=== PATIENT | female | born 1960 | race Caucasian/White ===

== ENCOUNTER 2024-06-25 10:51 | Outpatient (CLI) | payer MEDICARE, MEDICAID, SELFPAY | END 2024-06-25 10:52 | disposition home or self-care (01) | LOC: NFLDREF 10:52 | PROVIDERS: Visit Provider Internal Medicine | DX: E03.9 Hypothyroidism, unspecified (principal) | CPT/HCPCS: 84443 ==

== ENCOUNTER 2024-10-20 09:37 | Outpatient (CLI) | payer MEDICARE, MEDICAID, SELFPAY | END 2024-10-20 09:38 | disposition home or self-care (01) | LOC: NFLDREF 09:38 | PROVIDERS: PCP Internal Medicine; Visit Provider Internal Medicine | DX: E03.9 Hypothyroidism, unspecified (principal); E11.9 Type 2 diabetes mellitus without complications | CPT/HCPCS: 84443 ==

== ENCOUNTER 2024-11-17 09:24 | Outpatient (CLI) | payer MEDICARE, MEDICAID, SELFPAY | END 2024-11-17 09:25 | disposition home or self-care (01) | PROVIDERS: PCP Internal Medicine; Visit Provider Internal Medicine | DX: E11.9 Type 2 diabetes mellitus without complications (principal); E03.9 Hypothyroidism, unspecified; Z86.711 Personal history of pulmonary embolism; Z79.01 Long term (current) use of anticoagulants; Z51.81 Encounter for therapeutic drug level monitoring | CPT/HCPCS: 80053; 80061; 82306 ==

== ENCOUNTER 2025-01-01 10:23 | Emergency (ER) | payer MEDICARE, MEDICAID, SELFPAY ==
--- OUTSIDE RECORDS SUMMARY | 2012-09-05 08:33 | XMS_ITS | Continuity of Care Document ---
Author Organization [facility] Address [address] [address] [place] [address] Phone Care Team Providers Care Food Service Kitchen Supervisor Name Role Phone Unavailable Unavailable Unavailable Medications Medication Instructions Dosage Effective Dates (start - stop) Status Comments loperamide 2 mg tablet take 2 tablet (4MG) by oral route after 1st loose stool and 1 tablet (2 mg) after each next bowel movement; do not exceed 16 mg in 24hrs 4 MG - Active loperamide 2 mg tablet take 2 tablet (4MG) by oral route after 1st loose stool and 1 tablet (2 mg) after each next bowel movement; do not exceed 16 mg in 24hrs 4 MG - No Longer Active Procedures Procedure Date Offic/outpt E&m [facility] 2 13 Offic/outpt E&m [facility] Advance Directives Directive Yes / No Effective Date File Name No Information Encounters Encounter Description Practice Location Reason(s) For Visit Diagnoses Date Provider Providers Copied on Encounter [facility], [address] [address], [place], [place], [id number], [place] [phone] [facility] [address] No Information [address] [facility], [address] [address], [place], [place], [id number], [place] [phone] [facility] [address] No Information 3 No Information Offic/outpt E&m [facility] [address] [facility], [address] [address], [place], [place], [id number], [place] [phone] [facility] No Information 3 No Information Offic/outpt E&m [facility], [address] [address], [place], [place], [id number], [place] tel:[phone] No Information 0 2 No Information Family History Family Member Type Diagnosis Age At Onset No Information Payers Payer name Insurance type Covered libertarian ID Authoriza tion(s) Medicare NGS MB [id number] [place] Medical Assistance [id number] Social History Type Description Quantity Date Captured Comments Sex Female Smoking Status No Information Chief Complaint And Reason For Visit No Information Reason For Referral Reason For Referral No Information History Of Present Illness Encounter Date Complaint History Of Prese nt Illness No Information Functional Status Date Functional Assessmen t No Information Instructions Date Instruction Additional Infor mation No Information Assessments Type Assessment Date No Information Patient Care Teams Name Effective Dates (start - stop) Status Members No Information
[2025-01-01 10:35] VITALS: BP 126/71; PULSE 111; RESP 18; TEMP 36.5; O2SAT 95; BMI 40.2
--- NOTE | 2025-01-01 10:52 | CRLHL7_ITS ---
For Patients: As a result of the Century Cures Act, medical imaging exams and procedure reports are released immediately into your electronic medical record. You may view this report before your referring provider. If you have questions, please contact your health care provider. INDICATION: Shortness of breath, rule out PE. History of lung skin and endometrial cancer.. TECHNIQUE: CT chest PE was acquired with 100 cc Omnipaque 350 IV contrast. COMPARISON: None. FINDINGS: Heart and vasculature: Contrast opacification of the pulmonary arterial tree is adequate. No sign of pulmonary embolism. Heart size is normal. Thoracic aorta and pulmonary artery are normal in caliber.Moderate pericardial effusion. Lungs and pleura: Patchy consolidations and ground-glass opacities in the left upper lobe. Background of mild centrilobular emphysematous changes in the bilateral upper lobes. 5 millimeter nodule in the right middle lobe (5/130) 3 millimeter pleural-based nodule (5/109). Calcified granuloma in the left upper lobe (5/60). Nodular opacity in the left upper lobe along the fissure measuring up to 11 millimeters in diameter (5/81). No pleural effusions, pleural thickening, or pneumothorax. Lymph nodes/mediastinum: No mediastinal, hilar, or axillary adenopathy. Prominent right hilar and subcarinal lymph nodes. Chest wall: No masses. Upper abdomen: No acute or significant findings. Bones: Unremarkable for age. Multilevel degenerative changes. IMPRESSION: 1. No pulmonary embolism identified. 2. Patchy consolidation and ground-glass opacities in the left upper lobe. This is concerning for pneumonia. Given history of lung cancer, malignancy is not entirely excluded. Recommend follow-up CT of the chest post treatment to ensure resolution and assess for underlying nodules or mass lesions. 3. Nodular opacity along the left upper lobe pleura measuring up to 11 millimeters in diameter may reflect a reactive lymph node or focal area of consolidation. This should also be reassessed on repeat imaging. 4. Moderate pericardial effusion. Please note that all CT scans at this facility use dose modulation, iterative reconstruction, and/or weight-based dosing when appropriate to reduce radiation dose to as low as reasonably achievable. Dictated by Елена Torres MD @ 01/01/2025 1:46:19 PM (Electronically Signed)
--- NOTE | 2025-01-01 10:53 | ED.CHESTPAIN ---
HPI - Chest Pain General Chief Complaint: Chest Pain Stated Complaint: chest pain and other concerns Time Seen by Provider: 01/01/25 10:44 History of Present Illness HPI narrative: Patient is a 64-year-old woman who comes in today with 3 days of left-sided chest pain. She states the pain is been escalating since we changed her from Eliquis to Xarelto. Patient sees me in primary care clinic and saw me approximately week ago at which point the patient told me that she had a pericardial effusion and that her corporate sales trainer is recommending a change from Eliquis to Xarelto. We did make that change. Review of records indicate that the pericardial effusion was not near tamponade and needed no further changes. 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 Related Data Home Medications ?Medication ?Instructions ?Recorded ?Confirmed alcohol swabs (Alcohol Prep Pads) pad topical DAILY diabetes mellitus 06/25/24 12/24/24 benzonatate 100 mg capsule 200 mg PO 3XD PRN cough 06/25/24 12/24/24 carboxymethylcellulose sodium 1 % 1 drp ophthalmic (eye) 06/25/24 12/24/24 eye liquid gel drops (Refresh Liquigel) ciprofloxacin 0.3 %-dexamethasone 4 drp otic (ear) BID 06/25/24 12/24/24 0.1 % ear drops,suspension coenzyme Q10 200 mg capsule 200 mg PO QDAY 06/25/24 12/24/24 cyclobenzaprine 10 mg tablet 5 mg PO 3XD PRN muscle spasm 06/25/24 12/24/24 hydromorphone 4 mg tablet 2 mg PO Q4H PRN 06/25/24 12/24/24 ipratropium bromide 17 inhalation 06/25/24 12/24/24 mcg/actuation HFA aerosol inhaler (Atrovent HFA) loperamide 2 mg capsule 2 - 4 mg PO 3XD PRN diarrhea 06/25/24 12/24/24 mometasone 50 mcg/actuation nasal 2 spray intranasal DAILY 06/25/24 12/24/24 spray nystatin 100,000 unit/gram topical topical 06/25/24 12/24/24 powder (Nyamyc) potassium citrate 10 mEq (1,080 10 meq PO BID 01/09/25 07/10/25 mg) tablet,extended release warfarin 6 mg tablet 6 mg PO 3XW 06/25/24 12/24/24 apixaban 5 mg tablet (Eliquis) 5 mg PO BID 11/17/24 12/24/24 Previous Rx's ?Medication ?Instructions ?Recorded diazepam 2 mg tablet 4 mg (2 x 2 mg) PO BID #60 tabs 08/25/24 STRETCH VINYL EXAM GLOVE XL See Rx Instructions .Route 09/16/24 .COMPLEX #200 ea diphenhydramine HCl 50 mg capsule 50 mg PO BID PRN allergy symptoms 10/21/24 (Banophen) #60 caps STRETCH VINYL EXAM GLOVE XL See Rx Instructions .Route 11/10/24 .COMPLEX #200 ea blood sugar diagnostic (OneTouch #450 ea 11/17/24 Ultra Test strips) ergocalciferol (vitamin D2) 1,250 1,250 mcg PO QDAY #90 caps 11/17/24 mcg (50,000 unit) capsule levothyroxine 137 mcg capsule 137 mcg PO QDAY #90 caps 11/17/24 (Tirosint) peg 3350-electrolytes 236 240 ml PO Q10M #4,000 mL 11/25/24 gram-22.74 gram-6.74 gram-5.86 gram solution (Golytely) omeprazole 40 mg-sodium 1 cap PO BID #180 caps 12/09/24 bicarbonate 1.1 gram capsule tirzepatide 10 mg/0.5 mL 10 mg (0.5 mL) subcut QWEEK #6 mL 12/09/24 subcutaneous pen injector (Mounjaro) rivaroxaban 15 mg (42)-20 mg (9) See Rx Instructions PO .COMPLEX 12/24/24 tablets in a starter pack (Xarelto #51 ea DVT-PE Treatment 30-Day Starter) Allergies Allergy/AdvReac Type Severity Reaction Status Date / Time aloe Allergy Mild Verified 01/01/25 10:41 amoxicillin (From Augmentin) Allergy Mild Verified 01/01/25 10:41 clavulanic acid (From Allergy Mild Verified 01/01/25 10:41 Augmentin) metronidazole (From Flagyl) Allergy Mild Verified 01/01/25 10:41 niacin Allergy Mild Verified 01/01/25 10:41 Penicillins Allergy Mild Verified 01/01/25 10:41 Sulfa (Sulfonamide Allergy Mild Verified 01/01/25 10:41 Antibiotics) house dust Allergy Difficulty Verified 01/01/25 10:41 Breathing cats Allergy Mild Uncoded 12/24/24 14:32 skin allergy Allergy Mild Uncoded 12/24/24 14:32 statin drugs Allergy Mild Uncoded 12/24/24 14:32 Review of Systems Status of ROS Denies: 10 or more systems reviewed and unremarkable except as noted in History and below [facility] History Colon polyp ?K63.5 - Polyp of colon (ICD-10) Sinusitis ?J32.9 - Chronic sinusitis, unspecified (ICD-10) Seasonal allergies ?J30.2 - Other seasonal allergic rhinitis (ICD-10) Anxiety ?F41.9 - Anxiety disorder, unspecified (ICD-10) GERD (gastroesophageal reflux disease) ?K21.9 - Gastro-esophageal reflux disease without esophagitis (ICD-10) Pulmonary embolism ?I26.99 - Other pulmonary embolism without acute cor pulmonale (ICD-10) COPD (chronic obstructive pulmonary disease) ?J44.9 - Chronic obstructive pulmonary disease, unspecified (ICD-10) Endometrial cancer ?C54.1 - Malignant neoplasm of endometrium (ICD-10) Lung cancer ?C34.90 - Malignant neoplasm of unspecified part of unspecified bronchus or lung (ICD-10) Hypothyroid ?E03.9 - Hypothyroidism, unspecified (ICD-10) Diabetes ?E11.9 - Type 2 diabetes mellitus without complications (ICD-10) Social History What is your current living situation?: I presently have a place to live Problems where you live: no known problems In the past 12 months, utilities in danger of being shut off: no In past 12 months, lack of transportation kept you from medical appts, meetings, work, or getting things needed for daily living: no In the past 12 mos, have been you worried that your food would run out before you had money to buy more?: sometimes true In the past 12 mos, the food you bought just didn't last and you didn't have money to buy more?: sometimes true How often does anyone, including family, friends and others, physically hurt you: never How often does anyone, including family, friends and others, insult or talk down to you: never How often does anyone, including family, friends and others, threaten you with harm: never How often does anyone, including family, friends and others, scream or curse at you: never Health Related Social Needs: food insecurity (Z59.41) Exam Narrative Exam Narrative: EXAM GENERAL: Patient appears comfortable and well. Port noted over the right chest wall. EYES: No scleral icterus. ENT: Tympanic membranes and oropharynx normal. THYROID: no thyroid nodules or thyromegaly. LYMPH: No supraclavicular or cervical lymphadenopathy. SKIN: Visible skin seen during exam normal or with benign process only. EXT: No dependent lower extremity pedal edema. HEART: Regular rate and rhythm with no murmurs, rubs, or gallops. LUNGS: Clear to auscultation bilaterally with no crackles or wheezes. ABD: Soft, non tender, non distended. PSYCH: Good eye contact, speech is not pressured. Const Vital Signs, click to edit/add: Vital Signs - 24 hr 01/01/25 10:35 Temperature 97.7 F Pulse Rate [Right Pulse Oximeter] 111 H Respiratory Rate 18 Blood Pressure [Right Forearm] 126/71 Pulse Oximetry 95 Oxygen Delivery Method Room Air Course Course ED Course: Her presentation is somewhat confusing. We did send off D-dimer CBC comprehensive metabolic panel troponin EKG CT chest PE protocol will follow up based on those results. Vital Signs Vital signs: Initial Vital Signs Temperature 97.7 F 01/01/25 10:35 Temperature Source Temporal Artery Scan 01/01/25 10:35 Pulse Rate 111 H 01/01/25 10:35 Pulse Rhythm Regular 01/01/25 10:35 Pulse Strength 3+ Normal 01/01/25 10:35 Respiratory Rate 18 01/01/25 10:35 Blood Pressure 126/71 01/01/25 10:35 Blood Pressure Mean 89 01/01/25 10:35 Blood Pressure Position Sitting 01/01/25 10:35 Pulse Oximetry 95 01/01/25 10:35 Oxygen Delivery Method Room Air 01/01/25 10:35 Vital Signs Temperature 97.7 F 01/01/25 10:35 Pulse Rate 111 H 01/01/25 10:35 Respiratory Rate 18 01/01/25 10:35 Blood Pressure 126/71 01/01/25 10:35 Pulse Oximetry 95 01/01/25 10:35 Oxygen Delivery Method Room Air 01/01/25 10:35 Temperature 97.7 F 01/01/25 10:35 Pulse Rate 111 H 01/01/25 10:35 Respiratory Rate 18 01/01/25 10:35 Blood Pressure 126/71 01/01/25 10:35 Pulse Oximetry 95 01/01/25 10:35 Oxygen Delivery Method Room Air 01/01/25 10:35 MDM - Chest Pain MDM Narrative Medical decision making narrative: Patient is a 64-year-old woman who is actually my primary care patient who presents with a very complex presentation. She has a known history of a pericardial effusion which is felt to be not dangerous at this time. Her corporate sales trainer had her see me a recently where we were to change her from Eliquis to Xarelto. We did that the patient was actually doing fairly well until she developed left-sided chest pain. Her troponin is negative her D-dimer is negative but her CT of the chest while it does not show pulmonary emboli does showed pneumonia on the left-hand side. She does have a pericardial effusion. I did review the results with the patient the patient will stay on Xarelto and will add Levaquin for the next 7 days. She will see me back in the office in approximately 5 days will make further recommendations. Lab Data Labs: Lab Results 01/01/25 Range/Units 11:10 WBC 6.37 (4.50-11.00) K/uL RBC 5.35 H (4.00-5.20) m/uL Hgb 15.3 (12.0-16.0) gm/dL Hct 47.2 (33.0-51.0) % MCV 88 (80-100) fL MCH 29 (26-34) pg MCHC 32 (32-36) gm/dL RDW Coeff of Vicente 12.6 (11.5-15.5) % Plt Count 168 (140-440) K/uL Neut % (Auto) 66.9 (42.0-72.0) % Lymph % (Auto) 25.7 (20-44) % Carroll % (Auto) 6.1 (0.0-11.0) % Eos % (Auto) 0.9 (0.0-7.0) % Baso % (Auto) 0.2 (0.0-3.0) % Neut # (Auto) 4.26 (1.7-7.0) K/uL Lymph # (Auto) 1.64 (0.90-2.90) K/uL Carroll # (Auto) 0.40 (0.00-0.90) K/UL Eos # (Auto) 0.06 (0.00-0.50) K/uL Baso # (Auto) 0.01 (0.00-0.30) K/uL Abs Immat Gran (auto) 0.01 (0.00-0.30) K/uL Imm/Tot Granulo (auto) 0.2 % D-Dimer Quant (PE/DVT) < 0.27 (0.00-0.50) ug/ml Sodium 139 (135-149) mmol/L Potassium 4.1 (3.6-5.1) mmol/L Chloride 104 (96-114) mmol/L Carbon Dioxide 30 (20-32) mmol/L Anion Gap 5 L (7-15) mEq/L BUN 15 (7-30) mg/dL Creatinine 0.5 (0.5-1.5) mg/dL Estimated Creat Clear 41.36 Estimated GFR 105 ml/min Glucose 116 H (60-115) mg/dL Calcium 9.4 (8.4-10.6) mg/dL Total Bilirubin 0.3 (0.1-1.5) mg/dL AST 24 (12-35) U/L ALT 15 (4-35) U/L Alkaline Phosphatase 62 (40-150) U/L Troponin I < 0.01 (0.01-0.04) ng/mL Total Protein 7.0 (6.0-8.3) g/dL Albumin 4.2 (3.3-5.0) g/dL Discharge Plan Discharge Clinical Impression: Pneumonia Patient Disposition: Home, Self-Care Condition: Stable Instructions: Community Acquired Pneumonia (ED) Additional Instructions: Levaquin as directed Continue Xarelto Report any change in symptoms Follow-up with Dr. Eden Saturday at 9:00 a.m. Activity Level: No Restrictions Discharge Diet: Regular Prescriptions: No Action loperamide 2 mg capsule 2 - 4 mg PO 3XD PRN (Reason: diarrhea) hydromorphone 4 mg tablet 2 mg PO Q4H PRN cyclobenzaprine 10 mg tablet 5 mg PO 3XD PRN (Reason: muscle spasm) alcohol swabs [Alcohol Prep Pads] Pads, Medicated topical DAILY carboxymethylcellulose sodium [Refresh Liquigel] 1 % drops, liquid gel 1 drp ophthalmic (eye) ciprofloxacin-dexamethasone 0.3-0.1 % drops,suspension 4 drp otic (ear) BID warfarin 6 mg tablet 6 mg PO 3XW mometasone 50 mcg/actuation spray,non-aerosol 2 spray intranasal DAILY benzonatate 100 mg capsule 200 mg PO 3XD PRN (Reason: cough) potassium citrate 10 mEq (1,080 mg) tablet extended release 10 meq PO BID Atrovent HFA 17 mcg/actuation HFA aerosol inhaler inhalation nystatin [Nyamyc] 100,000 unit/gram powder topical coenzyme Q10 200 mg capsule 200 mg PO QDAY Eliquis 5 mg tablet 5 mg PO BID ergocalciferol (vitamin D2) 1,250 mcg (50,000 unit) capsule 1,250 mcg PO QDAY Qty: 90 3RF levothyroxine [Tirosint] 137 mcg capsule 137 mcg PO QDAY Qty: 90 3RF Xarelto DVT-PE Treat 30d Start 15 mg (42)- 20 mg (9) tablets,dose pack See Rx Instructions PO .COMPLEX Qty: 51 0RF Rx Instructions: take one-15 mg tablet twice daily for 21 days, then one-20 mg tablet once daily; must take with meal/food PO diazepam 2 mg tablet 4 mg PO BID Qty: 60 0RF STRETCH VINYL EXAM GLOVE XL See Rx Instructions .ROUTE .COMPLEX Qty: 200 3RF Dose Instruction: USE DIRECTED DAILY NEEDED FOR DIABETES Rx Instructions: USE DIRECTED DAILY NEEDED FOR DIABETES diphenhydramine HCl [Banophen] 50 mg capsule 50 mg PO BID PRN (Reason: allergy symptoms) Qty: 60 2RF STRETCH VINYL EXAM GLOVE XL See Rx Instructions .ROUTE .COMPLEX Qty: 200 3RF Dose Instruction: USE DIRECTED DAILY NEEDED FOR DIABETES Rx Instructions: USE DIRECTED DAILY NEEDED FOR DIABETES (DME) OneTouch Ultra Test Strip See Rx Instructions .ROUTE 3XD Qty: 450 1RF Rx Instructions: test 4-5 times daily peg 3350-electrolytes [Golytely] 236-22.74-6.74 -5.86 gram recon soln 240 ml PO Q10M Qty: 4000 0RF Rx Instructions: until fecal effluent is clear Mounjaro 10 mg/0.5 mL pen injector 10 mg subcut QWEEK Qty: 6 0RF omeprazole-sodium bicarbonate 40-1.1 mg-gram capsule 1 cap PO BID Qty: 180 1RF Follow Up/Referrals: Chuy Eden MD [Primary Care Provider, Internal Medicine] Stand Alone Forms: [facility] Info Instructions
[2025-01-01 11:15] LABS: Hematocrit 47.2 % (33.0-51.0); Hemoglobin* 15.3 gm/dL (12.0-16.0); Immature Granulocytes Abs Auto 0.01 K/uL (0.00-0.30); Immature Granulocytes Pct Auto 0.2 %; Lymphocytes Absolute Auto 1.64 K/uL (0.90-2.90); Mean Corpuscular HGB Conc 32 gm/dL (32-36); Mean Corpuscular Hemoglobin 29 pg (26-34); Mean Corpuscular Volume 88 fL (80-100); RDW Coefficient of Variation % 12.6 % (11.5-15.5); Red Blood Count 5.35 m/uL (4.00-5.20); White Blood Count* 6.37 K/uL (4.50-11.00)
[2025-01-01 11:18] LABS: Slide Review Reflex No
--- OUTSIDE RECORDS SUMMARY | 2025-01-01 11:21 | XMS_ITS | Encounter Summary ---
Author Organization [place] Address [address] [place] [address]. [place] [address] Care Team Providers Care Communications Advisor Name Role Phone Swapna licea Unavailable Unavail able Jonathan Sosa MD Primary Care Provider [phone] Jonathan Sosa MD Unavailable [phone] Anne Lopez MD Unavailable [phone] Ruth Trinidad [facility] Unavailable Ruth Trinidad [facility] Unavailable Encounter Details Date Type Department Care Team (Late st Contact Info) Description 02/15/2023 [facility] [address] [place] [address] Jyothi Reina, RN Social History Tobacco Use Types Packs/Day Years Used Date Smoking Tobacco: Every Day Cigarettes 0.5 35 Started: 01/23/1940; Last attempted to quit: 01/24/1976 Pipe Other Passive Smoke Exposure: Current Smokeless Tobacco: Never Comments:IN PROGRAM WITH OCTOBER O Alcohol Use Standard Drinks/Week Comments No 0 (1 standard drink = 0.6 oz pur e alcohol) PHQ-2 Answer Date Recorded PHQ-2 Score 1 02/06/2023 Comments No Sex and Gender Information Value Date Recorded Sex Assigned at Not on file 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 No / Unsure 02/06/2023 8:05 AM CDT documented as of this encounter Plan of Treatment Not on file documented as of this encounter Visit Diagnoses Not on filedocumented in this encounter Additional Health Concerns Infection Onset Date Last Indicated Resolved Time Rule Out COVID-19 04/17/2023 04/17/2023 04/18/2023 12:03 PM CDT documented as of this encounter Care Teams Communications Advisor Relationship Specialty Start Date End Date Jonathan Sosa MD [address] [place] [address] PCP - General Internal Medicine 02/14/22 Swapna Lockwood Referring Physician sales estimator 12/29/14 Jonathan Sosa MD [address] [place] [address] Assigned PCP 01/17/22 Anne Lopez MD [address] [place] [address] [address] [place] [address] Gastroenterology 08/03/22 Ruth Trinidad RPH [address] [place] [address] Pharmacist Pharmacist Software Quality Tester 09/06/23 10/09/23 Ruth Trinidad RPH [address] [place] [address] Assigned MTM Pharmacist 10/08/23 documented as of this encounter
--- OUTSIDE RECORDS SUMMARY | 2025-01-01 11:21 | XMS_ITS | Encounter Summary ---
Author Organization [place] Address [address] [place] [address] Care Team Providers Care [place] Neck Whipper Name Role Phone Swapna Lockwood Unavailable Unavail able Jonathan Sosa MD Primary Care Provider [phone] Jonathan Sosa MD Unavailable [phone] Anne Lopez MD Unavailable [phone] [facility] Unavailable Ruth Trinidad [facility] Unavailable Reason for Visit * Reason Onset Date Comments Refill Request 03/12/2023 Encounter Details Date Type Department Care Team (Late st Contact Info) Description 03/12/2023 [facility] Medical Advice [address] [place] [address] Jonathan Sosa MD [address] [place] [address] Refill Request Social History Tobacco Use Types Packs/Day Years Used Date Smoking Tobacco: Every Day Cigarettes 0.5 35 Started: 01/23/1940; Last attempted to quit: 01/24/1976 Pipe Other Passive Smoke Exposure: Current Smokeless Tobacco: Never Comments:IN PROGRAM WITH MAY O Alcohol Use Standard Drinks/Week Comments No 0 (1 standard drink = 0.6 oz pur e alcohol) PHQ-2 Answer Date Recorded PHQ-2 Score 1 02/06/2023 Adolescent Education Answer Date Record ed Getting School Help Needed Not on file 03/11 Comments No Sex and Gender Information Value Date Recorded Sex Assigned at Not on file 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 Gender Identity Not on file Sexual Orientation Not on file Occupation Industry Job Start Date Job End Date disabled Not on file Not on file Not on file documented as of this encounter Plan of Treatment Not on file documented as of this encounter Visit Diagnoses Not on filedocumented in this encounter Additional Health Concerns Infection Onset Date Last Indicated Resolved Time Rule Out COVID-19 04/17/2023 04/17/2023 04/18/2023 12:03 PM CDT documented as of this encounter Care Teams [place]ck Whipper Relationship Specialty Start Date End Date Jonathan Sosa MD [address] [facility] [place] [address] PCP - General Internal Medicine 02/14/22 Swapna Lockwood Referring Physician wire brush maker 12/29/14 Jonathan Sosa MD [address] [place] [address] Assigned PCP 01/17/22 Anne Lopez MD [address] [place] [id number] Gastroenterology 08/03/22 Ruth Trinidad RPH [address] [place] [address] Pharmacist Pharmacist Pe Teacher 09/06/23 10/09/23 Ruth Trinidad RPH [address] [place] [address] Assigned MTM Pharmacist 10/08/23 documented as of this encounter
--- OUTSIDE RECORDS SUMMARY | 2025-01-01 11:21 | XMS_ITS | Encounter Summary ---
Author Organization [place] Address [address] [place] [address]. [place] [address] Care Team Providers Care Director Of Leadership Development Name Role Phone Swapna licea Unavailable Unavail able Jonathan Sosa MD Primary Care Provider +- [phone] Jonathan Sosa MD Unavailable [phone] Anne Lopez MD Unavailable [phone] Ruth Trinidad [facility] Unavailable Ruth Trinidad [facility] Unavailable Encounter Details Date Type Department Care Team (Late st Contact Info) Description 02/26/2023 [facility] [address] [place] [address] Andre Tenorio, RN Social History Tobacco Use Types Packs/Day [...] on file 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 Gender Identity Not on file Sexual [...] documented as of this encounter Care Teams Director Of Leadership Development Relationship Specialty Start Date End Date Jonathan Sosa MD [address] [place] [address] PCP - General Internal Medicine 02/14/22 Swapna Lockwood Referring Physician front desk attendant 12/29/14 Jonathan Sosa MD [address] [place] [address] Assigned PCP 01/17/22 Anne Lopez MD [address] [place] [address] [address] [place] [address] Gastroenterology 08/03/22 Ruth Trinidad RPH [address] [place] [address] Pharmacist Pharmacist Inker 09/06/23 10/09/23 Ruth Trinidad RPH [address] [place] [address] Assigned MTM Pharmacist 10/08/23 documented as of this encounter
--- OUTSIDE RECORDS SUMMARY | 2025-01-01 11:21 | XMS_ITS | Encounter Summary ---
Author Organization [place] Address [address] [place] [address]. [place] [address] Care Team Providers Care Controller Mechanic Name Role Phone Swapna licea Nubia Unavailable Unavail able Jonathan Sosa MD Primary Care Provider [phone] Jonathan Sosa MD Unavailable [phone] Anne Lopez MD Unavailable [phone] Ruth Trinidad [facility] Unavailable Ruth Trinidad [facility] Unavailable Encounter Details Date Type Department Care Team (Late st Contact Info) Description 03/26/2023 [facility] Anticoagulation Clinic [address] [place] [address] Andre Tenorio RN Social History Tobacco Use Types Packs/Day [...] on file 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 Gender Identity Not on file Sexual Orientation [...] documented as of this encounter Care Teams Controller Mechanic Relationship Specialty Start Date End Date Jonathan Sosa MD [address] [place] [address] PCP - General Internal Medicine 02/14/22 Swapna Lockwood Referring Physician political reporter 12/29/14 Jonathan Sosa MD [address] [place] [address] Assigned PCP 01/17/22 Anne Lopez MD [address] [place] [address] Gastroenterology 08/03/22 Ruth Trinidad RPH [address] [place] [address] Pharmacist Pharmacist Footwear Sales Coordinator 09/06/23 10/09/23 Ruth Trinidad RPH [address] [place] [address] Assigned MTM Pharmacist 10/08/23 documented as of this encounter
--- OUTSIDE RECORDS SUMMARY | 2025-01-01 11:21 | XMS_ITS | Encounter Summary ---
Author Organization [place] Address [address] [place] [address]. [place] [address] Care Team Providers Care Infant Caregiver Name Role Phone Swapna licea Nubia Unavailable Unavail able Jonathan Sosa MD Primary Care Provider +- [phone] Jonathan Sosa MD Unavailable [phone] Anne Lopez MD Unavailable [phone] Ruth Trinidad [facility] Unavailable Ruth Trinidad [facility] Unavailable Encounter Details Date Type Department Care Team (Late st Contact Info) Description 03/13/2023 [facility] [address] [place] [address] Andre Tenorio RN Social History [...] on file 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 Gender Identity Not on file [...] documented as of this encounter Care Teams Infant Caregiver Relationship Specialty Start Date End Date Jonathan Sosa MD [address] [place] [address] PCP - General Internal Medicine 02/14/22 Swapna Lockwood Referring Physician ore bridge operator 12/29/14 Jonathan Sosa MD [address] [place] [address] Assigned PCP 01/17/22 Anne Lopez MD [address] [place] [id number] Gastroenterology 08/03/22 Ruth Trinidad RPH [address] [place] [address] Pharmacist Pharmacist Programmer Analyst Consultant 09/06/23 10/09/23 Ruth Trinidad RPH [address] [place] [address] Assigned MTM Pharmacist 10/08/23 documented as of this encounter
--- OUTSIDE RECORDS SUMMARY | 2025-01-01 11:21 | XMS_ITS | Encounter Summary ---
Author Organization [facility] Address [address] [place] [address]. [place] [address] Care Team Providers Care Marketing Analytics Manager Name Role Phone Swapna licea Unavailable Unavail able Jonathan Sosa MD Primary Care Provider [phone] Jonathan Sosa MD Unavailable [phone] Anne Lopez MD Unavailable [phone] Ruth Trinidad [facility] Unavailable Ruth Trinidad [facility] Unavailable Encounter Details Date Type Department Care Team (Late st Contact Info) Description 03/05/2023 [facility]tico[facility] [address] [place] [address] Mira Mendez, RN Social History Tobacco Use Types Packs/Day [...] on file 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 Gender Identity Not on file Sexual Orientation [...] documented as of this encounter Care Teams Marketing Analytics Manager Relationship Specialty Start Date End Date Jonathan Sosa MD [address] [place] [address] PCP - General Internal Medicine 02/14/22 Swapna Lockwood Referring Physician medical records custodian 12/29/14 Jonathan Sosa MD [address] [place] [address] Assigned PCP 01/17/22 Anne Lopez MD [address] [place] [address] Gastroenterology 08/03/22 Ruth Trinidad RPH [address] [place] [address] Pharmacist Pharmacist Rod Cup Filler 09/06/23 10/09/23 Ruth Trinidad RPH [address] [place] [address] Assigned MTM Pharmacist 10/08/23 documented as of this encounter
--- OUTSIDE RECORDS SUMMARY | 2025-01-01 11:21 | XMS_ITS | Encounter Summary ---
Author Organization [place] Address [address] [place] [address]. [place] [address] Care Team Providers Care Junk Dealer Name Role Phone Swapna licea Unavailable Unavail able Jonathan Sosa MD Primary Care Provider [phone] Jonathan Sosa MD Unavailable [phone] Anne Lopez MD Unavailable [phone] Ruth Trinidad [facility] Unavailable Ruth Trinidad [facility] Unavailable Encounter Details Date Type Department Care Team (Late st Contact Info) Description 05/04/2022 [facility] Anticoagulation [facility] [address] [place] [address] Andre Tenorio, RN Social History Tobacco Use Types Packs/Day Years Used Date Smoking Tobacco: Every Day Cigarettes 0.5 35 Started: 01/23/1940; Last attempted to quit: 01/24/1976 Pipe Other Smokeless Tobacco: Never Comments:IN PROGRAM WITH OCTOBER O Alcohol Use Standard Drinks/Week Comments No 0 (1 standard drink = 0.6 oz pur e alcohol) PHQ-2 Answer Date Recorded PHQ-2 Score 2 02/14/2022 Comments No Sex and Gender Information Value Date Recorded Sex Assigned at Not on file 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 No / Unsure 04/25/2022 9:48 AM ASSET MANAGEMENT COORDINATOR documented as of this encounter Plan of Treatment Not on file documented as of this encounter Visit Diagnoses Not on filedocumented in this encounter Additional Health Concerns Infection Onset Date Last Indicated Resolved Time Rule Out COVID-19 04/17/2023 04/17/2023 04/18/2023 12:03 PM CDT documented as of this encounter Care Teams Junk Dealer Relationship Specialty Start Date End Date Jonathan Sosa MD [address] [place] [address] PCP - General Internal Medicine 02/14/22 Swapna Lockwood Referring Physician brokerage clerk 12/29/14 Jonathan Sosa MD [address] [place] [address] Assigned PCP 01/17/22 Anne Lopez MD [address] [place] [address] Gastroenterology 08/03/22 Ruth Trinidad RPH [address] [place] [address] Pharmacist Pharmacist Garnett Machine Operator 09/06/23 10/09/23 Ruth Trinidad RPH [address] [place] [address] Assigned MTM Pharmacist 10/08/23 documented as of this encounter
--- OUTSIDE RECORDS SUMMARY | 2025-01-01 11:21 | XMS_ITS | Encounter Summary ---
Author Organization [place] Address [address] [place] [address]. [place] [address] Care Team Providers Care Meteorological Aide Name Role Phone Swapna Lockwood Unavailable Unavail able Jonathan Sosa MD Primary Care Provider [phone] Jonathan Sosa MD Unavailable [phone] Anne Lopez MD Unavailable [phone] Ruth Trinidad [facility] Unavailable Ruth Trinidad [facility] Unavailable Encounter Details Date Type Department Care Team (Late st Contact Info) Description 04/30/2022 [facility] Anticoagulation [facility] [address] [place] [address] Andre Tenorio, RN Social History [...] on file 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 No / Unsure 04/25/2022 9:48 AM SERGEANT AT ARMS documented as of this encounter Plan of Treatment Not on file documented as of this encounter Visit Diagnoses Not on filedocumented in this encounter Additional Health Concerns Infection Onset Date Last Indicated Resolved Time Rule Out COVID-19 04/17/2023 04/17/2023 04/18/2023 12:03 PM CDT documented as of this encounter Care Teams Meteorological Aide Relationship Specialty Start Date End Date Jonathan Sosa MD [address] [place] [address] PCP - General Internal Medicine 02/14/22 Swapna Lockwood Referring Physician director of technology 12/29/14 Jonathan Sosa MD [address] [place] [address] Assigned PCP 01/17/22 Anne Lopez MD [address] [place] [address] Gastroenterology 08/03/22 Ruth Trinidad RPH [address] [place] [address] Pharmacist Pharmacist Visual Effects Artist 09/06/23 10/09/23 Ruth Trinidad RPH [address] [place] [address] Assigned MTM Pharmacist 10/08/23 documented as of this encounter
--- OUTSIDE RECORDS SUMMARY | 2025-01-01 11:21 | XMS_ITS | Encounter Summary ---
Author Organization [place] Address [address] [place] [address]. [place] [address] Care Team Providers Care Conference Specialist Name Role Phone Swapna licea Nubia Unavailable Unavail able Jonathan Sosa MD Primary Care Provider [phone]- [phone] Jonathan Sosa MD Unavailable [phone] Anne Lopez MD Unavailable [phone] Ruth Trinidad [facility] Unavailable Ruth Trinidad [facility] Unavailable Encounter Details Date Type Department Care Team (Late st Contact Info) Description 02/13/2023 [facility] Anticoagulation Clinic [address] [place] [address] Andre Tenorio, RN Social History [...] on file 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 Gender Identity Not on file Sexual Orientation [...] documented as of this encounter Care Teams Conference Specialist Relationship Specialty Start Date End Date Jonathan Sosa MD [address] [place] [address] PCP - General Internal Medicine 02/14/22 Swapna Lockwood Referring Physician preliminary school psychologist 12/29/14 Jonathan Sosa MD [address] [place] [address] Assigned PCP 01/17/22 Anne Lopez MD [address] [place] [address] [address] [place] [address] Gastroenterology 08/03/22 Ruth Trinidad RPH [address] [place] [address] Pharmacist Pharmacist Parcel Post Carrier 09/06/23 10/09/23 Ruth Trinidad RPH [address] [place] [address] Assigned MTM Pharmacist 10/08/23 documented as of this encounter
--- OUTSIDE RECORDS SUMMARY | 2025-01-01 11:22 | XMS_ITS | Encounter Summary ---
Author Organization [place] Address [address] [place] [address]. [place] [address] Care Team Providers Care Jewelry Department Supervisor Name Role Phone Swapna licea Unavailable Unavail able Jonathan Sosa MD Primary Care Provider [phone] Jonathan Sosa MD Unavailable [phone] Anne Lopez MD Unavailable [phone] Ruht Trinidad [facility] Unavailable Ruth Trinidad [facility] Unavailable Encounter Details Date Type Department Care Team (Late st Contact Info) Description 06/11/[address] [facility] [address] 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 Gender Identity Not on file Sexual Orientation [...] documented as of this encounter Care Teams Jewelry Department Supervisor Relationship Specialty Start Date End Date Jonathan Sosa MD [address] [place] [address] PCP - General Internal Medicine 02/14/22 Swapna Lockwood Referring Physician fire crew worker 12/29/14 Jonathan Sosa MD [address] [place] [address] Assigned PCP 01/17/22 Anne Lopez MD [address] [place] [address] Gastroenterology 08/03/22 Ruth Trinidad RPH [address] [place] [address] Pharmacist Pharmacist Manager Utility 09/06/23 10/09/23 Ruth Trinidad RPH [address] [place] [address] Assigned MTM Pharmacist 10/08/23 documented as of this encounter
--- OUTSIDE RECORDS SUMMARY | 2025-01-01 11:22 | XMS_ITS | Encounter Summary ---
Author Organization [place] Address [address] [place] [address]. [place] [address] Care Team Providers Care Banquet Cook Name Role Phone Swapna licea Unavailable Unavail able Jonathan Sosa MD Primary Care Provider [phone] Jonathan Sosa MD Unavailable [phone] Anne Lopez MD Unavailable [phone] Ruth Trinidad [facility] Unavailable Encounter Details Date Type Department Care Team (Late st Contact Info) Description 11/20/2024 [facility] [address] [place] [address] System, Provider Not In Social History Tobacco Use Types Packs/Day Years Used Date Smoking Tobacco: Every Day Cigarettes 0.5 35 Started: 05/17/1988; Last attempted to quit: 05/17/2023 Pipe Other Passive Smoke Exposure: Current Smokeless Tobacco: Never Comments:IN PROGRAM WITH OCTOBER O Alcohol Use Standard Drinks/Week Comments No 0 (1 standard drink = 0.6 oz pur e alcohol) Social Connection and Isolation Panel [NHANES] A nswer Date Recorded Frequency of Communication with Friends and Fami ly Not on file 05/02/2024 How often do you get together with friends or re latives? Never 05/02/2024 Attends Judaism Services Not on file 05/02 Active Member of Clubs or Organizations Not on f ile 05/02/2024 Attends Club or Organization Meetings Not on francisca e 05/02/2024 Marital Status Not on file 05/02/2024 PHQ-2 Answer Date Recorded PHQ-2 Score 0 05/05/2024 [facility] [place] of Occupat ional Health - Occupational Stress Questionnaire Answer Date Recorded Do you feel stress - tense, restless, nervous, or anxious, or unable to sleep at night because your mind is troubled all the time - these days? Very much 05/02/2024 Exercise Vital Sign Answer Date Recorde d On average, how many days pe r week do you engage in moderate to strenuous exercise (like a brisk walk)? 2 days 05/02/2024 On average, how many minutes do you engage in exercise at this level? 10 min 05/02/2024 Adolescent Education Answer Date Record ed Getting School Help Needed Not on file 03/11 Food Insecurity Answer Date Recorded Within the past 12 months, d id you worry that your food would run out before you got money to buy more? Yes 1 07/02/2023 Within the past 12 months, d id the food you bought just not last and you didn t have money to get more? Patient declined 05/02/2024 Housing Stability Answer Date Recorded Do you have housing? (Housin g is defined as stable permanent housing and does not include staying outside in a car, in a tent, in an abandoned building, in an overnight care home, or couch-surfing.) Yes 05/02/2024 Are you worried about losing your housing? Patie nt declined 05/02/2024 Financial Resource Strain Answer Date R ecorded Within the past 12 months, h ave you or your family members you live with been unable to get utilities (heat, electricity) when it was really needed? No 05/02/2024 Transportation Needs Answer Date Record ed Within the past 12 months, h as lack of transportation kept you from medical appointments, getting your medicines, non-medical meetings or appointments, work, or from getting things that you need? Yes 05/02/2024 Interpersonal Safety Answer Date Record ed Do you feel physically and e motionally safe where you currently live? Yes 05/05/2024 Within the past 12 months, h ave you been hit, slapped, kicked or otherwise physically hurt by someone? No 05/05/2024 Within the past 12 months, h ave you been humiliated or emotionally abused in other ways by your partner or ex-partner? No 05/05/2024 Comments No Sex and Gender Information Value Date Recorded Sex Assigned at Not on file Legal Sex Female 3:[address] OF [address] Gender Identity Not on file Sexual Orientation Not on file Occupation Industry Job Start Date Job End Date disabled Not on file Not on file Not on file documented as of this encounter Plan of Treatment Not on file documented as of this encounter Procedures Procedure Name Priority Date/Time Associated Diagnosis Comments INR (EXTERNAL RESULT) Routine 11/20/2024 3:13 PM CDT documented in this encounter Results * INR (External Result) (11/20/2024 3:13 PM CDT) INR HOME MONITORING 2.5 2.5 - 3 [facility] Comment:RCS - IVR Result Fro m Phone #: 11/20/2024 3:13 PM CDT 11/20/2024 3:13 PM CDT us Provider Not In System LAB - HIM EXTERNAL RESULT Final Result [facility] [address] [place] [address] documented in this encounter Visit Diagnoses Not on filedocumented in this encounter Care Teams Banquet Cook Relationship Specialty Start Date End Date Jonathan Sosa MD [address] [place] [address] PCP - General Internal Medicine 02/14/22 Swapna Lockwood Referring Physician die out worker 12/29/14 Jonathan Sosa MD [address] [place] [address] Assigned PCP 01/17/22 Anne Lopez MD [address] [place] [address] [address] [place], [place] [id number] Gastroenterology 08/03/22 Ruth Trinidad RP [address] [place] [address] Assigned MTM Pharmacist 10/08/23 documented as of this encounter
--- OUTSIDE RECORDS SUMMARY | 2025-01-01 11:22 | XMS_ITS | Encounter Summary ---
Author Organization [place] Address [address] [place] [address]. [place] [address] Care Team Providers Care Blueprint Blocker Name Role Phone vinayak Swapna Nubia Unavailable Unavail able Jonathan oSsa MD Primary Care Provider [phone] Jonathan Sosa MD Unavailable [phone] Anne Lopez MD Unavailable [phone] Ruth Trinidad [facility] Unavailable Encounter Details Date Type Department Care Team (Late st Contact Info) Description 10/26/2024 Results Follow-Up [facility] [address] [place] [address] Nicole Avila RN Social History Tobacco Use Types Packs/Day [...] friends or re latives? 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 Gender Identity Not on file Sexual Orientation Not on file Occupation Industry Job Start Date Job End Date disabled Not on file Not on file Not on file documented as of this encounter Plan of Treatment Not on file documented as of this encounter Visit Diagnoses Not on filedocumented in this encounter Care Teams Blueprint Blocker Relationship Specialty Start Date End Date Jonathan Sosa MD [address] [place] [address] PCP - General Internal Medicine 02/14/22 Swapna Lockwood Referring Physician eligibility clerk 12/29/14 Jonathan Sosa MD [address] [place] [address] Assigned PCP 01/17/22 Anne Lopez MD [address] [place] [address] [address] [place], [place] [address] Gastroenterology 08/03/22 Ruth Trinidad RPH [address] [place], [place] [address] Assigned MTM Pharmacist 10/08/23 documented as of this encounter
--- OUTSIDE RECORDS SUMMARY | 2025-01-01 11:22 | XMS_ITS | Encounter Summary ---
Author Organization [place] Address [address] [place] [address]. [place] [address] Care Team Providers Care Packing Room Inspector Name Role Phone Swapna licea Unavailable Unavail able Jonathan Sosa MD Primary Care Provider [phone] Jonathan Sosa MD Unavailable [phone] Anne Lopez MD Unavailable [phone] Ruth Trinidad [facility] Unavailable Ruth Trinidad [facility] Unavailable Encounter Details Date Type Department Care Team (Late st Contact Info) Description 06/29/2022 [facility] [address] [place] [address] Andre Tenorio, RN Social History [...] on file 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 Gender Identity Not on file Sexual Orientation [...] documented as of this encounter Care Teams Packing Room Inspector Relationship Specialty Start Date End Date Jonathan Sosa MD [address] [place] [address] PCP - General Internal Medicine 02/14/22 Swapna Lockwood Referring Physician glaze handler 12/29/14 Jonathan Sosa MD [address] [place] [address] Assigned PCP 01/17/22 Anne Lopez MD [address] [place] [id number] Gastroenterology 08/03/22 Ruth Trinidad RPH [address] [place] [address] Pharmacist Pharmacist Dual Rate Dealer 09/06/23 10/09/23 Ruth Trinidad RPH [address] [place] [address] Assigned MTM Pharmacist 10/08/23 documented as of this encounter
--- OUTSIDE RECORDS SUMMARY | 2025-01-01 11:22 | XMS_ITS | Encounter Summary ---
Author Organization [place] Address [address] [place] [address]. [place] [address] Care Team Providers Care Senior Linux Engineer Name Role Phone Swapna licea Unavailable Unavail able Jonathan Sosa MD Primary Care Provider [phone] Jonathan Sosa MD Unavailable [phone] Anne Lopez MD Unavailable [phone] Ruth Trinidad [facility] Unavailable Ruth Trinidad [facility] Unavailable Encounter Details Date Type Department Care Team (Late st Contact Info) Description 06/01/2022 [facility] [address] [place] [address] Andre Tenorio, RN Social History [...] on file 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 No / Unsure 05/09/2022 12:44 PM SOLDERER PRODUCTION LINE documented as of this encounter Plan of Treatment Not on file documented as of this encounter Visit Diagnoses Not on filedocumented in this encounter Additional Health Concerns Infection Onset Date Last Indicated Resolved Time Rule Out COVID-19 04/17/2023 04/17/2023 04/18/2023 12:03 PM CDT documented as of this encounter Care Teams Senior Linux Engineer Relationship Specialty Start Date End Date Jonathan Sosa MD [address] [place] [address] PCP - General Internal Medicine 02/14/22 Swapna Lockwood Referring Physician bottle blower 12/29/14 Jonathan Sosa MD [address] [place] [address] Assigned PCP 01/17/22 Anne Lopez MD [address] [place] [address] Gastroenterology 08/03/22 Ruth Trinidad RPH [address] [place] [address] Pharmacist Pharmacist Casing Cleaner 09/06/23 10/09/23 Ruth Trinidad RPH [address] [place] [address] Assigned MTM Pharmacist 10/08/23 documented as of this encounter
--- OUTSIDE RECORDS SUMMARY | 2025-01-01 11:22 | XMS_ITS | Encounter Summary ---
Author Organization [place] Address [address] [place] [address]. [place] [address] Care Team Providers Care Employee Welfare Manager Name Role Phone Swapna licea Nubia Unavailable Unavail able Jonathan Sosa MD Primary Care Provider [phone] Jonathan Sosa MD Unavailable [phone] Anne Lopez MD Unavailable [phone] Ruth Trinidad [facility] Unavailable Ruth Trinidad [facility] Unavailable Encounter Details Date Type Department Care Team (Late st Contact Info) Description 03/26/2023 [facility] [address] [place] [address] Andre Tenorio RN Social History [...] on file 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 Gender Identity Not on file Sexual Orientation [...] documented as of this encounter Care Teams Employee Welfare Manager Relationship Specialty Start Date End Date Jonathan Sosa MD [address] [place] [address] PCP - General Internal Medicine 02/14/22 Swapna Lockwood Referring Physician train system operator 12/29/14 Jonathan Sosa MD [address] [place] [address] Assigned PCP 01/17/22 Anne Lopez MD [address] [place] [address] Gastroenterology 08/03/22 Ruth Trinidad RPH [address] [place] [address] Pharmacist Pharmacist Calker 09/06/23 10/09/23 Ruth Trinidad RPH [address] [place] [address] Assigned MTM Pharmacist 10/08/23 documented as of this encounter
--- OUTSIDE RECORDS SUMMARY | 2025-01-01 11:22 | XMS_ITS | Encounter Summary ---
Author Organization [place] Address [address] [place] [address]. [place] [address] Care Team Providers Care Software Installation Engineer Name Role Phone Swapna licea Nubia Unavailable Unavail able Jonathan Sosa MD Primary Care Provider [phone] Jonathan Sosa MD Unavailable [phone] Anne Lopez MD Unavailable [phone] Ruth Trinidad [facility] Unavailable Encounter Details Date Type Department Care Team (Late st Contact Info) Description 12/28/2024 [facility] [address] [place] [phone] Concepcion Knight, RN Social History Tobacco Use Types Packs/Day [...] friends or re latives? 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 Gender Identity Not on file Sexual Orientation Not on file Occupation Industry Job Start Date Job End Date disabled Not on file Not on file Not on file documented as of this encounter Plan of Treatment Not on file documented as of this encounter Visit Diagnoses Not on filedocumented in this encounter Care Teams Software Installation Engineer Relationship Specialty Start Date End Date Jonathan Sosa MD [address] [place] [address] PCP - General Internal Medicine 02/14/22 Swapna Lockwood Referring Physician reaming machine operator for plastic 12/29/14 Jonathan Sosa MD [address] [place] [address] Assigned PCP 01/17/22 Anne Lopez MD [address] [place] [address] [address] [place], [place] [address] Gastroenterology 08/03/22 Ruth Trinidad RPH [address] [place], [place] [address] Assigned MTM Pharmacist 10/08/23 documented as of this encounter
--- OUTSIDE RECORDS SUMMARY | 2025-01-01 11:22 | XMS_ITS | Encounter Summary ---
Author Organization [place] Address [address] [place] [address]. [place] [address] Care Team Providers Care Grinding Operator Name Role Phone vinayak Swapna Nubia Unavailable Unavail able Jonathan Sosa MD Primary Care Provider [phone] Jonathan Sosa MD Unavailable [phone] Anne Lopez MD Unavailable [phone] [facility] Unavailable Encounter Details Date Type Department Care Team (Late st Contact Info) Description 11/10/2024 Results Follow-Up [facility] [address] [place] [phone] Vale Sarabia RN Social History Tobacco Use Types Packs/Day [...] friends or re latives? 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 Gender Identity Not on file Sexual Orientation Not on file Occupation Industry Job Start Date Job End Date disabled Not on file Not on file Not on file documented as of this encounter Plan of Treatment Not on file documented as of this encounter Visit Diagnoses Not on filedocumented in this encounter Care Teams Grinding Operator Relationship Specialty Start Date End Date Jonathan Sosa MD [address] [place] [address] PCP - General Internal Medicine 02/14/22 Swapna Lockwood Referring Physician mechanic welder truck driver 12/29/14 Jonathan Sosa MD [address] [place] [address] Assigned PCP 01/17/22 Anne Lopez MD [address] [place] [address] 36 [place], [place] [address] Gastroenterology 08/03/22 Ruth Trinidad RPH [address] [place], [place] 47[address] Assigned MTM Pharmacist 10/08/23 documented as of this encounter
--- OUTSIDE RECORDS SUMMARY | 2025-01-01 11:22 | XMS_ITS | Encounter Summary ---
Author Organization [place] Address [address] [place] [address]. [place] [address] Care Team Providers Care Insurance Claims Clerk Name Role Phone vinayak Swapna Nubia Unavailable Unavail able Jonathan Sosa MD Primary Care Provider [phone]- [phone] Jonathan Sosa MD Unavailable [phone] Anne Lopez MD Unavailable [phone] Ruth Trinidad [facility] Unavailable Encounter Details Date Type Department Care Team (Late st Contact Info) Description 10/22/2024 Results Follow-Up [facility] [address] [place] [phone] Vikas Obando RN Social History Tobacco Use Types Packs/Day [...] friends or re latives? 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 Gender Identity Not on file Sexual Orientation Not on file Occupation Industry Job Start Date Job End Date disabled Not on file Not on file Not on file documented as of this encounter Plan of Treatment Not on file documented as of this encounter Visit Diagnoses Not on filedocumented in this encounter Care Teams Insurance Claims Clerk Relationship Specialty Start Date End Date Jonathan Sosa MD [address] [place] [address] PCP - General Internal Medicine 02/14/22 Swapna Lockwood Referring Physician armored service technician 12/29/14 Jonathan Sosa MD [address] [place] [address] Assigned PCP 01/17/22 Anne Lopez MD [address] [place] [address] [address] [place], [place] [address] Gastroenterology 08/03/22 Ruth Trinidad RPH [address] [place], [place] [address]462 Assigned MTM Pharmacist 10/08/23 documented as of this encounter
--- OUTSIDE RECORDS SUMMARY | 2025-01-01 11:22 | XMS_ITS | Encounter Summary ---
Author Organization [facility] Address [address] [place] [address]. [place] [address] Care Team Providers Care Insulation Batting Machine Operator Name Role Phone vinayak Swapna Nubia Unavailable Unavail able Jonathan Sosa MD Primary Care Provider [phone] Jonathan Sosa MD Unavailable [phone] Anne Lopez MD Unavailable [phone] Ruth Trinidad [facility] Unavailable Encounter Details Date Type Department Care Team (Latest Contact Info) Description 11/20/2024 Anticoagulation Therapy Visit [facility] [address] [place] [address] Jacek Verdin, RN History of pulmonary embolism (Primary Dx); Deep vein thrombosis (DVT) of distal vein of lower extremity, unspecified chronicity, unspecified laterality (H) Social History Tobacco Use Types Packs/Day Years [...] friends or re latives? Never 05/02/2024 Attends Jain Services Not on file 05/02 Active Member of Clubs or Organizations Not on f ile 05/02/2024 Attends Club or Organization Meetings Not on francisca e 05/02/2024 Marital Status Not on file 05/02/2024 PHQ-2 Answer Date Recorded PHQ-2 Score 0 05/05/2024 [facility] of Occupat ional Health - Occupational Stress [...] Answer Date Recorded Do you have housing? (Taras soni is defined as stable permanent housing and does not include staying outside in a car, in a tent, in an abandoned building, in an overnight usp, or couch-surfing.) Yes 05/02/2024 Are you worried about losing your housing? 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 (Goal INR 2.5-3.0) Recent labs: (last 7 days) 11/20/24 1513 INR 2.5 ASSESSMENT Source(s): Chart Review Previous INR was Subtherapeutic Medication, diet, health changes since last INR chart reviewed; none identified PLAN Recommended plan for no diet, medication or health factor changes affecting INR Dosing Instructions: Continue your current warfarin dose with next INR in 1 week Summary As of 11/20/2024 Full warfarin instructions: 6 mg every Sat, Sat; 5 mg all other days Next INR check: 11/27/2024 Telephone call with Estrellita who verbalizes understanding and agrees to plan and who agrees to plan and repeated back plan correctly Patient to recheck with home meter Education provided: Please call back if any changes to your diet, medications or how you've been taking warfarin Plan made per [facility] anticoagulation protocol Jacek Verdin RN 11/20/2024 Anticoagulation Clinic [facility] for routing messages: connie ANTICOAG HOME MONITORING ACC patient phone line: [phone] Anticoagulation Episode Summary Current INR goal: 2.5-3.0 TTR: 55.4% (1 y) Target end date: Indefinite Send INR reminders to: ANTICOAG HOME MONITORING Indications History of pulmonary embolism [Z86.711] Deep vein thrombosis (DVT) of distal vein of lower extremity unspecified chronicity unspecified laterality (H) [I82.4Z9] Comments: 2.5-3.0 Goal Range updated 06/22/2022 [facility]- home meter, [facility] transfer Anticoagulation Care Providers Provider Role Specialty Phone number Jonathan Sosa MD Referring Internal Medicine [phone] documented in this encounter Plan of Treatment Not on file documented as of this encounter Visit Diagnoses Diagnosis History of pulmonary embolism- Primary Personal history of pulmonary embolism Deep vein thrombosis (DVT) of distal vein of lower extremity, unspecified chronicity, unspecified laterality (H) documented in this encounter Care Teams Insulation Batting Machine Operator Relationship Specialty Start Date End Date Jonathan Sosa MD [address] [place], [place] [id number] PCP - General Internal Medicine 02/14/22 Swapna Lockwood Referring Physician granite polisher machine 12/29/14 Jonathan Sosa MD [address] [place] [address] Assigned PCP 01/17/22 Anne Lopez MD [address] [place] [address] 36 [place], [place] [address] Gastroenterology 08/03/22 Ruth Trinidad RPH [address] [place], [place] [address] Assigned MTM Pharmacist 10/08/23 documented as of this encounter
--- OUTSIDE RECORDS SUMMARY | 2025-01-01 11:22 | XMS_ITS | Encounter Summary ---
Author Organization [facility] Address [address] [place] [address]. [place] [address] Care Team Providers Care Metallurgical Or Materials Technician Name Role Phone vinayakAndreSwapna Nubia Unavailable Unavail able Jonathan Sosa MD Primary Care Provider [phone] Jonathan Sosa MD Unavailable [phone] Anne Lopez MD Unavailable [phone] Ruth Trinidad [facility] Unavailable Reason for Visit * Reason Onset Date Comments Anticoagulation Overdue 11/18/2024 Encounter Details Date Type Department Care Team (Latest Contact Info) Description 11/18/2024 Documentation Only [facility] Anticoagulation Clinic [address] [place] [phone] Isis Velez RN Anticoagulation Overdue Social History Tobacco Use Types Packs/Day Years [...] friends or re latives? Never 05/02/2024 Attends Hoahaoism Services Not on file 05/02 Active Member of Clubs or Organizations Not on f ile 05/02/2024 Attends Club or Organization Meetings Not on francisca e 05/02/2024 Marital Status Not on file 05/02/2024 PHQ-2 Answer Date Recorded PHQ-2 Score 0 05/05/2024 [facility] - Occupational Stress Questionnaire Answer Date [...] Date Recorded Do you have housing? 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 Mychart sent. Isis Velez RN 11/18/2024 Anticoagulation Clinic [facility] [employer] for routing messages: p ANTICOAG HOME MONITOR[facility] ACC patient phone line: [phone] documented in this encounter Plan of Treatment Not on file documented as of this encounter Visit Diagnoses Not on filedocumented in this encounter Care Teams Metallurgical Or Materials Technician Relationship Specialty Start Date End Date Jonathan Sosa MD [address] [place], [place] [address] PCP - General Internal Medicine 02/14/22 Swapna Lockwood Referring Physician locomotive engineer 12/29/14 Jonathan Sosa MD [address] [place] [address] Assigned PCP 01/17/22 Anne Lopez MD [facility] [address] [place], [place] [address] Gastroenterology 08/03/22 Ruth Trinidad [facility] [address] [place] [address] Assigned MTM Pharmacist 10/08/23 documented as of this encounter
--- OUTSIDE RECORDS SUMMARY | 2025-01-01 11:22 | XMS_ITS | Encounter Summary ---
Author Organization [place] Address [address] [place] [address]. [place] [address] Care Team Providers Care Wardrobe Technician Name Role Phone vinayak Swapna Nubia Unavailable Unavail able Jonathan Sosa MD Primary Care Provider [phone] Jonathan Sosa MD Unavailable [phone] Anne Lopez MD Unavailable [phone] Ruth Trinidad [facility] Unavailable Encounter Details Date Type Department Care Team (Late st Contact Info) Description 12/11/2024 Results Follow-Up [facility] [address] [place] [phone] Concepcion Knight RN Social History Tobacco Use Types Packs/Day [...] friends or re latives? 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 Gender Identity Not on file Sexual Orientation Not on file Occupation Industry Job Start Date Job End Date disabled Not on file Not on file Not on file documented as of this encounter Plan of Treatment Not on file documented as of this encounter Visit Diagnoses Not on filedocumented in this encounter Care Teams Wardrobe Technician Relationship Specialty Start Date End Date Jonathan Sosa MD [address] [place] [address] PCP - General Internal Medicine 02/14/22 Swapna Lockwood Referring Physician medical receptionist biller 12/29/14 Jonathan Sosa MD [address] [place] [address] Assigned PCP 01/17/22 Anne Lopez MD [address] [place] [address] 36 [place], [place] [address] Gastroenterology 08/03/22 Ruth Trinidad RPH [address] [place], [place] [address] Assigned MTM Pharmacist 10/08/23 documented as of this encounter
--- OUTSIDE RECORDS SUMMARY | 2025-01-01 11:22 | XMS_ITS | Encounter Summary ---
Author Organization [place] Address [address] [place] [address]. [place] [address] Care Team Providers Care Store Facility Technician Name Role Phone vinayakAndreSwapna Nubia Unavailable Unavail able Jonathan Sosa MD Primary Care Provider [phone] Jonathan Sosa MD Unavailable [phone] Anne Lopez MD Unavailable [phone] Ruth Trinidad [facility] Unavailable Encounter Details Date Type Department Care Team (Late st Contact Info) Description 10/30/2024 Results Follow-Up [facility] [address] [place] [phone] Mary Kay Lucio, RN Social History Tobacco Use Types Packs/Day [...] friends or re latives? 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 Gender Identity Not on file Sexual Orientation Not on file Occupation Industry Job Start Date Job End Date disabled Not on file Not on file Not on file documented as of this encounter Plan of Treatment Not on file documented as of this encounter Visit Diagnoses Not on filedocumented in this encounter Care Teams Store Facility Technician Relationship Specialty Start Date End Date Jonathan Sosa MD [address] [place] [address] PCP - General Internal Medicine 02/14/22 Swapna Lockwood Referring Physician bait tier 12/29/14 Jonathan Sosa MD [address] [place] [address] Assigned PCP 01/17/22 Anne Lopez MD [address] [place] [address] 36 [place], [place] [address] Gastroenterology 08/03/22 Ruth Trinidad RP [address] [place], [place] 47[address] Assigned MTM Pharmacist 10/08/23 documented as of this encounter
--- OUTSIDE RECORDS SUMMARY | 2025-01-01 11:22 | XMS_ITS | Encounter Summary ---
Author Organization [place] Address [address] [place] [address]. [place] [address] Care Team Providers Care Coil Machine Supervisor Name Role Phone Swapna licea Nubia Unavailable Unavail able Jonathan Sosa MD Primary Care Provider [phone] Jonathan Sosa MD Unavailable [phone] Anne Lopez MD Unavailable [phone] Ruth Trinidad [facility] Unavailable Ruth Trinidad [facility] Unavailable Encounter Details Date Type Department Care Team (Late st Contact Info) Description 04/05/2023 [facility] [address] [place] [address] Concepcion Knight RN Social History Tobacco [...] on file 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 Gender Identity Not on file Sexual Orientation [...] documented as of this encounter Care Teams Coil Machine Supervisor Relationship Specialty Start Date End Date Jonathan Sosa MD [address] [place] [address] PCP - General Internal Medicine 02/14/22 Swapna Lockwood Referring Physician vocational school teacher 12/29/14 Jonathan Sosa MD [address] [place] [address] Assigned PCP 01/17/22 Anne Lopez MD [address] [place] [address] 36 [place], [place] [address] Gastroenterology 08/03/22 Ruth Trinidad RPH [address] [place] [address] Pharmacist Pharmacist Financial Services Auditor 09/06/23 10/09/23 Ruth Trinidad RPH [address] [place] [address] Assigned MTM Pharmacist 10/08/23 documented as of this encounter
--- OUTSIDE RECORDS SUMMARY | 2025-01-01 11:22 | XMS_ITS | Encounter Summary ---
Author Organization [facility] [facility] Address [address] [place] [address]. [place] [address] Care Team Providers Care Tractor Distributor Name Role Phone Swapna licea Unavailable Unavail able Jonathan Sosa MD Primary Care Provider [phone]- [phone] Jonathan Sosa MD Unavailable [phone] Anne Lopez MD Unavailable [phone] [facility] Unavailable Ruth Trinidad 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 Gender Identity Not on file Sexual [...] documented as of this encounter Care Teams Tractor Distributor Relationship Specialty Start Date End Date Jonathan Sosa MD [address] [place] [address] PCP - General Internal Medicine 02/14/22 Swapna Lockwood Referring Physician vice president investor relations 12/29/14 Jonathan Sosa MD [address] [place] [address] Assigned PCP 01/17/22 Anne Lopez MD [address] [place] [address] [id number] Gastroenterology 08/03/22 Ruth Trinidad RPH [address] [place] [address] Pharmacist Pharmacist Armored Car Driver 09/06/23 10/09/23 Ruth Trinidad RPH [address] [place] [address] Assigned MTM Pharmacist 10/08/23 documented as of this encounter
--- OUTSIDE RECORDS SUMMARY | 2025-01-01 11:22 | XMS_ITS | Encounter Summary ---
Author Organization [place] Address [address] [place] [address]. [place] [address] Care Team Providers Care Mathematical Scientist Name Role Phone Swapna licea Nubia Unavailable Unavail able Jonathan Sosa MD Primary Care Provider [phone]- [phone] Jonathan Sosa MD Unavailable [phone] Anne Lopez MD Unavailable [phone] Ruth Trinidad [facility] Unavailable Ruth Trinidad [facility] Unavailable Encounter Details Date Type Department Care Team (Late st Contact Info) Description 04/09/2023 [facility] [address] [place] [address] Nicole Avila RN Social History Tobacco [...] on file 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 Gender Identity Not on file Sexual Orientation [...] documented as of this encounter Care Teams Mathematical Scientist Relationship Specialty Start Date End Date Jonathan Sosa MD [address] [place] [address] PCP - General Internal Medicine 02/14/22 Swapna Lockwood Referring Physician bill poster installer 12/29/14 Jonathan Sosa MD [address] [place] [address] Assigned PCP 01/17/22 Anne Lopez MD [address] [place] [address] [address] [place], [place] 9[address] Gastroenterology 08/03/22 Ruth Trinidad RPH [address] [place] [address] Pharmacist Pharmacist Shoe Patternmaker 09/06/23 10/09/23 Ruth Trinidad RPH [address] [place] [address] Assigned MTM Pharmacist 10/08/23 documented as of this encounter
--- OUTSIDE RECORDS SUMMARY | 2025-01-01 11:22 | XMS_ITS | Encounter Summary ---
Author Organization [facility] [place] Address [address] [place] [address]. [place] [address] Care Team Providers Care Hard Tile Setter Apprentice Name Role Phone Swapna Lockwood Unavailable Unavail able Jonathan Sosa MD Primary Care Provider [phone] Jonathan Sosa MD Unavailable [phone] Anne Lopez MD Unavailable [phone] Ruth Trinidad [facility] Unavailable Ruth Trinidad [facility] Unavailable Encounter Details Date Type Department Care Team (Late st Contact Info) Description 05/30/2022 [facility] [address] [place] [address] Tammy [place], RN Social History Tobacco Use Types Packs/Day [...] on file 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 No / Unsure 05/09/2022 12:44 PM POULTRY PINNER documented as of this encounter Plan of Treatment Not on file documented as of this encounter Visit Diagnoses Not on filedocumented in this encounter Additional Health Concerns Infection Onset Date Last Indicated Resolved Time Rule Out COVID-19 04/17/2023 04/17/2023 04/18/2023 12:03 PM CDT documented as of this encounter Care Teams Hard Tile Setter Apprentice Relationship Specialty Start Date End Date Jonathan Sosa MD [address] [place] [address] PCP - General Internal Medicine 02/14/22 Swapna Lockwood Referring Physician knife grinder 12/29/14 Jonathan Sosa MD [address] [place] [address] Assigned PCP 01/17/22 Anne Lopez MD [address] [place] [address] Gastroenterology 08/03/22 Ruth Trinidad RPH [address] [place] [address] Pharmacist Pharmacist Epic Trainer 09/06/23 10/09/23 Ruth Trinidad RPH [address] [place] [address] Assigned MTM Pharmacist 10/08/23 documented as of this encounter
--- OUTSIDE RECORDS SUMMARY | 2025-01-01 11:22 | XMS_ITS | Encounter Summary ---
Author Organization [facility] Address [address] [place] [address]. [place] [address] Care Team Providers Care Vessel Master Name Role Phone Swapna licea Unavailable Unavail able Jonathan Sosa MD Primary Care Provider [phone] Jonathan Sosa MD Unavailable [phone] Anne Lopez MD Unavailable [phone] Ruth Trinidad [facility] Unavailable Ruth Trinidad [facility] Unavailable Encounter Details Date Type Department Care Team (Late st Contact Info) Description 06/08/2022 [facility] [address] [place] [address] Andre Tenorio, RN Social History [...] on file 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 No / Unsure 05/09/2022 12:44 PM TETRYL BLENDER OPERATOR documented as of this encounter Plan of Treatment Not on file documented as of this encounter Visit Diagnoses Not on filedocumented in this encounter Additional Health Concerns Infection Onset Date Last Indicated Resolved Time Rule Out COVID-19 04/17/2023 04/17/2023 04/18/2023 12:03 PM CDT documented as of this encounter Care Teams Vessel Master Relationship Specialty Start Date End Date Jonathan Sosa MD [address] [place] [address] PCP - General Internal Medicine 02/14/22 Swapna Lockwood Referring Physician automatic embroidery machine tender 12/29/14 Jonathan Sosa MD [address] [place] [address] Assigned PCP 01/17/22 Anne Lopez MD [address] [place] [address] Gastroenterology 08/03/22 Ruth Trinidad RPH [address] [place] [address] Pharmacist Pharmacist Station Examiner 09/06/23 10/09/23 Ruth Trinidad RPH [address] [place] [address] Assigned MTM Pharmacist 10/08/23 documented as of this encounter
--- OUTSIDE RECORDS SUMMARY | 2025-01-01 11:22 | XMS_ITS | Encounter Summary ---
Author Organization [facility] Address [address] [place] [address]. [place] [address] Care Team Providers Care Louver Door Assembler Name Role Phone Swapna licea Unavailable Unavail able Jonathan Sosa MD Primary Care Provider [phone] Jonathan Sosa MD Unavailable [phone] Anne Lopez MD Unavailable [phone] Ruth Trinidad [facility] Unavailable Encounter Details Date Type Department Care Team (Late st Contact Info) Description 12/10/2024 [facility] [address] [place] [address] System, Provider Not In Social History [...] friends or re latives? 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 Gender Identity Not on file Sexual Orientation Not on file Occupation Industry Job Start Date Job End Date disabled Not on file Not on file Not on file documented as of this encounter Plan of Treatment Not on file documented as of this encounter Procedures Procedure Name Priority Date/Time Associated Diagnosis Comments INR (EXTERNAL RESULT) Routine 12/10/2024 8:41 PM CDT documented in this encounter Results * INR (External Result) (12/10/2024 8:41 PM CDT) INR HOME MONITORING 2.5 2.5 - 3 [facility] Comment:RCS - IVR Result Fro m Phone #: 12/10/2024 8:41 PM CDT 12/10/2024 8:41 PM CDT us Provider Not In System LAB - HIM EXTERNAL RESULT Final Result [facility] [address] [place] [address] documented in this encounter Visit Diagnoses Not on filedocumented in this encounter Care Teams Louver Door Assembler Relationship Specialty Start Date End Date Jonathan Sosa MD [address] [place] [address] PCP - General Internal Medicine 02/14/22 Swapna Lockwood Referring Physician supervisor phosphatic fertilizer 12/29/14 Jonathan Sosa MD [address] [place] [address] Assigned PCP 01/17/22 Anne Lopez MD [address] [place] [address] [address] [place], [place] [address] Gastroenterology 08/03/22 Ruth Trinidad RP [address] [place] [address] Assigned MTM Pharmacist 10/08/23 documented as of this encounter
--- OUTSIDE RECORDS SUMMARY | 2025-01-01 11:22 | XMS_ITS | Encounter Summary ---
Author Organization [facility] Address [address] [place] [address]. [place] [address] Care Team Providers Care Senior Strategy Manager Name Role Phone Swapna licea Unavailable Unavail able Jonathan Sosa MD Primary Care Provider [phone] Jonathan Sosa MD Unavailable [phone] Anne Lopez MD Unavailable [phone] Ruth Trinidad [facility] Unavailable Ruth Trinidad [facility] Unavailable Encounter Details Date Type Department Care Team (Late st Contact Info) Description 06/29/2022 [facility] [address] [place] [address] Andre Tenorio, RN Social History [...] file 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 Gender Identity Not on file Sexual [...] as of this encounter Care Teams Senior Strategy Manager Relationship Specialty Start Date End Date Jonathan Sosa MD [address] [place] [address] PCP - General Internal Medicine 02/14/22 Swapna Lockwood Referring Physician senior graduate advisor 12/29/14 Jonathan Sosa MD [address] [place] [address] Assigned PCP 01/17/22 Anne Lopez MD [address] [place] [id number] Gastroenterology 08/03/22 Ruth Trinidad RPH [address] [place] [address] Pharmacist Pharmacist Poultry Raiser 09/06/23 10/09/23 Ruth Trinidad RPH [address] [place] [address] Assigned MTM Pharmacist 10/08/23 documented as of this encounter
--- OUTSIDE RECORDS SUMMARY | 2025-01-01 11:22 | XMS_ITS | Encounter Summary ---
Author Organization [facility] Address [address] [place] [address]. [place] [address] Care Team Providers Care Inventory Control Planner Name Role Phone Swapna licea Nubia Unavailable Unavail able Jonathan Sosa MD Primary Care Provider [phone] Jonathan Sosa MD Unavailable [phone] Anne Lopez MD Unavailable [phone] Ruth Trinidad [facility] Unavailable Encounter Details Date Type Department Care Team (Late st Contact Info) Description 11/20/2024 Results [facility]-Up [facility] [address] [place] [address] Jacek Verdin, RN Social History Tobacco Use Types Packs/Day [...] friends or re latives? 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 Gender Identity Not on file Sexual Orientation Not on file Occupation Industry Job Start Date Job End Date disabled Not on file Not on file Not on file documented as of this encounter Plan of Treatment Not on file documented as of this encounter Visit Diagnoses Not on filedocumented in this encounter Care Teams Inventory Control Planner Relationship Specialty Start Date End Date Jonathan Sosa MD [address] [place] [address] PCP - General Internal Medicine 02/14/22 Swapna Lockwood Referring Physician oracle programmer 12/29/14 Jonathan Sosa MD [address] [place] [address] Assigned PCP 01/17/22 Anne Lopez MD [address] [place] [address] 36 [place], [place] [address] Gastroenterology 08/03/22 Ruth Trinidad RPH [address] [place], [place] [address] Assigned MTM Pharmacist 10/08/23 documented as of this encounter
--- OUTSIDE RECORDS SUMMARY | 2025-01-01 11:22 | XMS_ITS | Encounter Summary ---
Author Organization [facility] Address [address] [place] [address]. [place] [address] Care Team Providers Care Sharepoint Admin Name Role Phone vinayak Swapna Nubia Unavailable Unavail able Jonathan Sosa MD Primary Care Provider [phone] Jonathan Sosa MD Unavailable [phone] Anne Lopez MD Unavailable [phone] Ruth Trinidad [facility] Unavailable Encounter Details Date Type Department Care Team (Late st Contact Info) Description 12/28/2024 Results Follow-[facility] [address] [place] [address] Concepcion Knight RN Social History Tobacco [...] friends or re latives? 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 Gender Identity Not on file Sexual Orientation Not on file Occupation Industry Job Start Date Job End Date disabled Not on file Not on file Not on file documented as of this encounter Plan of Treatment Not on file documented as of this encounter Visit Diagnoses Not on filedocumented in this encounter Care Teams Sharepoint Admin Relationship Specialty Start Date End Date Jonathan Sosa MD [address] [place] [address] PCP - General Internal Medicine 02/14/22 Swapna Lockwood Referring Physician supervisor 12/29/14 Jonathan Sosa MD [address] [place] [address] Assigned PCP 01/17/22 Anne Lopez MD [address] [place] [address] [address] [place], [place] [address] Gastroenterology 08/03/22 Ruth Trinidad RPH [address] [place], [place] [address] Assigned MTM Pharmacist 10/08/23 documented as of this encounter
--- OUTSIDE RECORDS SUMMARY | 2025-01-01 11:22 | XMS_ITS | Encounter Summary ---
Author Organization [facility] Address [address] [place] [address]. [place] [address] Care Team Providers Care Contract Attorney Name Role Phone vinayakAndreSwapna Nubia Unavailable Unavail able Jonathan Sosa MD Primary Care Provider [phone] Jonathan Sosa MD Unavailable [phone] Anne Lopez MD Unavailable [phone] Ruth Trinidad [facility] Unavailable Encounter Details Date Type Department Care Team (Latest Contact Info) Description 12/28/2024 Anticoagulation Therapy Visit [facility] [address] [place] [address] Concepcion Knight RN History of pulmonary embolism (Primary Dx); [...] friends or re latives? 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 (Goal INR 2.5-3.0) Recent labs: (last 7 days) 12/27/24 1336 INR 2.7 ASSESSMENT Source(s): Chart Review Previous INR was Therapeutic last 2(+) visits Medication, diet, health changes since last INR: chart reviewed; none identified PLAN Recommended plan for no diet, medication or health factor changes affecting INR Dosing Instructions: Continue your current warfarin dose with next INR in 1 week Summary As of 12/28/2024 Full warfarin instructions: 6 mg every Sat, Sat; 5 mg all other days Next INR check: 01/04/2025 Detailed voice message left for Estrellita with dosing instructions and follow up date. Sent mTrakshart message with dosing and follow up instructions Patient to recheck with home meter Education provided: Please call back if any changes to your diet, medications or how you've been taking warfarin Contact [phone] with any changes, questions or concerns. Plan made per [facility] anticoagulation protocol Concepcion Knight RN 12/28/2024 Anticoagulation Clinic [facility] for routing messages: connie ANTICOAG HOME MONITORING [facility] patient phone line: [phone] Anticoagulation Episode Summary Current INR goal: 2.5-3.0 TTR: 58.6% (1 y) Target end date: Indefinite Send INR reminders to: ANTICOAG HOME MONITORING Indications History of pulmonary embolism [Z86.711] Deep vein thrombosis (DVT) of distal vein of lower extremity unspecified chronicity unspecified laterality (H) [I82.4Z9] Comments: 2.5-3.0 Goal Range updated 06/22/2022 RCS- home meter, [facility] transfer Anticoagulation Care Providers Provider Role Specialty Phone number Jonathan Sosa MD Referring Internal Medicine [phone] documented in this encounter Plan of Treatment Not on file documented as of this encounter Visit Diagnoses Diagnosis History of pulmonary embolism- Primary Personal history of pulmonary embolism Deep vein thrombosis (DVT) of distal vein of lower extremity, unspecified chronicity, unspecified laterality (H) documented in this encounter Care Teams Contract Attorney Relationship Specialty Start Date End Date Jonathan Sosa MD [address] [place], [place] [address] PCP - General Internal Medicine 02/14/22 Swapna Lockwood Referring Physician customer service trainer 12/29/14 Jonathan Sosa MD [address] [place], [place] [address] Assigned PCP 01/17/22 Anne Lopez MD [facility] [address] [place], [place] [address] Gastroenterology 08/03/22 Ruth Trinidad [facility] [address] [place] [address] Assigned MTM Pharmacist 10/08/23 documented as of this encounter
--- OUTSIDE RECORDS SUMMARY | 2025-01-01 11:22 | XMS_ITS | Encounter Summary ---
Author Organization [facility] Address [address] [place] [address]. [place] [address] Care Team Providers Care Vamp Maker Name Role Phone Swapna licea Unavailable Unavail able Jonathan Sosa MD Primary Care Provider [phone] Jonathan Sosa MD Unavailable [phone] Anne Lopez MD Unavailable [phone] Ruth Trinidad [facility] Unavailable Ruth Trinidad [facility] Unavailable Reason for Visit * Reason Onset Date Comments Refill Request 04/10/2023 Encounter Details Date Type Department Care Team (Late st Contact Info) Description 04/10/2023 [facility] Medical Advice [facility] Anticoagulation Clinic [address] [place] [address] Nicole Avila RN Refill Request Social History Tobacco Use Types [...] you got money to buy more? Yes 04/14/2023 Within the past 12 months, d id the food you bought just not last and you didn t have money to get more? Yes 04/14/2023 Housing Stability Answer Date Recorded Do you have housing? (Traas soni is defined as stable permanent housing and does not include staying outside in a car, in a tent, in an abandoned building, in an overnight [place] [facility], or couch-surfing.) Yes 04/14/2023 Are you worried about losing your housing? Yes 04/14/2023 Financial Resource Strain Answer Date R ecorded Within the past 12 months, h ave you or your family members you live with been unable to get utilities (heat, electricity) when it was really needed? No 04/14/2023 Transportation Needs Answer Date Record ed Within the past 12 months, h as lack of transportation kept you from medical appointments, getting your medicines, non-medical meetings or appointments, work, or from getting things that you need? 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 Pt requesting for 10 days worth for all meds and 4 days of prednisone 10 mg tab Reason for medication request: Bronchitis Have you taken this medication before?: Yes Controlled Substance Agreement on file: CSA -- Patient Level: CSA: None found at the patient level. Patient offered an appointment? No Preferred Pharmacy: [facility] [address] [place] [address] PH: [phone] Could we send this information to you in [employer] or would you prefer to receive a phone call?: Patient would prefer a phone call Okay to leave a detailed message?: Yes at Cell number on file: Telephone Information: CE RADIO DISPATCHER documented in this encounter Plan of Treatment Not on file documented as of this encounter Visit Diagnoses Not on filedocumented in this encounter Additional Health Concerns Infection Onset Date Last Indicated Resolved Time Rule Out COVID-19 04/17/2023 04/17/2023 04/18/2023 12:03 PM CDT documented as of this encounter Care Teams Vamp Maker Relationship Specialty Start Date End Date Jonathan Sosa MD [address] [place] [address] PCP - General Internal Medicine 02/14/22 Swapna Lockwood Referring Physician security intelligence analyst 12/29/14 Jonathan Sosa MD [address] [place] [address] Assigned PCP 01/17/22 Anne Lopez MD [address] [place] [id number] Gastroenterology 08/03/22 Ruth Trinidad RPH [address] [place] [address] Pharmacist Pharmacist Manager Ethics 09/06/23 10/09/23 Ruth Trinidad RPH [address] [place] [address] Assigned MTM Pharmacist 10/08/23 documented as of this encounter
--- OUTSIDE RECORDS SUMMARY | 2025-01-01 11:22 | XMS_ITS | Encounter Summary ---
Author Organization [facility] Address [address] [place] [address]. [place] [address] Care Team Providers Care Cobbler Mckay Name Role Phone Swapna licea Unavailable Unavail able Jonathan Sosa MD Primary Care Provider [phone] Jonathan Sosa MD Unavailable [phone] Anne Lopez MD Unavailable [phone] Ruth Trinidad [facility] Unavailable Encounter Details Date Type Department Care Team (Late st Contact Info) Description 12/27/2024 [facility] [address] [place] [phone] System, Provider Not In Social History [...] friends or re latives? 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 Gender Identity Not on file Sexual Orientation Not on file Occupation Industry Job Start Date Job End Date disabled Not on file Not on file Not on file documented as of this encounter Plan of Treatment Not on file documented as of this encounter Procedures Procedure Name Priority Date/Time Associated Diagnosis Comments INR (EXTERNAL RESULT) Routine 12/27/2024 1:36 PM CDT documented in this encounter Results * INR (External Result) (12/27/2024 1:36 PM CDT) INR HOME MONITORING 2.7 2.5 - 3 [facility] Comment:RCS - IVR Result Fro m Phone #: 12/27/2024 1:36 PM CDT 12/27/2024 1:36 PM CDT us Provider Not In System LAB - HIM EXTERNAL RESULT Final Result [facility] [address] [place] [address] documented in this encounter Visit Diagnoses Not on filedocumented in this encounter Care Teams Cobbler Mckay Relationship Specialty Start Date End Date Jonathan Sosa MD [address] [place] [address] PCP - General Internal Medicine 02/14/22 Swapna Lockwood Referring Physician gold tooler 12/29/14 Jonathan Sosa MD [address] [place] [address] Assigned PCP 01/17/22 Anne Lopez MD [address] [place] [address] 36 [place], [place] [address] Gastroenterology 08/03/22 Ruth Trinidad RP [address] [place] [address] Assigned MTM Pharmacist 10/08/23 documented as of this encounter
--- OUTSIDE RECORDS SUMMARY | 2025-01-01 11:22 | XMS_ITS | Encounter Summary ---
Author Organization [facility] Address [address] [place] [address]. [place] [address] Care Team Providers Care Feed Mill Tender Name Role Phone Swapna licea Unavailable Unavail able Jonathan Sosa MD Primary Care Provider [phone] Jonathan Sosa MD Unavailable [phone] Anne Lopez MD Unavailable [phone] Ruth Trinidad [facility] Unavailable Ruth Trinidad [facility] Unavailable Encounter Details Date Type Department Care Team (Late st Contact Info) Description 05/21/2022 [facility] [address] [place] [address] Andre Tenorio, RN Social History [...] on file 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 No / Unsure 05/09/2022 12:44 PM CLIENT LEADER documented as of this encounter Plan of Treatment Not on file documented as of this encounter Visit Diagnoses Not on filedocumented in this encounter Additional Health Concerns Infection Onset Date Last Indicated Resolved Time Rule Out COVID-19 04/17/2023 04/17/2023 04/18/2023 12:03 PM CDT documented as of this encounter Care Teams Feed Mill Tender Relationship Specialty Start Date End Date Jonathan Sosa MD [address] [place] [address] PCP - General Internal Medicine 02/14/22 Swapna Lockwood Referring Physician crook operator 12/29/14 Jonathan Sosa MD [address] [place] [address] Assigned PCP 01/17/22 Anne Lopez MD [address] [place] [address] Gastroenterology 08/03/22 Ruth Trinidad RPH [address] [place] [address] Pharmacist Pharmacist Brick Burner Head 09/06/23 10/09/23 Ruth Trinidad RPH [address] [place] [address] Assigned MTM Pharmacist 10/08/23 documented as of this encounter
--- OUTSIDE RECORDS SUMMARY | 2025-01-01 11:22 | XMS_ITS | Encounter Summary ---
Author Organization [facility] Address [address] [place] [address]. [place] [address] Care Team Providers Care Medical Lab Director Name Role Phone GustavobertramlyleruthySwapna Unavailable Unavail able Jonathan Sosa MD Primary Care Provider [phone] Jonathan Sosa MD Unavailable [phone] Anne Lopez MD Unavailable [phone] Ruth Trinidad [facility] Unavailable Reason for Visit * Reason Onset Date Comments Anticoagulation Overdue 11/18/2024 Encounter Details Date Type Department Care Team (Latest Contact Info) Description 11/18/2024 [facility] [place] [address] [place] [address] Isis Velez RN Anticoagulation Overdue Social History [...] friends or re latives? Never 05/02/2024 Attends Rastafarian Services Not on file 05/02 Active Member of Clubs or Organizations Not on f ile 05/02/2024 Attends Club or Organization Meetings Not on francisca e 05/02/2024 Marital Status Not on file 05/02/2024 PHQ-2 Answer Date Recorded PHQ-2 Score 0 05/05/2024 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 Isis Velez RN documented in this encounter Plan of Treatment Not on file documented as of this encounter Visit Diagnoses Not on filedocumented in this encounter Care Teams Medical Lab Director Relationship Specialty Start Date End Date Jonathan Sosa MD [address] [place] [address] PCP - General Internal Medicine 02/14/22 Swapna Lockwood Referring Physician biofuels processing technician 12/29/14 Jonathan Sosa MD [address] [place] [address] Assigned PCP 01/17/22 Anne Lopez MD [address] [facility] 36 [place], [place] [address] Gastroenterology 08/03/22 Ruth Trinidad [facility] [address] [place] [address] Assigned MTM Pharmacist 10/08/23 documented as of this encounter
--- OUTSIDE RECORDS SUMMARY | 2025-01-01 11:22 | XMS_ITS | Encounter Summary ---
Author Organization [facility] Address [address] [place] [address] Care Team Providers Care Hospice Care Sales Consultant Name Role Phone Swapna Lockwood Unavailable Unavail able Jonathan Sosa MD Primary Care Provider [phone] Jonathan Sosa MD Unavailable Anne Lopez MD Unavailable [phone] Ruth Trinidad [facility] Unavailable Reason for Visit * Reason Comments Medication Refill Encounter Details Date Type Department Care Team (Late st Contact Info) Description 12/09/[address] [place] [address] Jonathan Sosa MD [address] [place] [address] Medication Refill Social History Tobacco Use Types Packs/Day Years [...] friends or re latives? 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 Gender Identity Not on file Sexual Orientation Not on file Occupation Industry Job Start Date Job End Date disabled Not on file Not on file Not on file documented as of this encounter Plan of Treatment Not on file documented as of this encounter Visit Diagnoses Diagnosis Anxiety Anxiety state, unspecified documented in this encounter Care Teams Hospice Care Sales Consultant Relationship Specialty Start Date End Date Jonathan Sosa MD [address] [place] [address] PCP - General Internal Medicine 02/14/22 Swapna Lockwood Referring Physician technology education teacher 12/29/14 Jonathan Sosa MD [address] [place], [place] [address] Assigned PCP 01/17/22 Anne Lopez MD 420 [facility] 36 [place], [place] [address] Gastroenterology 08/03/22 Ruth Trinidad RPH [address] [place], [place] [address] Assigned MTM Pharmacist 10/08/23 documented as of this encounter
--- OUTSIDE RECORDS SUMMARY | 2025-01-01 11:23 | XMS_ITS | Encounter Summary ---
Author Organization [facility] Address [address] [place] [address]. [place] [address] Care Team Providers Care Aviation Medicine Specialist Name Role Phone Swapna licea Nubia Unavailable Unavail able Jonathan Sosa MD Primary Care Provider [phone] Jonathan Sosa MD Unavailable [phone] Anne Lopez MD Unavailable [phone] Ruth Trinidad [facility] Unavailable Encounter Details Date Type Department Care Team (Late st Contact Info) Description 11/30/2024 [facility] [address] [place] [phone] Nori Willis, RN Social History Tobacco Use Types Packs/Day [...] friends or re latives? 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 Gender Identity Not on file Sexual Orientation Not on file Occupation Industry Job Start Date Job End Date disabled Not on file Not on file Not on file documented as of this encounter Plan of Treatment Not on file documented as of this encounter Visit Diagnoses Not on filedocumented in this encounter Care Teams Aviation Medicine Specialist Relationship Specialty Start Date End Date Jonathan Sosa MD [address] [place] [address] PCP - General Internal Medicine 02/14/22 Swapna Lockwood Referring Physician dialysis tech 12/29/14 Jonathan Sosa MD [address] [place] [address] Assigned PCP 01/17/22 Anne Lopez MD [address] [place] [address] 36 [place], [place] [address] Gastroenterology 08/03/22 Ruth Trinidad RPH [address] [place], [place] [address] Assigned MTM Pharmacist 10/08/23 documented as of this encounter
--- OUTSIDE RECORDS SUMMARY | 2025-01-01 11:23 | XMS_ITS | Encounter Summary ---
Author Organization [place] Address [address] [place] [address]. [place] [address] Care Team Providers Care Flat Bed Knitter Name Role Phone vinayak Swapna Nubia Unavailable Unavail able Jonathan Sosa MD Primary Care Provider [phone] Jonathan Sosa MD Unavailable [phone] Anne Lopez MD Unavailable [phone] Ruth Trinidad [facility] Unavailable Encounter Details Date Type Department Care Team (Late st Contact Info) Description 12/21/2024 Results Follow[facility] [address] [place] [phone] Vale Sarabia RN Social History Tobacco [...] Answer Date Recorded PHQ-2 Score 0 05/05/2024 [facility] [place] of Occupat ional Health - Occupational Stress [...] on file 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 Gender Identity Not on file Sexual Orientation Not on file Occupation Industry Job Start Date Job End Date disabled Not on file Not on file Not on file documented as of this encounter Plan of Treatment Not on file documented as of this encounter Visit Diagnoses Not on filedocumented in this encounter Care Teams Flat Bed Knitter Relationship Specialty Start Date End Date Jonathan Sosa MD [address] [place] [address] PCP - General Internal Medicine 02/14/22 Swapna Lockwood Referring Physician extraction machine operator 12/29/14 Jonathan Sosa MD [address] [place] [address] Assigned PCP 01/17/22 Anne Lopez MD [address] [place] [address] 36 [place], [place] [address] Gastroenterology 08/03/22 Ruth Trinidad RPH [address] [place], [place] [address] Assigned MTM Pharmacist 10/08/23 documented as of this encounter
--- OUTSIDE RECORDS SUMMARY | 2025-01-01 11:23 | XMS_ITS | Encounter Summary ---
Author Organization [place] Address [address] [place] [address]. [place] [address] Care Team Providers Care Completions Manager Name Role Phone vinayak Swapna Nubia Unavailable Unavail able Jonathan Sosa MD Primary Care Provider [phone] Jonathan Sosa MD Unavailable [phone] Anne Lopez MD Unavailable [phone] Ruth Trinidad [facility] Unavailable Encounter Details Date Type Department Care Team (Late st Contact Info) Description 11/30/2024 Results Follow-Up [facility] [address] [place] [phone] Nori Willis, RN Social History Tobacco [...] Answer Date Recorded PHQ-2 Score 0 05/05/2024 [facility] [place] of Occupat ional Health - Occupational Stress [...] on file Legal Sex Female 3:08 AM APNS Gender Identity Not on file Sexual Orientation Not on file Occupation Industry Job Start Date Job End Date disabled Not on file Not on file Not on file documented as of this encounter Plan of Treatment Not on file documented as of this encounter Visit Diagnoses Not on filedocumented in this encounter Care Teams Completions Manager Relationship Specialty Start Date End Date Jonathan Sosa MD [address] [place] [address] PCP - General Internal Medicine 02/14/22 Swapna Lockwood Referring Physician intermediate frame tender 12/29/14 Jonathan Sosa MD [address] [place] [address] Assigned PCP 01/17/22 Anne Lopez MD [address] [place] [address] 36 [place], [place] [address] Gastroenterology 08/03/22 Ruth Trinidad RPH [address] [place], [place] [address] Assigned MTM Pharmacist 10/08/23 documented as of this encounter
--- OUTSIDE RECORDS SUMMARY | 2025-01-01 11:23 | XMS_ITS | Encounter Summary ---
Author Organization [facility] Address [address] [place] [address] Care Team Providers Care Arcade Attendant Name Role Phone Swapna Lockwood Unavailable Unavail able Jonathan Sosa MD Primary Care Provider Jonathan Sosa MD Unavailable Anne Lopez MD Unavailable [phone] Ruth Trinidad [facility] Unavailable Reason for Visit * Reason Onset Date Comments Forms 12/21/2024 [facility] Encounter Details Date Type Department Care Team (Late st Contact Info) Description 12/21/[address] [place] [address] Jonathan Sosa MD [address] [place] [address] Forms ([facility]) Social History Tobacco Use Types Packs/Day Years [...] friends or re latives? Never 05/02/2024 Attends Zoroastrian Services Not on file 05/02 Active Member of Clubs or Organizations Not on f ile 05/02/2024 Attends Club or Organization Meetings Not on francisca e 05/02/2024 Marital Status Not on file 05/02/2024 PHQ-2 Answer Date Recorded PHQ-2 Score 0 05/05/2024 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 * Telephone Encounter - Wilmar Abrams MD - 12/22/2024 7:33 AM CDT I initially started to complete this document, but review of her chart does show that she is seeingDr. Marcus Navas, a sleep specialist with [facility]. He has been prescribing her CPAP supplies. ad her last visit was on 11/18/24. * Telephone Encounter - Itzel Arroyo - 12/21/2024 2:28 PM CDT CPAP supply order received via fax. Form in your mailbox to be signed. documented in this encounter Plan of Treatment Not on file documented as of this encounter Visit Diagnoses Not on filedocumented in this encounter Care Teams Arcade Attendant Relationship Specialty Start Date End Date Jonathan Sosa MD [address] [place] [address] PCP - General Internal Medicine 02/14/22 Swapna Lockwood Referring Physician lunchroom attendant 12/29/14 Jonathan Sosa MD [address] [place], [place] [address] Assigned PCP 01/17/22 Anne Lopez MD [address] [place] [address] 36 [place], [place] [address] Gastroenterology 08/03/22 Ruth Trinidad [facility] [address] [place] [address] Assigned MTM Pharmacist 10/08/23 documented as of this encounter
--- OUTSIDE RECORDS SUMMARY | 2025-01-01 11:23 | XMS_ITS | Encounter Summary ---
Author Organization [place] Address [address] [place] [address] Care Team Providers Care Gas Torch Solderer Name Role Phone Swapna Lockwood Unavailable Unavail able Jonathan Sosa MD Primary Care Provider Jonathan Sosa MD Unavailable Anne Lopez MD Unavailable [phone] Ruth Trinidad [facility] Unavailable Reason for Visit * Reason Comments Medication Refill Encounter Details Date Type Department Care Team (Late st Contact Info) Description 12/07/[address] [place] [address] Jonathan Sosa MD [address] [place] [address] Medication Refill Social History Tobacco [...] friends or re latives? 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 Gender Identity Not on file Sexual Orientation Not on file Occupation Industry Job Start Date Job End Date disabled Not on file Not on file Not on file documented as of this encounter Plan of Treatment Not on file documented as of this encounter Visit Diagnoses Diagnosis 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) documented in this encounter Care Teams Gas Torch Solderer Relationship Specialty Start Date End Date Jonathan Sosa MD [address] [place] [address] PCP - General Internal Medicine 02/14/22 Swapna Lockwood Referring Physician lace sewer 12/29/14 Jonathan Sosa MD [address] [place] [address] Assigned PCP 01/17/22 Anne Lopez MD [address] [place] [address] 36 [place] [address] Gastroenterology 08/03/22 Ruth Trinidad RP [address] [place], [place] [address] Assigned MTM Pharmacist 10/08/23 documented as of this encounter
--- OUTSIDE RECORDS SUMMARY | 2025-01-01 11:23 | XMS_ITS | Encounter Summary ---
Author Organization [facility] Address [address] [place] [address]. [place] [address] Care Team Providers Care Superintendent Name Role Phone vinayak Swapna Nubia Unavailable Unavail able Jonathan Sosa MD Primary Care Provider [phone] Jonathan Sosa MD Unavailable [phone] Anne Lopez MD Unavailable [phone] Ruth Trinidad [facility] Unavailable Encounter Details Date Type Department Care Team (Late st Contact Info) Description 02/24/2024 [facility] [address] [place] [phone] Alison Ortiz, RN Social History Tobacco Use Types Packs/Day Years Used Date Smoking Tobacco: Former Cigarettes 0.5 35 1 07/18/1987 - 05/17/2023 Pipe Other Passive Smoke Exposure: Current Smokeless Tobacco: Never Comments:IN PROGRAM WITH OCTOBER O Alcohol Use Standard Drinks/Week Comments No 0 (1 standard drink = 0.6 oz pur e alcohol) PHQ-2 Answer Date Recorded PHQ-2 Score 0 11/18/2023 Adolescent Education Answer Date Record ed Getting [...] in an abandoned building, in an overnight retirement, or couch-surfing.) Yes 04/14/2023 Are you worried [...] getting things that you need? No 04/14/2023 Interpersonal Safety Answer Date Record ed Do you feel physically and e motionally safe where you currently live? Yes 11/18/2023 Within the past 12 months, h ave you been hit, slapped, kicked or otherwise physically hurt by someone? No 11/18/2023 Within the past 12 months, h ave you been humiliated or emotionally abused in other ways by your partner or ex-partner? 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 [id number] Assigned PCP 01/17/22 Anne Lopez MD [address] [place] [address] 36 [place], [place] [address] Gastroenterology 08/03/22 Ruth Trinidad RP [address] [place], [place] [address] Assigned MTM Pharmacist 10/08/23 documented as of this encounter
--- OUTSIDE RECORDS SUMMARY | 2025-01-01 11:23 | XMS_ITS | Encounter Summary ---
Author Organization [facility] Address [address] [place] [address]. [place] [address] Care Team Providers Care Automotive Product Engineer Name Role Phone Swapna licea Unavailable Unavail able Jonathan Sosa MD Primary Care Provider [phone] Jonathan Sosa MD Unavailable [phone] Anne Lopez MD Unavailable [phone] Ruth Trinidad [facility] Unavailable Encounter Details Date Type Department Care Team (Late st Contact Info) Description 12/18/2024 [facility] [address] [place] [phone] System, Provider Not In Social History [...] friends or re latives? 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 Gender Identity Not on file Sexual Orientation Not on file Occupation Industry Job Start Date Job End Date disabled Not on file Not on file Not on file documented as of this encounter Plan of Treatment Not on file documented as of this encounter Procedures Procedure Name Priority Date/Time Associated Diagnosis Comments INR (EXTERNAL RESULT) Routine 12/18/2024 1:00 PM CDT documented in this encounter Results * INR (External Result) (12/18/2024 1:00 PM CDT) INR HOME MONITORING 2.7 2.5 - 3 [facility] Comment:RCS - IVR Result Fro m Phone #: 12/18/2024 1:00 PM CDT 12/18/2024 1:00 PM CDT us Provider Not In System LAB - HIM EXTERNAL RESULT Final Result [facility] [address] [place] [address] documented in this encounter Visit Diagnoses Not on filedocumented in this encounter Care Teams Automotive Product Engineer Relationship Specialty Start Date End Date Jonathan Sosa MD [address] [place] [address] PCP - General Internal Medicine 02/14/22 Swapna Lockwood Referring Physician pumping plant operator 12/29/14 Jonathan Sosa MD [address] [place] [address] Assigned PCP 01/17/22 Anne Lopez MD [address] [place] [address] 36 [place], [place] [address] Gastroenterology 08/03/22 Ruth Trinidad RP [address] [place] [address] Assigned MTM Pharmacist 10/08/23 documented as of this encounter
--- OUTSIDE RECORDS SUMMARY | 2025-01-01 11:23 | XMS_ITS | Encounter Summary ---
Author Organization [facility] Address [address] [place] [address]. [place] [address] Care Team Providers Care Dust Collector Treater Name Role Phone vinayakAndreSwapna Joy Unavailable Unavail able Jonathan Sosa MD Primary Care Provider [phone] Jonathan Sosa MD Unavailable [phone] Anne Lopez MD Unavailable [phone] Ruth Trinidad [facility] Unavailable Encounter Details Date Type Department Care Team (Late st Contact Info) Description 03/09/2024 [facility] [address] [place] [phone] Nicole Avila, KYLIE Social History Tobacco Use Types Packs/Day Years [...] in an abandoned building, in an overnight long term, or couch-surfing.) Yes 04/14/2023 Are you worried [...] on file 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 Gender Identity Not on file Sexual Orientation Not on file Occupation Industry Job Start Date Job End Date disabled Not on file Not on file Not on file documented as of this encounter Plan of Treatment Not on file documented as of this encounter Visit Diagnoses Not on filedocumented in this encounter Care Teams Dust Collector Treater Relationship Specialty Start Date End Date Jonathan Sosa MD [address] [place] [address] PCP - General Internal Medicine 02/14/22 Swapna Lockwood Referring Physician head waitress 12/29/14 Jonathan Sosa MD [address] [place] [address] Assigned PCP 01/17/22 Anne Lopez MD [address] [place] [address] 36 [place], [place] [address] Gastroenterology 08/03/22 Ruth Trinidad RP [address] [place] [address] Assigned MTM Pharmacist 10/08/23 documented as of this encounter
--- OUTSIDE RECORDS SUMMARY | 2025-01-01 11:23 | XMS_ITS | Encounter Summary ---
Author Organization [facility] Address [address] [place] [address]. [place] [address] Care Team Providers Care Mortuary Beautician Name Role Phone vinayakAndreSwapna Nubia Unavailable Unavail able Jonathan Sosa MD Primary Care Provider [phone] Jonathan Sosa MD Unavailable [phone] Anne Lopez MD Unavailable [phone] Ruth Trinidad [facility] Unavailable Encounter Details Date Type Department Care Team (Latest Contact Info) Description 12/11/2024 Anticoagulation Therapy Visit [facility] [address] [place] [address] Tammy Montgomery, RN History of pulmonary embolism (Primary Dx); [...] friends or re latives? 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 (Goal INR 2.5-3.0) Recent labs: (last 7 days) 12/10/242040 INR 2.5 ASSESSMENT Source(s): Chart Review Previous INR was Therapeutic last 2(+) visits Medication, diet, health changes since last INR: chart reviewed; none identified PLAN Recommended plan for no diet, medication or health factor changes affecting INR Dosing Instructions: Continue your current warfarin dose with next INR in 2 weeks Summary As of 12/11/2024 Full warfarin instructions: 6 mg every Sat, Sat; 5 mg all other days Next INR check: 12/24/2024 Detailed voice message left for Estrellita with dosing instructions and follow up date. Sent Plaidhart message with dosing and follow up instructions Patient to recheck with home meter Education provided: Please call back if any changes to your diet, medications or how you've been taking warfarin Contact [phone] with any changes, questions or concerns. Plan made per [facility] anticoagulation protocol Tammy Montgomery RN 12/11/2024 Anticoagulation Clinic [facility] for routing messages: p ANTICOAG HOME MONITORING ACC patient phone line: [phone] Anticoagulation Episode Summary Current INR goal: 2.5-3.0 TTR: 57.2% (1 y) Target end date: Indefinite Send INR reminders to: ANTICOAG HOME MONITORING Indications History of pulmonary embolism [Z86.711] Deep vein thrombosis (DVT) of distal vein of lower extremity unspecified chronicity unspecified laterality (H) [I82.4Z9] Comments: 2.5-3.0 Goal Range updated 06/22/2022 [facility]- home meter, [facility] transfer Anticoagulation Care Providers Provider Role Specialty Phone number Jonathan Sosa MD Referring Internal Medicine [phone] documented in this encounter Plan of Treatment Not on file documented as of this encounter Visit Diagnoses Diagnosis History of pulmonary embolism- Primary Personal history of pulmonary embolism Deep vein thrombosis (DVT) of distal vein of lower extremity, unspecified chronicity, unspecified laterality (H) documented in this encounter Care Teams Mortuary Beautician Relationship Specialty Start Date End Date Jonathan Sosa MD [address] [place], [place] [address] PCP - General Internal Medicine 02/14/22 Swapna Lockwood Referring Physician treater helper 12/29/14 Jonathan Sosa MD [address] [place], [place] [address] Assigned PCP 01/17/22 Anne Lopze MD [address] [facility] [address] [place], [place] [address] Gastroenterology 08/03/22 Ruth Trinidad [facility] [address] [place] [address] Assigned MTM Pharmacist 10/08/23 documented as of this encounter
--- OUTSIDE RECORDS SUMMARY | 2025-01-01 11:23 | XMS_ITS | Encounter Summary ---
Author Organization [facility] Address [address] [place] [address]. [place] [address] Care Team Providers Care Supervisor Sample Name Role Phone Swapna licea Nubia Unavailable Unavail able Jonathan Sosa MD Primary Care Provider [phone] Jonathan Sosa MD Unavailable [phone] Anne Lopez MD Unavailable [phone] Ruth Trinidad [facility] Unavailable Encounter Details Date Type Department Care Team (Late st Contact Info) Description 12/21/2024 [facility]tico[facility] Clinic [address] [place] [phone] Vale Sarabia, KYLIE Social History Tobacco Use Types Packs/Day [...] friends or re latives? 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 Gender Identity Not on file Sexual Orientation Not on file Occupation Industry Job Start Date Job End Date disabled Not on file Not on file Not on file documented as of this encounter Plan of Treatment Not on file documented as of this encounter Visit Diagnoses Not on filedocumented in this encounter Care Teams Supervisor Sample Relationship Specialty Start Date End Date Jonathan Sosa MD [address] [place] [address] PCP - General Internal Medicine 02/14/22 Swapna Lockwood Referring Physician bench loom weaver 12/29/14 Jonathan Sosa MD [address] [place] [address] Assigned PCP 01/17/22 Anne Lopez MD [address] [place] [address] 36 [place], [place] [address] Gastroenterology 08/03/22 Ruth Trinidad RPH [address] [place], [place] [address] Assigned MTM Pharmacist 10/08/23 documented as of this encounter
--- OUTSIDE RECORDS SUMMARY | 2025-01-01 11:23 | XMS_ITS | Encounter Summary ---
Author Organization [facility] Address [address] [place] [address]. [place] [address] Care Team Providers Care Process Control Technician Name Role Phone vinayakSwapna Unavailable Unavail able Jonathan Sosa MD Primary Care Provider [phone] Jonathan Sosa MD Unavailable [phone] Anne Lopez MD Unavailable [phone] Ruth Trinidad [facility] Unavailable Encounter Details Date Type Department Care Team (Late st Contact Info) Description 02/21/2024 [facility] Anticoagulation Clinic [address] [place] [phone] Evy Caballero, KYLIE Social History Tobacco Use Types Packs/Day [...] in an abandoned building, in an overnight skilled nursing, or couch-surfing.) Yes 04/14/2023 Are you worried [...] on file 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 Gender Identity Not on file Sexual Orientation Not on file Occupation Industry Job Start Date Job End Date disabled Not on file Not on file Not on file documented as of this encounter Plan of Treatment Not on file documented as of this encounter Visit Diagnoses Not on filedocumented in this encounter Care Teams Process Control Technician Relationship Specialty Start Date End Date Jonathan Sosa MD [address] [place] [address] PCP - General Internal Medicine 02/14/22 Swapna Lockwood Referring Physician double end tenoner setter 12/29/14 Jonathan Sosa MD [address] [place] [address] Assigned PCP 01/17/22 Anne Lopez MD [address] [place] [address] 36 [place] [address] Gastroenterology 08/03/22 Ruth Trinidad RPH [address] [place], [place] [address] Assigned MTM Pharmacist 10/08/23 documented as of this encounter
--- OUTSIDE RECORDS SUMMARY | 2025-01-01 11:23 | XMS_ITS | Encounter Summary ---
Author Organization [place] Address [address] [place] [address]. [place] [address] Care Team Providers Care Car Supervisor Name Role Phone Swapna licea Nubia Unavailable Unavail able Jonathan Sosa MD Primary Care Provider [phone] Jonathan Sosa MD Unavailable [phone] Anne Lopez MD Unavailable [phone] Ruth Trinidad [facility] Unavailable Reason for Visit * Reason Onset Date Comments Anticoagulation Overdue 12/08/2024 Encounter Details Date Type Department Care Team (Latest Contact Info) Description 12/08/2024 [facility] Anticoagulation Clinic [address] [place] [address] Vikas Obando RN Anticoagulation Overdue Social History Tobacco Use [...] friends or re latives? 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 Care Everywhere updated: yes Left message reminding patient to check INR with their home meter and call results to the home monitoring company as soon as possible. Vikas Obando RN 12/08/2024 Anticoagulation Clinic Epic pool for routing messages: p ANTICOAG HOME MONITORING ACC patient phone line: [phone] documented in this encounter Plan of Treatment Not on file documented as of this encounter Visit Diagnoses Not on filedocumented in this encounter Care Teams Car Supervisor Relationship Specialty Start Date End Date Jonathan Sosa MD [address] [place], [place] [address] PCP - General Internal Medicine 02/14/22 Swapna Lockwood Referring Physician brazing furnace operator 12/29/14 Jonathan Sosa MD [address] [place], [place] [address] Assigned PCP 01/17/22 Anne Lopez MD [address] [place] [address] 36 [place], [place] [address] Gastroenterology 08/03/22 Ruth Trinidad [facility] [address] [place] [address] Assigned MTM Pharmacist 10/08/23 documented as of this encounter
--- OUTSIDE RECORDS SUMMARY | 2025-01-01 11:23 | XMS_ITS | Encounter Summary ---
Author Organization [facility] Address [address] [place] [address] Care Team Providers Care Bit Welder Name Role Phone Swapna Lockwood Unavailable Unavail able Jonathan Sosa MD Primary Care Provider [phone] Jonathan Sosa MD Unavailable Anne Lopez MD Unavailable [phone] [facility] Unavailable Reason for Visit * Reason Comments Medication Refill Encounter Details Date Type Department Care Team (Late st Contact Info) Description 12/09/[address] [place] [address] Jonathan Sosa MD [address] [place] [address] Medication Refill Social History Tobacco [...] friends or re latives? 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 Gender Identity Not on file Sexual Orientation Not on file Occupation Industry Job Start Date Job End Date disabled Not on file Not on file Not on file documented as of this encounter Plan of Treatment Not on file documented as of this encounter Visit Diagnoses Diagnosis Urge incontinence of urine Urge incontinence documented in this encounter Care Teams Bit Welder Relationship Specialty Start Date End Date Jonathan Sosa MD [address] [place] [address] PCP - General Internal Medicine 02/14/22 Swapna Lockwood Referring Physician hand folder 12/29/14 Jonathan Sosa MD [address] [place], [place] [address] Assigned PCP 01/17/22 Anne Lopez MD [address] [facility] [address] [place], [place] [address] Gastroenterology 08/03/22 Ruth Trinidad RPH [address] [place], [place] [address] Assigned MTM Pharmacist 10/08/23 documented as of this encounter
--- OUTSIDE RECORDS SUMMARY | 2025-01-01 11:23 | XMS_ITS | Encounter Summary ---
Author Organization [facility] Address [address] [place] [address]. [place] [address] Care Team Providers Care Bending Shed Worker Name Role Phone Swapna licea Unavailable Unavail able Jonathan Sosa MD Primary Care Provider [phone] Jonathan Sosa MD Unavailable [phone] Anne Lopez MD Unavailable [phone] Ruth Trinidad [facility] Unavailable Encounter Details Date Type Department Care Team (Late st Contact Info) Description 11/29/2024 [facility] [address] [place] [phone] System, Provider Not In Social History [...] friends or re latives? 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 Gender Identity Not on file Sexual Orientation Not on file Occupation Industry Job Start Date Job End Date disabled Not on file Not on file Not on file documented as of this encounter Plan of Treatment Not on file documented as of this encounter Procedures Procedure Name Priority Date/Time Associated Diagnosis Comments INR (EXTERNAL RESULT) Routine 11/29/2024 10:51 AM CDT documented in this encounter Results * INR (External Result) (11/29/2024 10:51 AM CDT) INR HOME MONITORING 2.6 2.5 - 3 [facility] Comment:RCS - IVR Result Fro m Phone #: 11/29/2024 10:5 1 AM CDT 11/29/2024 10:51 AM CDT us Provider Not In System LAB - HIM EXTERNAL RESULT Final Result [facility] [address] [place] [address] documented in this encounter Visit Diagnoses Not on filedocumented in this encounter Care Teams Bending Shed Worker Relationship Specialty Start Date End Date Jonathan Sosa MD [address] [place] [address] PCP - General Internal Medicine 02/14/22 Swapna Lockwood Referring Physician equipment detailer 12/29/14 Jonathan Sosa MD [address] [place] [address] Assigned PCP 01/17/22 Anne Lopez MD [address] [place] [address] 36 [place], [place] [address] Gastroenterology 08/03/22 Ruth Trinidad [facility] [address] [place] [address] Assigned MTM Pharmacist 10/08/23 documented as of this encounter
--- OUTSIDE RECORDS SUMMARY | 2025-01-01 11:23 | XMS_ITS | Encounter Summary ---
Author Organization [place] Address [address] [place] [address] Care Team Providers Care Network Security Engineer Name Role Phone Swapna Lockwood Unavailable Unavail able Jonathan Sosa MD Primary Care Provider Jonathan Sosa MD Unavailable Anne Lopez MD Unavailable [phone] Ruth Trinidad [facility] Unavailable Encounter Details Date Type Department Care Team (Late st Contact Info) Description 12/22/2024 [place] [address] [place] [address] Jonathan Sosa MD [address] [place] [address] Social History Tobacco Use Types Packs/Day Years [...] friends or re latives? 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 Gender Identity Not on file Sexual Orientation Not on file Occupation Industry Job Start Date Job End Date disabled Not on file Not on file Not on file documented as of this encounter Miscellaneous Notes * Telephone Encounter - Jacek Verdin RN - 12/22/2024 11:39 AM CDT ANTICOAGULATION MANAGEMENT: Medication Refill Anticoagulation Summary As of 12/21/2024 Warfarin maintenance plan: 6 mg (6 mg x 1) every Tue, Sat; 5 mg (5 mg x 1) all other days Next INR check: 12/25/2024 Target end date: Indefinite Indications History of pulmonary embolism [Z86.711] Deep vein thrombosis (DVT) of distal vein of lower extremity unspecified chronicity unspecified laterality (H) [I82.4Z9] Anticoagulation Care Providers Provider Role Specialty Phone number Jonathan Sosa MD Referring Internal Medicine [phone] Refill Criteria Visit with referring provider/group: Meets criteria: visit within referring provider group in the last 15 months on 05/05/25 [facility] referral last signed: 04/09/2024; within last year: Yes Lab monitoring is up to date (not exceeding 2 weeks overdue): Yes Estrellita meets all criteria for refill. Rx instructions and quantity supplied updated to match patient's current dosing plan. Warfarin 90 day supply with 1 refill granted per [facility] protocol Jacek Verdin RN Anticoagulation Clinic * Telephone Encounter - Jacek Verdin RN - 12/22/2024 11:38 AM CDT Was started on Eliquis but was having heart palpitations and general weakness which prompted visit to [facility]. She will no longer be taking her DOAC and remaining on warfarin. Warfarin Refill requested today. Jacek Verdin, RN * Telephone Encounter - Isidro Rai Josue - 12/22/2024 10:56 AM CDT Patient Returning Call Reason for call: pt returning a call Information relayed to patient: no Patient has additional questions: No Could we send this information to you in [facility] or would you prefer to receive a phone call?: Patient would prefer a phone call Okay to leave a detailed message?: No at Cell number on file: Telephone Information: documented in this encounter Plan of Treatment Not on file documented as of this encounter Visit Diagnoses Diagnosis Deep vein thrombosis (DVT) of distal vein of lower extremity, unspecified chronicity, unspecified laterality (H) documented in this encounter Care Teams Network Security Engineer Relationship Specialty Start Date End Date Jonathan Sosa MD [address] [place] [address] PCP - General Internal Medicine 02/14/22 Swapna Lockwood Referring Physician try on baster 12/29/14 Jonathan Sosa MD [address] [place] [address] Assigned PCP 01/17/22 Anne Lopez MD [address] [facility] [address] [place], [place] [address] Gastroenterology 08/03/22 Ruth Trinidad RPH [address] [place] [address] Assigned MTM Pharmacist 10/08/23 documented as of this encounter
--- OUTSIDE RECORDS SUMMARY | 2025-01-01 11:23 | XMS_ITS | Encounter Summary ---
Author Organization [facility] Address [address] [place] [address]. [place] [address] Care Team Providers Care Audit Officer Name Role Phone vinayakAndreSwapna Joy Unavailable Unavail able Jonathan Sosa MD Primary Care Provider [phone] Jonathan Sosa MD Unavailable [phone] Anne Lopez MD Unavailable [phone] Ruth Trinidad [facility] Unavailable Encounter Details Date Type Department Care Team (Late st Contact Info) Description 03/09/2024 [facility] [address] [place] [id number] Nicole Avila, KYLIE Social History Tobacco [...] in an abandoned building, in an overnight assisted, or couch-surfing.) Yes 04/14/2023 Are you worried [...] on file 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 Gender Identity Not on file Sexual Orientation Not on file Occupation Industry Job Start Date Job End Date disabled Not on file Not on file Not on file documented as of this encounter Plan of Treatment Not on file documented as of this encounter Visit Diagnoses Not on filedocumented in this encounter Care Teams Audit Officer Relationship Specialty Start Date End Date Jonathan Sosa MD [address] [place] [address] PCP - General Internal Medicine 02/14/22 Swapna Lockwood Referring Physician car wrecker 12/29/14 Jonathan Sosa MD [address] [place] [address] Assigned PCP 01/17/22 Anne Lopez MD [address] [place] [address] [address] [place], [place] [id number] Gastroenterology 08/03/22 Ruth Trinidad RP [address] [place] [address] Assigned MTM Pharmacist 10/08/23 documented as of this encounter
--- OUTSIDE RECORDS SUMMARY | 2025-01-01 11:23 | XMS_ITS | Encounter Summary ---
Author Organization [facility] Address [address] [place] [address]. [place] [address] Care Team Providers Care Manager Retail Sales Name Role Phone Swapna licea Unavailable Unavail able Jonathan Sosa MD Primary Care Provider [phone] Jonathan Sosa MD Unavailable [phone] Anne Lopez MD Unavailable [phone] Ruth Trinidad [facility] Unavailable Encounter Details Date Type Department Care Team (Late st Contact Info) Description 12/11/2024 [facility] [address] [place] [phone] Tammy Montgomery, RN Social History Tobacco [...] friends or re latives? 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 Gender Identity Not on file Sexual Orientation Not on file Occupation Industry Job Start Date Job End Date disabled Not on file Not on file Not on file documented as of this encounter Plan of Treatment Not on file documented as of this encounter Visit Diagnoses Not on filedocumented in this encounter Care Teams Manager Retail Sales Relationship Specialty Start Date End Date Jonathan Sosa MD [address] [place] [address] PCP - General Internal Medicine 02/14/22 Swapna Lockwood Referring Physician collision mechanic 12/29/14 Jonathan Sosa MD [address] [place] [address] Assigned PCP 01/17/22 Anne Lopez MD [address] [place] [address] [address] [place], [place] [address] Gastroenterology 08/03/22 Ruth Trinidad RPH [address] [place], [place] [address] Assigned MTM Pharmacist 10/08/23 documented as of this encounter
--- OUTSIDE RECORDS SUMMARY | 2025-01-01 11:23 | XMS_ITS | Encounter Summary ---
Author Organization [facility] Address [address] [place] [address]. [place] [address] Care Team Providers Care Tight Barrel Inspector Name Role Phone vinayakAndreSwapna Nubia Unavailable Unavail able Jonathan Sosa MD Primary Care Provider [phone] Jonathan Sosa MD Unavailable [phone] Anne Lopez MD Unavailable [phone] Ruth Trinidad [facility] Unavailable Encounter Details Date Type Department Care Team (Latest Contact Info) Description 12/21/2024 Anticoagulation Therapy Visit [facility] [address] [place] [phone] Vale Sarabia RN History of pulmonary embolism (Primary Dx); [...] friends or re latives? 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 (Goal INR 2.5-3.0) Recent labs: (last 7 days) 12/18/24 1300 INR 2.7 ASSESSMENT Source(s): Chart Review Previous INR was Therapeutic last 2(+) visits Medication, diet, health changes since last INR: ER visit for palpitations/general weakness at [facility] on 12/14. Note states that this started after switching from warfarin to eliquis recently. Cardiology visit on 12/17 also references this. Interesting that INR is therapeutic today if Estrellita has indeed switched to Eliquis. There are not recent office visit notes visible that are indicating this change. Patient indicated in these visits that she was nervous about her new sx being related to the switch from DOAC but counseled that this is likely not the case and continuation of Eliquis was advised. Questionable whether patient elected to resume warfarin on her own? Requested she inform [facility] if the switch to Eliquis has been made via both [email or web address] and [employer] message. Otherwise, follow plan outlined below. PLAN Recommended plan for no diet, medication or health factor changes affecting INR Dosing Instructions: Continue your current warfarin dose with next INR in 1 week Summary As of 12/21/2024 Full warfarin instructions: 6 mg every Tue, Sat; 5 mg all other days Next INR check: 12/25/2024 Detailed voice message left for Estrellita with dosing instructions and follow up date. Sent [facility] message with dosing and follow up instructions Patient to recheck with home meter Education provided: Please call back if any changes to your diet, medications or how you've been taking warfarin Plan made per [facility] anticoagulation protocol Vale Morrissey RN 12/21/2024 Anticoagulation Clinic [facility] for routing messages: p ANTICOAG HOME MONITORING [facility] patient phone line: [phone] Anticoagulation Episode Summary Current INR goal: 2.5-3.0 TTR: 58.4% (1 y) Target end date: Indefinite Send INR reminders to: ANTICOAG HOME MONITORING Indications History of pulmonary embolism [Z86.711] Deep vein thrombosis (DVT) of distal vein of lower extremity unspecified chronicity unspecified laterality (H) [I82.4Z9] Comments: 2.5-3.0 Goal Range updated 06/22/2022 [facility]- home meter, [facility] transfer Anticoagulation Care Providers Provider Role Specialty Phone number Jonathan Sosa MD Referring Internal Medicine [phone] documented in this encounter Plan of Treatment Not on file documented as of this encounter Visit Diagnoses Diagnosis History of pulmonary embolism- Primary Personal history of pulmonary embolism Deep vein thrombosis (DVT) of distal vein of lower extremity, unspecified chronicity, unspecified laterality (H) documented in this encounter Care Teams Tight Barrel Inspector Relationship Specialty Start Date End Date Jonathan Sosa MD [address] [place] [address] PCP - General Internal Medicine 02/14/22 Swapna Lockwood Referring Physician warp yarn sorter 12/29/14 Jonathan Sosa MD [address] [place], [place] [address] Assigned PCP 01/17/22 Anne Lopez MD [address] [place] [address] [address] [place], [place] [address] Gastroenterology 08/03/22 Ruth Trinidad [facility] [address] [place] [address] Assigned MTM Pharmacist 10/08/23 documented as of this encounter
--- OUTSIDE RECORDS SUMMARY | 2025-01-01 11:23 | XMS_ITS | Encounter Summary ---
Author Organization [facility] Address [address] [place] [address]. [place] [address] Care Team Providers Care Senior Sales Representative Name Role Phone vinayakAndreSwapna Joy Unavailable Unavail able Jonathan Sosa MD Primary Care Provider [phone] Jonathan Sosa MD Unavailable [phone] Anne Lopez MD Unavailable [phone] Ruth Trinidad [facility] Unavailable Encounter Details Date Type Department Care Team (Latest Contact Info) Description 11/30/2024 Anticoagulation Therapy Visit [facility] Anticoagulation Clinic [address] [place] [address] Nori Willis, RN History of pulmonary embolism (Primary Dx); [...] friends or re latives? 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 (Goal INR 2.5-3.0) Recent labs: (last 7 days) 11/29/24 1051 INR 2.6 ASSESSMENT Source(s): Chart Review Previous INR was Therapeutic last visit; previously outside of goal range Medication, diet, health changes since last INR chart reviewed; none identified PLAN Recommended plan for no diet, medication or health factor changes affecting INR Dosing Instructions: Continue your current warfarin dose with next INR in 1 week Summary As of 11/30/2024 Full warfarin instructions: 6 mg every Sat, Sat; 5 mg all other days Next INR check: 12/07/2024 Detailed voice message left for Estrellita with dosing instructions and follow up date. Patient to recheck with home meter Education provided: Please call back if any changes to your diet, medications or how you've been taking warfarin Taking warfarin: Importance of taking warfarin as instructed Goal range and lab monitoring: Importance of following up at instructed interval Plan made per [facility] anticoagulation protocol Nori Willis RN 11/30/2024 Anticoagulation Clinic [facility] for routing messages: p ANTICOAG HOME MONITORING [facility] patient phone line: [phone] Anticoagulation Episode Summary Current INR goal: 2.5-3.0 [...] number Jonathan Sosa MD Referring Internal Medicine [phone] documented in this encounter Plan of Treatment Not on file documented as of this encounter Visit Diagnoses Diagnosis History of pulmonary embolism- Primary Personal history of pulmonary embolism Deep vein thrombosis (DVT) of distal vein of lower extremity, unspecified chronicity, unspecified laterality (H) documented in this encounter Care Teams Senior Sales Representative Relationship Specialty Start Date End Date Jonathan Sosa MD [address] [place] [address] PCP - General Internal Medicine 02/14/22 Swapna Lockwood Referring Physician pickers material handlers 12/29/14 Jonathan Sosa MD [address] [place] [address] Assigned PCP 01/17/22 Anne Lopez MD [address] [facility] [address] [place], [place] [address] Gastroenterology 08/03/22 Ruth Trinidad [facility] [address] [place], [place] [address] Assigned MTM Pharmacist 10/08/23 documented as of this encounter
--- OUTSIDE RECORDS SUMMARY | 2025-01-01 11:23 | XMS_ITS | Clinical Summary ---
Author Organization [facility] Address [address] [place] [address] Care Team Providers Care Weir Fisher Name Role Phone jessSwapna blissy Unavailable Unavail able Jonathan Sosa MD Primary Care Provider Jonathan Sosa MD Unavailable [phone] Anne Lopez MD Unavailable [phone] Ruth Trinidad [facility] Unavailable Allergies Active Allergy Reactions Criticality Noted Date Comments Aloe 02/03/2015 Lorazepam Anaphylaxis,Rash High 10/02/2011 Betamethasone 02/03/2015 Cannot take topical steroids, horrible itching Cats High 02/03/2015 Cefaclor Hives 08/27/2008 Heartburn (difficulty swallowing) Cholecalciferol Rash Low 02/03/2015 Vitamin D3 (tolerates Vitamin D2) Clindamycin Hives High 12/16/2017 Severe heartburn leading to breathing trouble, hives Dogs 02/03/2015 Doxycycline Rash Low 12/17/2017 Tolerates tablets, cannot take capsules Dust Mites 02/03/2015 Metronidazole Hives Low 02/24/2013 Fluticasone-Salmeterol Rash Low 02/03/2015 Glipizide Nausea 12/14/2021 Hydrocodone 02/03/2015 Hives Cephalexin Other (See Comments) 01/23/2016 Terrible heart burn cannot breathe Terrible heart burn cannot breathe Metformin Diarrhea,GI Disturbance 02/24/2013 Mold Other (See Comments) 12/07/2014 Morphine Shortness Of Breath,Anaphylaxis High 05/27/2012 hives, tolerates hydromorphone Niacin Rash Low 03/09/2010 Face turned red Omeprazole Hives 08/09/2020 Tolerates Zegerid OTC brand Oxycodone Hives 02/03/2015 Hives or rash - tolerates hydromorphone Penicillins Hives,Rash High 02/19/2010 Tolerates amoxicillin or augmentin tablets (not capsules) Sodium Chloride GI Disturbance 02/03/2015 Do not use IV saline only > 1 hour due to severe water retention. Shellfish Allergy 02/03/2015 Simvastatin Hives,Rash Low 07/12/2006 Statins Hives 02/03/2015 Sulfa Antibiotics Shortness Of Breath,Hives High 11/27/2017 Tiotropium [place] Monohydrate 02/03/2015 Cannot take Spiriva, tolerates Atrovent HFA well. Medications acetaminophen 500 MG CAPSIndications: Endometrial hyperplasia with atypia,Other and unspecified ovarian cyst,Yeast dermatitis,Morbi d obesity with BMI of 50.0-59.9, adult (H),Ovarian mass Take 1,000 mg by mouth 3 times daily Active Ascorbic Acid (VITAMIN C PO)Indications:E ndometrial hyperplasia with atypia,Other and unspecified ovarian cyst,Yeast dermatitis,Morbi d obesity with BMI of 50.0-59.9, adult (H),Ovarian mass Take 1,500 mg by mouth daily Active tamsulosin (FLOMAX) 0.4 MG capsuleIndicatio ns:Endometrial hyperplasia with atypia,Other and unspecified ovarian cyst,Yeast dermatitis,Morbi d obesity with BMI of 50.0-59.9, adult (H),Ovarian mass Take 0.4 mg by mouth daily as needed (only when having kidney stone pain) Active COENZYME Q-10 POIndications:En dometrial hyperplasia with atypia,Other and unspecified ovarian cyst,Yeast dermatitis,Morbi d obesity with BMI of 50.0-59.9, adult (H),Ovarian mass Take 200 mg by mouth daily After first meal of the day (10-12 am) Active multivitamin w/minerals (THERA-VIT-M) tablet Take 1 tablet by mouth daily Active HYDROmorphone (DILAUDID) 2 MG tabletIndication s:S/P total hysterectomy and BSO (bilateral salpingo-oophore ctomy) Take 1 tablet (2 mg) by mouth every 4 hours as needed for pain 10 tablet 018 Active blood glucose monitoring (NO BRAND SPECIFIED) meter device kitIndications:C ontrolled type 2 diabetes mellitus without complication, without long-term current use of insulin (H) Use to test blood sugar 2 times daily or as directed. 1 kit Active fluconazole (DIFLUCAN) 150 MG tablet 022 Active blood glucose (ONETOUCH ULTRA) test strip OneTouch Ultra Test strips USE TO TEST THREE TIMES A DAY Active ONETOUCH ULTRA test strip USE TO TEST THREE TIMES A DAY Active blood glucose monitoring (SOFTCLIX) lancets USE TO TEST ONCE DAILY Active multivitamin (ONE-DAILY) tablet Take 1 tablet by mouth Active loperamide (IMODIUM A-D) 2 MG tabletIndication s:Endometrial hyperplasia with atypia,Yeast dermatitis,Morbi d obesity with BMI of 50.0-59.9, adult (H),Ovarian mass Take 1-2 tablets (2-4 mg) by mouth 3 times daily as needed for diarrhea 30 tablet 3 023 Active magnesium oxide 250 MG TABSIndications: History of lung cancer Take 2 tablets (500 mg) by mouth daily 023 Active nystatin (MYCOSTATIN) 196779 UNIT/GM external powderIndication s:Endometrial hyperplasia with atypia,Yeast dermatitis,Morbi d obesity with BMI of 50.0-59.9, adult (H),Ovarian mass Apply topically 3 times daily as needed (dermatitis) 60 g 1 023 Active Incontinence Supply Disposable ([employer] BRIEFS L/XL) MISCIndications: Urge incontinence of urine FOR HOME USE 150 each 023 Active diphenhydrAMINE (BENADRYL) 50 MG capsuleIndicatio ns:Pruritic disorder Take 1 capsule (50 mg) by mouth every 6 hours as needed for itching or allergies 100 capsule 3 023 Active blood glucose (OPTIUM TEST STRIPS) test stripIndications :Controlled type 2 diabetes mellitus without complication, without long-term current use of insulin (H) Dispense item covered by pt ins. E11.65 NIDDM type II, uncontrolled - Test 3 times/day, Reason: High A1C 100 strip 3 024 Active potassium citrate (UROCIT-K) 10 MEQ (1080 MG) CR tablet Take 20 mEq by mouth daily Active vitamin C (ASCORBIC ACID) 1000 MG TABS Take 1,500 mg by mouth daily Active Magnesium Oxide -Mg Supplement 500 MG TABS Take 500 mg by mouth daily Active Probiotic Product (PROBIOTIC BLEND PO) Take 1 each by mouth daily 25 billion units Active ciprofloxacin-de xAMETHasone (CIPRODEX) 0.3-0.1 % otic suspension Place 4 drops into both ears 2 times daily As needed for ear infection. Active Turmeric (QC TUMERIC COMPLEX PO) Take 1,000 mg by mouth daily Active Zinc 30 MG TABS Acti ve cyclobenzaprine (FLEXERIL) 10 MG tabletIndication s:Muscle spasm Take 1 tablet (10 mg) by mouth 3 times daily as needed for muscle spasms 90 tablet 1 024 Active tirzepatide (MOUNJARO) 2.5 MG/0.5ML penIndications:M orbid obesity (H) Inject 2.5 mg subcutaneously every 7 days. 2 mL 1 024 Active benzonatate (TESSALON) 100 MG capsuleIndicatio ns:Acute cough Take 1 capsule (100 mg) by mouth 3 times daily as needed for cough. 30 capsule 024 Active tirzepatide (MOUNJARO) 5 MG/0.5ML penIndications:M orbid obesity with BMI of 50.0-59.9, adult (H),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) Inject 5 mg subcutaneously every 7 days. 2 mL 1 024 Active ZEGERID 40-1100 MG capsuleIndicatio ns:Gastroesophag eal reflux disease without esophagitis TAKE ONE CAPSULE BY MOUTH TWICE A DAY 180 capsule 3 024 Active mometasone (NASONEX) 50 MCG/ACT nasal sprayIndications :Chronic sinusitis, unspecified location [place] 2 sprays into both nostrils daily. 17 g 5 024 Active TIROSINT 137 MCG capsuleIndicatio ns:Acquired hypothyroidism TAKE ONE CAPSULE BY MOUTH EVERY DAY 90 capsule 3 024 Active cyclobenzaprine (FLEXERIL) 5 MG tabletIndication s: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) Take 1 tablet (5 mg) by mouth 3 times daily as needed for muscle spasms. 90 tablet 1 024 Active ATROVENT HFA 17 MCG/ACT inhalerIndicatio ns:Centrilobular emphysema (H) INHALE 1-2 PUFFS INTO THE LUNGS EVERY 6 HOURS NEEDED FOR WHEEZING 38.7 g 2 024 Active ONETOUCH ULTRA test stripIndications :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) USE TO TEST THREE TIMES A DAY 100 strip 2 024 Active Incontinence Supply Disposable ([employer] BRIEFS L/XL) MISCIndications: Urge incontinence of urine 1 each 2 times daily. 150 each 024 Active Disposable Gloves (VINYL GLOVES) MISCIndications: Bilateral leg edema Apply 2 each topically daily. 400 each 024 Active Incontinence Supply Disposable ([employer] BRIEFS L/XL) MISCIndications: Urge incontinence of urine USE DAILY DIRECTED 150 each 1 025 Active vitamin D2 (ERGOCALCIFEROL) 97767 units (1250 mcg) capsuleIndicatio ns:Controlled type 2 diabetes mellitus without complication, unspecified whether fdc insulin use (H) TAKE 1 CAPSULE BY MOUTH ONCE A WEEK ON TUESDAYS 12 capsule 025 Active Alcohol Swabs (B-D SINGLE USE SWABS REGULAR) PADSIndications: DM II (diabetes mellitus, type II), controlled (H) USE DIRECTED DAILY TO TEST BLOOD SUGARS 100 each 3 025 Active MOUNJARO 10 MG/0.5ML SOAJ auto-injector penIndications:T ype 2 diabetes mellitus with other diabetic kidney complication (H) INJECT 0.5 ML (10 MG) SUBCUTANEOUSLY EVERY 7 DAYS 6 mL 025 Active diazepam (VALIUM) 2 MG tabletIndication s:Anxiety TAKE TWO TABLETS BY MOUTH TWICE A DAY 120 tablet 025 Active Incontinence Supply Disposable ([employer] BRIEFS L/XL) MISCIndications: Urge incontinence of urine Apply 2 Act topically daily. 180 each 3 025 Active warfarin ANTICOAGULANT (COUMADIN/JANTOV EN) 5 MG tabletIndication s:Deep vein thrombosis (DVT) of distal vein of lower extremity, unspecified chronicity, unspecified laterality (H) Take 1 tablet (5 mg) by mouth every evening. Take one tablet (5 mg) by mouth Sun, Sat, Sat, , & Sat; OR DIRECTED BY COUMADIN CLINIC 90 tablet 1 025 Active warfarin ANTICOAGULANT (COUMADIN/JANTOV EN) 6 MG tabletIndication s:Deep vein thrombosis (DVT) of distal vein of lower extremity, unspecified chronicity, unspecified laterality (H) Take 6 mg (1 tablet) on Saturday & Saturday, or as directed by the Coumadin Clinic. Also has RX for 5 mg tablets. 20 tablet 1 025 Active warfarin ANTICOAGULANT (COUMADIN) 6 MG tabletIndication s:Deep vein thrombosis (DVT) of distal vein of lower extremity, unspecified chronicity, unspecified laterality (H) Take 6 mg (6 mg x 1 tab) by mouth every Sat; and take 5 mg (5 mg x 1 tab) all other days or as directed by your ACC team based on INR results. 90 tablet 1 024 2024 Discontinued(D uplicate Therapy (No AVS / No eCancel)) warfarin ANTICOAGULANT (COUMADIN) 6 MG tabletIndication s:Deep vein thrombosis (DVT) of distal vein of lower extremity, unspecified chronicity, unspecified laterality (H) Take 6 mg (1 tablet) on Mondays, or as directed by the Coumadin Clinic. Also has RX for 5 mg tablets. 20 tablet 1 025 2024 Discontinued(R eorder (No AVS)) MOUNJARO 10 MG/0.5ML SOAJ auto-injector penIndications:T ype 2 diabetes mellitus with other diabetic kidney complication (H) INJECT 0.5 ML (10 MG) SUBCUTANEOUSLY EVERY 7 DAYS 6 mL 025 2024 Discontinued Incontinence Supply Disposable ([employer] BRIEFS L/XL) MISCIndications: Urge incontinence of urine 1 each daily. 150 each 025 2024 Discontinued diazepam (VALIUM) 2 MG tabletIndication s:Anxiety TAKE TWO TABLETS BY MOUTH TWICE A DAY 120 tablet 025 2024 Discontinued ELIQUIS ANTICOAGULANT 5 MG tablet Take 1 tablet by mouth 2 times daily. 2024 Discontinued(A lternate therapy) warfarin ANTICOAGULANT (COUMADIN) 5 MG tabletIndication s:Deep vein thrombosis (DVT) of distal vein of lower extremity, unspecified chronicity, unspecified laterality (H) Take 1 tablet (5 mg) by mouth every evening. TAKE ONE TABLET (5 MG) BY MOUTH DAILY OR DIRECTED BY COUMADIN CLINIC. 90 tablet 1 025 2024 Discontinued(R eorder (No AVS)) Active Problems Problem Noted Date Diagnosed Date Deep vein thrombosis (DVT) o f distal vein of lower extremity, unspecified chronicity, unspecified laterality 05/20/2023 Chronic low back pain 08/01/2022 Tachycardia 08/01/2022 Pain in both lower legs 06/11/2022 Chronic candidiasis of vulva and vagina 04/23/20 History of malignant neoplasm of endometrium 12/2021 Gastroesophageal reflux disease without esophagi tis 02/14/2022 ENRIQUE (obstructive sleep apnea) 02/14/2022 Bilateral leg edema 02/14/2022 Primary hypertension 12/12/2021 Psychogenic nonepileptic seizure 08/29/2021 Chronic obstructive pulmonary disease 06/14/2021 Vitamin D deficiency 06/14/2021 Sensorineural hearing loss (SNHL) of both ears 1 Lesion of liver 12/29/2020 Mediastinal lymphadenopathy 12/29/2020 Pleural mass 12/29/2020 Tobacco use disorder 12/14/2020 Acquired hypothyroidism 08/05/2018 Endometrial cancer 06/19/2018 Secondary polycythemia 05/13/2018 Iron deficiency 02/03/2018 Cigarette nicotine dependenc e with nicotine-induced disorder 07/02/2016 Centrilobular emphysema 05/16/2016 Overview (08/01/2022): 40 pack year smoking history Type 2 diabetes mellitus wit h other diabetic kidney complication 02/01/2015 Intermittent asthma 02/01/2015 Meniere's disease of both ears 02/01/2015 History of pulmonary embolism 02/01/2015 Congenital hypothyroidism without goiter 015 Meniere's disease 02/01/2015 Endometrial hyperplasia with atypia 01/29/2015 Hyperlipidemia 02/21/2010 Migraines 02/21/2010 Morbid obesity 02/21/2010 Urinary, incontinence, stress female 02/21/2010 Urolithiasis Hidradenitis suppurativa Bipolar 1 disorder Ovarian cyst Overview (03/18/2015): left, 4.5 [facility] Problem list name updated by automated process. Provider to review Kidney stone Yeast dermatitis Overview (02/03/2015): recurrent Morbid obesity with BMI of 50.0-59.9, adult Overview (02/03/2015): BMI - 53 DVT of lower extremity (deep venous thrombosis) Chronic anticoagulation Resolved Problems Problem Noted Date Diagnosed Date Resolved Date Other chronic pulmonary embo lism without acute cor pulmonale 06/24/2022 11/18/2023 Non-small cell lung cancer, unspecified laterality 02/14/2022 11/18/2023 Chronic respiratory failure with hypoxia 11/14/2021 11/18/2023 Seizure 03/29/2003 11/18/2023 IUD (intrauterine device) in place 02/14/2022 PE (pulmonary embolism) 08/2023 Encounters Date Type Department Care Team Description 12/28/2024 MyC Medical Advice [facility] [address] [place] [phone] Concepcion Knight RN 12/28/2024 Anticoagulation Therapy Visit [facility] [address] [place] [phone] Concepcion Knight RN History of pulmonary embolism (Primary Dx); Deep vein thrombosis (DVT) of distal vein of lower extremity, unspecified chronicity, unspecified laterality (H) 12/28/2024 Results Follow-Up [facility] [address] [place] [phone] Concepcion Knight RN 12/27/2024 Orders Only [facility] [place] [address] System, Provider Not In 12/22/2024 Telephone [facility] [address] [place] [address] Jonathan Sosa MD 12/21/2024 Telephone [facility] [address] [place] [address] Jonathan Sosa MD Forms ([facility]) 12/21/2024 Results Follow-Up [facility] [place] [phone] Vale Sarabia RN 12/21/2024 MyC Medical Advice [facility] [address] [place], [place] [address] [address] Vale Sarabia RN 12/21/2024 Anticoagulation Therapy Visit [facility] [place] [phone] Vale Sarabia RN History of pulmonary embolism (Primary Dx); Deep vein thrombosis (DVT) of distal vein of lower extremity, unspecified chronicity, unspecified laterality (H) 12/18/2024 Orders Only [facility] [place] [address] System, Provider Not In 12/11/2024 MyC Medical Advice [facility] [place] [phone] Tammy Montgomery RN 12/11/2024 Anticoagulation Therapy Visit [facility] [place] [phone] Tammy Montgomery RN History of pulmonary embolism (Primary Dx); Deep vein thrombosis (DVT) of distal vein of lower extremity, unspecified chronicity, unspecified laterality (H) 12/11/2024 Results Follow-Up [facility] [address] [place] [phone] Concepcion Knight RN 12/10/2024 Orders Only [facility] [address] [place] [phone] System, Provider Not In 12/09/2024 Refill [facility] [address] [place] [phone] Jonathan Sosa MD Medication Refill 12/09/2024 Refill [facility] [address] [place] [phone] Jonathan Sosa MD Medication Refill 12/08/2024 Telephone [facility] [address] [place] [phone] Vikas Obando RN Anticoagulation Overdue 12/07/2024 Refill [facility] [address] [place] [phone] Jonathan Sosa MD Medication Refill 11/30/2024 MyC Medical Advice [facility] [address] [place] [phone] Nori Willis RN 11/30/2024 Results Follow-Up [facility] [address] [place] [phone] Nori Willis RN 11/30/2024 Anticoagulation Therapy Visit [facility] [address] [phone] Nori Willis, RN History of pulmonary embolism (Primary Dx); Deep vein thrombosis (DVT) of distal vein of lower extremity, unspecified chronicity, unspecified laterality (H) 11/29/2024 Orders Only [facility] [address] [place] [phone] System, Provider Not In 11/20/2024 Results Follow-Up [facility] [place] [phone] Jacek Verdin RN 11/20/2024 Anticoagulation Therapy Visit [facility] [address] [place], [place] [address] [phone] Jacek Verdin RN History of pulmonary embolism (Primary Dx); Deep vein thrombosis (DVT) of distal vein of lower extremity, unspecified chronicity, unspecified laterality (H) 11/20/2024 Orders Only [facility] [address] [place] [address] System, Provider Not In 11/18/2024 MyC Medical Advice [facility] [address] [place] [phone] Isis Velez RN Anticoagulation Overdue 11/18/2024 Documentation Only [facility] [address] [place] [address] Isis Velez RN Anticoagulation Overdue 11/10/2024 Results Follow-Up [facility] [address] [place], [place] [address] [phone] Vale Sarabia RN 11/10/2024 Anticoagulation Therapy Visit [facility] [address] [phone] Vale Sarabia RN History of pulmonary embolism (Primary Dx); Deep vein thrombosis (DVT) of distal vein of lower extremity, unspecified chronicity, unspecified laterality (H) 11/10/2024 Orders Only [facility] [address] [place], [place] [address] [address] System, Provider Not In 11/03/2024 Results Follow-Up [facility] [address] [place], [place] [address] [phone] Jacek Verdin RN 11/02/2024 Anticoagulation Therapy Visit [facility] [address] [place], [place] [address] [phone] Doris Lopez RN History of pulmonary embolism (Primary Dx); Deep vein thrombosis (DVT) of distal vein of lower extremity, unspecified chronicity, unspecified laterality (H) 11/02/2024 Orders Only [facility] [address] [phone] System, Provider Not In 10/30/2024 Results Follow-Up [facility] [address] [place] [phone] Mary Kay Lucio RN 10/30/2024 Anticoagulation Therapy Visit [facility] [address] [place] [phone] Mary Kay Lucio RN History of pulmonary embolism (Primary Dx); Deep vein thrombosis (DVT) of distal vein of lower extremity, unspecified chronicity, unspecified laterality (H) 10/30/2024 Orders Only [facility] [address] [place], [place] [address] [address] System, Provider Not In 10/26/2024 Results Follow-Up [facility] [address] [place] [address] [place] [address] Nicole Avila RN 10/26/2024 Anticoagulation Therapy Visit [facility] [address] [place] [phone] Nicole Avila RN History of pulmonary embolism (Primary Dx); Deep vein thrombosis (DVT) of distal vein of lower extremity, unspecified chronicity, unspecified laterality (H) 10/26/2024 Orders Only [facility] [address] [place], [place] [address] [address] System, Provider Not In 10/22/2024 Results Follow-Up [facility] [address] [place] [address] [place] [address] Vikas Obando RN 10/22/2024 Anticoagulation Therapy Visit [facility] [address] [phone] Vikas Obando RN History of pulmonary embolism (Primary Dx); Deep vein thrombosis (DVT) of distal vein of lower extremity, unspecified chronicity, unspecified laterality (H) 10/21/2024 Orders Only [facility] [address] [phone] System, Provider Not In 10/19/2024 MyC Medical Advice [facility] [address] [phone] Tammy Montgomery RN 10/19/2024 MyC Medical Advice [facility] [address] [phone] Tammy Montgomery RN 10/16/2024 Anticoagulation Therapy Visit [facility] [address] [phone] Tammy Montgomery RN History of pulmonary embolism (Primary Dx); Deep vein thrombosis (DVT) of distal vein of lower extremity, unspecified chronicity, unspecified laterality (H) 10/16/2024 Orders Only [facility] [address] [phone] System, Provider Not In 10/12/2024 MyC Medical Advice [facility] [address] [phone] Jacek Verdin RN 10/12/2024 Telephone [facility] [address] [facility] [address] [place] [address] Jonathan Sosa MD Anticoagulation 10/12/2024 Anticoagulation Therapy Visit [facility] [address] [phone] Jacek Verdin, RN History of pulmonary embolism (Primary Dx); Deep vein thrombosis (DVT) of distal vein of lower extremity, unspecified chronicity, unspecified laterality (H) 10/12/2024 Orders Only [facility] [address] [place] [phone] System, Provider Not In 10/12/2024 Refill [facility] [address] [place] [phone] Jonathan Sosa MD Medication Refill 10/11/2024 Refill [facility] [address] [facility] [address] [place] [phone] Jonathan Sosa MD Medication Refill 10/07/2024 MyC Medical Advice [facility] [address] [phone] Tammy Montgomery RN 10/05/2024 Anticoagulation Therapy Visit [facility] [address] [address] [id number] Vale Sarabia RN History of pulmonary embolism (Primary Dx); Deep vein thrombosis (DVT) of distal vein of lower extremity, unspecified chronicity, unspecified laterality (H) 10/05/2024 Orders Only [facility] Anticoagulation [address] [phone] System, Provider Not In 10/03/2024 Refill [facility] [address] [place] [phone] Jonathan Sosa MD Medication Refill from Last 3 Months Immunizations Immunization Administration Dates Next Due COVID-19 MONOVALENT 12+ (Pfizer) 03/03/2021 DT (PEDS <7y) 10/07/1985 Pneumo Conj 13-V (2010&after) 06/30/2021 Pneumococcal 23 valent 04/12/2015,04/14/2008 TD,PF 7+ (Tenivac) 05/27/2020 TDAP (Adacel,Boostrix) 05/21/2008 Td (Adult), Adsorbed 08/05/2018,05/31/2008 Zoster recombinant adjuvanted (Shingrix) 020,06/15/2019 Family History Medical History Relation Comments Coronary Artery Disease Brother 3 Diabetes Brother 3 Hypertension Brother 3 Diabetes Brother 4 Thyroid Disease Cousin Coronary Artery Disease Father Diabetes Father Hypertension Father Other Cancer Father Brain Other Cancer Maternal Aunt 1 Other Cancer Maternal Aunt 2 Asthma Mother Diabetes Mother Other Cancer Mother rare cell type Anesthesia Reaction Other 1 Anxiety Disorder Other 1 Asthma Other 1 Hyperlipidemia Other 1 Obesity Other 1 Other Cancer Other 1 Thyroid Disease Other 1 Asthma Other 2 Thyroid Disease Other 3 Thyroid Disease Other 4 Thyroid Disease Other 5 Other Cancer Paternal Aunt 1 Cancer Paternal Aunt 2 Relation Status Comments Brother 1 Alive Brother 2 Brother 3 Brother 4 Cousin Father Maternal Aunt 1 Maternal Aunt 2 Maternal Grandfather Maternal Grandmother Mother Other 1 Other 2 Other 3 Other 4 Other 5 Paternal Aunt 1 Paternal Aunt 2 Paternal Grandfather Paternal Grandmother Sister Alive Social History Tobacco Use Types Packs/Day Years Used Date Smoking Tobacco: Every Day Cigarettes 0.5 35 Started: 05/17/1988; Last attempted to quit: 05/17/2023 Pipe Other Passive Smoke Exposure: Current Smokeless Tobacco: Never Tobacco Cessation:Ready to Q uit: Yes; Counseling Given: Not Answered Comments:IN PROGRAM WITH VALLONIA Alcohol Use Standard Drinks/Week Comments No 0 (1 standard drink = 0.6 oz pur e alcohol) Social Connection and Isolation Panel [NHANES] A nswer Date Recorded Frequency of Communication with Friends and Fami ly Not on file 05/02/2024 How often do you get together with friends or re latives? 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 Gender Identity Not on file Sexual Orientation Not on file Occupation Industry Job Start Date Job End Date disabled Not on file Not on file Not on file Last Filed Vital Signs Vital Sign Reading Time Taken Comments Blood Pressure 118/72 05/05/2024 7:49 AM SPORTS BETTING MANAGER Pulse 80 05/05/2024 7:49 AM SPORTS BETTING MANAGER Temperature 36.6 C (97.8 F) 05/05/2024 7:49 AM SPORTS BETTING MANAGER Respiratory Rate 20 05/05/2024 7:49 AM SPORTS BETTING MANAGER Oxygen Saturation 95% 05/05/2024 7:49 AM SPORTS BETTING MANAGER Inhaled Oxygen Concentration - - Weight 111 kg (244 lb 11.2 oz) 05/05/2024 7:49 A M SPORTS BETTING MANAGER Height 152.4 cm (5') 05/05/2024 7:49 AM SPORTS BETTING MANAGER Body Mass Index 47.79 05/05/2024 7:49 AM SPORTS BETTING MANAGER Plan of Treatment Health Maintenance Due Date Last Done Comments COPD ACTION PLAN 1960 CT COLONOGRAPHY 1961 DIABETIC FOOT EXAM 1960 FLEX SIG 1961 sDNA (Cologuard) 1961 HIV SCREENING 1976 PAP 1982 ZOSTER VACCINE (2 of 2) 08/14/2019 06/19/2019, 06/15 FIT 06/19/2020 06/19/2019 RSV VACCINE (1 - Risk 60-74 years 1-dose series) 2021 COLONOSCOPY 06/30/2022 06/30/2019, 06/30/2019 COLORECTAL CANCER SCREENING 06/30/2022 COVID-19 VACCINE ( season) 2024 08/16/2023, 10/17/2022, 05/31/2022, Additional history exists PHQ-2 (once per calendar year) 2024 05/05/2024, 11/18/2023, 02/06/2023, Additional history exists NICOTINE/TOBACCO CESSATION COUNSELING Q 1 YR 09/05/2024 09/06/2023, 02/06/2023, 02/14/2022 A1C 11/02/2024 05/05/2024, 06/0 08/2023, 08/01/2022, Additional history exists INFLUENZA VACCINE (#1) 2025 ANNUAL REVIEW OF HM ORDERS 05/05/202505/05, 04/17/2023, 04/25/2022 BMP 05/05/2025 05/05/2024, 06/0 08/2023, 10/10/2022, Additional history exists LIPID 05/05/2025 05/05/2024, 06/0 08/2023, 08/01/2022 MEDICARE ANNUAL WELLNESS VISIT 05/05/2025 05/05/2024, 02/06/2023 MICROALBUMIN 05/05/2025 05/05/2024, 08/01/2022 TSH W/FREE T4 REFLEX 05/05/2025 05/05/2024, 04/17/2023, 04/17/2023 EYE EXAM 09/15/2025 09/15/2024, 05/0 02/2024, 10/23/2023, Additional history exists PNEUMOCOCCAL VACCINE 50+ YEARS (3 of 3 - PCV20 or PCV21) 06/30/2026 06/30/2021, 04/12/2015, 04/14/2008 MAMMO SCREENING 11/20/2026 11/20/2024, 06/0 11/2024, 10/01/2023, Additional history exists ADVANCE CARE PLANNING 05/05/2029 05/05/2024 , 08/01/2022 (Declined) DTAP/TDAP/TD VACCINE (5 - Td or Tdap) 05/27/2030 05/27/2020, 08/05/2018, 05/31/2008, Additional history exists SPIROMETRY Completed 01/19/2021, 08/0 10/2020, 01/19/2021 HEPATITIS C SCREENING Completed 02/06/2021 LUNG CANCER SCREENING Discontinued 07/12/2023 , 07/10/2023, 05/16/2023, Additional history exists HPV VACCINE Aged Out No longer eligi ble based on patient's age to complete this topic MENINGITIS VACCINE Aged Out No longer eligible based on patient's age to complete this topic Procedures Procedure Name Priority Date/Time Associated Diagnosis Comments INR (EXTERNAL RESULT) Routine 12/27/2024 1:36 PM CDT INR (EXTERNAL RESULT) Routine 12/18/2024 1:00 PM CDT INR (EXTERNAL RESULT) Routine 12/10/2024 8:41 PM CDT INR (EXTERNAL RESULT) Routine 11/29/2024 10:51 AM CDT INR (EXTERNAL RESULT) Routine 11/20/2024 3:13 PM CDT INR (EXTERNAL RESULT) Routine 11/10/2024 5:30 PM CDT INR (EXTERNAL RESULT) Routine 11/02/2024 9:52 AM CDT INR (EXTERNAL RESULT) Routine 10/30/2024 10:08 AM CDT INR (EXTERNAL RESULT) Routine 10/26/2024 6:46 AM CDT INR (EXTERNAL RESULT) Routine 10/21/2024 10:08 PM CDT INR (EXTERNAL RESULT) Routine 10/16/2024 8:28 AM CDT INR (EXTERNAL RESULT) Routine 10/12/2024 10:18 AM CDT INR (EXTERNAL RESULT) Routine 10/05/2024 10:36 AM CDT EYE EXAM - HIM SCAN 09/15/2024 1 2:00 AM CDT TSH WITH FREE T4 REFLEX Routine 05/05/2024 9:01 AM SPORTS BETTING MANAGER Acquired hypothyroidism LIPID REFLEX TO DIRECT LDL PANEL Routine 05/05/2024 9:01 AM SPORTS BETTING MANAGER 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) Encounter for preventative adult health care examination COMPREHENSIVE METABOLIC PANEL Routine 05/05/2024 9:01 AM SPORTS BETTING MANAGER 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 INR HOME MONITORING 2.7 2.5 - 3 [facility] Comment:RCS - IVR Result Fro m Phone #: 12/27/2024 1:36 PM CDT 12/27/2024 1:36 PM CDT us Provider Not In System LAB - HIM EXTERNAL RESULT Final Result [facility] [address] [place] [address] [place] [address] * Eye Exam - HIM Scan (09/15/2024 12:00 AM CDT) RETINOPATHY NEGATIVE 09/15/2024 Narrative Amanda Craig - 09/15/2024 12:00 AM CDT EYE EXAM [facility] us Provider Outside OTHER Edited Result - Final * TSH WITH FREE T4 REFLEX (05/05/2024 9:01 AM SPORTS BETTING MANAGER) TSH 0.79 0.30 - 4.20 uIU/mL 05/06/2024 8:45 AM SPORTS BETTING MANAGER [facility] Blood BLOOD SPECIMEN / Unknown Venipuncture / Unknown 05/05/2024 9:01 AM SPORTS BETTING MANAGER 05/05/2024 9:01 AM SPORTS BETTING MANAGER us Jonathan Sosa MD LAB - BLOOD ORDERABLES Shiloh l Result [facility] [address], [address] [place] [phone] * (ABNORMAL) Lipid panel reflex to direct LDL Fasting (05/05/2024 9:01 AM SPORTS BETTING MANAGER) Cholesterol 280(H) <200 mg/dL 05/06/2024 8:45 AM SPORTS BETTING MANAGER [facility] Triglycerides 450(H) <150 mg/dL 05/06/2024 8:45 AM SPORTS BETTING MANAGER [facility] Direct Measure HDL 46(L) >=50 mg/dL 05/06/2024 8:45 AM SPORTS BETTING MANAGER [facility] LDL Cholesterol Calculated 05/06/2024 8:45 AM SPORTS BETTING MANAGER [facility] Comment:Cannot estimate LDL when triglyceride exceeds 400 mg/dL Non HDL Cholesterol 234(H) <130 mg/dL 05/06/2024 8:45 AM SPORTS BETTING MANAGER [facility] Patient Fasting > 8hrs? Yes 05/06/2024 8:45 AM SPORTS BETTING MANAGER [facility] Blood BLOOD SPECIMEN / Unknown Venipuncture / Unknown 05/05/2024 9:01 AM SPORTS BETTING MANAGER 05/05/2024 9:01 AM SPORTS BETTING MANAGER Narrative [facility] - 05/06/2024 8:45 AM SPORTS BETTING MANAGER Cholesterol Desirable: < 200 mg/dL Borderline High: 200 - 239 mg/dL High: >= 240 mg/dL Triglycerides Normal: < 150 mg/dL Borderline High: 150 - 199 mg/dL High: 200-499 mg/dL Very High: >= 500 mg/dL Direct Measure HDL Female: >= 50 mg/dL Male: >= 40 mg/dL LDL Cholesterol Desirable: < 100 mg/dL Above Desirable: 100 - 129 mg/dL Borderline High: 130 - 159 mg/dL High: 160 - 189 mg/dL Very High: >= 190 mg/dL Non HDL Cholesterol Desirable: < 130 mg/dL Above Desirable: 130 - 159 mg/dL Borderline High: 160 - 189 mg/dL High: 190 - 219 mg/dL Very High: >= 220 mg/dL Jonathan Sosa MD LAB - BLOOD ORDERABLES Shiloh l Result [facility] [address] [facility], [address] [place] [id number] * (ABNORMAL) HEMOGLOBIN A1C (05/05/2024 9:01 AM SPORTS BETTING MANAGER) Estimated Average Glucose 174(H) <117 mg/dL 05/05/2024 9:18 AM SPORTS BETTING MANAGER [facility] Hemoglobin A1C 7.7(H) 0.0 - 5.6 % 05/05/2024 9:18 AM SPORTS BETTING MANAGER [facility] Comment: Normal <5.7% Prediabetes 5.7-6.4% Diabetes 6.5% or higher Note: Adopted from ADA consensus guidelines. Blood BLOOD SPECIMEN / Unknown Venipuncture / Unknown 05/05/2024 9:01 AM SPORTS BETTING MANAGER 05/05/2024 9:01 AM SPORTS BETTING MANAGER Jonathan Sosa MD LAB - BLOOD ORDERABLES Shiloh ricks Result [facility] [address] [place] [phone] * (ABNORMAL) Comprehensive metabolic panel (BMP + Alb, Alk Phos, ALT, AST, Total. Bili, TP) (05/05/2024 9:01 AM SPORTS BETTING MANAGER) Pathologist [facility] Sodium 138 135 - 145 mmol/L 05/06/2024 8:45 AM SPORTS BETTING MANAGER [facility] Potassium 4.3 3.4 - 5.3 mmol/L 05/06/2024 8:45 AM SPORTS BETTING MANAGER [facility] Carbon Dioxide (CO2) 26 22 - 29 mmol/L 05/06/2024 8:45 AM SPORTS BETTING MANAGER [facility] Anion Gap 12 7 - 15 mmol/L 05/06/2024 8:45 AM SPORTS BETTING MANAGER [facility] Urea Nitrogen 17.9 8.0 - 23.0 mg/dL 05/06/2024 8:45 AM SPORTS BETTING MANAGER [facility] Creatinine 0.55 0.51 - 0.95 mg/dL 05/06/2024 8:45 AM SPORTS BETTING MANAGER [facility] GFR Estimate >90 >60 mL/min/1.7 3m2 05/06/2024 8:45 AM SPORTS BETTING MANAGER [facility] Comment:eGFR calculated usin 2020 CKD-EPI equation. Calcium 9.3 8.8 - 10.4 mg/dL 05/06/2024 8:45 AM SPORTS BETTING MANAGER [facility] Comment:Reference intervals for this test were updated on 12/31/2023 to reflect our healthy population more accurately. There may be differences in the flagging of prior results with similar values performed with this method. Those prior results can be interpreted in the context of the updated reference intervals. Chloride 100 98 - 107 mmol/L 05/06/2024 8:45 AM SPORTS BETTING MANAGER [facility] Glucose 153(H) 70 - 99 mg/dL 05/06/2024 8:45 AM SPORTS BETTING MANAGER [facility] Alkaline Phosphatase 78 40 - 150 U/L 05/06/2024 8:45 AM SPORTS BETTING MANAGER [facility] AST 20 0 - 45 U/L 05/06/2024 8:45 AM SPORTS BETTING MANAGER [facility] ALT 14 0 - 50 U/L 05/06/2024 8:45 AM SPORTS BETTING MANAGER [facility] Protein Total 6.9 6.4 - 8.3 g/dL 05/06/2024 8:45 AM SPORTS BETTING MANAGER [facility] Albumin 4.2 3.5 - 5.2 g/dL 05/06/2024 8:45 AM SPORTS BETTING MANAGER [facility] Bilirubin Total 0.3 <=1.2 mg/dL 05/06/2024 8:45 AM SPORTS BETTING MANAGER [facility] Patient Fasting > 8hrs? Yes 05/06/2024 8:45 AM SPORTS BETTING MANAGER [facility] Blood BLOOD SPECIMEN / Unknown Venipuncture / Unknown 05/05/2024 9:01 AM SPORTS BETTING MANAGER 05/05/2024 9:01 AM SPORTS BETTING MANAGER Jonathan Sosa MD LAB - BLOOD ORDERABLES Shiloh ricks Result [facility] [address] [facility], [address] [place] [id number] * (ABNORMAL) Albumin Random Urine Quantitative with Creat Ratio (05/05/2024 8:47 AM SPORTS BETTING MANAGER) Creatinine Urine mg/dL 34.4 mg/dL 05/05/2024 6:41 PM SPORTS BETTING MANAGER [facility] Comment:The reference ranges have not been established in urine creatinine. The results should be integrated into the clinical context for interpretation. Albumin Urine mg/L 19.9 mg/L 2023 6:41 PM SPORTS BETTING MANAGER [facility] Comment:The reference ranges have not been established in urine albumin. The results should be integrated into the clinical context for interpretation. Albumin Urine mg/g Cr 57.85(H) 0.00 - 25.00 mg/g Cr 05/05/2024 6:41 PM SPORTS BETTING MANAGER [facility] Comment: Microalbuminuria is defined as an albumin:creatinine ratio of 17 to 299 for males and 25 to 299 for females. A ratio of albumin:creatinine of 300 or higher is indicative of overt proteinuria. Due to biologic variability, positive results should be confirmed by a second, first-morning random or 24-hour timed urine specimen. If there is discrepancy, a third specimen is recommended. When 2 out of 3 results are in the microalbuminuria range, this is evidence for incipient nephropathy and warrants increased efforts at glucose control, blood pressure control, and institution of therapy with an qwbammoljzx-iuktweeptn-iwqyew (YOVANI) inhibitor (if the patient can tolerate it). Urine URINE SPECIMEN / Unknown Non-blood Collection / Unknown 05/05/2024 8:47 AM SPORTS BETTING MANAGER 05/05/2024 8:47 AM SPORTS BETTING MANAGER us Jonathan Sosa MD LAB - URINE ORDERABLES Shiloh ricks Result [facility] [address] [facility], [address] [phone] * Colonoscopy - HIM Scan (06/30/2019) Narrative Destinee Tafoya - 06/30/2019 See Care Everywhere-[facility] us Provider Outside PROCEDURES Final Result from Last 3 Months or Most Recently Relevant to Health Maintenance Insurance [place] * Guarantor: Estrellita Denise Account Type Relation to Patient Date of Phone Billing Address Medication Therapy Self 1960 [address] [place] [address] MEDICARE Advance Directives For more information, please contact: [phone] Documents on File Type Date Recorded Patient Director Corporate Security Expl anation Advance Directives and Living Will 02/09/2015 2:23 PM HEALTH CARE DIRECTIV E 12/05/14 Care Teams Weir Fisher Relationship Specialty Start Date End Date Jonathan Sosa MD [address] [place] [address] PCP - General Internal Medicine 02/14/22 Swapna Lockwood Referring Physician gridcap machine operator 12/29/14 Jonathan Sosa MD [address] [place] [address] Assigned PCP 01/17/22 Anne Lopez MD [address] [place] [address] [address] [place], [place] [address] Gastroenterology 08/03/22 Ruth Trinidad RPH [address] [place] [address] Assigned MTM Pharmacist 10/08/23
--- OUTSIDE RECORDS SUMMARY | 2025-01-01 11:24 | XMS_ITS | Encounter Summary ---
Author Organization [place] Address [address] [place] [address]. [place] [address] Care Team Providers Care Environmental Adviser Name Role Phone vinayakAndreSwapna Nubia Unavailable Unavail able Jonathan Sosa MD Primary Care Provider [phone] Jonathan Sosa MD Unavailable [phone] Anne Lopez MD Unavailable [phone] Ruth Trinidad [facility] Unavailable Ruth Trinidad [facility] Unavailable Encounter Details Date Type Department Care Team (Late st Contact Info) Description 05/24/2023 [facility] [address] [place] [address] Andre Tenorio, RN Social History [...] in an overnight [facility], or couch-surfing.) Yes 04/14/2023 Are you worried [...] on file Legal Sex Female 3:08 AM SUPERVISING PRODUCER Gender Identity Not on file Sexual Orientation Not on file Occupation Industry Job Start Date Job End Date disabled Not on file Not on file Not on file documented as of this encounter Plan of Treatment Not on file documented as of this encounter Visit Diagnoses Not on filedocumented in this encounter Care Teams Environmental Adviser Relationship Specialty Start Date End Date Jonathan Sosa MD [address] [place] [address] PCP - General Internal Medicine 02/14/22 Swapna Lockwood Referring Physician peanut salter 12/29/14 Jonathan Sosa MD [address] [place], [place] [address] Assigned PCP 01/17/22 Anne Lopez MD [address] [place] [id number] Gastroenterology 08/03/22 Ruth Trinidad RPH [address] [place], [place] [id number] Pharmacist Pharmacist Oven Drier Tender 09/06/23 10/09/23 Ruth Trinidad RPH [address] [place], [place] [id number] Assigned [place] Pharmacist 10/08/23 documented as of this encounter
--- OUTSIDE RECORDS SUMMARY | 2025-01-01 11:24 | XMS_ITS | Encounter Summary ---
Author Organization [place] Address [address] [place] [address]. [place] [address] Care Team Providers Care Content Administrator Name Role Phone Swapna licea Nubia Unavailable Unavail able Jonathna Sosa MD Primary Care Provider [phone] Jonathan Sosa MD Unavailable [phone] Anne Lopez MD Unavailable [phone] [facility] Unavailable Encounter Details Date Type Department Care Team (Late st Contact Info) Description 05/05/2024 [facility] [address] [place] [phone] Nelsy Mo RN Social History Tobacco Use Types Packs/Day [...] friends or re latives? Never 05/02/2024 Attends Pentecostalism Services Not on file 05/02 Active Member of Clubs or Organizations Not on f ile 05/02/2024 Attends Club or Organization Meetings Not on francisac e 05/02/2024 Marital Status Not on file 05/02/2024 PHQ-2 Answer Date Recorded PHQ-2 Score 0 05/05/2024 [facility] [place] of Occupat ional Health - Occupational Stress [...] on file Legal Sex Female 3:08 AM REHABILITATION CASEWORKER Gender Identity Not on file Sexual Orientation Not on file Occupation Industry Job Start Date Job End Date disabled Not on file Not on file Not on file documented as of this encounter Plan of Treatment Not on file documented as of this encounter Visit Diagnoses Not on filedocumented in this encounter Care Teams Content Administrator Relationship Specialty Start Date End Date Jonathan Sosa MD [address] [place] [address] PCP - General Internal Medicine 02/14/22 Swapna Lockwood Referring Physician dye house hand 12/29/14 Jonathan Sosa MD [address] [place] [address] Assigned PCP 01/17/22 Anne Lopez MD [address] [place] [address] [address] [place], [place] [address] Gastroenterology 08/03/22 Ruth Trinidad RPH [address] [place], [place] [address] Assigned MTM Pharmacist 10/08/23 documented as of this encounter
--- OUTSIDE RECORDS SUMMARY | 2025-01-01 11:24 | XMS_ITS | Encounter Summary ---
Author Organization [place] Address [address] [place] [address]. [place] [address] Care Team Providers Care Bi Analyst Name Role Phone Swapna licea Unavailable Unavail able Jonathan Sosa MD Primary Care Provider Jonathan Sosa MD Unavailable [phone] Anne Lopez MD Unavailable [phone] Ruth Trinidad [facility] Unavailable Encounter Details Date Type Department Care Team (Late st Contact Info) Description 05/04/[address] [facility] [address] [place] [phone] Tammy [place], RN Social History Tobacco [...] friends or re latives? Never 05/02/2024 Attends Gnosticism Services Not on file 05/02 Active Member of Clubs or Organizations Not on f ile 05/02/2024 Attends Club or Organization Meetings Not on francisca e 05/02/2024 Marital Status Not on file 05/02/2024 PHQ-2 Answer Date Recorded PHQ-2 Score 0 05/05/2024 [facility] of Occupat ional Health - Occupational Stress [...] file Legal Sex Female 3:08 AM DYE AND CHEMICAL COORDINATOR Gender Identity Not on file Sexual Orientation Not on file Occupation Industry Job Start Date Job End Date disabled Not on file Not on file Not on file documented as of this encounter Plan of Treatment Not on file documented as of this encounter Visit Diagnoses Not on filedocumented in this encounter Care Teams Bi Analyst Relationship Specialty Start Date End Date Jonathan Sosa MD [address] [place] [address] PCP - General Internal Medicine 02/14/22 Swapna Lockwood Referring Physician traffic signal repairer 12/29/14 Jonathan Sosa MD [address] [place] [address] Assigned PCP 01/17/22 Anne Lopez MD [address] [facility] [address] [place] [address] Gastroenterology 08/03/22 Ruth Trinidad [facility] [address] [place] [address] Assigned MTM Pharmacist 10/08/23 documented as of this encounter
--- OUTSIDE RECORDS SUMMARY | 2025-01-01 11:24 | XMS_ITS | Encounter Summary ---
Author Organization [facility] Address [address] [place] [address] Care Team Providers Care Busser Name Role Phone Swapna Lockwood Unavailable Unavail able Jonathan Sosa MD Primary Care Provider [phone] Jonathan Sosa MD Unavailable [phone] Anne Lopez MD Unavailable [phone] Ruth Trinidad [facility] Unavailable Ruth Trinidad [facility] Unavailable Reason for Visit * Reason Onset Date Comments MyChart Communication 05/08/2023 Letter to excuse patient from jury duty Encounter Details Date Type Department Care Team (Late st Contact Info) Description 05/08/2023 [facility] [address] [place] [address] Jonathan Sosa MD [address] [place] [address] MyChart Communication (Letter to excuse pa... Social History Tobacco Use Types Packs/Day Years [...] in an overnight jail, or couch-surfing.) Yes 04/14/2023 Are you worried [...] on file Legal Sex Female 3:08 AM ACTUARIAL TRAINEE Gender Identity Not on file Sexual Orientation Not on file Occupation Industry Job Start Date Job End Date disabled Not on file Not on file Not on file documented as of this encounter Miscellaneous Notes * Telephone Encounter - Evelin Gautam RN - 05/10/2023 1:11 PM ACTUARIAL TRAINEE Sent message back to pt. Emailed to the courts. ARIAL TRAINEE * Telephone Encounter - Jonathan Sosa MD - 05/10/2023 11:22 AM ACTUARIAL TRAINEE Letter is done, please e mail to the provided address. ARIAL TRAINEE * Telephone Encounter - Tammy Chavis RN - 05/10/2023 8:57 AM CST Please review Vindi message and advise. Tammy Chavis RN [facility] ARIAL TRAINEE documented in this encounter Plan of Treatment Not on file documented as of this encounter Visit Diagnoses Not on filedocumented in this encounter Care Teams Busser Relationship Specialty Start Date End Date Jonathan Sosa MD [address] [place] [address] PCP - General Internal Medicine 02/14/22 Swapna Lockwood Referring Physician geology scientist 12/29/14 Jonathan Sosa MD [address] [place] [address] Assigned PCP 01/17/22 Anne Lopez MD [address] [place] [address] Gastroenterology 08/03/22 Ruth Trinidad RPH [address] [place] [address] Pharmacist Pharmacist Chain Carrier 09/06/23 10/09/23 Ruth Trinidad RPH [address] [place] [address] Assigned MTM Pharmacist 10/08/23 documented as of this encounter
--- OUTSIDE RECORDS SUMMARY | 2025-01-01 11:24 | XMS_ITS | Encounter Summary ---
Author Organization [facility] Address [address] [place] [address]. [place] [address] Care Team Providers Care Cnc Manufacturing Engineer Name Role Phone vinayakAndreSwapna Joy Unavailable Unavail able Jonathan Sosa MD Primary Care Provider [phone] Jonathan Sosa MD Unavailable [phone] Anne Lopez MD Unavailable [phone] Ruth Trinidad [facility] Unavailable Encounter Details Date Type Department Care Team (Late st Contact Info) Description 03/30/2024 [facility] [address] [place] [phone] Nicole Avila, KYLIE Social History Tobacco [...] in an overnight half-way, or couch-surfing.) Yes 04/14/2023 Are you worried [...] on file Legal Sex Female 3:08 AM TRAVEL PTA Gender Identity Not on file Sexual Orientation Not on file Occupation Industry Job Start Date Job End Date disabled Not on file Not on file Not on file documented as of this encounter Plan of Treatment Not on file documented as of this encounter Visit Diagnoses Not on filedocumented in this encounter Care Teams Cnc Manufacturing Engineer Relationship Specialty Start Date End Date Jonathan Sosa MD [address] [place] [address] PCP - General Internal Medicine 02/14/22 Swapna Lockwood Referring Physician shotgun shell loading machine operator 12/29/14 Jonathan Sosa MD [address] [place] [address] Assigned PCP 01/17/22 Anne Lopez MD [address] [place] [address] 36 [place], [place] [address] Gastroenterology 08/03/22 Ruth Trinidad RP [address] [place] [address] Assigned MTM Pharmacist 10/08/23 documented as of this encounter
--- OUTSIDE RECORDS SUMMARY | 2025-01-01 11:24 | XMS_ITS | Encounter Summary ---
Author Organization [facility] Address [address] [place] [address]. [place] [address] Care Team Providers Care Blank Driller Name Role Phone vinayakAndreSwapna Joy Unavailable Unavail able Jonathan Sosa MD Primary Care Provider [phone] Jonathan Sosa MD Unavailable [phone] Anne Lopez MD Unavailable [phone] Ruth Trinidad [facility] Unavailable Encounter Details Date Type Department Care Team (Late st Contact Info) Description 03/27/2024 [facility] [address] [place] [phone] Nicole Avila, KYLIE Social History Tobacco [...] in an overnight [facility], or couch-surfing.) Yes 04/14/2023 Are you worried [...] on file Legal Sex Female 3:08 AM CLAIM PROFESSIONAL Gender Identity Not on file Sexual Orientation Not on file Occupation Industry Job Start Date Job End Date disabled Not on file Not on file Not on file documented as of this encounter Plan of Treatment Not on file documented as of this encounter Visit Diagnoses Not on filedocumented in this encounter Care Teams Blank Driller Relationship Specialty Start Date End Date Jonathan Sosa MD [address] [place] [address] PCP - General Internal Medicine 02/14/22 Swapna Lockwood Referring Physician assistant athletic trainer 12/29/14 Jonathan Sosa MD [address] [place] [address] Assigned PCP 01/17/22 Anne Lopez MD [address] [place] [address] 36 [place], [place] [address] Gastroenterology 08/03/22 Ruth Trinidad RP [address] [place] [address] Assigned MTM Pharmacist 10/08/23 documented as of this encounter
--- OUTSIDE RECORDS SUMMARY | 2025-01-01 11:24 | XMS_ITS | Encounter Summary ---
Author Organization [facility] Address [address] [place] [address]. [place] [address] Care Team Providers Care Electronic Technologist Name Role Phone vinayakAndreSwapna Joy Unavailable Unavail able Jonathan Sosa MD Primary Care Provider [phone] Jonathan Sosa MD Unavailable [phone] Anne Lopez MD Unavailable [phone] Ruth Trinidad [facility] Unavailable Encounter Details Date Type Department Care Team (Late st Contact Info) Description 03/16/[address] [facility] [address] 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 Gender Identity Not on file Sexual Orientation Not on file Occupation Industry Job Start Date Job End Date disabled Not on file Not on file Not on file documented as of this encounter Plan of Treatment Not on file documented as of this encounter Visit Diagnoses Not on filedocumented in this encounter Care Teams Electronic Technologist Relationship Specialty Start Date End Date Jonathan Sosa MD [address] [place] [address] PCP - General Internal Medicine 02/14/22 Swapna Lockwood Referring Physician secretary to the vice president 12/29/14 Jonathan Sosa MD [address] [place] [address] Assigned PCP 01/17/22 Anne Lopez MD [address] [place] [address] 36 [place], [place] [address] Gastroenterology 08/03/22 Ruth Trinidad RPH [address] [place] [address] Assigned MTM Pharmacist 10/08/23 documented as of this encounter
--- OUTSIDE RECORDS SUMMARY | 2025-01-01 11:24 | XMS_ITS | Encounter Summary ---
Author Organization [facility] Address [address] [place] [address]. [place] [address] Care Team Providers Care Outpatient Coordinator Name Role Phone vinayak Swapna Nubia Unavailable Unavail able Jonathan Sosa MD Primary Care Provider [phone] Jonathan Sosa MD Unavailable [phone] Anne Lopez MD Unavailable [phone] Ruth Trinidad [facility] Unavailable Encounter Details Date Type Department Care Team (Late st Contact Info) Description 04/23/2024 [facility] [address] [place] [phone] Ayala Saha, RN Social History Tobacco Use Types Packs/Day [...] on file 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 Gender Identity Not on file Sexual Orientation Not on file Occupation Industry Job Start Date Job End Date disabled Not on file Not on file Not on file documented as of this encounter Plan of Treatment Not on file documented as of this encounter Visit Diagnoses Not on filedocumented in this encounter Care Teams Outpatient Coordinator Relationship Specialty Start Date End Date Jonathan Sosa MD [address] [place] [address] PCP - General Internal Medicine 02/14/22 Swapna Lockwood Referring Physician industrial gas fitter helper 12/29/14 Jonathan Sosa MD [address] [place] [address] Assigned PCP 01/17/22 Anne Lopez MD [address] [place] [address] [address] [place], [place] [address] Gastroenterology 08/03/22 Ruth Trinidad RP [address] [place] [address] Assigned MTM Pharmacist 10/08/23 documented as of this encounter
--- OUTSIDE RECORDS SUMMARY | 2025-01-01 11:24 | XMS_ITS | Encounter Summary ---
Author Organization [facility] Address [address] [place] [address]. [place] [address] Care Team Providers Care Crusher Screen Repairer Name Role Phone vinayakAndreSwapna Nubia Unavailable Unavail able Jonathan Sosa MD Primary Care Provider [phone] Jonathan Sosa MD Unavailable [phone] Anne Lopez MD Unavailable [phone] Ruth Trinidad [facility] Unavailable Ruth Trinidad [facility] Unavailable Encounter Details Date Type Department Care Team (Late st Contact Info) Description 05/07/2023 [facility] [address] [place] [address] Andre Tenorio, RN Social History [...] on file 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 Gender Identity Not on file Sexual Orientation Not on file Occupation Industry Job Start Date Job End Date disabled Not on file Not on file Not on file documented as of this encounter Plan of Treatment Not on file documented as of this encounter Visit Diagnoses Not on filedocumented in this encounter Care Teams Crusher Screen Repairer Relationship Specialty Start Date End Date Jonathan Sosa MD [address] [place] [address] PCP - General Internal Medicine 02/14/22 Swapna Lockwood Referring Physician sports broadcasting internship 12/29/14 Jonathan Sosa MD [address] [place], [place] [address] Assigned PCP 01/17/22 Anne Lopez MD [address] [place] [address] Gastroenterology 08/03/22 Ruth Trinidad RPH [address] [place], [place] [address] Pharmacist Pharmacist Textile Machine Maintenance Mechanic 09/06/23 10/09/23 Ruth Trinidad RPH [address] [place], [place] [address] Assigned [place] Pharmacist 10/08/23 documented as of this encounter
--- OUTSIDE RECORDS SUMMARY | 2025-01-01 11:24 | XMS_ITS | Encounter Summary ---
Author Organization [facility] Address [address] [place] [address]. [place] [address] Care Team Providers Care Brusher And Shearer Name Role Phone vinayak Swapna Nubia Unavailable Unavail able Jonathan Sosa MD Primary Care Provider [phone] Jonathan Sosa MD Unavailable [phone] Anne Lopez MD Unavailable [phone] Ruth Trinidad [facility] Unavailable Encounter Details Date Type Department Care Team (Late st Contact Info) Description 04/09/2024 [facility] [address] [place] [phone] Radha Cook, RN Social History Tobacco Use Types Packs/Day [...] in an overnight residential, or couch-surfing.) Yes 04/14/2023 Are you worried [...] on file 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 Gender Identity Not on file Sexual Orientation Not on file Occupation Industry Job Start Date Job End Date disabled Not on file Not on file Not on file documented as of this encounter Plan of Treatment Not on file documented as of this encounter Visit Diagnoses Not on filedocumented in this encounter Care Teams Brusher And Shearer Relationship Specialty Start Date End Date Jonathan Sosa MD [address] [place] [address] PCP - General Internal Medicine 02/14/22 Swapna Lockwood Referring Physician linting machine operator 12/29/14 Jonathan Sosa MD [address] [place] [address] Assigned PCP 01/17/22 Anne Lopez MD [address] [place] [address] 36 [place], [place] [address] Gastroenterology 08/03/22 Ruth Trinidad RP [address] [place] [address] Assigned MTM Pharmacist 10/08/23 documented as of this encounter
--- OUTSIDE RECORDS SUMMARY | 2025-01-01 11:24 | XMS_ITS | Encounter Summary ---
Author Organization [facility] Address [address] [place] [address]. [place] [address] Care Team Providers Care Debit Agent Name Role Phone vinayakAndreSwapna Nubia Unavailable Unavail able Jonathan Sosa MD Primary Care Provider [phone] Jonathan Sosa MD Unavailable [phone] Anne Lopez MD Unavailable [phone] Ruth Trinidad [facility] Unavailable Ruth Trinidad [facility] Unavailable Encounter Details Date Type Department Care Team (Late st Contact Info) Description 04/23/2023 [facility] [address] [place] [address] Andre Tenorio, RN Social History [...] on file 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 Gender Identity Not on file Sexual Orientation Not on file Occupation Industry Job Start Date Job End Date disabled Not on file Not on file Not on file documented as of this encounter Plan of Treatment Not on file documented as of this encounter Visit Diagnoses Not on filedocumented in this encounter Care Teams Debit Agent Relationship Specialty Start Date End Date Jonathan Sosa MD [address] [place] [address] PCP - General Internal Medicine 02/14/22 Swapna Lockwood Referring Physician food service aide 12/29/14 Jontahan Sosa MD [address] [place], [place] [address] Assigned PCP 01/17/22 Anne Lopez MD [address] [place] [address] Gastroenterology 08/03/22 Ruth Trinidad RPH [address] [place], [place] [address] Pharmacist Pharmacist Blending Line Attendant 09/06/23 10/09/23 Ruth Trinidad RPH [address] [place], [place] [address] Assigned [place] Pharmacist 10/08/23 documented as of this encounter
--- OUTSIDE RECORDS SUMMARY | 2025-01-01 11:24 | XMS_ITS ---
Author Name Interface, [id number] Address [address] [place] [address] [address] [address] [facility] Address [address] [place] [address] [address] [address] Allergies and Adverse Reactions Medication/Group Name Reaction Severity Date mold 10/28/2017 Kbvfprj-Hco-Rud Reductase Inhibitors 10/28/2017 cat dander 01/13/2021 Ativan 01/13/2021 hydrocodone bitartrate/acetaminophen 10/28/2017 acetaminophen 01/13/2021 Shellfish Containing Products 10/28/2017 Sulfa (Sulfonamide Antibiotics) 10/28/2017 Opioids - Morphine Analogues 10/28/2017 Benzodiazepines 01/13/2021 AMOXICILLIN Hives 01/13/2021 LORAZEPAM Rash AZITHROMYCIN *Unknown 01/13/2021 BETAMETHASONE *Unknown 01/13/2021 CEPHALEXIN *Unknown 01/13/2021 CHOLECALCIFEROL (VITAMIN D3) Rash 01/13/2021 CLINDAMYCIN Hives 01/13/2021 DOXYCYCLINE Rash 01/13/2021 BENDRUEBLOZ-AXQDAAQZZ-IVNROVGL Hives 01/13/2021 HOUSE DUST Shortness Of Breath 01/14/20 21 HYDROCODONE-ACETAMINOPHEN Hives IODINE Other - Describe In Comment Field FLUOCINONIDE Rash 01/13/2021 METFORMIN Nausea Only MOLD Rash 12/30/2020 MORPHINE Shortness Of Breath 12/31/19 21 NIACIN Rash 12/30/2020 SODIUM CHLORIDE *Unknown SULFASALAZINE Anaphylaxis OMEPRAZOLE Hives 12/30/2020 SIMVASTATIN Edema Plan Date Type Value 01/13/2021 APPOINTMENT RC - 156 RC - 15 6 RC 01/15/2021 LABORDER MRI brain w/ con trast 01/23/2021 LABORDER CBC w/ auto diff 01/23/2021 LABORDER CMP 01/23/2021 LABORDER iSTAT creatinine panel Reason for Visit RC - 156 RC - 156 RC Encounters Date Name 01/13/2021 Mediastinal lymphade nopathy (disorder) 01/13/2021 Small cell carcinoma of lung (disorder) Medications Date Name Route Dose Frequency Instructions Start Date End Date Status Coenzyme Q10 Oral active Omeprazole-Sodium Bicarbonate Oral 40 mg-1,100 mg activ e Enoxaparin Subcutaneous BID active Ascorbic Acid Oral active Magnesium Oral ac tive Loperamide Oral a ctive Zinc Acetate Oral (as elemental) Oral 50.0 mg active 021 Amoxicillin-Clavu lanate Oral 875 mg-125 mg Oral 1.0 {tbl} 021 active 021 Ipratropium HFA Inhaler 17 mcg/actuation Inhalation 021 active 021 Furosemide Oral 021 active 021 Warfarin Oral 021 active 021 Diazepam Oral Oral 021 active 021 Ferrous Sulfate Oral Delayed Release Oral 325.0 mg 021 active 021 Mometasone Nasal [place] 50 mcg/actuation Both Nostrils 2.0 {spray } 021 active 021 Levothyroxine Oral Oral 1.0 {capsu le} 021 active 021 Olopatadine Ophthalmic Drops 0.2 % Both Eyes 1.0 [drp] 021 active 021 Tamsulosin Oral Oral 0.4 mg 021 active 021 Hydromorphone Oral Oral 2.0 mg 021 active 021 Fluconazole Oral Tablet Oral 150.0 mg 021 active 021 Nystatin Topical Powder Topical 1.0 {strip } 021 active 021 [place] [address]. 0 U 021 active 021 Folic Acid-Vit B6-Vit B12 Oral 2.5 mg-25 mg-2 mg Oral 1.0 {tbl} 021 active 020 Potassium Citrate Oral ER Tab Oral 020 active 017 Acetaminophen Oral Oral 2.0 {tbl} 017 active Problems Diagnosis Status Date of Diagnosis Resolution Date Complex atypical endometrial hyperplasia (disorder) Active Liver lesion Active Mediastinal lymphadenopathy (disorder) Active Lung mass Active Supraclavicular lymphadenopathy Active Small cell carcinoma of lung (disorder) Active Vital Signs Date Type Value 01/13/2021 Body Temperature 96.40 01/13/2021 Heart Beat 110.00 01/13/2021 Respiratory Rate 18.00 01/13/2021 Oxygen Saturation 90.00 01/13/2021 Pain Scale 3.00 01/13/2021 Intravascular Systolic 138 01/13/2021 Intravascular Diastolic 86 01/13/2021 Height 60.00 01/13/2021 BMI 47.65 01/13/2021 BSA 2.03 01/13/2021 Intravascular Systolic 156 01/13/2021 Intravascular Diastolic 84 01/13/2021 Weight 244.00
--- OUTSIDE RECORDS SUMMARY | 2025-01-01 11:24 | XMS_ITS | Encounter Summary ---
Author Organization [facility] Address [address] [place] [address]. [place] [address] Care Team Providers Care Tool Lathe Operator Name Role Phone Swapna licea Unavailable Unavail able Jonathan Sosa MD Primary Care Provider [phone] Jonathan Sosa MD Unavailable [phone] Anne Lopez MD Unavailable [phone] Ruth Trinidad [facility] Unavailable Encounter Details Date Type Department Care Team (Late st Contact Info) Description 05/04/2024 [facility] Anticoagulation Clinic [address] [place] [phone] Tammy Montgomery, RN Social History Tobacco [...] Answer Date Recorded PHQ-2 Score 0 05/05/2024 [facility] [place] of Occupat ional Health - Occupational Stress [...] on file 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 Gender Identity Not on file Sexual Orientation Not on file Occupation Industry Job Start Date Job End Date disabled Not on file Not on file Not on file documented as of this encounter Plan of Treatment Not on file documented as of this encounter Visit Diagnoses Not on filedocumented in this encounter Care Teams Tool Lathe Operator Relationship Specialty Start Date End Date Jonathan Sosa MD [address] [place] [address] PCP - General Internal Medicine 02/14/22 Swapna Lockwood Referring Physician nail machine operator 12/29/14 Jonathan Sosa MD [address] [place] [address] Assigned PCP 01/17/22 Anne Lopez MD 420 [facility] [address] [place] [address] Gastroenterology 08/03/22 Ruth Trinidad [facility] [address] [place] [address] Assigned MTM Pharmacist 10/08/23 documented as of this encounter
--- OUTSIDE RECORDS SUMMARY | 2025-01-01 11:24 | XMS_ITS | Encounter Summary ---
Author Organization [facility] Address [address] [place] [address]. [place] [address] Care Team Providers Care Prop Drawer Name Role Phone Swapna licea Nubia Unavailable Unavail able Jonathan Soas MD Primary Care Provider [phone] Jonathan Sosa MD Unavailable [phone] Anne Lopez MD Unavailable [phone] Ruth Trinidad [facility] Unavailable Encounter Details Date Type Department Care Team (Late st Contact Info) Description 04/02/2024 [facility] Anticoagulation Clinic [address] [place] [address] Brie Pimentel RN [facility] [address] [place] [id number] Social History Tobacco Use Types Packs/Day Years [...] on file Legal Sex Female 3:08 AM SHOCHET Gender Identity Not on file Sexual Orientation Not on file Occupation Industry Job Start Date Job End Date disabled Not on file Not on file Not on file documented as of this encounter Plan of Treatment Not on file documented as of this encounter Visit Diagnoses Not on filedocumented in this encounter Care Teams Prop Drawer Relationship Specialty Start Date End Date Jonathan Sosa MD [address] [place] [address] PCP - General Internal Medicine 02/14/22 Swapna Lockwood Referring Physician field service rep 12/29/14 Jonathan Sosa MD [address] [place] [address] Assigned PCP 01/17/22 Anne Lopez MD 420 [facility] [address] [place], [place] [address] Gastroenterology 08/03/22 Ruth Trinidad [facility] [address] [place] [address] Assigned MTM Pharmacist 10/08/23 documented as of this encounter
--- OUTSIDE RECORDS SUMMARY | 2025-01-01 11:24 | XMS_ITS | Encounter Summary ---
Author Organization [facility] Address [address] [place] [address]. [place] [address] Care Team Providers Care Calculating Machine Mechanic Name Role Phone Swapna licea Unavailable Unavail able Jonathan Sosa MD Primary Care Provider Jonathan Sosa MD Unavailable [phone] Anne Lopez MD Unavailable [phone] Ruth Trinidad [facility] Unavailable Encounter Details Date Type Department Care Team (Late st Contact Info) Description 05/01/2024 [facility] [address] [place] [phone] Tammy Montgomery, RN Social History Tobacco [...] Answer Date Recorded PHQ-2 Score 0 05/05/2024 [facility] [place] of Occupat ional Health - Occupational Stress [...] on file 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 Sex Female 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 Gender Identity Not on file Sexual Orientation Not on file Occupation Industry Job Start Date Job End Date disabled Not on file Not on file Not on file documented as of this encounter Plan of Treatment Not on file documented as of this encounter Visit Diagnoses Not on filedocumented in this encounter Care Teams Calculating Machine Mechanic Relationship Specialty Start Date End Date Jonathan Sosa MD [address] [place] [address] PCP - General Internal Medicine 02/14/22 Swapna Lockwood Referring Physician garland machine operator 12/29/14 Jonathan Sosa MD [address] [place] [address] Assigned PCP 01/17/22 Anne Lopez MD 420 [facility] [address] [place] [address] Gastroenterology 08/03/22 Ruth Trinidad [facility] [address] [place] [address] Assigned MTM Pharmacist 10/08/23 documented as of this encounter
--- OUTSIDE RECORDS SUMMARY | 2025-01-01 11:24 | XMS_ITS | Clinical Summary ---
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 Betamethasone *Unknown 02/03/2015 Canine Protein Containing Products 02/19/2010 Cats (Fur, Dander, Saliva) 02/19/2010 Cephalexin *Unknown 01/23/2016 Terrible heart burn cannot breathe Cholecalciferol (Vitamin D3) Rash Low 02/03/2015 Clindamycin Hives 12/16/2017 OK with topical preparation. Heartburn from capsule. No vaginal please. Doxycycline Rash 12/17/2017 Nitroimidazoles Hives 01/15/2007 Fluticasone Propion-Salmeterol Hives 02/03/2015 Lmqhypdpdfl-Rogluzfqu-Js lanter Hives 02/03/2015 Glipizide Nausea Only 12/14/2021 House Dust Shortness Of Breath,Dyspnea High 02/09/2010 Hydrocodone-Acetaminophe n Hives High 02/03/2015 Iodine Other - Describe In Comment Field 12/09/2014 severe edema to L leg Fluocinonide Rash 03/11/2018 Metformin Nausea Only 02/24/2013 Mite Extract Dyspnea High 02/09/2010 Mold Rash 12/07/2014 Morphine Shortness Of Breath 07/04/2015 Niacin Rash Low 03/09/2010 Shellfish Containing Products Anaphylaxis High 11/28/2009 Tongue swells/ unable to breath Sodium Chloride *Unknown 02/03/2015 Do not use IV saline due to severe water retension Eyndeep-Imk-Slz Reductase Inhibitors Arthralgia 02/03/2015 Sulfa (Sulfonamide Antibiotics) Hives 07/12/2006 Sulfasalazine Anaphylaxis High 05/23/2006 PN: LW Reaction: HIVES Omeprazole Hives 08/09/2020 Simvastatin Edema 07/12/2006 Only allergy to Brand can take generic. Medications acetaminophen (TYLENOL EXTRA STRGTH) 500 mg tablet Take 2 tablets by mouth 3 times daily if needed. 7 Active Multivits,Ca,Min iqsov-Hqpb-DH (THERA M PLUS, FERROUS FUMARAT,) 9 mg iron-400 mcg tablet Take 1 Tab by mouth. Take 1 Tab by mouth. Active tamsulosin (FLOMAX) 0.4 mg capsuleIndicatio ns:Kidney stones Take 1 Capsule (0.4 mg) by mouth once daily after a meal. 30 capsule. 2 1 Active Lactobac no.51-Bifidobact no.4 (up4 Probiotics Ultra) 50 billion cell cap Take 1 Capsule by mouth once daily. Active ascorbic acid, vitamin C, (Vitamin C) 1,000 mg tablet Take 1 Tablet (1,000 mg) by mouth once daily. 0 1 Active medication order composer Zinc 30 mg PO daily 0 1 Active Coenzyme Q10 200 mg capsule Take 200 mg by mouth once daily. Active potassium citrate (UROCIT-K) 10 mEq (1,080 mg) tabletIndication s:Kidney stone on left side TAKE TWO TABLETS BY MOUTH TWICE A DAY WITH MEALS 360 tablet. 3 1 Active blood sugar diagnostic stripIndications :Type 2 diabetes mellitus with hemoglobin A1c goal of less than 7.0% (HC) Dispense item covered by pt ins. E11.65 NIDDM type II, uncontrolled - Test 3 times/day, Reason: High A1C 200 Each 3 1 Active loperamide (IMODIUM) 2 mg capsuleIndicatio ns:Watery diarrhea TAKE 2 CAPSULES (4MG) BY MOUTH WITH 1ST LOOSE STOOL. THEN TAKE 1 CAP BY MOUTH WITH EACH SUBSEQUENT LOOSE STOOL. MAXIMUM OF 8 CAPSULES IN 24 HOURS 90 Capsule 1 1 Active lancetsIndicatio ns:Type 2 diabetes mellitus without complication, without long-term current use of insulin (HC) Dispense item covered by pt ins. E11.9 NIDDM type II - Test 1 time/day 100 Each 3 2 Active oxygen-air delivery systems (HOME OXYGEN)Indicatio ns:Mixed simple and mucopurulent chronic bronchitis (HC),Small cell lung cancer (HC) Oxygen concentrator and conserving device for portability for home use. Liters per minute: 2L per nasal cannula. Frequency of use: with ambulation and at night;. Length of need: 99 Months. 1 Each 2 Active nystatin powder (Nyamyc) powderIndication s:Yeast infection of the skin APPLY 1 STRIP TOPICALLY TO AFFECTED AREA(S) THREE TIMES A DAY 180 g 11 2 Active blood-glucose meterIndications :Type 2 diabetes mellitus with hemoglobin A1c goal of less than 7.0% (HC) Dispense One Touch Ultra Mini Meter E11.9 NIDDM type II Patient tests 1 time daily 1 Each 2 Active diazePAM (VALIUM) 2 mg tabletIndication s:Bipolar disorder, mixed (HC) TAKE ONE TABLET BY MOUTH EVERY 6 HOURS NEEDED FOR ANXIETY *MUST LAST 30 DAYS* 120 Tablet 2 Active Diaper,Brief, Adult,Disposable Indications:Urin татьяна, incontinence, stress female USE DIRECTED 650 Each 2 Active Zegerid 40-1.1 mg-gram per capsuleIndicatio ns:Chronic GERD TAKE ONE CAPSULE BY MOUTH TWICE A DAY 180 Capsule 1 2 Active disposable glovesIndication s:Type 2 diabetes mellitus with hemoglobin A1c goal of less than 7.0% (HC),Dressing change or removal, nonsurgical wound For home use. 800 Each 3 2 Active ergocalciferol (VITAMIN D2; DRISDOL) 50,000 unit capsuleIndicatio ns:Vitamin D deficiency TAKE 1 CAPSULE BY MOUTH ONCE WEEKLY 12 Capsule 1 2 Active Tirosint 137 mcg capIndications:H ypothyroidism, unspecified type TAKE ONE CAPSULE BY MOUTH EVERY DAY 90 Capsule 2 Active Atrovent HFA 17 mcg/actuation inhalerIndicatio ns:Chronic obstructive pulmonary disease, unspecified COPD type (HC) INHALE 2 PUFFS BY MOUTH FOUR TIMES A DAY NEEDED FOR SHORTNESS OF BREATH OR WHEEZING 12.9 g 3 Active mometasone (NASONEX) (50 mcg each actuation) nasal sprayIndications :Seasonal allergic rhinitis, unspecified trigger INHALE 2 SPRAYS INTO BOTH NOSTRILS TWO TIMES A DAY NEEDED 17 g 3 3 Active simvastatin (ZOCOR) 40 mg tablet Take 40 mg by mouth at bedtime. Active benzonatate (Tessalon Perles) 100 mg capsuleIndicatio ns:Cough, unspecified type Take 2 Capsules (200 mg) by mouth 3 times daily if needed for Cough. 180 Capsule 11 4 Active Mounjaro 2.5 mg/0.5 mL pen Inject 2.5 mg subcutaneous once weekly. Active pen Mounjaro 10 mg/0.5 mL pen Inject 10 mg subcutaneous once weekly. 4 Active apixaban (Eliquis) 5 mg tablet Take 1 Tablet (5 mg) by mouth two times daily. 5 Active Active Problems Problem Noted Date Diagnosed Date Bipolar 1 disorder 07/12/2023 Disorder of carbohydrate metabolism 07/12/2023 Primary hypertension 12/12/2021 Chronic respiratory failure with hypoxia 022 Psychogenic nonepileptic seizure 08/29/2021 Small cell lung cancer 12/29/2020 Pleural mass 12/29/2020 Mediastinal lymphadenopathy 12/29/2020 Lesion of liver 12/29/2020 Tobacco use disorder 12/14/2020 Endometrial cancer 12/12/2020 Type 2 diabetes mellitus wit h other diabetic kidney complication 12/12/2020 Acquired hypothyroidism 08/05/2018 Asymptomatic cholelithiasis 06/17/2018 Secondary erythrocytosis 05/13/2018 Iron deficiency 02/03/2018 Type 2 diabetes mellitus wit h hemoglobin A1c goal of less than 7.0% 11/01/2017 History of pulmonary embolus (PE) 07/02/2016 Cigarette nicotine dependenc e with nicotine-induced disorder 07/02/2016 Kidney stones 11/28/2015 Morbid obesity 02/21/2010 Sleep apnea 02/21/2010 Hyperlipidemia 02/21/2010 Acid reflux 02/21/2010 Urinary, incontinence, stress female 02/21/2010 Migraines 02/21/2010 Vitamin D deficiency COPD (chronic obstructive pulmonary disease) Resolved Problems Problem Noted Date Diagnosed Date Resolved Date Endometrial hyperplasia with atypia 12/05/2017 01/21/2018 Type 1 diabetes mellitus wit h hemoglobin A1c goal of less than 7.0% 02/05/2017 11/01/2017 Bilateral kidney stones 11/03/201610/16 Anticoagulation monitoring, INR range 2-3, ideal goal 2.5-3.0 07/13/2016 03/13/2022 Shortness of breath on exertion 02/21/2010 07/02/2016 Sleep disturbance 02/21/2010 07/02/2016 Heartburn 02/21/2010 07/02/2016 Diabetes mellitus type II 02/21/2010 Overview (09/01/2013): a system change updated this record. This will not affect patient care or billing. This comment can be deleted. Hypertension 02/21/2010 07/02/2016 Edema 02/21/2010 07/02/2016 Asthma 02/21/2010 07/02/2016 Hypothyroidism 02/21/2010 08/05/2018 Anemia 07/02/2016 Anemia 07/02/2016 Encounters Date Type Department Care Team Description 12/17/2024 9:47 AM CDT - 12/17/2024 11:59 PM CDT Hospital Encounter [facility] [address] [facility] [place] [address] Ok Rowe MD Pericardial effusion (HC) 12/17/2024 8:00 AM CDT Office Visit [facility] [place] [address] [facility] [place] [address] [place] [phone] Adrienne Mendez, JOAQUÍN Follow Up (F/U. Pt states feeling some palpitations with sob. No current symptoms reported. ) 12/17/2024 [facility] [address] [facility] [place] [address] [place] [phone] Adrienne Mendez, DIRECTOR FINANCIAL SYSTEMS <No scans attached> 12/16/2024 Travel 12/08/2024 9:44 AM CDT - 12/08/2024 11:59 PM CDT Hospital Encounter [address] [address] Liz Anglin MD Tachycardia 12/08/2024 9:00 AM CDT Office Visit [address] [phone] Liz Anglin MD Follow Up (Non-small cell lung cancer, left (HC)) 12/08/2024 Travel 12/04/2024 8:35 AM CDT - 12/04/2024 11:59 PM CDT Hospital Encounter [address] [address] Liz Anglin MD Non-small cell lung cancer, left (HC) 12/04/2024 8:15 AM CDT - 12/04/2024 8:34 AM CDT Hospital Encounter [facility] Oncology Infusion [address] [place] [address] Liz Anglin MD Endometrial cancer (HC) (Primary Dx); Small cell carcinoma of lung, unspecified laterality, unspecified part of lung (HC) 12/03/2024 Travel 12/01/2024 8:30 AM CDT Office Visit [facility] at [address] [address] Ok Rowe MD Follow Up 11/27/2024 Travel 10/21/2024 10:26 AM CDT - 10/21/2024 11:59 PM CDT Hospital Encounter [facility] Oncology Infusion [address] [place] [address] Liz Anglin MD Endometrial cancer (HC) (Primary Dx); Small cell carcinoma of lung, unspecified laterality, unspecified part of lung (HC) 10/21/2024 Travel from Last 3 Months Immunizations Immunization Administration Dates Next Due COVID-19 vaccine (Moderna 100mcg/0.5mL) PF, MDV 10/12/2020,09/14/2020 DT (Age < 7 years) 10/07/1985 Pneumococcal Poly,23-Valent (Pneumovax) 04/12/20 15,04/14/2008 Pneumococcal conj 13-Valent (Prevnar 13) 022 Td (Age >=7 Years) 08/05/2018,05/31/2008 Td, Preservative Free (age >= 7 Years) 0 Tdap 05/21/2008 Zoster (Shingrix-RZV, recombinant) 06/19/2019, Family History Medical History Relation Name Comments Coronary artery disease Brother 1 Diabetes Father Hypertension Father Cancer-breast Maternal Aunt 60's Cancer Mother Cancer-ovarian Mother Diabetes Mother Cancer-colon No Family History Cancer-prostate No Family History Relation Name Status Comments Brother 1 Brother 2 Alive Brother 3 Alive Brother 4 Alive Brother 5 Alive Brother 6 Alive Brother 7 Alive Father cancer that spr ead Maternal Aunt Maternal Grandfather (Age 60) he art attack Maternal Grandmother (Age 85) bl ood cancer Mother Paternal Grandfather Paternal Grandmother Social History Tobacco Use Types Packs/Day Years Used Date Smoking Tobacco: Every Day Cigarettes 1 33 Pipe Smokeless Tobacco: Never Tobacco Cessation:Ready to Q uit: Not Asked; Counseling Given: Not Answered Comments:5-10 cigs per day - do not ask if she is ready to quit Alcohol Use Standard Drinks/Week Comments No 0 (1 standard drink = 0.6 oz pur e alcohol) PHQ-2 Answer Date Recorded PHQ-2 TOTAL SCORE 2 11/14/2021 Social Connections Answer Date Recorded Frequency of Communication with Friends and Fami ly 0 01/01/2022 Financial Resource Strain Answer Date R ecorded Difficulty of Paying Living Expenses 1 01/01/2022 Difficulty of Paying Living Expenses 2 01/01/2022 Food Insecurity Answer Date Recorded Worried About Running Out of Food in the Last Ye ar 1 01/01/2022 Transportation Needs Answer Date Record ed Lack of Transportation (Medical) 1 01/01/2022 Housing Stability Answer Date Recorded Unable to Pay for Housing in the Last Year 1 01/01/2022 Interpersonal Safety Answer Date Record ed Are you being hit, kicked, p ushed or yelled at (see row info)? No 03/26/2024 Interpersonal Safety Abuse 12 - 18 Not on file 03/26/2024 Interpersonal Safety Ambulatory Vulnerability No t on file 03/26/2024 Comments No Sex and Gender Information Value Date Recorded Sex Assigned at Not on file Legal Sex Female 6:14 AM TIMBER GIRDLER Gender Identity Not on file Sexual Orientation Not on file Occupation Industry Job Start Date Job End Date DISABILITY 10/15/1996 Not on file Not on file Not on f ile Obstetrics History Last Filed Vital Signs Vital Sign Reading Time Taken Comments Blood Pressure 110/68 12/17/2024 8:14 AM CDT Pulse 109 12/17/2024 8:14 AM CDT Temperature 36.4 C (97.5 F) 12/08/2024 8:57 AM CDT Respiratory Rate 20 12/08/2024 8:57 AM CDT Oxygen Saturation 95% 12/17/2024 8:14 AM CDT Inhaled Oxygen Concentration - - Weight 96.2 kg (212 lb) 12/17/2024 8:14 AM CDT Height 152.4 cm (5') 12/17/2024 8:14 AM CDT Body Mass Index 41.4 12/17/2024 8:14 AM CDT Plan of Treatment Upcoming Encounters Date Type Department Care Team (Late st Contact Info) Description 01/05/2025 8:00 AM CDT Orders Only [facility] [address] [place] [address] [place] [address] 01/15/2025 9:30 AM CDT Appointment [facility]cology Infusion [address] [place] [address] 02/26/2025 9:30 AM CDT Appointment [facility]fusion [address] [facility] [place] [address] 04/08/2025 8:30 AM CDT Office Visit [facility] at [address] [place] [address] Ok Rowe MD [address] [facility] [address] [place] [address] 04/09/2025 9:30 AM CDT Appointment [facility]fusion [address] [place] [address] 05/21/2025 9:30 AM TIMBER GIRDLER Appointment [facility]fusion [address] [place] [address] 06/04/2025 9:00 AM TIMBER GIRDLER Appointment [facility]fusion [address] [place] [address] 06/04/2025 9:30 AM TIMBER GIRDLER Appointment [address] [address] 06/04/2025 11:00 AM TIMBER GIRDLER Appointment [address] [address] 06/11/2025 10:30 AM TIMBER GIRDLER Office Visit [address] [phone] Liz Anglin MD [address] [place] [address] Health Maintenance Due Date Last Done Comments HIV for age 15-65 1976 Zoster (shingles) series for age 50+ (2 of 2) 08/14/2019 06/19/2019, 06/15/2019 Pap test for age 21-65 08/16/2019 7 (Completed outside of [facility]) Fecal testing non-DNA (FIT,FOBT,iFOBT) for age 45-75 06/19/2020 06/19/2019, 11/23/2017 RSV vaccine for adults or (1 - Risk 60-74 years 1-dose series) 2021 Mammogram for age 45-75 08/31/2021 09/01/19 21, 06/29/2019, 12/12/2018, Additional history exists Low Dose CT (for lung CA) age 50-80 01/11/2022 01/11/2021, 12/23/2020, 08/26/2007 Depression screening for age 12+ 11/17/2022 11/17/2021, 11/17/2021, 11/15/2021, Additional history exists COVID-19 vaccine series ( season) 2024 08/16/2023, 10/17/2022, 05/31/2022, Additional history exists Influenza Vaccine (#1) 2025 BMI (ht and wt on same day) for age 18+ 12/17/2025 12/17/2024, 12/08/2024, 06/19/2024, Additional history exists Pneumococcal series for age 50+ (4 of 4 - PCV20 or PCV21) 06/30/2026 06/30/2021, 04/12/2015, 04/14/2008 Lipids for age 45-75 08/29/2026 08/29/2021, 02/06/2021, 03/04/2020, Additional history exists Tetanus booster 05/27/2030 05/27/2020, 07/18, 05/31/2008, Additional history exists Hepatitis C screening for age 18-79 Completed 02/06/2021 Hepatitis B series for 19+ Aged Out N o longer eligible based on patient's age to complete this topic Medical Devices Implanted Type Area Strategic Development Manager Device Identifier Shelf Expiration Date Model / Serial / Lot Stent Uret [id number] [facility] - [id number] Implanted:Qty: 1 on 11/01/2016 by Peter Alexander MD at [facility] Right: [facility] [employer]le[employer] 06/12/2019 [id number] / / [id number] Procedures Procedure Name Priority Date/Time Associated Diagnosis Comments ECHO TTE COMPLETE WO CONTRAST SANDRA 12/17/2024 11:04 AM CDT Pericardial effusion (HC) XR CHEST 2 VIEWS PA AND LATERAL Routine 12/17/2024 9:58 AM CDT Pericardial effusion (HC) EKG 12 LEAD Today 12/17/2024 8:02 AM CDT SOB (shortness of breath) HTN (hypertension) EXTENDED HOLTER Routine 12/17/2024 Premature atrial complexes Palpitation EKG 12 LEAD SANDRA 12/08/2024 10:08 AM CDT Tachycardia MR HEAD BRAIN WWO Routine 12/04/2024 10: 36 AM CDT Non-small cell lung cancer, left (HC) PET CT SKULL BASE TO MID THIGH SUBSEQUENT TREAT Routine 12/04/2024 10:04 AM CDT Non-small cell lung cancer, left (HC) CBC WITH AUTO DIFFERENTIAL STAT 12/04/2024 8:32 AM CDT COMP METABOLIC PANEL STAT 12/04/2024 8:32 AM CDT CBC WITH AUTO DIFFERENTIAL STAT 12/04/2024 8:32 AM CDT LIPID PANEL W REFLEX MEASURED LDL Routine 08/29/2021 8:54 AM CDT Type 2 diabetes mellitus with hemoglobin A1c goal of less than 7.0% (HC) Mixed hyperlipidemia ANTI HCV Routine 02/06/2021 8:29 AM CDT Need for hepatitis C screening test CT CHEST WO Routine 01/11/2021 7:50 AM CDT Solitary pulmonary nodule Enlarged lymph nodes SCAN-MAMMOGRAPHY REPORT 08/31/2020 12:00 AM CDT OCCULT BLOOD IFOBT STOOL Routine 06/19/2019 9:24 AM TIMBER GIRDLER Screening for colon cancer from Last 3 Months or Most Recently Relevant to Health Maintenance Results * ECHO TTE COMPLETE WO CONTRAST (12/17/2024 11:04 AM CDT) AORTIC VALVE MEAN PG 4 mmHg LVEDD 3.9 cm EJECTION FRACTION 55 - 60% Anatomical Region Laterality Modality Ultrasound 12/17/2024 10:1 2 AM CDT Narrative 12/17/2024 12:13 PM CDT ECHOCARDIOGRAM ESTRELLITA DENISE : 1960 64 years Study Date: 12/17/2024 10:12:59 AM Gender: F BP: 114/68 mmHg Height: 152.00 cm BSA: 1.91 m Weight: 96.00 kg Tech: [facility] Referring MD: OK ROWE Site: [facility] Reading Location: [facility] Patient Location: Outpatient. Procedure: 2D, Color Doppler and Spectral Doppler. Indication for study: Pericardial Effusion Cardiac Rhythm: Sinus tachycardia.Study quality: Technically limited. Final Impressions: 1. Technically limited exam. 2. Normal LV size, normal wall thickness, normal global systolic function with an estimated EF of 55 - 60%. 3. Right ventricular cavity size is normal, global systolic RV function is normal. 4. Moderate pericardial effusion. 5. There is no clear evidence for cardiac tamponade on the echo, but clinical correlation is recommended. Comparison Compared to prior exam images and report of 11/27/22: - The pericardial effusion is new. Chamber Sizes and Function Normal left ventricular size, normal wall thickness, normal global systolic function with an estimated EF of 55 - 60%. No resting regional wall motion abnormality visualized. Left atrial size is normal. Right ventricular cavity size is normal, global systolic RV function is normal. The right atrium is normal. Right atrial area is 14 cm . The pulmonary artery is of normal size and origin. The sinus of Valsalva is normal sized. The ascending aorta is normal sized. Valves, RV Pressures and Diastolic Function The aortic valve is trileaflet, no stenosis and no regurgitation. The mitral valve is normal in structure, trace mitral regurgitation. Indeterminate pattern of LV diastolic filling. The tricuspid valve is normal in structure, trace tricuspid regurgitation. The pulmonic valve is normal. No pulmonary regurgitation. Masses, Effusion, Shunts There is moderate pericardial effusion. No clear evidence for hemodynamically significant cardiac tamponade, but clinical correlation is recommended. The inferior vena cava is normal sized, respiratory size variation greater than 50%. No left to right shunting was detected by limited color flow Doppler interrogation of the interatrial septum. MEASUREMENTS AND CALCULATIONS 2-D Measurements and LV Function: LVID (d) 3.9 cm LV FS% (2D) 32 % LVID (s) 2.7 cm LVOT diameter 2.0 cm IVS (d) 1.0 cm HR 122 bpm LVPW (d) 1.1 cm LA Vol index 36 ml/m2 Ao Sinus 2.9 cm RA area 14 cm Ao Sinus ULN 3.8 cm * Asc Ao 3.3 cm Asc Ao ULN 3.9 cm * LA 3.5 cm * Input BSA outside of range, reported values correspond to BSA = 1.9 Diastology: Mitral Tissue Doppler E Peak 0.8 m/s e', Lateral 0.08 m/s A Peak 1.0 m/s E/A 0.8 DT 215 msec Aortic Valve: Vmax 1.4 m/s BOOM (V) 2.63 cm VTI 0.26 m BOOM (I) 2.48 cm LVOT V max 1.2 m/s Max PG 8 mmHg LVOT VTI 0.20 m Mean PG 4 mmHg SV 63 ml Dim Index 0.79 SV index 33 ml/m CO 7.7 l/min CI 4.1 l/min/m Mitral Valve: MVA 3.5 cm MV P 1/2 62 msec MV Mean G 3 mmHg Tricuspid Valve and estimated PA pressures: TAPSE 2.6 cm . This study was interpreted by an [facility] accredited facility. Final Procedure Note Marcus Goldstein MD - 12/17/2024 ECHOCARDIOGRAM ESTRELLITA DENISE : 1960 64 years Study Date: 12/17/2024 10:12:59 AM Gender: F BP: 114/68 mmHg Height: 152.00 cm BSA: 1.91 m Weight: 96.00 kg Tech: [facility] Referring MD: OK ROWE Site: [facility] Reading Location: [facility] Patient Location: Outpatient. Procedure: 2D, Color Doppler and Spectral Doppler. Indication for study: Pericardial Effusion Cardiac Rhythm: Sinus tachycardia.Study quality: Technically limited. Final Impressions: 1. Technically limited exam. 2. Normal LV size, normal wall thickness, normal global systolic functionwith an estimated EF of 55 - 60%. 3. Right ventricular cavity size is normal, global systolic RV functionis normal. 4. Moderate pericardial effusion. 5. There is no clear evidence for cardiac tamponade on the echo, butclinical correlation is recommended. Comparison Compared to prior exam images and report of 11/27/22: - The pericardial effusion is new. Chamber Sizes and Function Normal left ventricular size, normal wall thickness, normal globalsystolic function with an estimated EF of 55 - 60%. No resting regionalwall motion abnormality visualized. Left atrial size is normal. Rightventricular cavity size is normal, global systolic RV function is normal.The right atrium is normal. Right atrial area is 14 cm . The pulmonaryartery is of normal size and origin. The sinus of Valsalva is normalsized. The ascending aorta is normal sized. Valves, RV Pressures and Diastolic Function The aortic valve is trileaflet, no stenosis and no regurgitation. Themitral valve is normal in structure, trace mitral regurgitation.Indeterminate pattern of LV diastolic filling. The tricuspid valve isnormal in structure, trace tricuspid regurgitation. The pulmonic valve isnormal. No pulmonary regurgitation. Masses, Effusion, Shunts There is moderate pericardial effusion. No clear evidence forhemodynamically significant cardiac tamponade, but clinical correlation isrecommended. The inferior vena cava is normal sized, respiratory sizevariation greater than 50%. No left to right shunting was detected bylimited color flow Doppler interrogation of the interatrial septum. MEASUREMENTS AND CALCULATIONS 2-D Measurements and LV Function: LVID (d) 3.9 cm LV FS% (2D) 32% LVID (s) 2.7 cm LVOT diameter2.0 cm IVS (d) 1.0 cm HR122 bpm LVPW (d) 1.1 cm LA Vol index 36ml/m2 Ao Sinus 2.9 cm RA area 14cm Ao Sinus ULN 3.8 cm * Asc Ao 3.3 cm Asc Ao ULN 3.9 cm * LA 3.5 cm * Input BSA outside of range, reported values correspond to BSA = 1.9 Diastology: Mitral Tissue Doppler E Peak 0.8 m/s e', Lateral 0.08 m/s A Peak 1.0 m/s E/A 0.8 DT 215 msec Aortic Valve: Vmax 1.4 m/s BOOM (V) 2.63 cm VTI 0.26 m BOOM (I) 2.48 cm LVOT V max 1.2 m/s Max PG 8 mmHg LVOT VTI 0.20 m Mean PG 4 mmHg SV 63 ml Dim Index 0.79 SV index 33 ml/m CO 7.7 l/min CI 4.1 l/min/m Mitral Valve: MVA 3.5 cm MV P 1/2 62 msec MV Mean G 3 mmHg Tricuspid Valve and estimated PA pressures: TAPSE 2.6 cm . This study was interpreted by an [facility] accredited facility. Final us Ok Rowe MD ECHO ORD Final Re sult * XR CHEST 2 VIEWS PA AND LATERAL (12/17/2024 9:58 AM CDT) Anatomical Region Laterality Modality CHEST, THORAX, Lung, HEART Digit al Radiography 12/19/2024 10:5 6 AM CDT Impressions 12/19/2024 10:56 AM CDT 1. Stable heart size which appears borderline enlarged. 2. Other findings are as discussed above. Dictated by Marcus Anglin MD @ 12/19/2024 10:56:31 AM (Electronically Signed) Narrative 12/19/2024 10:56 AM CDT For Patients: As a result of the Cures Act, medical imaging exams and procedure reports are released immediately into your electronic medical record. You may view this report before your referring provider. If you have questions, please contact your health care provider. INDICATION: Pericardial effusion. TECHNIQUE: Chest 2 views. COMPARISON: CT scanning of the chest dated 05/16/2023. FINDINGS: The heart size is stable and borderline enlarged. Central vascular markings are within the normal range. Cephalad retraction of the left hilum is re-identified. The lungs appear clear. No pleural effusion is evident. A right-sided Port-A-Cath is again seen. An electronic cardiac monitoring device overlies the left thorax. Procedure Note Marcus Anglin MD - 12/19/2024 For Patients: As a result of the Century Cures Act, medical imagingexams and procedure reports are released immediately into your electronicmedical record. You may view this report before your referring provider.If you have questions, please contact your health care provider. INDICATION: Pericardial effusion. TECHNIQUE: Chest 2 views. COMPARISON: CT scanning of the chest dated 05/16/2023. FINDINGS: The heart size is stable and borderline enlarged. Central vascularmarkings are within the normal range. Cephalad retraction of the lefthilum is re-identified. The lungs appear clear. No pleural effusion isevident. A right-sided Port-A-Cath is again seen. An electronic cardiacmonitoring device overlies the left thorax. IMPRESSION: 1. Stable heart size which appears borderline enlarged. 2. Other findings are as discussed above. Dictated by Marcus Anglin MD @ 12/19/2024 10:56:31 AM (Electronically Signed) us Ok Rowe MD GENERAL IMAGING Final Re sult * ZIO PATCH XT - weekly to monthly symptoms. (12/17/2024) 12/17/2024 Narrative Xi Smith MD - 01/01/2025 12:00 AM CDT Agree with Findings. Please see scan document for full report. Signed By Xi Smith MD Procedure Note Xi Smith MD - 01/01/2025 Agree with Findings. Please see scan document for full report. Signed By Xi Smith MD us Adrienne Mendez [facility] ORD Final Result * EKG 12 LEAD (12/08/2024 10:08 AM CDT) Interpretation Sinus tachycardia Rightward axis Low voltage QRS Borderline ECG No significant change was found BEYOND NOW Ventricular Rate 106 BPM BEYOND NOW Atrial Rate 106 BPM BEYOND NOW P-R Interval 162 ms BEYOND NOW QRS Duration 78 ms BEYOND NOW QT 330 ms BEYOND NOW QTc 438 ms BEYOND NOW P [place] 76 degrees BEYOND NOW R [place] 94 degrees BEYOND NOW T [place] 53 degrees BEYOND NOW 12/08/2024 10:0 8 AM CDT 12/11/2024 7:38 AM CDT us Liz Anglin MD EKG ORD Final R esult BEYOND NOW [place], [place] * MR BRAIN W/WO CONTRAST (12/04/2024 10:36 AM CDT) Anatomical Region Laterality Modality BRAIN, HEAD Magnetic Resonan ce 12/04/2024 2:23 PM CDT Narrative 12/04/2024 2:23 PM CDT For Patients: As a result of the Cures Act, medical imaging exams and procedure reports are released immediately into your electronic medical record. You may view this report before your referring provider. If you have questions, please contact your health care provider. Indication: Staging; hx of small cell lung cancer Technique: Noncontrast sagittal T1, axial FLAIR, T2 turbo spine echo, and diffusion weighted images. Supplemental post contrast T1 weighted axial and coronal sequences are provided after administration of 20 ml Clariscan gadolinium-based IV contrast. Comparison: MRI 06/16/2024 Findings: The ventricles, sulci and gyri are normal size, shape and contour for age. The midline structures are centrally located with no evidence of shift. There are no suspicious intra or extra-axial fluid collections. No evidence of restricted diffusion to suggest acute ischemia. Expected flow voids in the cavernous carotids and basilar artery. No abnormal contrast enhancement involving the brain parenchyma, meninges, calvarium or skull base. Impression: 1. No acute intracranial abnormality. No significant change compared to the prior study. 2. Multiple scattered foci of T2 prolongation in the supratentorial white matter are nonspecific but likely due to chronic small vessel ischemic changes. 3. No pathologic enhancement or evidence of intracranial metastases. Dictated by Marcus Watson MD @ 12/04/2024 2:23:49 PM (Electronically Signed) Procedure Note Marcus Watson MD - 12/04/2024 For Patients: As a result of the Cures Act, medical imagingexams and procedure reports are released immediately into your electronicmedical record. You may view this report before your referring provider.If you have questions, please contact your health care provider. Indication: Staging; hx of small cell lung cancer Technique: Noncontrast sagittal T1, axial FLAIR, T2 turbo spine echo, and diffusionweighted images. Supplemental post contrast T1 weighted axial and coronalsequences are provided after administration of 20 ml Clariscangadolinium-based IV contrast. Comparison: MRI 06/16/2024 Findings: The ventricles, sulci and gyri are normal size, shape and contour for age.The midline structures are centrally located with no evidence of shift.There are no suspicious intra or extra-axial fluid collections. Noevidence of restricted diffusion to suggest acute ischemia. Expected flowvoids in the cavernous carotids and basilar artery. No abnormal contrastenhancement involving the brain parenchyma, meninges, calvarium or skullbase. Impression: 1. No acute intracranial abnormality. No significant change compared tothe prior study. 2. Multiple scattered foci of T2 prolongation in the supratentorial whitematter are nonspecific but likely due to chronic small vessel ischemicchanges. 3. No pathologic enhancement or evidence of intracranial metastases. Dictated by Marcus Watson MD @ 12/04/2024 2:23:49 PM (Electronically Signed) us Liz Anglin MD MR Final R esult * PET CT SKULL BASE TO MID THIGH SUBSEQUENT TREAT (12/04/2024 10:04 AM CDT) Anatomical Region Laterality Modality Positron Emissio n Tomography (PET) 12/04/2024 7:29 PM CDT Impressions 12/04/2024 7:29 PM CDT 1. Similar faintly FDG avid posttreatment changes in the left upper lobe of the lungs. No evidence of FDG avid locally recurrent or metastatic disease. 2. Similar focal FDG uptake localized on this study to the right serratus anterior, likely inflammatory/physiologic. 3. New faintly FDG avid cutaneous thickening in the bilateral breasts, which is nonspecific and may be inflammatory. Correlate with physical exam and breast ultrasound. 4. Small to moderate pericardial effusion. Consider correlation with echocardiogram. 5. FDG avid subcutaneous nodule in the ventral left abdominal wall is likely inflammatory and compatible with post-injection inflammatory change. Dictated by Zachary Medina MD @ 12/04/2024 7:29:00 PM (Electronically Signed) Narrative 12/04/2024 7:29 PM CDT For Patients: As a result of the Century Cures Act, medical imaging exams and procedure reports are released immediately into your electronic medical record. You may view this report before your referring provider. If you have questions, please contact your health care provider. EXAM: FDG PET-CT Skull Base to Thighs CLINICAL INFORMATION: 64-year-old woman with history of small cell lung cancer. Restaging. TECHNIQUE: Radiopharmaceutical: 18F-fluorodeoxyglucose (18F-FDG) Dose: 10.86 milliCurie. Blood glucose: 102 mg/dL. Image acquisition: At approximately 60 minutes following IV tracer administration via an access port, positron emission tomography was performed from the skull base through the mid thigh. Non-contrast low-dose helical CT imaging was performed over the same range without breath-hold for attenuation correction of PET images and anatomic correlation; it is neither sufficient, nor should it be substituted for diagnostic purposes. COMPARISON: FDG PET-CT 06/16/2024 FINDINGS: Mediastinal blood pool FDG uptake: SUVMax 3.0 (image 79) Liver background parenchymal FDG uptake: SUVMax 4.0 (image 124) PET Findings: Unchanged size of a 6.8 x 3.2 cm left upper lobe consolidative opacity representing posttreatment changes SUVMax 2.9 (image 69) previously SUVmax 2.5. Similar focal FDG uptake localized on this study to the right serratus anterior SUVMax 4.2 (image 91) previously SUVMax 5.9 (image 95, remeasured in the same plane). No abnormal FDG avid lymphadenopathy. No abnormal FDG uptake in the visualized skeleton. FDG avid subcutaneous nodule in the ventral left abdominal wall (image 193) is likely inflammatory and compatible with post-injection inflammatory change. Tracer uptake elsewhere is physiologic. New faintly FDG avid cutaneous thickening in the bilateral breasts, measuring up to 0.5 cm in the left breast lateral to the left areola (image 84), previously measuring 0.2 cm at this site (image 111), and measuring up to 0.4 cm in the right breast lateral to the right areola previously 0.2 cm at the site (image 102). Non-PET findings: Right internal jugular port catheter with the tip terminating in the right atrium. Upper lung predominant emphysema. Small to moderate pericardial effusion. Coronary artery calcifications. Atherosclerotic calcifications of the thoracic and abdominal aorta. Cholelithiasis. Hysterectomy. Multilevel degenerative changes in the spine. Procedure Note Zachary Medina MD - 12/04/2024 For Patients: As a result of the Cures Act, medical imagingexams and procedure reports are released immediately into your electronicmedical record. You may view this report before your referring provider.If you have questions, please contact your health care provider. EXAM: FDG PET-CT Skull Base to Thighs CLINICAL INFORMATION: 64-year-old woman with history of small cell lung cancer. Restaging. TECHNIQUE: Radiopharmaceutical: 18F-fluorodeoxyglucose (18F-FDG) Dose: 10.86 milliCurie. Blood glucose: 102 mg/dL. Image acquisition: At approximately 60 minutes following IV traceradministration via an access port, positron emission tomography wasperformed from the skull base through the mid thigh. Non-contrast low-dosehelical CT imaging was performed over the same range without breath-holdfor attenuation correction of PET images and anatomic correlation; it isneither sufficient, nor should it be substituted for diagnosticpurposes. COMPARISON: FDG PET-CT 06/16/2024 FINDINGS: Mediastinal blood pool FDG uptake: SUVMax 3.0 (image 79) Liver background parenchymal FDG uptake: SUVMax 4.0 (image 124) PET Findings: Unchanged size of a 6.8 x 3.2 cm left upper lobe consolidative opacityrepresenting posttreatment changes SUVMax 2.9 (image 69) previouslySUVmax 2.5. Similar focal FDG uptake localized on this study to the right serratusanterior SUVMax 4.2 (image 91) previously SUVMax 5.9 (image 95,remeasured in the same plane). No abnormal FDG avid lymphadenopathy. No abnormal FDG uptake in the visualized skeleton. FDG avid subcutaneous nodule in the ventral left abdominal wall ([id number]) is likely inflammatory and compatible with post-injectioninflammatory change. Tracer uptake elsewhere is physiologic. New faintly FDG avid cutaneous thickening in the bilateral breasts,measuring up to 0.5 cm in the left breast lateral to the left areola(image 84), previously measuring 0.2 cm at this site (image 111), andmeasuring up to 0.4 cm in the right breast lateral to the right areolapreviously 0.2 cm at the site (image 102). Non-PET findings: Right internal jugular port catheter with the tip terminating in the rightatrium. Upper lung predominant emphysema. Small to moderate pericardialeffusion. Coronary artery calcifications. Atherosclerotic calcificationsof the thoracic and abdominal aorta. Cholelithiasis. Hysterectomy.Multilevel degenerative changes in the spine. IMPRESSION: 1. Similar faintly FDG avid posttreatment changes in the left upper lobeof the lungs. No evidence of FDG avid locally recurrent or metastaticdisease. 2. Similar focal FDG uptake localized on this study to the right serratusanterior, likely inflammatory/physiologic. 3. New faintly FDG avid cutaneous thickening in the bilateral breasts,which is nonspecific and may be inflammatory. Correlate with physical examand breast ultrasound. 4. Small to moderate pericardial effusion. Consider correlation withechocardiogram. 5. FDG avid subcutaneous nodule in the ventral left abdominal wall islikely inflammatory and compatible with post-injection inflammatorychange. Dictated by Zachary Medina MD @ 12/04/2024 7:29:00 PM (Electronically Signed) us Liz Anglin MD PET Final R esult * (ABNORMAL) CBC WITH AUTO DIFFERENTIAL (12/04/2024 8:32 AM CDT) WHITE BLOOD COUNT 6.6 4.5 - 11.0 thou/cu mm 12/04/2024 8:39 AM CDT [facility] RED BLOOD COUNT 5.36(H) 4.00 - 5.20 mil/cu mm 12/04/2024 8:39 AM CDT [facility] HEMOGLOBIN 15.6 12.0 - 16.0 g/dL 12/04/2024 8:39 AM CDT [facility] HEMATOCRIT 47.1 33.0 - 51.0 % 12/04/2024 8:39 AM CDT [facility] MCV 88 80 - 100 fL 12/04/2024 8:39 AM CDT [facility] MCH 29.1 26.0 - 34.0 pg 12/04/2024 8:39 AM CDT [facility] MCHC 33.1 32.0 - 36.0 g/dL 12/04/2024 8:39 AM CDT [facility] RDW 13.3 11.5 - 15.5 % 12/04/2024 8:39 AM CDT [facility] PLATELET COUNT 166 140 - 440 thou/cu mm 12/04/2024 8:39 AM T [facility] MPV 10.0 6.5 - 11.0 fL 12/04/2024 8:39 AM CDT [facility] NRBC 0.0 % 12/04/2024 8:39 AM CDT [facility] ABS NRBC 0.0 thou /cu mm 12/04/2024 8:39 AM CDT [facility] % NEUT 65.6 % 12/04/2024 8:39 AM T [facility] % LYMPH 26.9 % 12/04/2024 8:39 AM T [facility] % MONO 6.4 % 12/04/2024 8:39 AM CDT [facility] % EOS 0.6 % 12/04/2024 8:39 AM CDT [facility] % BASO 0.3 % 12/04/2024 8:39 AM T [facility] % IMMATURE GRAN (METAS,MYELOS,IN OS) 0.2 % 12/04/2024 8:39 AM T [facility] ABSOLUTE NEUTROPHILS 4.3 1.7 - 7.0 thou/cu mm 12/04/2024 8:39 AM CDT [facility] ABSOLUTE LYMPHOCYTES 1.8 0.9 - 2.9 thou/cu mm 12/04/2024 8:39 AM CDT [facility] ABSOLUTE MONOCYTES 0.4 <0.9 thou/cu mm 12/04/2024 8:39 AM CDT [facility] ABSOLUTE EOSINOPHILS 0.0 <0.5 thou/cu mm 12/04/2024 8:39 AM CDT [facility] ABSOLUTE BASOPHILS 0.0 <0.3 thou/cu mm 12/04/2024 8:39 AM CDT [facility] ABSOLUTE IMMATURE GRANULOCYTES(MET ,MYELOS,PROS) 0.0 <0.3 thou/cu mm 12/04/2024 8:39 AM CDT [facility] Blood BLOOD SPECIMEN / Unknown Line/Port / Unknown 12/04/2024 8:32 AM CDT 12/04/2024 8:37 AM CDT us Liz Anglin MD HEMATOLOGY Final R esult [facility] [address] [place] [address] * (ABNORMAL) COMP METABOLIC PANEL (12/04/2024 8:32 AM CDT) SODIUM 140 136 - 145 mmol/L 12/04/2024 8:58 AM CDT [facility] POTASSIUM 4.2 3.5 - 5.1 mmol/L 12/04/2024 8:58 AM CDT [facility] CHLORIDE 102 98 - 107 mmol/L 12/04/2024 8:58 AM CDT [facility] CO2,TOTAL 27 22 - 29 mmol/L 12/04/2024 8:58 AM CDT [facility] ANION GAP 11 5 - 18 12/04/2024 8:58 AM CDT [facility] GLUCOSE 128(H) 70 - 99 mg/dL 12/04/2024 8:58 AM CDT [facility] CALCIUM 9.4 8.8 - 10.4 mg/dL 12/04/2024 8:58 AM CDT [facility] Comment: Reference ranges for this test were updated on 04/21/2024 to reflect our healthy population more accurately. Reference range changes are not retroactively applied to results, but previous results using the same methodology can be interpreted in the context of the new reference range. BUN 17 8 - 23 mg/dL 12/04/2024 8:58 AM CDT [facility] CREATININE 0.68 0.50 - 0.90 mg/dL 12/04/2024 8:58 AM CDT [facility] BUN/CREAT RATIO 25(H) 10 - 20 8:58 AM CDT [facility] eGFR >90 >90 mL/min/1.7 3m2 12/04/2024 8:58 AM CDT [facility] Comment:As of 2021, eG FR is calculated by the CKD-EPI creatinine equation without race adjustment. eGFR can be influenced by muscle mass, exercise, and diet. The reported eGFR is an estimation only and is only applicable if the renal function is stable. ALBUMIN 4.1 4.0 - 4.9 g/dL 12/04/2024 8:58 AM CDT [facility] PROTEIN,TOTAL 6.8 6.0 - 8.0 g/dL 12/04/2024 8:58 AM CDT [facility] BILIRUBIN,TOTAL 0.3 0.0 - 1.2 mg/dL 12/04/2024 8:58 AM CDT [facility] ALK PHOSPHATASE 62 35 - 104 IU/L 12/04/2024 8:58 AM CDT [facility] ALT (SGPT) 12 10 - 35 IU/L 12/04/2024 8:58 AM CDT [facility] AST (SGOT) 17 10 - 35 IU/L 12/04/2024 8:58 AM CDT [facility] Blood BLOOD SPECIMEN / Unknown Line/Port / Unknown 12/04/2024 8:32 AM CDT 12/04/2024 8:37 AM CDT us Liz Anglin MD CHEMISTRY Final R esult [facility] [address] [place] [address] * (ABNORMAL) LIPID PANEL W REFLEX MEASURED LDL (08/29/2021 8:54 AM CDT) CHOLESTEROL,TOTAL 275(H) 100 - 199 mg/dL 08/29/2021 10:14 AM CDT [facility] TRIGLYCERIDES 268(H) <150 mg/dL 08/29/2021 10:14 AM CDT [facility] HDL CHOLESTEROL 47 >40 mg/dL 10:14 AM CDT [facility] NON-HDL CHOLESTEROL 228(H) <145 mg/dl 08/29/2021 10:14 AM CDT [facility] CHOL/HDL RATIO 5.85(H) <4.50 08/29/2021 10:14 AM CDT [facility] LDL CHOLESTEROL 174(H) <=130 mg/dL 08/29/2021 10:14 AM CDT [facility] VLDL CHOLESTEROL 54(H) <=30 mg/dL 08/29/2021 10:14 AM CDT [facility] PROVIDER ORDERED STATUS RANDOM 08/29/2021 10:14 AM CDT [facility] Blood BLOOD SPECIMEN / Unknown Venipuncture / Unknown 08/29/2021 8:54 AM CDT 08/29/2021 8:54 AM CDT Jocelyne Beckett DO CHEMISTRY Final Result [facility] [address] [place] [address] * ANTI HCV (02/06/2021 8:29 AM CDT) HEPATITIS C ANTIBODY Non-React fab Non-React fab 02/06/2021 3:29 PM CDT [facility] Comment:Antibodies to HCV no t detected; does not exclude the possibility of exposure to HCV. Blood BLOOD SPECIMEN / Unknown Butterfly / Unknown 02/06/2021 8:29 AM CDT 02/06/2021 8:29 AM CDT Jocelyne Beckett DO SEND OUTS Final Result [facility] [address] [place] [address], [place] * CT CHEST WO (01/11/2021 7:50 AM CDT) Anatomical Region Laterality Modality CHEST, THORAX, HEART Computed To mography 01/11/2021 9:26 AM CDT Narrative 01/11/2021 9:26 AM CDT For Patients: As a result of the Century Cures Act, medical imaging exams and procedure reports are released immediately into your electronic medical record. You may view this report before your referring provider. If you have questions, please contact your health care provider. Indication: Left lung mass Technique: A CT volumetric acquisition was performed of the thorax without IV contrast. Comparison: Low-dose chest CT dated 12/23/[address] dated 12/27/2020 Findings: As compared to a prior chest CT dated 102 the central mass within the left upper lobe has increased slightly in size. At the level of the pablo on image 240 3 the mass measures 5.1 x 3.2 cm in AP and transverse dimension. At the same slice location on the 12/23/2020 exam the mass measured 4.7 x 2.9 cm. There is a persistent peripheral subpleural focus of increased density within the anterior margin of the superiorly give the. This appears unchanged and could reflect areas of postobstructive atelectasis or tumor spread. No new nodular opacities are identified within the right lung or left lower lobe. The thyroid gland has normal size and density. Enlarged lymph nodes are again identified within station 5 measuring 11 and 17 mm in size. There is no evidence of pericardial fluid or pleural fluid. The adrenal glands appear normal. The pulmonary vessels appear normal in size. There is no evidence of emphysema or parenchymal fibrosis. Impression: Slight progression in size of the malignant mass involving the central portion of the left upper lobe. Stable peripheral focus of increased opacity within the superior lingula. I am uncertain if this reflects tumor spread versus peripheral postobstructive atelectasis. Please note that all CT scans at this facility use dose modulation, iterative reconstruction, and/or weight-based dosing when appropriate to reduce radiation dose to as low as reasonably achievable. Dictated by Jacek Muñoz MD @ 01/11/2021 9:26:[address] Jacek Muñoz @ Jan 11 2021 9:26AM Procedure Note Jacek Muñoz MD - 01/11/2021 For Patients: As a result of the 21st Century Cures Act, medical imagingexams and procedure reports are released immediately into your electronicmedical record. You may view this report before your referring provider.If you have questions, please contact your health care provider. Indication: Left lung mass Technique: A CT volumetric acquisition was performed of the thorax without IVcontrast. Comparison: Low-dose chest CT dated 12/23/[address] dated 12/27/2020 Findings: As compared to a prior chest CT dated 1020 the central mass within theleft upper lobe has increased slightly in size. At the level of the carinaon image 240 3 the mass measures 5.1 x 3.2 cm in AP and transversedimension. At the same slice location on the 12/23/2020 exam the massmeasured 4.7 x 2.9 cm. There is a persistent peripheral subpleural focusof increased density within the anterior margin of the superiorly givethe. This appears unchanged and could reflect areas of postobstructiveatelectasis or tumor spread. No new nodular opacities are identifiedwithin the right lung or left lower lobe. The thyroid gland has normalsize and density. Enlarged lymph nodes are again identified within station5 measuring 11 and 17 mm in size. There is no evidence of pericardialfluid or pleural fluid. The adrenal glands appear normal. The pulmonaryvessels appear normal in size. There is no evidence of emphysema orparenchymal fibrosis. Impression: Slight progression in size of the malignant mass involving the centralportion of the left upper lobe. Stable peripheral focus of increasedopacity within the superior lingula. I am uncertain if this reflects tumorspread versus peripheral postobstructive atelectasis. Please note that all CT scans at this facility use dose modulation,iterative reconstruction, and/or weight-based dosing when appropriate toreduce radiation dose to as low as reasonably achievable. Dictated by Jacek Muñoz MD @ 01/11/2021 9:26:[address] Jacek Muñoz @ Jan 11 2021 9:26AM us Migue Almonte MD CT Final R esult * SCAN-MAMMOGRAPHY REPORT (08/31/2020 12:00 AM CDT) Anatomical Region Laterality Modality Other us Scanner OTHER Final Result * (ABNORMAL) OCCULT BLOOD IFOBT STOOL (06/19/2019 9:24 AM TIMBER GIRDLER) STOOL BLOOD ,IFOBT Positive(A ) Negative 06/19/2019 9:56 AM TIMBER GIRDLER [facility] Stool STOOL SPECIMEN / Unknown Non-Blood / Unknown 06/19/2019 9:24 AM TIMBER GIRDLER 06/19/2019 9:24 AM TIMBER GIRDLER William Zavaleta MD LABORATORY Final Result [facility] [address] [place] [address] from Last 3 Months or Most Recently Relevant to Health Maintenance Insurance MEDICAID MEDICARE PART B HB ONLY MEDICARE PB ONLY MEDICARE PART A HB ONLY MEDICAID MEDICARE PROVIDER BASED Advance Directives Documents on File Type Date Recorded Patient Supervisor Sample Expl anation Healthcare Directive 05/09/2018 7:54 AM 1 06/21/2017 Healthcare Directive 04/21/2018 018 Healthcare Directive 11/01/2016 9:32 AM Healthcare Directive 10/23/2016 12:00 AM * Full Code (Latest Code Status on File) Date Activated Date Inactivated Comments 01/11/2021 9:53 AM 01/11/2021 3:57 PM Question Answer Comments Code Status Discussion: Per Existing Order * Full Code Date Activated Date Inactivated Comments 11/02/2016 10:21 AM 11/03/2016 4:54 PM Question Answer Comments Code Status Discussion: Discussed * Full Code Date Activated Date Inactivated Comments 11/01/2016 8:55 AM 11/01/2016 9:14 PM Care Teams Dipping Machine Operator Relationship Specialty Start Date End Date Chuy Eden MD [address] [place] [address] PCP - General Internal Medicine 08/23/24 William Zavaleta MD Internal Medicine 02/27/17 Michelle Martinez, RN [address] [place] [address] Nurse Navigator - Oncology Registered Nurse 06/03/23
--- OUTSIDE RECORDS SUMMARY | 2025-01-01 11:24 | XMS_ITS | Encounter Summary ---
Author Organization [place] Address [address] [place] [address]. [place] [address] Care Team Providers Care Sectional Belt Mold Assembler Name Role Phone vinayak Swapna Nubia Unavailable Unavail able Jonathan Sosa MD Primary Care Provider [phone] Jonathan Sosa MD Unavailable [phone] Anne Lopez MD Unavailable [phone] Ruth Trinidad [facility] Unavailable Encounter Details Date Type Department Care Team (Late st Contact Info) Description 05/12/2024 [facility] [address] [place] [address] Mary Kay Lucio, RN Social History [...] PHQ-2 Score 0 05/05/2024 [facility] [place] of Occupat ional Health - Occupational Stress [...] on file 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 Gender Identity Not on file Sexual Orientation Not on file Occupation Industry Job Start Date Job End Date disabled Not on file Not on file Not on file documented as of this encounter Plan of Treatment Not on file documented as of this encounter Visit Diagnoses Not on filedocumented in this encounter Care Teams Sectional Belt Mold Assembler Relationship Specialty Start Date End Date Jonathan Sosa MD [address] [place] [address] PCP - General Internal Medicine 02/14/22 Swapna Lockwood Referring Physician boardmarker 12/29/14 Jonathan Sosa MD [address] [place] [address] Assigned PCP 01/17/22 Anne Lopez MD [address] [place] [address] 36 [place], [place] [address] Gastroenterology 08/03/22 Ruth Trinidad RPH [address] [place], [place] [address] Assigned MTM Pharmacist 10/08/23 documented as of this encounter
--- OUTSIDE RECORDS SUMMARY | 2025-01-01 11:24 | XMS_ITS | Encounter Summary ---
Author Organization [place] Address [address] [place] [address]. [place] [address] Care Team Providers Care 911 Emergency Dispatcher Name Role Phone vinayakAndreSwapna Nubia Unavailable Unavail able Jonathan Sosa MD Primary Care Provider [phone] Jonathan Soas MD Unavailable [phone] Anne Lopez MD Unavailable [phone] Ruth Trinidad [facility] Unavailable Ruth Trinidad [facility] Unavailable Encounter Details Date Type Department Care Team (Late st Contact Info) Description 06/06/2023 [facility] Anticoagulation Clinic [address] [place] [address] Mary Kay Lucio, RN Social History [...] an overnight group home, or couch-surfing.) Yes 04/14/2023 Are you worried [...] on file 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 Gender Identity Not on file Sexual Orientation Not on file Occupation Industry Job Start Date Job End Date disabled Not on file Not on file Not on file documented as of this encounter Plan of Treatment Not on file documented as of this encounter Visit Diagnoses Not on filedocumented in this encounter Care Teams 911 Emergency Dispatcher Relationship Specialty Start Date End Date Jonathan Sosa MD [address] [place] [address] PCP - General Internal Medicine 02/14/22 Swapna Lockwood Referring Physician client service manager 12/29/14 Jonathan Sosa MD [address] [place], [place] [address] Assigned PCP 01/17/22 Anne Lopez MD [address] [place] [address] Gastroenterology 08/03/22 Ruth Trinidad RPH [address] [place], [place] 102392 Pharmacist Pharmacist Chemical Supervisor 09/06/23 10/09/23 Ruth Trinidad RPH [address] [place], [place] [address] Assigned [place] Pharmacist 10/08/23 documented as of this encounter
--- OUTSIDE RECORDS SUMMARY | 2025-01-01 11:24 | XMS_ITS | Encounter Summary ---
Author Organization [place] Address [address] [place] [address]. [place] [address] Care Team Providers Care Commissioning Manager Name Role Phone vinayak Swapna Nubia Unavailable Unavail able Jonathan Sosa MD Primary Care Provider [phone] Jonathan Sosa MD Unavailable [phone] Anne Lopez MD Unavailable [phone] Ruth Trinidad [facility] Unavailable Encounter Details Date Type Department Care Team (Late st Contact Info) Description 02/28/2024 [facility] [address] [place] [address] Doris Lopez, RN Social History Tobacco Use Types Packs/Day [...] on file 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 Gender Identity Not on file Sexual Orientation Not on file Occupation Industry Job Start Date Job End Date disabled Not on file Not on file Not on file documented as of this encounter Plan of Treatment Not on file documented as of this encounter Visit Diagnoses Not on filedocumented in this encounter Care Teams Commissioning Manager Relationship Specialty Start Date End Date Jonathan Sosa MD [address] [place] [address] PCP - General Internal Medicine 02/14/22 Swapna Lockwood Referring Physician credit report checker 12/29/14 Jonathan Sosa MD [address] [facility] [place] [id number] Assigned PCP 01/17/22 Anne Lopez MD [address] [place] [address] 36 [place], [place] [address] Gastroenterology 08/03/22 Ruth Trinidad RP [address] [place], [place] 638242 Assigned MTM Pharmacist 10/08/23 documented as of this encounter
--- OUTSIDE RECORDS SUMMARY | 2025-01-01 11:24 | XMS_ITS | Encounter Summary ---
Author Organization [facility] Address [address] [place] [address]. [place] [address] Care Team Providers Care Crozer Name Role Phone vinayakAndreSwapna Nubia Unavailable Unavail able Jonathan Sosa MD Primary Care Provider [phone] Jonathan Sosa MD Unavailable [phone] Anne Lopez MD Unavailable [phone] Ruth Trinidad [facility] Unavailable Ruth Trinidad [facility] Unavailable Encounter Details Date Type Department Care Team (Late st Contact Info) Description 04/30/2023 [facility] Antico[facility] [address] [place] [address] Concepcion Knight RN Social History [...] in an overnight usp, or couch-surfing.) Yes 04/14/2023 Are you worried [...] on file 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 Gender Identity Not on file Sexual Orientation Not on file Occupation Industry Job Start Date Job End Date disabled Not on file Not on file Not on file documented as of this encounter Plan of Treatment Not on file documented as of this encounter Visit Diagnoses Not on filedocumented in this encounter Care Teams Crozer Relationship Specialty Start Date End Date Jonathan Sosa MD [address] [place] [address] PCP - General Internal Medicine 02/14/22 Swapna Lockwood Referring Physician cardiac cath technician 12/29/14 Jonathan Sosa MD [address] [place], [place] [address] Assigned PCP 01/17/22 Anne Lopez MD [address] [place] [address] 36 [place], [place] [address] Gastroenterology 08/03/22 Ruth Trinidad RPH [address] [place] [address] Pharmacist Pharmacist Director Telemetry 09/06/23 10/09/23 Ruth Trinidad RPH [address] [place] [address] Assigned [place] Pharmacist 10/08/23 documented as of this encounter
--- OUTSIDE RECORDS SUMMARY | 2025-01-01 11:24 | XMS_ITS | Encounter Summary ---
Author Organization [place] Address [address] [place] [address] Care Team Providers Care Commercial Baker Helper Name Role Phone vinayak Swapna Nubia Unavailable Unavail able Jonathan Sosa MD Primary Care Provider [phone] Jonathan Sosa MD Unavailable [phone] Anne Lopez MD Unavailable [phone] Ruth Trinidad [facility] Unavailable Encounter Details Date Type Department Care Team (Late st Contact Info) Description 03/13/2024 [facility] [address] [place] [address] Evelin Sharma, RN Social History Tobacco Use Types Packs/Day [...] in an abandoned building, in an overnight nursing home, or couch-surfing.) Yes 04/14/2023 Are you [...] on file 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 Gender Identity Not on file Sexual Orientation Not on file Occupation Industry Job Start Date Job End Date disabled Not on file Not on file Not on file documented as of this encounter Plan of Treatment Not on file documented as of this encounter Visit Diagnoses Not on filedocumented in this encounter Care Teams Commercial Baker Helper Relationship Specialty Start Date End Date Jonathan Sosa MD [address] [place] [id number] PCP - General Internal Medicine 02/14/22 Swapna Lockwood Referring Physician crew member 12/29/14 Jonathan Sosa MD [address] [address] Assigned PCP 01/17/22 Anne Lopez MD [address] [place] [address] 36 [place], [place] [address] Gastroenterology 08/03/22 Ruth Trinidad RPH [address] [place] [address] Assigned MTM Pharmacist 10/08/23 documented as of this encounter
--- OUTSIDE RECORDS SUMMARY | 2025-01-01 11:24 | XMS_ITS | Encounter Summary ---
Author Organization [place] Address [address] [place] [address]. [place] [address] Care Team Providers Care No Bake Molder Name Role Phone vinayak Swapna Nubia Unavailable Unavail able Jonathan Sosa MD Primary Care Provider [phone] Jonathan Sosa MD Unavailable [phone] Anne Lopez MD Unavailable [phone] Ruth Trinidad [facility] Unavailable Encounter Details Date Type Department Care Team (Late st Contact Info) Description 05/11/[address] [facility] [facility] [address] [facility] Anticoagulation Clinic [address] [place] [address] Mary Kay Lucio, RN Social History [...] friends or re latives? 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 Gender Identity Not on file Sexual Orientation Not on file Occupation Industry Job Start Date Job End Date disabled Not on file Not on file Not on file documented as of this encounter Plan of Treatment Not on file documented as of this encounter Visit Diagnoses Not on filedocumented in this encounter Care Teams No Bake Molder Relationship Specialty Start Date End Date Jonathan Sosa MD [address] [place] [address] PCP - General Internal Medicine 02/14/22 Swapna Lockwood Referring Physician gunite nozzle operator 12/29/14 Jonathan Sosa MD [address] [place] [address] Assigned PCP 01/17/22 Anne Lopez MD [address] [place] [address] 36 [place], [place] [address] Gastroenterology 08/03/22 Ruth Trinidad RPH [address] [place], [place] [address]692 Assigned MTM Pharmacist 10/08/23 documented as of this encounter
--- OUTSIDE RECORDS SUMMARY | 2025-01-01 11:24 | XMS_ITS | Encounter Summary ---
Author Organization [place] Address [address] [place] [address]. [place] [address] Care Team Providers Care Roll Sheeting Cutter Name Role Phone Swapna licea Nubia Unavailable Unavail able Jonathan Sosa MD Primary Care Provider [phone] Jonathan Sosa MD Unavailable [phone] Anne Lopez MD Unavailable [phone] Ruth Trinidad [facility] Unavailable Encounter Details Date Type Department Care Team (Late st Contact Info) Description 05/07/2024 [facility] Anticoagulation Clinic [address] [place] [address] Sarah Herrmann, RN Social History Tobacco Use Types Packs/Day [...] friends or re latives? 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 Gender Identity Not on file Sexual Orientation Not on file Occupation Industry Job Start Date Job End Date disabled Not on file Not on file Not on file documented as of this encounter Plan of Treatment Not on file documented as of this encounter Visit Diagnoses Not on filedocumented in this encounter Care Teams Roll Sheeting Cutter Relationship Specialty Start Date End Date Jonathan Sosa MD [address] [place] [address] PCP - General Internal Medicine 02/14/22 Swapna Lockwood Referring Physician express clerk 12/29/14 Jonathan Sosa MD [address] [place] [address] Assigned PCP 01/17/22 Anne Lopez MD [address] [place] [address] 36 [place] [address] Gastroenterology 08/03/22 Ruth Trinidad RPH [address] [place], [place] [address] Assigned MTM Pharmacist 10/08/23 documented as of this encounter
--- OUTSIDE RECORDS SUMMARY | 2025-01-01 11:24 | XMS_ITS | Encounter Summary ---
Author Organization [place] Address [address] [place] [address]. [place] [address] Care Team Providers Care Button Sewing Machine Operator Name Role Phone vinayakAndreSwapna Nubia Unavailable Unavail able Jonathan Sosa MD Primary Care Provider Jonathan Sosa MD Unavailable Anne Lopez MD Unavailable [phone] Ruth Trinidad [facility] Unavailable Encounter Details Date Type Department Care Team (Late st Contact Info) Description 04/30/2024 [facility] Anticoagulation Clinic [address] [place] [address] Shannon Rosado, RN Social History Tobacco Use Types Packs/Day [...] friends or re latives? 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 Gender Identity Not on file Sexual Orientation Not on file Occupation Industry Job Start Date Job End Date disabled Not on file Not on file Not on file documented as of this encounter Plan of Treatment Not on file documented as of this encounter Visit Diagnoses Not on filedocumented in this encounter Care Teams Button Sewing Machine Operator Relationship Specialty Start Date End Date Jonathan Sosa MD [address] [place] [address] PCP - General Internal Medicine 02/14/22 Swapna Lockwood Referring Physician billing supervisor 12/29/14 Jonathan Sosa MD [address] [place] [address] Assigned PCP 01/17/22 Anne Lopez MD [address] [facility] 36 [place] [address] Gastroenterology 08/03/22 Ruth Trinidad [facility] [address] [place], [place] [address] Assigned MTM Pharmacist 10/08/23 documented as of this encounter
--- OUTSIDE RECORDS SUMMARY | 2025-01-01 11:24 | XMS_ITS | Encounter Summary ---
Author Organization [place] Address [address] [place] [address]. 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 Gender Identity Not on file Sexual Orientation Not on file Occupation Industry Job Start Date Job End Date disabled Not on file Not on file Not on file documented as of this encounter Plan of Treatment Not on file documented as of this encounter Visit Diagnoses Not on filedocumented in this encounter Care Teams Roll Out Manager Relationship Specialty Start Date End Date Jonathan Sosa MD [address] [place] [address] PCP - General Internal Medicine 02/14/22 Swapna Lockwood Referring Physician integrated circuit ic layout designer 12/29/14 Jonathan Sosa MD [address] [place] [address] Assigned PCP 01/17/22 Anne Lopez MD [address] [place] [address] 36 [place], [place] [address] Gastroenterology 08/03/22 Ruth Trinidad RP [address] [place] [address] Assigned MTM Pharmacist 10/08/23 documented as of this encounter
--- OUTSIDE RECORDS SUMMARY | 2025-01-01 11:24 | XMS_ITS | Encounter Summary ---
Author Organization [place] Address [address] [place] [address]. [place] [address] Care Team Providers Care Dielectric Tester Name Role Phone Swapna licea Nubia Unavailable Unavail able Jonathan Sosa MD Primary Care Provider [phone] Jonathan Sosa MD Unavailable [phone] Anne Lopez MD Unavailable [phone] Ruth Trinidad [facility] Unavailable Encounter Details Date Type Department Care Team (Late st Contact Info) Description 05/15/2024 [facility] Anticoagulation Clinic [address] [place] [phone] Leeann Harper RN Social History Tobacco Use Types Packs/Day [...] friends or re latives? 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 Gender Identity Not on file Sexual Orientation Not on file Occupation Industry Job Start Date Job End Date disabled Not on file Not on file Not on file documented as of this encounter Plan of Treatment Not on file documented as of this encounter Visit Diagnoses Not on filedocumented in this encounter Care Teams Dielectric Tester Relationship Specialty Start Date End Date Jonathan Sosa MD [address] [place], [place] [address] PCP - General Internal Medicine 02/14/22 Swapna Lockwood Referring Physician sales team recruiter 12/29/14 Jonathan Sosa MD [address] [place] [address] Assigned PCP 01/17/22 Anne Lopez MD [address] [place] [address] 36 [place], [place] [address] Gastroenterology 08/03/22 Ruth Trinidad [facility] [address] [place] [address] Assigned MTM Pharmacist 10/08/23 documented as of this encounter
--- OUTSIDE RECORDS SUMMARY | 2025-01-01 11:25 | XMS_ITS | Encounter Summary ---
Author Organization [place] Address [address] [place] [address] Care Team Providers Care Acls Nurse Name Role Phone Swapna Lockwood Unavailable Unavail able Jonathan Sosa MD Primary Care Provider [phone] Jonathan Sosa MD Unavailable [phone] Anne Lopez MD Unavailable [phone] Ruth Trinidad [facility] Unavailable Ruth Trinidad [facility] Unavailable Reason for Visit * Reason Onset Date Comments Refill Request 11/20/2022 Encounter Details Date Type Department Care Team (Late st Contact Info) Description 11/20/[address] [place] [address] Jonathan Sosa MD [address] [place], [place] [address] Refill Request Social History Tobacco Use Types Packs/Day Years Used Date Smoking Tobacco: Never Assessed PHQ-2 Answer Date Recorded PHQ-2 Score 2 08/01/2022 Comments No Sex and Gender Information Value Date Recorded Sex Assigned at Not on file 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 No / Unsure 11/21/2022 9:01 PM CDT documented as of this encounter Plan of Treatment Not on file documented as of this encounter Visit Diagnoses Not on filedocumented in this encounter Additional Health Concerns Infection Onset Date Last Indicated Resolved Time Rule Out COVID-19 04/17/2023 04/17/2023 04/18/2023 12:03 PM CDT documented as of this encounter Care Teams Acls Nurse Relationship Specialty Start Date End Date Jonathan Sosa MD [address] [place] [address] PCP - General Internal Medicine 02/14/22 Swapna Lockwood Referring Physician keyseater operator 12/29/14 Jonathan Sosa MD [address] [place] [address] Assigned PCP 01/17/22 Anne Lopez MD [address] [facility] 36 [place], [place] [address] Gastroenterology 08/03/22 Ruth Trinidad RPH [address] [place] [address] Pharmacist Pharmacist Manager Category 09/06/23 10/09/23 Ruth Trinidad RPH [address] [place] [address] Assigned MTM Pharmacist 10/08/23 documented as of this encounter
--- OUTSIDE RECORDS SUMMARY | 2025-01-01 11:25 | XMS_ITS | Encounter Summary ---
Author Organization [place] Address [address] [place] [address]. [place] [address] Care Team Providers Care Negative Assembler Name Role Phone Swapna licea Nubia Unavailable Unavail able Jonathan Sosa MD Primary Care Provider [phone] Jonathan Sosa MD Unavailable [phone] Anne Lopez MD Unavailable [phone] Ruth Trinidad [facility] Unavailable Ruth Trinidad [facility] Unavailable Encounter Details Date Type Department Care Team (Late st Contact Info) Description 07/27/2022 [facility] Anticoagulation Clinic [address] [place] [address] Andre Tenorio RN Social History Tobacco Use Types Packs/Day Years Used Date Smoking Tobacco: Every Day Cigarettes 0.5 35 Started: 01/23/1940; Last attempted to quit: 01/24/1976 Pipe Other Smokeless Tobacco: Never Comments:IN PROGRAM WITH OCTOBER O Alcohol Use Standard Drinks/Week Comments No 0 (1 standard drink = 0.6 oz pur e alcohol) PHQ-2 Answer Date Recorded PHQ-2 Total Score (Adult) - Positive if 3 or more points; Administer PHQ-9 if positive 2 07/25/2022 Comments No Sex and Gender Information Value Date Recorded Sex Assigned at Not on file 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 Gender Identity Not on file Sexual [...] documented as of this encounter Care Teams Negative Assembler Relationship Specialty Start Date End Date Jonathan Sosa MD [address] [place] [address] PCP - General Internal Medicine 02/14/22 Swapna Lockwood Referring Physician extrusion machine operator 12/29/14 Jonathan Sosa MD [address] [place] [address] Assigned PCP 01/17/22 Anne Lopez MD [address] [address] Gastroenterology 08/03/22 Ruth Trinidad RPH [address] [place] [address] Pharmacist Pharmacist Airplane Pilot Helper 09/06/23 10/09/23 Ruth Trinidad RPH [address] [place] [address] Assigned MTM Pharmacist 10/08/23 documented as of this encounter
--- OUTSIDE RECORDS SUMMARY | 2025-01-01 11:25 | XMS_ITS | Encounter Summary ---
Author Organization [place] Address [address] [place] [address]. [place] [address] Care Team Providers Care Steel Fabricating Supervisor Name Role Phone vinayak Swapna Nubia Unavailable Unavail able Jonathan Sosa MD Primary Care Provider [phone] Jonathan Sosa MD Unavailable [phone] Anne Lopez MD Unavailable [phone] Ruth Trinidad [facility] Unavailable Ruth Trinidad [facility] Unavailable Encounter Details Date Type Department Care Team (Late st Contact Info) Description 08/26/2023 [facility] [address] [place] [address] Mira Mendez, RN Social History [...] in an overnight fdc, or couch-surfing.) Yes 04/14/2023 Are you worried [...] on file 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 Gender Identity Not on file Sexual Orientation Not on file Occupation Industry Job Start Date Job End Date disabled Not on file Not on file Not on file documented as of this encounter Plan of Treatment Not on file documented as of this encounter Visit Diagnoses Not on filedocumented in this encounter Care Teams Steel Fabricating Supervisor Relationship Specialty Start Date End Date Jonathan Sosa MD [address] [place] [address] PCP - General Internal Medicine 02/14/22 Swapna Lockwood Referring Physician manager access 12/29/14 Jonathan Sosa MD [address] [place], [place] [address] Assigned PCP 01/17/22 Anne Lopez MD [address] [place] [address] 36 [place], [place] [address] Gastroenterology 08/03/22 Ruth Trinidad RPH [address] [place] [address] Pharmacist Pharmacist Police Officer Crime Prevention 09/06/23 10/09/23 Ruth Trinidad RPH [address] [place] [address] Assigned [place] Pharmacist 10/08/23 documented as of this encounter
--- OUTSIDE RECORDS SUMMARY | 2025-01-01 11:25 | XMS_ITS | Encounter Summary ---
Author Organization [place] Address [address] [place] [address]. [place] [address] Care Team Providers Care Easement Man Name Role Phone vinayakAndreSwapna Nubia Unavailable Unavail able Jonathan Sosa MD Primary Care Provider [phone] Jonathan Sosa MD Unavailable [phone] Anne Lopez MD Unavailable [phone] Ruth Trinidad [facility] Unavailable Ruth Trinidad [facility] Unavailable Encounter Details Date Type Department Care Team (Late st Contact Info) Description 09/06/2023 [facility] [address] [place] [address] Evy Caballero, RN Social History Tobacco Use Types Packs/Day [...] on file 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 Gender Identity Not on file Sexual Orientation Not on file Occupation Industry Job Start Date Job End Date disabled Not on file Not on file Not on file documented as of this encounter Plan of Treatment Not on file documented as of this encounter Visit Diagnoses Not on filedocumented in this encounter Care Teams Easement Man Relationship Specialty Start Date End Date Jonathan Sosa MD [address] [place] [address] PCP - General Internal Medicine 02/14/22 Swapna Lockwood Referring Physician early childhood educator aide 12/29/14 Jonathan Sosa MD [address] [place] [address] Assigned PCP 01/17/22 Anne Lopez MD [address] [place] [address] 36 [place], [place] [address] Gastroenterology 08/03/22 Ruth Trinidad RPH [address] [place] [address] Pharmacist Pharmacist Rubber Washer 09/06/23 10/09/23 Ruth Trinidad RPH [address] [place] [address] Assigned MTM Pharmacist 10/08/23 documented as of this encounter
--- OUTSIDE RECORDS SUMMARY | 2025-01-01 11:25 | XMS_ITS | Encounter Summary ---
Author Organization [place] Address [address] [place] [address]. [place] [address] Care Team Providers Care Donor Relations Manager Name Role Phone vinayak Swapna Nubia Unavailable Unavail able Jonathan Sosa MD Primary Care Provider [phone] Jonathan Sosa MD Unavailable [phone] Anne Lopez MD Unavailable [phone] Ruth Trinidad [facility] Unavailable Ruth Trinidad [facility] Unavailable Encounter Details Date Type Department Care Team (Late st Contact Info) Description 06/24/2023 [facility] [address] [place] [address] Mira Mendez, RN Social History [...] on file 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 Gender Identity Not on file Sexual Orientation Not on file Occupation Industry Job Start Date Job End Date disabled Not on file Not on file Not on file documented as of this encounter Plan of Treatment Not on file documented as of this encounter Visit Diagnoses Not on filedocumented in this encounter Care Teams Donor Relations Manager Relationship Specialty Start Date End Date Jonathan Sosa MD [address] [place] [address] PCP - General Internal Medicine 02/14/22 Swapna Lockwood Referring Physician senior sales associate 12/29/14 Jonathan Sosa MD [address] [place], [place] [address] Assigned PCP 01/17/22 Anne Lopez MD [address] [place] [address] 36 [place], [place] [address] Gastroenterology 08/03/22 Ruth Trinidad RPH [address] [place] [address] Pharmacist Pharmacist Burn Table Operator 09/06/23 10/09/23 Ruth Trinidad RPH [address] [place] [address] Assigned [place] Pharmacist 10/08/23 documented as of this encounter
--- OUTSIDE RECORDS SUMMARY | 2025-01-01 11:25 | XMS_ITS | Encounter Summary ---
Author Organization [facility] Address [address] [place] [address]. [place] [address] Care Team Providers Care Industrial Specialist Name Role Phone Swapna licea Unavailable Unavail able Jonathan Sosa MD Primary Care Provider [phone] Jonathan Sosa MD Unavailable [phone] Anne Lopez MD Unavailable [phone] Ruth Trinidad [facility] Unavailable Ruth Trinidad [facility] Unavailable Encounter Details Date Type Department Care Team (Late st Contact Info) Description 10/23/2022 [facility] [address] [place] [address] Andre Tenorio, RN Social History [...] on file 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 No / Unsure 10/10/2022 9:07 AM CDT documented as of this encounter Plan of Treatment Not on file documented as of this encounter Visit Diagnoses Not on filedocumented in this encounter Additional Health Concerns Infection Onset Date Last Indicated Resolved Time Rule Out COVID-19 04/17/2023 04/17/2023 04/18/2023 12:03 PM CDT documented as of this encounter Care Teams Industrial Specialist Relationship Specialty Start Date End Date Jonathan Sosa MD [address] [place] [address] PCP - General Internal Medicine 02/14/22 Swapna Lockwood Referring Physician fisher purse seine 12/29/14 Jonathan Sosa MD [address] [place] [address] Assigned PCP 01/17/22 Anne Lopez MD [address] [place] [address] 36 [place] [address] Gastroenterology 08/03/22 Ruth Trinidad RPH [address] [place] [address] Pharmacist Pharmacist Urban And Regional Planner 09/06/23 10/09/23 Ruth Trinidad RPH [address] [place] [address] Assigned MTM Pharmacist 10/08/23 documented as of this encounter
--- OUTSIDE RECORDS SUMMARY | 2025-01-01 11:25 | XMS_ITS | Encounter Summary ---
Author Organization [facility] Address [address] [place] [address]. [place] [address] Care Team Providers Care Resource Coordinator Name Role Phone Swapna licea Unavailable Unavail able Jonathan Sosa MD Primary Care Provider [phone] Jonathan Sosa MD Unavailable [phone] Anne Lopez MD Unavailable [phone] Ruth Trinidad [facility] Unavailable Ruth Trinidad [facility] Unavailable Encounter Details Date Type Department Care Team (Late st Contact Info) Description 10/17/2022 [facility] [address] [place] [address] Andre Tenorio, RN Social History [...] on file 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 Gender Identity Not on file Sexual [...] documented as of this encounter Care Teams Resource Coordinator Relationship Specialty Start Date End Date Jonathan Sosa MD [address] [place] [address] PCP - General Internal Medicine 02/14/22 Swapna Lockwood Referring Physician back gray cloth washer 12/29/14 Jonathan Sosa MD [address] [place] [address] Assigned PCP 01/17/22 Anne Lopez MD [address] [place] [address] 36 [place] [address] Gastroenterology 08/03/22 Ruth Trinidad RPH [address] [place] [address] Pharmacist Pharmacist Wind Technician 09/06/23 10/09/23 Ruth Trinidad RPH [address] [place] [address] Assigned MTM Pharmacist 10/08/23 documented as of this encounter
--- OUTSIDE RECORDS SUMMARY | 2025-01-01 11:25 | XMS_ITS | Encounter Summary ---
Author Organization [place] Address [address] [place] [address]. [place] [address] Care Team Providers Care Manager Life Name Role Phone vinayakAndreSwapna Nubia Unavailable Unavail able Jonathan Sosa MD Primary Care Provider [phone] Jonathan Sosa MD Unavailable [phone] Anne Lopez MD Unavailable [phone] Ruth Trinidad [facility] Unavailable Ruth Trinidad [facility] Unavailable Encounter Details Date Type Department Care Team (Late st Contact Info) Description 09/16/2023 [facility] [address] [place] [address] Ricki Lemus RN Social History Tobacco Use Types Packs/Day [...] on file 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 Gender Identity Not on file Sexual Orientation Not on file Occupation Industry Job Start Date Job End Date disabled Not on file Not on file Not on file documented as of this encounter Plan of Treatment Not on file documented as of this encounter Visit Diagnoses Not on filedocumented in this encounter Care Teams Manager Life Relationship Specialty Start Date End Date Jonathan Sosa MD [address] [place] [address] PCP - General Internal Medicine 02/14/22 Swapna Lockwood Referring Physician data clerk 12/29/14 Jonathan Sosa MD [address] [place] [address] Assigned PCP 01/17/22 Anne Lopez MD [address] [place] [address] Gastroenterology 08/03/22 Ruth Trinidad RPH [address] [place] [address] Pharmacist Pharmacist Epic Willow Specialist 09/06/23 10/09/23 Ruth Trinidad RPH [address] [place] [address] Assigned MTM Pharmacist 10/08/23 documented as of this encounter
--- OUTSIDE RECORDS SUMMARY | 2025-01-01 11:25 | XMS_ITS | Encounter Summary ---
Author Organization [place] Address [address] [place] [address]. [place] [address] Care Team Providers Care Safety Attendant Name Role Phone vinayakAndreSwapna Nubia Unavailable Unavail able Jonathan Sosa MD Primary Care Provider [phone]- [phone] Jonathan Sosa MD Unavailable [phone] Anne Lopez MD Unavailable [phone] Ruth Trinidad [facility] Unavailable Ruth Trinidad [facility] Unavailable Encounter Details Date Type Department Care Team (Late st Contact Info) Description 09/02/2023 [facility] [address] [place] [address] Nicole Avila RN Social History [...] an abandoned building, in an overnight senior living, or couch-surfing.) Yes 04/14/2023 Are you worried [...] on file 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 Gender Identity Not on file Sexual Orientation Not on file Occupation Industry Job Start Date Job End Date disabled Not on file Not on file Not on file documented as of this encounter Plan of Treatment Not on file documented as of this encounter Visit Diagnoses Not on filedocumented in this encounter Care Teams Safety Attendant Relationship Specialty Start Date End Date Jonathan Sosa MD [address] [place] [address] PCP - General Internal Medicine 02/14/22 Swapna Lockwood Referring Physician fitness supervisor 12/29/14 Jonathan Sosa MD [address] [place], [place] [address] Assigned PCP 01/17/22 Anne Lopez MD [address] [place] [address] 36 [place], [place] [address] Gastroenterology 08/03/22 Ruth Trinidad RPH [address] [place] [address] Pharmacist Pharmacist Copyright Expert 09/06/23 10/09/23 Ruth Trinidad RPH [address] [place] [address] Assigned [place] Pharmacist 10/08/23 documented as of this encounter
--- OUTSIDE RECORDS SUMMARY | 2025-01-01 11:25 | XMS_ITS | Encounter Summary ---
Author Organization [place] Address [address] [place] [address]. [place] [address] Care Team Providers Care Wall Insulation Sprayer Name Role Phone vinayakAndreSwapna Nubia Unavailable Unavail able Jonathan Sosa MD Primary Care Provider [phone]- [phone] Jonathan Sosa MD Unavailable [phone] Anne Lopez MD Unavailable [phone] Ruth Trinidad [facility] Unavailable Ruth Trinidad [facility] Unavailable Encounter Details Date Type Department Care Team (Late st Contact Info) Description 07/12/2023 [facility] [address] [place] [address] Nelsy Mo RN Social History Tobacco [...] on file 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 Gender Identity Not on file Sexual Orientation Not on file Occupation Industry Job Start Date Job End Date disabled Not on file Not on file Not on file documented as of this encounter Plan of Treatment Not on file documented as of this encounter Visit Diagnoses Not on filedocumented in this encounter Care Teams Wall Insulation Sprayer Relationship Specialty Start Date End Date Jonathan Sosa MD [address] [place] [address] PCP - General Internal Medicine 02/14/22 Swapna Lockwood Referring Physician milling machine set up operator 12/29/14 Jonathan Sosa MD [address] [place], [place] [address] Assigned PCP 01/17/22 Anne Lopez MD [address] [place] [address] 36 [place], [place] [address] Gastroenterology 08/03/22 Ruth Trinidad RPH [address] [place] [address] Pharmacist Pharmacist Padded Products Inspector Trimmer 09/06/23 10/09/23 Ruth Trinidad RPH [address] [place] [address] Assigned [place] Pharmacist 10/08/23 documented as of this encounter
--- OUTSIDE RECORDS SUMMARY | 2025-01-01 11:25 | XMS_ITS | Encounter Summary ---
Author Organization [place] Address [address] [place] [address]. [place] [address] Care Team Providers Care Certified Shorthand Reporter Name Role Phone vinayakAndreSwapna Nubia Unavailable Unavail able Jonathan Sosa MD Primary Care Provider [phone] Jonathan Sosa MD Unavailable [phone] Anne Lopez MD Unavailable [phone] Ruth Trinidad [facility] Unavailable Ruth Trinidad [facility] Unavailable Encounter Details Date Type Department Care Team (Late st Contact Info) Description 06/28/2023 [facility] [address] [place] [address] Nicole Avila RN Social History [...] in an abandoned building, in an overnight custodial, or couch-surfing.) Yes 04/14/2023 Are you worried [...] on file 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 Gender Identity Not on file Sexual Orientation Not on file Occupation Industry Job Start Date Job End Date disabled Not on file Not on file Not on file documented as of this encounter Plan of Treatment Not on file documented as of this encounter Visit Diagnoses Not on filedocumented in this encounter Care Teams Certified Shorthand Reporter Relationship Specialty Start Date End Date Jonathan Sosa MD [address] [place] [address] PCP - General Internal Medicine 02/14/22 Swapna Lockwood Referring Physician play leader 12/29/14 Jonathan Sosa MD [address] [place], [place] [address] Assigned PCP 01/17/22 Anne Lopez MD [address] [place] [address] 36 [place], [place] [address] Gastroenterology 08/03/22 Ruth Trinidad RPH [address] [place] [address] Pharmacist Pharmacist Advertising Operations Manager 09/06/23 10/09/23 Ruth Trinidad RPH [address] [place] [address] Assigned [place] Pharmacist 10/08/23 documented as of this encounter
--- OUTSIDE RECORDS SUMMARY | 2025-01-01 11:25 | XMS_ITS | Encounter Summary ---
Author Organization [place] Address [address] [place] [address]. [place] [address] Care Team Providers Care Visual Design Lead Name Role Phone vinayakAndreSwapna Nubia Unavailable Unavail able Jonathan Sosa MD Primary Care Provider [phone]- [phone] Jonathan Sosa MD Unavailable [phone] Anne Lopez MD Unavailable [phone] Ruth Trinidad [facility] Unavailable Ruth Trinidad [facility] Unavailable Encounter Details Date Type Department Care Team (Late st Contact Info) Description 08/30/2023 [facility] [address] [place] [address] Nicole Avila RN Social History [...] on file 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 Gender Identity Not on file Sexual Orientation Not on file Occupation Industry Job Start Date Job End Date disabled Not on file Not on file Not on file documented as of this encounter Plan of Treatment Not on file documented as of this encounter Visit Diagnoses Not on filedocumented in this encounter Care Teams Visual Design Lead Relationship Specialty Start Date End Date Jonathan Sosa MD [address] [place] [address] PCP - General Internal Medicine 02/14/22 Swapna Lockwood Referring Physician pattern data operator 12/29/14 Jonathan Sosa MD [address] [place], [place] [address] Assigned PCP 01/17/22 Anne Lopez MD [address] [place] [address] 36 [place], [place] [address] Gastroenterology 08/03/22 Ruth Trinidad RPH [address] [place] [address] Pharmacist Pharmacist As400 Administrator 09/06/23 10/09/23 Ruth Trinidad RPH [address] [place] [address] Assigned [place] Pharmacist 10/08/23 documented as of this encounter
--- OUTSIDE RECORDS SUMMARY | 2025-01-01 11:25 | XMS_ITS | Encounter Summary ---
Author Organization [facility] Address [address] [place] [address]. [place] [address] Care Team Providers Care Nuisance Animal Damage Control Agent Name Role Phone jessSwapna blissy Unavailable Unavail able Jonathan Sosa MD Primary Care Provider [phone]- [phone] Jonathan Sosa MD Unavailable [phone] Anne Lopez MD Unavailable [phone] Ruth Trinidad [facility] Unavailable Ruth Trinidad [facility] Unavailable Encounter Details Date Type Department Care Team (Late st Contact Info) Description 08/16/2023 [facility] Anticoagulation Clinic [address] [place] [address] Shannon Rosado RN Social History Tobacco Use Types Packs/Day [...] in an overnight alf, or couch-surfing.) Yes 04/14/2023 Are you worried [...] on file 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 Gender Identity Not on file Sexual Orientation Not on file Occupation Industry Job Start Date Job End Date disabled Not on file Not on file Not on file documented as of this encounter Plan of Treatment Not on file documented as of this encounter Visit Diagnoses Not on filedocumented in this encounter Care Teams Nuisance Animal Damage Control Agent Relationship Specialty Start Date End Date Jonathan Sosa MD [address] [place] [address] PCP - General Internal Medicine 02/14/22 Swapna Lockwood Referring Physician virtualization architect 12/29/14 Jonathan Sosa MD [address] [place], [place] [address] Assigned PCP 01/17/22 Anne Lopez MD [address] [place] [address] Gastroenterology 08/03/22 Ruth Trinidad RPH [address] [place], [place] [address] Pharmacist Pharmacist Oncology Physician 09/06/23 10/09/23 Ruth Trinidad RPH [address] [place], [place] [address] Assigned MT Pharmacist 10/08/23 documented as of this encounter
--- OUTSIDE RECORDS SUMMARY | 2025-01-01 11:25 | XMS_ITS | Encounter Summary ---
Author Organization [facility] Address [address] [place] [address] Care Team Providers Care Cosmetics Machine Operator Name Role Phone jessSwapna blissy Unavailable Unavail able Jonathan Sosa MD Primary Care Provider [phone] Jonathan Sosa MD Unavailable [phone] Anne Lopez MD Unavailable [phone] Ruth Trinidad [facility] Unavailable Ruth Trinidad [facility] Unavailable Encounter Details Date Type Department Care Team (Late st Contact Info) Description 06/24/2023 [facility] [address] [place] [address] Sabrina Sidhu Social History Tobacco Use Types Packs/Day Years [...] in an abandoned building, in an overnight long-term, or couch-surfing.) Yes 04/14/2023 Are you worried [...] on file 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 Gender Identity Not on file Sexual Orientation Not on file Occupation Industry Job Start Date Job End Date disabled Not on file Not on file Not on file documented as of this encounter Plan of Treatment Not on file documented as of this encounter Visit Diagnoses Not on filedocumented in this encounter Care Teams Cosmetics Machine Operator Relationship Specialty Start Date End Date Jonathan Sosa MD [address] [place] [address] PCP - General Internal Medicine 02/14/22 Swapna Lockwood Referring Physician elderly sitter 12/29/14 Jonathan Sosa MD [address] [place], [place] [address] Assigned PCP 01/17/22 Anne Lopez MD [address] [place] [address] Gastroenterology 08/03/22 Ruth Trinidad RPH [address] [place], [place] [address] Pharmacist Pharmacist Medical Care Manager 09/06/23 10/09/23 Ruth Trinidad RPH [address] [place], [place] [address] Assigned MT Pharmacist 10/08/23 documented as of this encounter
--- OUTSIDE RECORDS SUMMARY | 2025-01-01 11:25 | XMS_ITS | Encounter Summary ---
Author Organization [place] Address [address] [place] [address]. [place] [address] Care Team Providers Care Voice Professor Name Role Phone vinayakAndreSwapna Nubia Unavailable Unavail able Jonathan Sosa MD Primary Care Provider [phone] Jonathan Sosa MD Unavailable [phone] Anne Lopez MD Unavailable [phone] Ruth Trinidad [facility] Unavailable Ruth Trinidad 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 Gender Identity Not on file Sexual Orientation Not on file Occupation Industry Job Start Date Job End Date disabled Not on file Not on file Not on file documented as of this encounter Plan of Treatment Not on file documented as of this encounter Visit Diagnoses Not on filedocumented in this encounter Care Teams Voice Professor Relationship Specialty Start Date End Date Jonathan Sosa MD [address] [place] [address] PCP - General Internal Medicine 02/14/22 Swapna Lockwood Referring Physician strategic partnership representative 12/29/14 Jonathan Sosa MD [address] [place] [address] Assigned PCP 01/17/22 Anne Lopez MD [address] [place] [address] 36 [place], [place] [address] Gastroenterology 08/03/22 Ruth Trinidad RPH [address] [place] [address] Pharmacist Pharmacist Remittance Clerk 09/06/23 10/09/23 Ruth Trinidad RPH [address] [place] [address] Assigned [place] Pharmacist 10/08/23 documented as of this encounter
--- OUTSIDE RECORDS SUMMARY | 2025-01-01 11:25 | XMS_ITS | Encounter Summary ---
Author Organization [place] Address [address] [place] [address] Care Team Providers Care Lighting Equipment Operator Name Role Phone Swapna Lockwood Unavailable Unavail able Jonathan Sosa MD Primary Care Provider [phone] Jonathan Sosa MD Unavailable [phone] Anne Lopez MD Unavailable [phone] Ruth Trinidad [facility] Unavailable Ruth Trinidad [facility] Unavailable Reason for Visit * Reason Onset Date Comments Refill Request 10/30/2022 Encounter Details Date Type Department Care Team (Late st Contact Info) Description 10/30/[address] [place] [address] Jonathan Sosa MD [address] [place] [address] Refill Request Social History Tobacco Use Types Packs/Day Years Used Date Smoking Tobacco: Never Assessed PHQ-2 Answer Date Recorded PHQ-2 Score 2 08/01/2022 Comments No Sex and Gender Information Value Date Recorded Sex Assigned at Not on file 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 Gender Identity Not on file Sexual [...] documented as of this encounter Care Teams Lighting Equipment Operator Relationship Specialty Start Date End Date Jonathan Sosa MD [address] [place] [address] PCP - General Internal Medicine 02/14/22 Swapna Lockwood Referring Physician deep fat cook fry 12/29/14 Jonathan Sosa MD [address] [place] [address] Assigned PCP 01/17/22 Anne Lopez MD [address] [id number] Gastroenterology 08/03/22 Ruth Trinidad RPH [address] [place] [address] Pharmacist Pharmacist Shuttle Fitting Supervisor 09/06/23 10/09/23 Ruth Trinidad RPH [address] [place] [address] Assigned MTM Pharmacist 10/08/23 documented as of this encounter
--- OUTSIDE RECORDS SUMMARY | 2025-01-01 11:25 | XMS_ITS | Encounter Summary ---
Author Organization [place] Address [address] [place] [address]. [place] [address] Care Team Providers Care Seo Executive Name Role Phone vinayakAndreSwapna Nubia Unavailable Unavail able Jonathan oSsa MD Primary Care Provider [phone] Jonathan Sosa MD Unavailable [phone] Anne Lopez MD Unavailable [phone] Ruth Trinidad [facility] Unavailable Ruth Trinidad [facility] Unavailable Encounter Details Date Type Department Care Team (Late st Contact Info) Description 07/05/2023 [facility] [address] [place] [address] Alison Green RN Social History Tobacco Use Types Packs/Day [...] on file 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 Gender Identity Not on file Sexual Orientation Not on file Occupation Industry Job Start Date Job End Date disabled Not on file Not on file Not on file documented as of this encounter Plan of Treatment Not on file documented as of this encounter Visit Diagnoses Not on filedocumented in this encounter Care Teams Seo Executive Relationship Specialty Start Date End Date Jonathan Sosa MD [address] [place] [address] PCP - General Internal Medicine 02/14/22 Swapna Lockwood Referring Physician senior medical billing specialist 12/29/14 Jonathan Sosa MD [address] [place] [address] Assigned PCP 01/17/22 Anne Lopez MD [address] [place] [address] Gastroenterology 08/03/22 Ruth Trinidad RPH [address] [place] [address] Pharmacist Pharmacist Mushroom Laborer 09/06/23 10/09/23 Ruth Trinidad RPH [address] [place] [address] Assigned [place] Pharmacist 10/08/23 documented as of this encounter
--- OUTSIDE RECORDS SUMMARY | 2025-01-01 11:25 | XMS_ITS | Encounter Summary ---
Author Organization [place] Address [address] [place] [address]. [place] [address] Care Team Providers Care Corporate Aircraft Mechanic Name Role Phone vinayakAndreSwapna Nubia Unavailable Unavail able Jonathan Sosa MD Primary Care Provider [phone] Jonathan Sosa MD Unavailable [phone] Anne Lopez MD Unavailable [phone] Ruth Trinidad [facility] Unavailable Ruth Trinidad [facility] Unavailable Encounter Details Date Type Department Care Team (Late st Contact Info) Description 09/13/2023 [facility] [address] [place] [address] Concepcion Knight RN Social History [...] in an overnight detention, or couch-surfing.) Yes 04/14/2023 Are you worried [...] on file 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 Gender Identity Not on file Sexual Orientation Not on file Occupation Industry Job Start Date Job End Date disabled Not on file Not on file Not on file documented as of this encounter Plan of Treatment Not on file documented as of this encounter Visit Diagnoses Not on filedocumented in this encounter Care Teams Corporate Aircraft Mechanic Relationship Specialty Start Date End Date Jonathan Sosa MD [address] [place] [address] PCP - General Internal Medicine 02/14/22 Swapna Lockwood Referring Physician fleet dispatch manager 12/29/14 Jonathan Sosa MD [address] [place] [address] Assigned PCP 01/17/22 Anne Lopez MD [address] [place] [address] 36 [place], [place] [address] Gastroenterology 08/03/22 Ruth Trinidad RPH [address] [place] [address] Pharmacist Pharmacist Director Religious Education 09/06/23 10/09/23 Ruth Trinidad RPH [address] [place] [address] Assigned [place] Pharmacist 10/08/23 documented as of this encounter
--- OUTSIDE RECORDS SUMMARY | 2025-01-01 11:25 | XMS_ITS | Encounter Summary ---
Author Organization [place] Address [address] [place] [address] Care Team Providers Care Lpn Care Manager Name Role Phone Swapna Lockwood Unavailable Unavail able Jonathan Sosa MD Primary Care Provider [phone] Jonathan Sosa MD Unavailable [phone] Anne Lopez MD Unavailable [phone] Ruth Trinidad [facility] Unavailable Ruth Trinidad [facility] Unavailable Reason for Visit * Reason Onset Date Comments Refill Request 10/09/2022 Encounter Details Date Type Department Care Team (Late st Contact Info) Description 10/09/[address] [place] [address] Jonathan Sosa MD [address] [place] [address] Refill Request Social History Tobacco [...] on file 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 Gender Identity Not on file Sexual Orientation [...] documented as of this encounter Care Teams Lpn Care Manager Relationship Specialty Start Date End Date Jonathan Sosa MD [address] [place] [address] PCP - General Internal Medicine 02/14/22 Swapna Lockwood Referring Physician refuse laborer 12/29/14 Jonathan Sosa MD [address] [place] [address] Assigned PCP 01/17/22 Anne Lopez MD [address] [place] [address] Gastroenterology 08/03/22 Rtuh Trinidad RP [address] [place] [address] Pharmacist Pharmacist Drafter Electromechanical 09/06/23 10/09/23 Ruth Trinidad RPH [address] [place] [address] Assigned MTM Pharmacist 10/08/23 documented as of this encounter
--- OUTSIDE RECORDS SUMMARY | 2025-01-01 11:25 | XMS_ITS | Encounter Summary ---
Author Organization [facility] Address [address] [place] [address]. [place] [address] Care Team Providers Care Pediatric Oncologist Name Role Phone Swapna licea Unavailable Unavail able Jonathan Sosa MD Primary Care Provider [phone]- [phone] Jonathan Sosa MD Unavailable [phone] Anne Lopez MD Unavailable [phone] Ruth Trinidad [facility] Unavailable Ruth Trinidad [facility] Unavailable Encounter Details Date Type Department Care Team (Late st Contact Info) Description 09/07/2022 [facility] Anticoagulation Clinic [address] [place] [address] Andre Tenorio, RN Social History [...] on file 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 No / Unsure 09/03/2022 3:10 PM CDT documented as of this encounter Plan of Treatment Not on file documented as of this encounter Visit Diagnoses Not on filedocumented in this encounter Additional Health Concerns Infection Onset Date Last Indicated Resolved Time Rule Out COVID-19 04/17/2023 04/17/2023 04/18/2023 12:03 PM CDT documented as of this encounter Care Teams Pediatric Oncologist Relationship Specialty Start Date End Date Jonathan Sosa MD [address] [place] [address] PCP - General Internal Medicine 02/14/22 Swapna Lockwood Referring Physician mortgage funder 12/29/14 Jonathan Sosa MD [address] [place] [address] Assigned PCP 01/17/22 Anne Lopez MD [address] [place] [address] 36 [place] [address] Gastroenterology 08/03/22 Ruth Trinidad RPH [address] [place] [address] Pharmacist Pharmacist Private Duty Nurse 09/06/23 10/09/23 Ruth Trinidad RPH [address] [place] [address] Assigned MTM Pharmacist 10/08/23 documented as of this encounter
--- OUTSIDE RECORDS SUMMARY | 2025-01-01 11:25 | XMS_ITS | Encounter Summary ---
Author Organization [facility] Address [address] [place] [address]. [place] [address] Care Team Providers Care Sheet Fed Printer Name Role Phone Swapna licea Unavailable Unavail able Jonathan Sosa MD Primary Care Provider [phone] Jonathan Sosa MD Unavailable [phone] Anne Lopez MD Unavailable [phone] Ruth Trinidad [facility] Unavailable Ruth Trinidad [facility] Unavailable Encounter Details Date Type Department Care Team (Late st Contact Info) Description 11/19/2022 [facility] Anticoagulation Clinic [address] [place] [address] Andre Tenorio, RN Social History [...] on file 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 Gender Identity Not on file Sexual Orientation [...] documented as of this encounter Care Teams Sheet Fed Printer Relationship Specialty Start Date End Date Jonathan Sosa MD [address] [place] [address] PCP - General Internal Medicine 02/14/22 Swapna Lockwood Referring Physician ammunition storekeeper 12/29/14 Jonathan Sosa MD [address] [place] [address] Assigned PCP 01/17/22 Anne Lopez MD [address] [place] [address] 36 [place] [address] Gastroenterology 08/03/22 Ruth Trinidad RPH [address] [place] [address] Pharmacist Pharmacist Nurse Special 09/06/23 10/09/23 Ruth Trinidad RPH [address] [place] [address] Assigned MTM Pharmacist 10/08/23 documented as of this encounter
--- OUTSIDE RECORDS SUMMARY | 2025-01-01 11:25 | XMS_ITS | Encounter Summary ---
Author Organization [facility] Address [address] [place] [address]. [place] [address] Care Team Providers Care National Account Manager Name Role Phone Swapna licea Unavailable Unavail able Jonathan Sosa MD Primary Care Provider [phone] Jonathan Sosa MD Unavailable [phone] Anne Lopez MD Unavailable [phone] Ruth Trinidad [facility] Unavailable Ruth Trinidad [facility] Unavailable Encounter Details Date Type Department Care Team (Late st Contact Info) Description 11/20/2022 [facility] Anticoagulation Clinic [address] [place] [address] Andre Tenorio, RN Social History [...] on file 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 Gender Identity Not on file Sexual [...] documented as of this encounter Care Teams National Account Manager Relationship Specialty Start Date End Date Jonathan Sosa MD [address] [place] [address] PCP - General Internal Medicine 02/14/22 Swapna Lockwood Referring Physician margin clerk 12/29/14 Jonathan Sosa MD [address] [place] [address] Assigned PCP 01/17/22 Anne Lopez MD [address] [place] [address] 36 [place] [address] Gastroenterology 08/03/22 Ruth Trinidad RPH [address] [place] [address] Pharmacist Pharmacist Marketing Project Coordinator 09/06/23 10/09/23 Ruth Trinidad RPH [address] [place] [address] Assigned MTM Pharmacist 10/08/23 documented as of this encounter
--- OUTSIDE RECORDS SUMMARY | 2025-01-01 11:25 | XMS_ITS | Encounter Summary ---
Author Organization [place] Address [address] [place] [address]. [place] [address] Care Team Providers Care Government Service Executive Name Role Phone Swapna licea Unavailable Unavail able Jonathan Sosa MD Primary Care Provider [phone] Jonathan Sosa MD Unavailable [phone] Anne Lopez MD Unavailable [phone] Ruth Trinidad [facility] Unavailable Ruth Trinidad [facility] Unavailable Encounter Details Date Type Department Care Team (Late st Contact Info) Description 09/19/2022 [facility] Anticoagulation Clinic [address] [place] [address] Alison Ortiz, RN Social History Tobacco [...] on file 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 Gender Identity Not on file [...] documented as of this encounter Care Teams Government Service Executive Relationship Specialty Start Date End Date Jonathan Sosa MD [address] [place] [address] PCP - General Internal Medicine 02/14/22 Swapna Lockwood Referring Physician ornamental metal worker 12/29/14 Jonathan Sosa MD [address] [place] [address] Assigned PCP 01/17/22 Anne Lopez MD [address] [place] [address] 36 [place] [address] Gastroenterology 08/03/22 Ruth Trinidad RP [address] [place] [address] Pharmacist Pharmacist Tool Lathe Operator 09/06/23 10/09/23 Ruth Trinidad RPH [address] [place] [address] Assigned MTM Pharmacist 10/08/23 documented as of this encounter
--- OUTSIDE RECORDS SUMMARY | 2025-01-01 11:25 | XMS_ITS | Encounter Summary ---
Author Organization [facility] Address [address] [place] [address] Care Team Providers Care Lead Mason Tender Name Role Phone Swapna Lockwood Unavailable Unavail able Jonathan Sosa MD Primary Care Provider [phone] Jonathan Sosa MD Unavailable [phone] Anne Lopez MD Unavailable [phone] Ruth Trinidad [facility] Unavailable Ruth Trinidad [facility] Unavailable Encounter Details Date Type Department Care Team (Late st Contact Info) Description 08/27/2022 [facility] Gastroenterology Clinic [address] [place] [address] Nicole Mina Social History Tobacco Use Types Packs/Day Years [...] on file 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 No / Unsure 08/01/2022 6:46 AM PICK REMOVER documented as of this encounter Plan of Treatment Not on file documented as of this encounter Visit Diagnoses Not on filedocumented in this encounter Additional Health Concerns Infection Onset Date Last Indicated Resolved Time Rule Out COVID-19 04/17/2023 04/17/2023 04/18/2023 12:03 PM CDT documented as of this encounter Care Teams Lead Mason Tender Relationship Specialty Start Date End Date Jonathan Sosa MD [address] [place] [address] PCP - General Internal Medicine 02/14/22 Swapna Lockwood Referring Physician options trader 12/29/14 Jonathan Sosa MD [address] [place] [address] Assigned PCP 01/17/22 Anne Lopez MD [address] [place] [address] 36 [place] [address] Gastroenterology 08/03/22 Ruth Trinidad RP [address] [place] [address] Pharmacist Pharmacist Stitcher Utility 09/06/23 10/09/23 Ruth Trinidad RPH [address] [place] [address] Assigned MTM Pharmacist 10/08/23 documented as of this encounter
--- OUTSIDE RECORDS SUMMARY | 2025-01-01 11:25 | XMS_ITS | Encounter Summary ---
Author Organization [facility] Address [address] [place] [address]. [place] [address] Care Team Providers Care Returned Goods Receiving Clerk Name Role Phone vinayakAndreSwapna Nubia Unavailable Unavail able Jonathan Sosa MD Primary Care Provider [phone] Jonathan Sosa MD Unavailable [phone] Anne Lopez MD Unavailable [phone] Ruth Trinidad [facility] Unavailable Ruth Trinidad [facility] Unavailable Encounter Details Date Type Department Care Team (Late st Contact Info) Description 08/19/2023 [facility] Anticoagulation Clinic [address] [place] [address] Nelsy Mo RN Social History [...] on file 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 Gender Identity Not on file Sexual Orientation Not on file Occupation Industry Job Start Date Job End Date disabled Not on file Not on file Not on file documented as of this encounter Plan of Treatment Not on file documented as of this encounter Visit Diagnoses Not on filedocumented in this encounter Care Teams Returned Goods Receiving Clerk Relationship Specialty Start Date End Date Jonathan Sosa MD [address] [place] [address] PCP - General Internal Medicine 02/14/22 Swapna Lockwood Referring Physician vtc technician 12/29/14 Jonathan Sosa MD [address] [place], [place] [address] Assigned PCP 01/17/22 Anne Lopez MD [address] [place] [address] 36 [place], [place] [address] Gastroenterology 08/03/22 Ruth Trinidad RPH [address] [place] [address] Pharmacist Pharmacist Hunting Sales Leader 09/06/23 10/09/23 Ruth Trinidad RPH [address] [place] [address] Assigned [place] Pharmacist 10/08/23 documented as of this encounter
--- OUTSIDE RECORDS SUMMARY | 2025-01-01 11:25 | XMS_ITS | Encounter Summary ---
Author Organization [facility] Address [address] [place] [address]. [place] [address] Care Team Providers Care Painter Assistant Name Role Phone vinayakAndreSwapna Nubia Unavailable Unavail able Jonathan Sosa MD Primary Care Provider [phone] Jonathan Sosa MD Unavailable [phone] Anne Lopez MD Unavailable [phone] Ruth Trinidad [facility] Unavailable Ruth Trinidad 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 Gender Identity Not on file Sexual Orientation Not on file Occupation Industry Job Start Date Job End Date disabled Not on file Not on file Not on file documented as of this encounter Plan of Treatment Not on file documented as of this encounter Visit Diagnoses Not on filedocumented in this encounter Care Teams Painter Assistant Relationship Specialty Start Date End Date Jonathan Sosa MD [address] [place] [address] PCP - General Internal Medicine 02/14/22 Swapna Lockwood Referring Physician buffer copper 12/29/14 Jonathan Sosa MD [address] [place] [address] Assigned PCP 01/17/22 Anne Lopez MD [address] [place] [address] 36 [place], [place] [address] Gastroenterology 08/03/22 Ruth Trinidad RPH [address] [place] [address] Pharmacist Pharmacist Coupon Collection Clerk 09/06/23 10/09/23 Ruth Trinidad RPH [address] [place] [address] Assigned [place] Pharmacist 10/08/23 documented as of this encounter
--- OUTSIDE RECORDS SUMMARY | 2025-01-01 11:25 | XMS_ITS | Encounter Summary ---
Author Organization [facility] Address [address] [place] [address]. [place] [address] Care Team Providers Care Director Of Pharmacy Name Role Phone Swapna licea Nubia Unavailable Unavail able Jonathan Sosa MD Primary Care Provider [phone] Jonathan Sosa MD Unavailable [phone] Anne Lopez MD Unavailable [phone] Ruth Trinidad [facility] Unavailable Ruth Trinidad [facility] Unavailable Encounter Details Date Type Department Care Team (Late st Contact Info) Description 09/03/2022 [facility] Antico[facility] [address] [place] [address] Andre Tenorio, RN Social History [...] on file 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 Gender Identity Not on file Sexual [...] of this encounter Care Teams Director Of Pharmacy Relationship Specialty Start Date End Date Jonathan Sosa MD [address] [place] [address] PCP - General Internal Medicine 02/14/22 Swapna Lockwood Referring Physician supervisor poultry processing 12/29/14 Jonathan Sosa MD [address] [place] [address] Assigned PCP 01/17/22 Anne Lopez MD [address] [place] [address] [address] [place] [address] Gastroenterology 08/03/22 Ruth Trinidad RPH [address] [place] [address] Pharmacist Pharmacist Rn Otolaryngology 09/06/23 10/09/23 Ruth Trinidad RPH [address] [place] [address] Assigned MTM Pharmacist 10/08/23 documented as of this encounter
--- OUTSIDE RECORDS SUMMARY | 2025-01-01 11:25 | XMS_ITS | Encounter Summary ---
Author Organization [place] Address [address] [place] [address]. [place] [address] Care Team Providers Care Chart Reader Name Role Phone Swapna licea Nubia Unavailable Unavail able Jonathan Sosa MD Primary Care Provider [phone] Jonathan Sosa MD Unavailable [phone] Anne Lopez MD Unavailable [phone] Ruth Trinidad [facility] Unavailable Ruth Trinidad [facility] Unavailable Encounter Details Date Type Department Care Team (Late st Contact Info) Description 08/09/2023 [facility] Anticoagulation Clinic [address] [place] [address] Tammy Strickland RN Social History Tobacco Use Types Packs/Day [...] on file 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 Gender Identity Not on file Sexual Orientation Not on file Occupation Industry Job Start Date Job End Date disabled Not on file Not on file Not on file documented as of this encounter Plan of Treatment Not on file documented as of this encounter Visit Diagnoses Not on filedocumented in this encounter Care Teams Chart Reader Relationship Specialty Start Date End Date Jonathan Sosa MD [address] [place] [address] PCP - General Internal Medicine 02/14/22 Swapna Lockwood Referring Physician tree cutter 12/29/14 Jonathan Sosa MD [address] [place], [place] [address] Assigned PCP 01/17/22 Anne Lopez MD [address] [place] [address] 36 [place], [place] [address] Gastroenterology 08/03/22 Ruth Trinidad RPH [address] [place] [address] Pharmacist Pharmacist Roll Machine Operator 09/06/23 10/09/23 Ruth Trinidad RPH [address] [place] [address] Assigned [place] Pharmacist 10/08/23 documented as of this encounter
--- OUTSIDE RECORDS SUMMARY | 2025-01-01 11:25 | XMS_ITS | Encounter Summary ---
Author Organization [place] Address [address] [place] [address]. [place] [address] Care Team Providers Care Pile Driver Engineer Name Role Phone vinayakAndreSwapna Nubia Unavailable Unavail able Jonathan Sosa MD Primary Care Provider [phone] Jonathan Sosa MD Unavailable [phone] Anne Lopez MD Unavailable [phone] Ruth Trinidad [facility] Unavailable Ruth Trinidad [facility] Unavailable Encounter Details Date Type Department Care Team (Late st Contact Info) Description 09/16/2023 [facility] [address] [place] [address] Ricki Lemus RN Social History [...] in an overnight prison, or couch-surfing.) Yes 04/14/2023 Are you worried [...] file 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 Gender Identity Not on file Sexual Orientation Not on file Occupation Industry Job Start Date Job End Date disabled Not on file Not on file Not on file documented as of this encounter Plan of Treatment Not on file documented as of this encounter Visit Diagnoses Not on filedocumented in this encounter Care Teams Pile Driver Engineer Relationship Specialty Start Date End Date Jonathan Sosa MD [address] [place] [address] PCP - General Internal Medicine 02/14/22 Swapna Lockwood Referring Physician tar roofer 12/29/14 Jonathan Sosa MD [address] [place] [address] Assigned PCP 01/17/22 Anne Lopez MD [address] [place] [address] Gastroenterology 08/03/22 Ruth Trinidad RPH [address] [place] [address] Pharmacist Pharmacist Direct Marketing Coordinator 09/06/23 10/09/23 Ruth Trinidad RPH [address] [place] [address] Assigned MTM Pharmacist 10/08/23 documented as of this encounter
--- OUTSIDE RECORDS SUMMARY | 2025-01-01 11:25 | XMS_ITS | Encounter Summary ---
Author Organization [place] Address [address] [place] [address] Care Team Providers Care Jointer Machine Name Role Phone Swapna Lockwood Unavailable Unavail able Jonathan Sosa MD Primary Care Provider [phone] Jonathan Sosa MD Unavailable [phone] Anne Lopez MD Unavailable [phone] Ruth Trinidad [facility] Unavailable Ruth Trinidad [facility] Unavailable Encounter Details Date Type Department Care Team (Late st Contact Info) Description 10/30/2022 [facility] Medical Advice [address] [place] [address] Yesenia Scott, 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 Gender Identity Not on file [...] documented as of this encounter Care Teams Jointer Machine Relationship Specialty Start Date End Date Jonathan Sosa MD [address] [place] [address] PCP - General Internal Medicine 02/14/22 Swapna Lockwood Referring Physician medicaid analyst 12/29/14 Jonathan Sosa MD [address] [place] [address] Assigned PCP 01/17/22 Anne Lopez MD 420 [facility] [address] [place] [address] Gastroenterology 08/03/22 Ruth Trinidad RP [address] [place] [address] Pharmacist Pharmacist Web Analytics Specialist 09/06/23 10/09/23 Ruth Trinidad RPH [address] [place] [address] Assigned [place] Pharmacist 10/08/23 documented as of this encounter
--- OUTSIDE RECORDS SUMMARY | 2025-01-01 11:25 | XMS_ITS | Encounter Summary ---
Author Organization [place] Address [address] [place] [address]. [place] [address] Care Team Providers Care Hvac Tech Name Role Phone Swapna licea Unavailable Unavail able Jonathan Sosa MD Primary Care Provider +- [phone] Jonathan Sosa MD Unavailable [phone] Anne Lopez MD Unavailable [phone] Ruth Trinidad [facility] Unavailable Ruth Trinidad [facility] Unavailable Encounter Details Date Type Department Care Team (Late st Contact Info) Description 09/14/2022 [facility] [address] [place] [address] Andre Tenorio, RN Social History [...] on file 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 Gender Identity Not on file Sexual [...] documented as of this encounter Care Teams Hvac Tech Relationship Specialty Start Date End Date Jonathan Sosa MD [address] [place] [address] PCP - General Internal Medicine 02/14/22 Swapna Lockwood Referring Physician drug safety assistant 12/29/14 Jonathan Sosa MD [address] [place] [address] Assigned PCP 01/17/22 Anne Lopez MD [address] [place] [address] 36 [place] [address] Gastroenterology 08/03/22 Ruth Trinidad RPH [address] [place] [address] Pharmacist Pharmacist Rail Filler 09/06/23 10/09/23 Ruth Trinidad RPH [address] [place] [address] Assigned MTM Pharmacist 10/08/23 documented as of this encounter
--- OUTSIDE RECORDS SUMMARY | 2025-01-01 11:26 | XMS_ITS | Encounter Summary ---
Author Organization [place] Address [address] [place] [address] Care Team Providers Care Trim Operator Name Role Phone Swapna licea Nubia Unavailable Unavail able Jonathan Sosa MD Primary Care Provider [phone]- [phone] Jonathan Sosa MD Unavailable [phone] Anne Lopez MD Unavailable [phone] Ruth Trinidad [facility] Unavailable Encounter Details Date Type Department Care Team (Late st Contact Info) Description 08/24/2024 Medical Correspondence [facility] Health Information Management [address] [facility] [address] [place] [address] Scan, Non-Provider Social History Tobacco Use Types Packs/Day Years [...] friends or re latives? 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 Gender Identity Not on file Sexual Orientation Not on file Occupation Industry Job Start Date Job End Date disabled Not on file Not on file Not on file documented as of this encounter Plan of Treatment Not on file documented as of this encounter Visit Diagnoses Not on filedocumented in this encounter Care Teams Trim Operator Relationship Specialty Start Date End Date Jonathan Sosa MD [address] [facility] [place] [address] PCP - General Internal Medicine 02/14/22 Swapna Lockwood Referring Physician ball mill operator 12/29/14 Jonathan Sosa MD [address] [place] [address] Assigned PCP 01/17/22 Anne Lopez MD 420 [facility] [address] [place], [place] [address] Gastroenterology 08/03/22 Ruth Trinidad RPH [address] [place] [address] Assigned MTM Pharmacist 10/08/23 documented as of this encounter
--- OUTSIDE RECORDS SUMMARY | 2025-01-01 11:26 | XMS_ITS | Encounter Summary ---
Author Organization [place] Address [address] [place] [address]. [place] [address] Care Team Providers Care Monument Setter Helper Name Role Phone vinayakAndreSwapna Joy Unavailable Unavail able Jonathan Sosa MD Primary Care Provider [phone]- [phone] Jonathan Sosa MD Unavailable [phone] Anne Lopez MD Unavailable [phone] Ruth Trinidad [facility] Unavailable Encounter Details Date Type Department Care Team (Late st Contact Info) Description 10/11/[address] [address] 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 Gender Identity Not on file Sexual Orientation Not on file Occupation Industry Job Start Date Job End Date disabled Not on file Not on file Not on file documented as of this encounter Plan of Treatment Not on file documented as of this encounter Visit Diagnoses Not on filedocumented in this encounter Care Teams Monument Setter Helper Relationship Specialty Start Date End Date Jonahtan Sosa MD [address] [place] [address] PCP - General Internal Medicine 02/14/22 Swapna Lockwood Referring Physician game room attendant 12/29/14 Jonathan Sosa MD [address] [place] [address] Assigned PCP 01/17/22 Anne Lopez MD 420 [facility] 36 [place], [place] [address] Gastroenterology 08/03/22 Ruth Trinidad [facility] [address] [place] [address] Assigned MTM Pharmacist 10/08/23 documented as of this encounter
--- OUTSIDE RECORDS SUMMARY | 2025-01-01 11:26 | XMS_ITS | Encounter Summary ---
Author Organization [place] Address [address] [place] [address]. [place] [address] Care Team Providers Care Foreman Shipping Department Name Role Phone Swapna licea Unavailable Unavail able Jonathan Sosa MD Primary Care Provider [phone]- [phone] Jonathan Sosa MD Unavailable [phone] Anne Lopez MD Unavailable [phone] Ruth Trinidad [facility] Unavailable Ruth Trinidad [facility] Unavailable Encounter Details Date Type Department Care Team (Late st Contact Info) Description 11/26/2022 [facility] [address] [place] [address] Andre Tenorio, RN Social History [...] on file 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 No / Unsure 11/28/2022 8:57 AM CDT documented as of this encounter Plan of Treatment Not on file documented as of this encounter Visit Diagnoses Not on filedocumented in this encounter Additional Health Concerns Infection Onset Date Last Indicated Resolved Time Rule Out COVID-19 04/17/2023 04/17/2023 04/18/2023 12:03 PM CDT documented as of this encounter Care Teams Foreman Shipping Department Relationship Specialty Start Date End Date Jonathan Sosa MD [address] [place] [address] PCP - General Internal Medicine 02/14/22 Swapna Lockwood Referring Physician quality engineer 12/29/14 Jonathan Sosa MD [address] [place] [address] Assigned PCP 01/17/22 Anne Lopez MD [address] [place] [address] 36 [place] [address] Gastroenterology 08/03/22 Ruth Trinidad RPH [address] [place] [address] Pharmacist Pharmacist Die Welder 09/06/23 10/09/23 Ruth Trinidad RPH [address] [place] [address] Assigned MTM Pharmacist 10/08/23 documented as of this encounter
--- OUTSIDE RECORDS SUMMARY | 2025-01-01 11:26 | XMS_ITS | Encounter Summary ---
Author Organization [place] Address [address] [place] [address]. [place] [address] Care Team Providers Care Wire Machine Operator Name Role Phone jessSwapna bliss Unavailable Unavail able Jonathan Sosa MD Primary Care Provider [phone] Jonathan Sosa MD Unavailable [phone] Anne Lopez MD Unavailable [phone] Ruth Trinidad [facility] Unavailable Ruth Trinidad [facility] Unavailable Encounter Details Date Type Department Care Team (Late st Contact Info) Description 09/27/2023 [facility] [address] [place] [address] Alison Green RN Social History [...] on file 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 Gender Identity Not on file Sexual Orientation Not on file Occupation Industry Job Start Date Job End Date disabled Not on file Not on file Not on file documented as of this encounter Plan of Treatment Not on file documented as of this encounter Visit Diagnoses Not on filedocumented in this encounter Care Teams Wire Machine Operator Relationship Specialty Start Date End Date Jonathan Sosa MD [address] [place] [address] PCP - General Internal Medicine 02/14/22 Swapna Lockwood Referring Physician patroller 12/29/14 Jonathan Sosa MD [address] [place] [address] Assigned PCP 01/17/22 Anne Lopez MD [address] [place] [address] 36 [place], [place] [address] Gastroenterology 08/03/22 Ruth Trinidad RPH [address] [place] [address] Pharmacist Pharmacist Horticultural Worker 09/06/23 10/09/23 Ruth Trinidad RPH [address] [place] [address] Assigned MTM Pharmacist 10/08/23 documented as of this encounter
--- OUTSIDE RECORDS SUMMARY | 2025-01-01 11:26 | XMS_ITS | Encounter Summary ---
Author Organization [place] Address [address] [place] [address]. [place] [address] Care Team Providers Care Big Data Platform Architect Name Role Phone Swapna licea Unavailable Unavail able Jonathan Sosa MD Primary Care Provider [phone] Jonathan Sosa MD Unavailable [phone] Anne Lopez MD Unavailable [phone] Ruth Trinidad [facility] Unavailable Encounter Details Date Type Department Care Team (Late st Contact Info) Description 06/03/2024 [facility] [address] [place] [address] Tammy Montgomery, RN Social History Tobacco [...] friends or re latives? 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 Gender Identity Not on file Sexual Orientation Not on file Occupation Industry Job Start Date Job End Date disabled Not on file Not on file Not on file documented as of this encounter Plan of Treatment Not on file documented as of this encounter Visit Diagnoses Not on filedocumented in this encounter Care Teams Big Data Platform Architect Relationship Specialty Start Date End Date Jonathan Sosa MD [address] [place] [address] PCP - General Internal Medicine 02/14/22 Swapna Lockwood Referring Physician shop technician 12/29/14 Jonathan Sosa MD [address] [place] [address] Assigned PCP 01/17/22 Anne Lopez MD [address] [place] [address] [address] [place], [place] [address] Gastroenterology 08/03/22 Ruth Trinidad RPH [address] [place], [place] [address] Assigned MTM Pharmacist 10/08/23 documented as of this encounter
--- OUTSIDE RECORDS SUMMARY | 2025-01-01 11:26 | XMS_ITS | Encounter Summary ---
Author Organization [facility] Address [address] [place] [address]. [place] [address] Care Team Providers Care Healthcare Administration Internship Name Role Phone Swapna licea Nubia Unavailable Unavail able Jonathan Sosa MD Primary Care Provider [phone] Jonathan Sosa MD Unavailable [phone] Anne Lopez MD Unavailable [phone] Ruth Trinidad [facility] Unavailable Ruth Trinidad [facility] Unavailable Encounter Details Date Type Department Care Team (Late st Contact Info) Description 03/23/2022 [facility] [place] Advice [place] [address] [address] [place] [id number] Isis Velez RN Social History Tobacco Use Types Packs/Day Years Used Date Smoking Tobacco: Every Day Cigarettes Pipe Smokeless Tobacco: Never Comments:Started smoking at age 16 Alcohol Use Standard Drinks/Week Comments No 0 (1 standard drink = 0.6 oz pur e alcohol) PHQ-2 Answer Date Recorded PHQ-2 Score 2 02/14/2022 Comments No Sex and Gender Information Value Date Recorded Sex Assigned at Not on file 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 Gender Identity Not on file Sexual Orientation [...] documented as of this encounter Care Teams Healthcare Administration Internship Relationship Specialty Start Date End Date Jonathan Sosa MD [address] [place] [address] PCP - General Internal Medicine 02/14/22 Swapna Lockwood Referring Physician grinder setup operator 12/29/14 Jonathan Sosa MD [address] [place] [address] Assigned PCP 01/17/22 Anne Lopez MD [address] [place] [address] Gastroenterology 08/03/22 Ruth Trinidad RPH [address] [place] [address] Pharmacist Pharmacist Crossbow Maker 09/06/23 10/09/23 Ruth Trinidad RPH [address] [place] [address] Assigned MTM Pharmacist 10/08/23 documented as of this encounter
--- OUTSIDE RECORDS SUMMARY | 2025-01-01 11:26 | XMS_ITS ---
Author Name [facility], [id number] Address [address] [place] [address] [address] [address] [facility] Address [address] [place] [address] [address] [address] Allergies and Adverse Reactions Medication/Group Name Reaction Severity Date mold 10/28/2017 Gespegl-Dlc-Mjt Reductase Inhibitors 10/28/2017 cat dander 01/13/2021 Ativan 01/13/2021 hydrocodone bitartrate/acetaminophen 10/28/2017 acetaminophen 01/13/2021 Shellfish Containing Products 10/28/2017 Sulfa (Sulfonamide Antibiotics) 10/28/2017 Opioids - Morphine Analogues 10/28/2017 Benzodiazepines 01/13/2021 AMOXICILLIN Hives 01/13/2021 LORAZEPAM Rash AZITHROMYCIN *Unknown 01/13/2021 BETAMETHASONE *Unknown 01/13/2021 CEPHALEXIN *Unknown 01/13/2021 CHOLECALCIFEROL (VITAMIN D3) Rash 01/13/2021 CLINDAMYCIN Hives 01/13/2021 DOXYCYCLINE Rash 01/13/2021 SNGVILMOERS-UYRQXNDPK-OJCEIROC Hives 01/13/2021 HOUSE DUST Shortness Of Breath [...] 325.0 mg 021 active 021 Mometasone Nasal [facility] 50 mcg/actuation Both Nostrils 2.0 {spray } [...] } 021 active 021 Ergocalciferol Oral Oral [address]. 0 U 021 active 021 Folic Acid-Vit [...]
--- OUTSIDE RECORDS SUMMARY | 2025-01-01 11:26 | XMS_ITS | Encounter Summary ---
Author Organization [facility] Address [address] [place] [address]. [place] [address] Care Team Providers Care Tourist Guide Name Role Phone Swapna licea Nubia Unavailable Unavail able Jonathan Sosa MD Primary Care Provider [phone] Jonathan Sosa MD Unavailable [phone] Anne Lopez MD Unavailable [phone] Ruth Trinidad [facility] Unavailable Encounter Details Date Type Department Care Team (Late st Contact Info) Description 07/20/2024 [facility] Clinic [address] [place] [address] Vale Sarabia, KYLIE Social History Tobacco [...] Answer Date Recorded PHQ-2 Score 0 05/05/2024 [facility] [place] of Occupat ional Health - Occupational Stress [...] on file 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 Gender Identity Not on file Sexual Orientation Not on file Occupation Industry Job Start Date Job End Date disabled Not on file Not on file Not on file documented as of this encounter Plan of Treatment Not on file documented as of this encounter Visit Diagnoses Not on filedocumented in this encounter Care Teams Tourist Guide Relationship Specialty Start Date End Date Jonathan Sosa MD [address] [place] [address] PCP - General Internal Medicine 02/14/22 Swapna Lockwood Referring Physician small engine specialist 12/29/14 Jonathan Sosa MD [address] [place] [address] Assigned PCP 01/17/22 Anne Lopez MD [address] [place] [address] [address] [place], [place] [address] Gastroenterology 08/03/22 Ruth Trinidad RPH [address] [place], [place] [address] Assigned MTM Pharmacist 10/08/23 documented as of this encounter
--- OUTSIDE RECORDS SUMMARY | 2025-01-01 11:26 | XMS_ITS | Encounter Summary ---
Author Organization [facility] Address [address] [place] [address]. [place] [address] Care Team Providers Care Configuration Management Analyst Name Role Phone Swapna licea Unavailable Unavail able Jonathan Sosa MD Primary Care Provider [phone] Jonathan Sosa MD Unavailable [phone] Anne Lopez MD Unavailable [phone] Ruth Trinidad [facility] Unavailable Ruth Trinidad [facility] Unavailable Encounter Details Date Type Department Care Team (Late st Contact Info) Description 11/23/2022 [facility] [address] [place] [address] Andre Tenorio, RN Social History [...] on file 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 Gender Identity Not on file Sexual Orientation [...] documented as of this encounter Care Teams Configuration Management Analyst Relationship Specialty Start Date End Date Jonathan Sosa MD [address] [place] [address] PCP - General Internal Medicine 02/14/22 Swapna Lockwood Referring Physician field education coordinator 12/29/14 Jonathan Sosa MD [address] [place] [address] Assigned PCP 01/17/22 Anne Lopez MD [address] [place] [address] 36 [place] [address] Gastroenterology 08/03/22 Ruth Trinidad RPH [address] [place] [address] Pharmacist Pharmacist Erisa Attorney 09/06/23 10/09/23 Ruth Trinidad RPH [address] [place] [address] Assigned MTM Pharmacist 10/08/23 documented as of this encounter
--- OUTSIDE RECORDS SUMMARY | 2025-01-01 11:26 | XMS_ITS | Encounter Summary ---
Author Organization [place] Address [address] [place] [address]. [place] [address] Care Team Providers Care Resaw Tailer Name Role Phone vinayakAndreSwapna Joy Unavailable Unavail able Jonathan Sosa MD Primary Care Provider [phone] Jonathan Sosa MD Unavailable [phone] Anne Lopez MD Unavailable [phone] Ruth Trinidad [facility] Unavailable Encounter Details Date Type Department Care Team (Late st Contact Info) Description 10/18/2023 [facility] [address] [place] [address] Diana Zuñiga, RN Social History Tobacco Use Types Packs/Day [...] on file 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 Gender Identity Not on file Sexual Orientation Not on file Occupation Industry Job Start Date Job End Date disabled Not on file Not on file Not on file documented as of this encounter Plan of Treatment Not on file documented as of this encounter Visit Diagnoses Not on filedocumented in this encounter Care Teams Resaw Tailer Relationship Specialty Start Date End Date Jonathan Sosa MD [address] [place] [address] PCP - General Internal Medicine 02/14/22 Swapna Lockwood Referring Physician buckle and button maker 12/29/14 Jonathan Sosa MD [address] [place] [address] Assigned PCP 01/17/22 Anne Lopez MD [address] [facility] [address] [place], [place] [address] Gastroenterology 08/03/22 Ruth Trinidad [facility] [address] [place] [address] Assigned MTM Pharmacist 10/08/23 documented as of this encounter
--- OUTSIDE RECORDS SUMMARY | 2025-01-01 11:26 | XMS_ITS | Encounter Summary ---
Author Organization [facility] Address [address] [place] [address] Care Team Providers Care Power Shovel Mechanic Name Role Phone Swapna Lockwood Unavailable Unavail able Jonathan Sosa MD Primary Care Provider [phone] Jonathan Sosa MD Unavailable [phone] Anne Lopez MD Unavailable [phone] Ruth Trinidad [facility] Unavailable Ruth Trinidad [facility] Unavailable Reason for Visit * Reason Onset Date Comments Refill Request 03/27/2022 Encounter Details Date Type Department Care Team (Late st Contact Info) Description 03/27/[address] [place] [address] Jonathan Sosa MD [address] [place], [place] [address] Refill Request Social History Tobacco Use Types [...] on file 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 Gender Identity Not on file Sexual Orientation [...] documented as of this encounter Care Teams Power Shovel Mechanic Relationship Specialty Start Date End Date Jonathan Sosa MD [address] [place] [address] PCP - General Internal Medicine 02/14/22 Swapna Lockwood Referring Physician straight ruling machine operator 12/29/14 Jonathan Sosa MD [address] [place] [address] Assigned PCP 01/17/22 Anne Lopez MD [address] [address] Gastroenterology 08/03/22 Ruth Trinidad RPH [address] [place] [address] Pharmacist Pharmacist Feed Blender 09/06/23 10/09/23 Ruth Trinidad RPH [address] [place] [address] Assigned MTM Pharmacist 10/08/23 documented as of this encounter
--- OUTSIDE RECORDS SUMMARY | 2025-01-01 11:26 | XMS_ITS | Encounter Summary ---
Author Organization [place] Address [address] [place] [address]. [place] [address] Care Team Providers Care Mock Up Maker Name Role Phone Swapna licea Unavailable Unavail able Jonathan Sosa MD Primary Care Provider [phone] Jonathan Sosa MD Unavailable [phone] Anne Lopez MD Unavailable [phone] Ruth Trinidad [facility] Unavailable Encounter Details Date Type Department Care Team (Late st Contact Info) Description 07/27/2024 [facility] [address] [place] [phone] Alison Ortiz, RN Social History Tobacco [...] Recorded PHQ-2 Score 0 05/05/2024 [facility] [place] of Occupat ional Health - Occupational Stress [...] on file 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 Gender Identity Not on file Sexual Orientation Not on file Occupation Industry Job Start Date Job End Date disabled Not on file Not on file Not on file documented as of this encounter Plan of Treatment Not on file documented as of this encounter Visit Diagnoses Not on filedocumented in this encounter Care Teams Mock Up Maker Relationship Specialty Start Date End Date Jonathan Sosa MD [address] [place] [address] PCP - General Internal Medicine 02/14/22 Swapna Lockwood Referring Physician school lunch monitor 12/29/14 Jonathan Sosa MD [address] [place] [address] Assigned PCP 01/17/22 Anne Lopez MD [address] [place] [address] 36 [place], [place] [address] Gastroenterology 08/03/22 Ruth Trinidad RPH [address] [place], [place] [address] Assigned MTM Pharmacist 10/08/23 documented as of this encounter
--- OUTSIDE RECORDS SUMMARY | 2025-01-01 11:26 | XMS_ITS | Encounter Summary ---
Author Organization [facility] Address [address] [place] [address]. [place] [address] Care Team Providers Care Clamshell Engineer Name Role Phone Swapna licea Nubia Unavailable Unavail able Jonathan Sosa MD Primary Care Provider [phone] Jonathan Sosa MD Unavailable [phone] Anne Lopez MD Unavailable [phone] Ruth Trinidad [facility] Unavailable Ruth Trinidad [facility] Unavailable Encounter Details Date Type Department Care Team (Late st Contact Info) Description 11/16/2022 [facility] Antico[facility] Clinic [address] [place] [address] Andre Tenorio, RN Social History [...] on file 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 Gender Identity Not on file Sexual Orientation [...] documented as of this encounter Care Teams Clamshell Engineer Relationship Specialty Start Date End Date Jonathan Sosa MD [address] [place] [address] PCP - General Internal Medicine 02/14/22 Swapna Lockwood Referring Physician adult literacy teacher 12/29/14 Jonathan Sosa MD [address] [place] [address] Assigned PCP 01/17/22 Anne Lopez MD [address] [place] [address] 36 [place] [address] Gastroenterology 08/03/22 Ruth Trinidad RPH [address] [place] [address] Pharmacist Pharmacist Policy Advisor 09/06/23 10/09/23 Ruth Trinidad RPH [address] [place] [address] Assigned MTM Pharmacist 10/08/23 documented as of this encounter
--- OUTSIDE RECORDS SUMMARY | 2025-01-01 11:26 | XMS_ITS | CCD ---
Author Name Interface, [id number] Address [address] [place] [address] [address] [place] [address] Organization [facility] Address [address] [facility] [address] [place] [address] Care Team Providers Care Radio Announcer Name Role Phone Gurpreet RAJAN, Jose Unavailable Unavailable Allergies and Adverse Reactions Medication/Group Name Reaction Severity Date mold 10/28/2017 Uhqeryc-Siz-Boz Reductase Inhibitors 10/28/2017 cat dander 01/13/2021 Ativan 01/13/2021 hydrocodone bitartrate/acetaminophen 10/28/2017 acetaminophen 01/13/2021 Shellfish Containing Products 10/28/2017 Sulfa (Sulfonamide Antibiotics) 10/28/2017 Opioids - Morphine Analogues 10/28/2017 Benzodiazepines 01/13/2021 AMOXICILLIN Hives 01/13/2021 LORAZEPAM Rash AZITHROMYCIN *Unknown 01/13/2021 BETAMETHASONE *Unknown 01/13/2021 CEPHALEXIN *Unknown 01/13/2021 CHOLECALCIFEROL (VITAMIN D3) Rash 01/13/2021 CLINDAMYCIN Hives 01/13/2021 DOXYCYCLINE Rash 01/13/2021 [id number]-OZUMYRJQH-WPZRLECB Hives 01/13/2021 HOUSE DUST Shortness Of Breath 01/14/20 21 HYDROCODONE-ACETAMINOPHEN Hives IODINE Other - Describe In Comment Field FLUOCINONIDE Rash 01/13/2021 METFORMIN Nausea Only MOLD Rash 12/30/2020 MORPHINE Shortness Of Breath 12/31/19 21 NIACIN Rash 12/30/2020 SODIUM CHLORIDE *Unknown SULFASALAZINE Anaphylaxis OMEPRAZOLE Hives 12/30/2020 SIMVASTATIN Edema Reason for Visit RC - 156 RC - 156 RC Medications Date Name Route Dose Frequency Instructions Start Date End Date Status Loperamide Oral a ctive Zinc Acetate Oral (as elemental) Oral 50.0 mg active Coenzyme Q10 Oral active Ascorbic Acid Oral active Enoxaparin Subcutaneous BID active Magnesium Oral ac tive Omeprazole-Sodiu m Bicarbonate Oral 40 mg-1,100 mg active 2020 Ipratropium HFA Inhaler 17 mcg/actuation Inhalation 2020 active 2020 Furosemide Oral 2020 active 2020 Warfarin Oral 2020 active 2020 Diazepam Oral Oral 2020 active 2020 Ferrous Sulfate Oral Delayed Release Oral 325.0 mg 2020 active 2020 Mometasone Nasal [place] 50 mcg/actuation Both Nostrils 2.0 {spray} 2020 active 2020 Levothyroxine Oral Oral 1.0 {capsule} 2020 active 2020 Olopatadine Ophthalmic Drops 0.2 % Both Eyes 1.0 [drp] 2020 active 2020 Tamsulosin Oral Oral 0.4 mg 2020 active 2020 Hydromorphone Oral Oral 2.0 mg 2020 active 2020 Fluconazole Oral Tablet Oral 150.0 mg 2020 active 2020 Nystatin Topical Powder Topical 1.0 {strip} 2020 active 2020 Ergocalciferol Oral Oral 76003.0 U 2020 active 2020 Folic Acid-Vit B6-Vit B12 Oral 2.5 mg-25 mg-2 mg Oral 1.0 {tbl} 2020 active 2019 Potassium Citrate Oral ER Tab Oral 2019 active 2017 Fluconazole Oral Tablet PO 1.0 TABLET(S) daily 10/28 stopped 2017 Amoxicillin-Clav ulanate Oral 875 mg-125 mg PO 1.0 TABLET(S) BID 10/28 stopped 2017 Miscellaneous Drug PO 1.0 TABLET(S) daily 10/28 stopped 2017 Cyclobenzaprine Oral PO 1.0 TABLET(S) BID prn 10/28 stopped 2017 Coenzyme Q10 Oral PO 2.0 CAPSULE(S) daily 10/28 stopped 2017 Multivitamins Oral Liquid PO 5.0 ML daily 10/28 stopped 2017 Magnesium Citrate Oral PO 2.0 CAPSULE daily 10/28 stopped 2017 Ergocalciferol Oral PO 1.0 CAPSULE(S) Q7D 10/28 stopped 2017 Levothyroxine Oral PO 1.0 CAPSULE(S) daily 10/28 stopped 2017 Loperamide Oral PO 1.0 CAPSULE(S) as directed 10/28 stopped 2017 Tamsulosin Oral PO 1.0 CAPSULE(S) , SUSTAINED RELEASE 24 HR daily as directed 10/28 stopped 2017 Warfarin Oral PO 1.0 TABLET(S) daily 7.5mg Mon, Wed, Fri, sat...5mg Tues, thurs, Sun 10/28 stopped 2017 Omeprazole-Sodiu m Bicarbonate Oral 40 mg-1,100 mg PO 1.0 CAPSULE(S) daily 10/28 stopped 2017 Ipratropium Nebulized via nebulizer 2.5 ML as directed 10/28 stopped 2017 Glipizide Oral PO 1.0 TABLET(S) daily 10/28 stopped 2017 Ferrous Sulfate Oral PO 1.0 TABLET(S) TID 10/28 stopped 2017 Diazepam Oral PO 1.0 TABLET(S) BID 10/28 stopped 2017 Hydromorphone Oral PO 1.0 TABLET(S) Q3-4H PRN pain 10/28 stopped 2017 Potassium Citrate Oral ER Tab PO 1.0 TABLET(S), SUSTAINED ACTION daily 10/28 stopped 2017 Nystatin Topical Powder Topical GRAM TID 10/28 stopped 2017 Diphenhydramine Oral PO 1.0 CAPSULE(S) as directed 10/28 stopped 2016 Acetaminophen Oral Oral 2.0 {tbl} 2016 active Problems Diagnosis Status Date of Diagnosis Resolution Date Complex atypical endometrial hyperplasia (disorder) Active Liver lesion Active Mediastinal lymphadenopathy (disorder) Active Lung mass Active Supraclavicular lymphadenopathy Active Small cell carcinoma of lung (disorder) Active Social History Date Name Value 01/13/2021 Sex Female
--- OUTSIDE RECORDS SUMMARY | 2025-01-01 11:26 | XMS_ITS | Encounter Summary ---
Author Organization [facility] Address [address] [place] [address]. [place] [address] Care Team Providers Care Alarm Operator Name Role Phone Swapna licea Unavailable Unavail able Jonathan Sosa MD Primary Care Provider [phone] Jonathan Sosa MD Unavailable [phone] Anne Lopez MD Unavailable [phone] Ruth Trinidad [facility] Unavailable Encounter Details Date Type Department Care Team (Late st Contact Info) Description 06/26/2024 [facility] Anticoagulation Clinic [address] [place] [phone] Tammy Montgomery, RN Social History Tobacco [...] Answer Date Recorded PHQ-2 Score 0 05/05/2024 [facility] [place] of Occupat ional Health - Occupational Stress [...] on file 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 Gender Identity Not on file Sexual Orientation Not on file Occupation Industry Job Start Date Job End Date disabled Not on file Not on file Not on file documented as of this encounter Plan of Treatment Not on file documented as of this encounter Visit Diagnoses Not on filedocumented in this encounter Care Teams Alarm Operator Relationship Specialty Start Date End Date Jonathan Sosa MD [address] [place] [address] PCP - General Internal Medicine 02/14/22 Swapna Lockwood Referring Physician repair technician 12/29/14 Jonathan Sosa MD [address] [place] [address] Assigned PCP 01/17/22 Anne Lopez MD [address] [place] [address] 36 [place], [place] [address] Gastroenterology 08/03/22 Ruth Trinidad RPH [address] [place], [place] [address] Assigned MTM Pharmacist 10/08/23 documented as of this encounter
--- OUTSIDE RECORDS SUMMARY | 2025-01-01 11:26 | XMS_ITS | Encounter Summary ---
Author Organization [facility] Address [address] [place] [address]. [place] [address] Care Team Providers Care Leaf Sucker Operator Name Role Phone vinayak Swapna Nubia Unavailable Unavail able Jonathan Sosa MD Primary Care Provider [phone] Jonathan Sosa MD Unavailable [phone] Anne Lopez MD Unavailable [phone] Ruth Trinidad [facility] Unavailable Encounter Details Date Type Department Care Team (Late st Contact Info) Description 08/17/2024 [facility] Anticoagulation Clinic [address] [place] [phone] Mary Kay Lucio, RN Social History [...] friends or re latives? 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 Gender Identity Not on file Sexual Orientation Not on file Occupation Industry Job Start Date Job End Date disabled Not on file Not on file Not on file documented as of this encounter Plan of Treatment Not on file documented as of this encounter Visit Diagnoses Not on filedocumented in this encounter Care Teams Leaf Sucker Operator Relationship Specialty Start Date End Date Jonathan Sosa MD [address] [place] [address] PCP - General Internal Medicine 02/14/22 Swapna Lockwood Referring Physician agricultural science professor 12/29/14 Jonathan Sosa MD [address] [place] [address] Assigned PCP 01/17/22 Anne Lopez MD [address] [place] [address] [address] [place], [place] [address] Gastroenterology 08/03/22 Ruth Trinidad RPH [address] [place], [place] [address] Assigned MTM Pharmacist 10/08/23 documented as of this encounter
--- OUTSIDE RECORDS SUMMARY | 2025-01-01 11:26 | XMS_ITS | Encounter Summary ---
Author Organization [facility] Address [address] [place] [address]. [place] [address] Care Team Providers Care Poultry Offal Worker Name Role Phone Swapna licea Unavailable Unavail able Jonathan Sosa MD Primary Care Provider [phone] Jonathan Sosa MD Unavailable [phone] Anne Lopez MD Unavailable [phone] Ruth Trinidad [facility] Unavailable Encounter Details Date Type Department Care Team (Late st Contact Info) Description 06/18/2024 [facility] Anticoagulation Clinic [address] [place] [phone] Tuyet Juarez, KYLIE Social History Tobacco Use Types Packs/Day [...] friends or re latives? 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 Gender Identity Not on file Sexual Orientation Not on file Occupation Industry Job Start Date Job End Date disabled Not on file Not on file Not on file documented as of this encounter Plan of Treatment Not on file documented as of this encounter Visit Diagnoses Not on filedocumented in this encounter Care Teams Poultry Offal Worker Relationship Specialty Start Date End Date Jonathan Sosa MD [address] [place] [address] PCP - General Internal Medicine 02/14/22 Swapna Lockwood Referring Physician earring maker 12/29/14 Jonathan Sosa MD [address] [place] [address] Assigned PCP 01/17/22 Anne Lopez MD [address] [place] [address] 36 [place], [place] [address] Gastroenterology 08/03/22 Ruth Trinidad RPH [address] [place], [place] [address] Assigned MTM Pharmacist 10/08/23 documented as of this encounter
--- OUTSIDE RECORDS SUMMARY | 2025-01-01 11:26 | XMS_ITS | Encounter Summary ---
Author Organization [facility] Address [address] [place] [address]. [place] [address] Care Team Providers Care Passport Support Manager Name Role Phone Swapna licea Unavailable Unavail able Jonathan Sosa MD Primary Care Provider [phone] Jonathan Sosa MD Unavailable [phone] Anne Lopez MD Unavailable [phone] Ruth Trinidad [facility] Unavailable Encounter Details Date Type Department Care Team (Late st Contact Info) Description 07/07/2024 [facility] Anticoagulation Clinic [address] [place] [phone] Alison Ortiz, RN Social History Tobacco [...] friends or re latives? 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 Gender Identity Not on file Sexual Orientation Not on file Occupation Industry Job Start Date Job End Date disabled Not on file Not on file Not on file documented as of this encounter Plan of Treatment Not on file documented as of this encounter Visit Diagnoses Not on filedocumented in this encounter Care Teams Passport Support Manager Relationship Specialty Start Date End Date Jonathan Sosa MD [address] [place] [address] PCP - General Internal Medicine 02/14/22 Swapna Lockwood Referring Physician tight cooper 12/29/14 Jonathan Sosa MD [address] [place] [address] Assigned PCP 01/17/22 Anne Lopez MD [address] [place] [address] 36 [place], [place] [address] Gastroenterology 08/03/22 Ruth Trinidad RPH [address] [place], [place] [address] Assigned MTM Pharmacist 10/08/23 documented as of this encounter
--- OUTSIDE RECORDS SUMMARY | 2025-01-01 11:26 | XMS_ITS | Encounter Summary ---
Author Organization [place] Address [address] [place] [address]. [place] [address] Care Team Providers Care Slot Floor Person Name Role Phone Swapna licea Nubia Unavailable Unavail able Jonathan Sosa MD Primary Care Provider [phone] Jonathan Sosa MD Unavailable [phone] Anne Lopez MD Unavailable [phone] Ruth Trinidad [facility] Unavailable Encounter Details Date Type Department Care Team (Late st Contact Info) Description 06/09/2024 [facility] Anticoagulation Clinic [address] [place] [phone] Tammi Posadas, RN Social History Tobacco Use Types Packs/Day [...] friends or re latives? 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 Gender Identity Not on file Sexual Orientation Not on file Occupation Industry Job Start Date Job End Date disabled Not on file Not on file Not on file documented as of this encounter Plan of Treatment Not on file documented as of this encounter Visit Diagnoses Not on filedocumented in this encounter Care Teams Slot Floor Person Relationship Specialty Start Date End Date Jonathan Sosa MD [address] [place] [address] PCP - General Internal Medicine 02/14/22 Swapna Lockwood Referring Physician freezing room worker 12/29/14 Jonathan Sosa MD [address] [place] [address] Assigned PCP 01/17/22 Anne Lopez MD [address] [place] [address] 36 [place], [place] [address] Gastroenterology 08/03/22 Ruth Trinidad RPH [address] [place], [place] [address] Assigned MTM Pharmacist 10/08/23 documented as of this encounter
--- OUTSIDE RECORDS SUMMARY | 2025-01-01 11:26 | XMS_ITS | Encounter Summary ---
Author Organization [facility] Address [address] [place] [address]. [place] [address] Care Team Providers Care Cost Accounting Analyst Name Role Phone Swapna licea Nubia Unavailable Unavail able Jonathan Sosa MD Primary Care Provider [phone] Jonathan Sosa MD Unavailable [phone] Anne Lopez MD Unavailable [phone] Ruth Trinidad [facility] Unavailable Ruth Trinidad [facility] Unavailable Encounter Details Date Type Department Care Team (Late st Contact Info) Description 03/19/2022 [facility] Anticoagulation Clinic [address] [place] [phone] Ayala Saha, RN Social History [...] on file 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 Gender Identity Not on file Sexual Orientation [...] documented as of this encounter Care Teams Cost Accounting Analyst Relationship Specialty Start Date End Date Jonathan Sosa MD [address] [place] [address] PCP - General Internal Medicine 02/14/22 Swapna Lockwood Referring Physician cargoman 12/29/14 Jonathan Sosa MD [address] [place] [address] Assigned PCP 01/17/22 Anne Lopez MD [address] [place] [address] Gastroenterology 08/03/22 Ruth Trinidad RPH [address] [place] [address] Pharmacist Pharmacist Touch Up Carver 09/06/23 10/09/23 Ruth Trinidad RPH [address] [place] [address] Assigned MTM Pharmacist 10/08/23 documented as of this encounter
--- OUTSIDE RECORDS SUMMARY | 2025-01-01 11:26 | XMS_ITS | Encounter Summary ---
Author Organization [place] Address [address] [place] [address]. [place] [address] Care Team Providers Care Drawbridge Tender Name Role Phone Swapna licea Unavailable Unavail able Jonathan Sosa MD Primary Care Provider [phone] Jonathan Sosa MD Unavailable [phone] Anne Lopez MD Unavailable [phone] Ruth Trinidad [facility] Unavailable Encounter Details Date Type Department Care Team (Late st Contact Info) Description 05/25/2024 [facility] Anticoagulation Clinic [address] [place] [phone] Alison Ortiz, RN Social History Tobacco [...] friends or re latives? 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 Gender Identity Not on file Sexual Orientation Not on file Occupation Industry Job Start Date Job End Date disabled Not on file Not on file Not on file documented as of this encounter Plan of Treatment Not on file documented as of this encounter Visit Diagnoses Not on filedocumented in this encounter Care Teams Drawbridge Tender Relationship Specialty Start Date End Date Jonathan Sosa MD [address] [place] [address] PCP - General Internal Medicine 02/14/22 Swapna Lockwood Referring Physician entry level marketing assistant 12/29/14 Jonathan Sosa MD [address] [place] [address] Assigned PCP 01/17/22 Anne Lopez MD [address] [place] [address] 36 [place], [place] [address] Gastroenterology 08/03/22 Ruth Trinidad RPH [address] [place], [place] [address] Assigned MTM Pharmacist 10/08/23 documented as of this encounter
--- OUTSIDE RECORDS SUMMARY | 2025-01-01 11:26 | XMS_ITS | Encounter Summary ---
Author Organization [facility] Address [address] [place] [address]. [place] [address] Care Team Providers Care Transportation Sales Consultant Name Role Phone vinayakAndreSwapna Joy Unavailable Unavail able Jonathan oSsa MD Primary Care Provider [phone] Jonathan Sosa MD Unavailable [phone] Anne Lopez MD Unavailable [phone] Ruth Trin[address] 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 Gender Identity Not on file Sexual Orientation Not on file Occupation Industry Job Start Date Job End Date disabled Not on file Not on file Not on file documented as of this encounter Plan of Treatment Not on file documented as of this encounter Visit Diagnoses Not on filedocumented in this encounter Care Teams Transportation Sales Consultant Relationship Specialty Start Date End Date Jonathan Sosa MD [address] [place] [address] PCP - General Internal Medicine 02/14/22 Swapna Lockwood Referring Physician racing driver 12/29/14 Jonathan Sosa MD [address] [place] [address] Assigned PCP 01/17/22 Anne Lopez MD [address] [facility] [address] [place], [place] [address] Gastroenterology 08/03/22 Ruth Trinidad [facility] [address] [place] [address] Assigned MTM Pharmacist 10/08/23 documented as of this encounter
--- OUTSIDE RECORDS SUMMARY | 2025-01-01 11:26 | XMS_ITS | Encounter Summary ---
Author Organization [facility] Address [address] [place] [address]. [place] [address] Care Team Providers Care Health Information Administrator Name Role Phone vinayakAndreSwapna Nubia Unavailable Unavail able Jonathan Sosa MD Primary Care Provider [phone] Jonathan Sosa MD Unavailable [phone] Anne Lopez MD Unavailable [phone] Ruth Trinidad [facility] Unavailable Ruth Trinidad [facility] Unavailable Encounter Details Date Type Department Care Team (Late st Contact Info) Description 10/04/2023 [facility] [address] [place] [address] Concepcion Knight RN Social History [...] on file 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 Gender Identity Not on file Sexual Orientation Not on file Occupation Industry Job Start Date Job End Date disabled Not on file Not on file Not on file documented as of this encounter Plan of Treatment Not on file documented as of this encounter Visit Diagnoses Not on filedocumented in this encounter Care Teams Health Information Administrator Relationship Specialty Start Date End Date Jonathan Sosa MD [address] [place] [address] PCP - General Internal Medicine 02/14/22 Swapna Lockwood Referring Physician warehouse stock clerk 12/29/14 Jonathan Sosa MD [address] [place] [address] Assigned PCP 01/17/22 Anne Lopez MD [address] [place] [address] [address] [place], [place] [address] Gastroenterology 08/03/22 Ruth Trinidad RPH [address] [place] [address] Pharmacist Pharmacist Mixer Slagman 09/06/23 10/09/23 Ruth Trinidad RPH [address] [place] [address] Assigned [place] Pharmacist 10/08/23 documented as of this encounter
--- OUTSIDE RECORDS SUMMARY | 2025-01-01 11:26 | XMS_ITS | Encounter Summary ---
Author Organization [facility] Address [address] [place] [address] Care Team Providers Care Sales And Service Associate Name Role Phone Swapna Lockwood Unavailable Unavail able Jonathan Sosa MD Primary Care Provider [phone] Jonathan Sosa MD Unavailable [phone] Anne Lopez MD Unavailable [phone] Ruth Trinidad [facility] Unavailable Ruth Trinidad [facility] Unavailable Reason for Visit * Reason Onset Date Comments Refill Request 04/05/2022 Encounter Details Date Type Department Care Team (Late st Contact Info) Description 04/05/2022 MyC Refill [address] [place] [address] Jonathan Sosa MD [address] [place] [address] Refill Request Social History Tobacco [...] on file 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 Gender Identity Not on file Sexual Orientation Not on file Occupation Industry Job Start Date Job End Date disabled Not on file Not on file Not on file documented as of this encounter Miscellaneous Notes * Telephone Encounter - Jose Collier RN - 04/07/2022 12:39 PM CDT Next 5 appointments (look out 90 days) May 16, 2022 7:00 AM (Arrive by 6:45 AM) Provider Visit with Jonathan Sosa MD [facility] [address] [facility] [address] documented in this encounter Plan of Treatment Not on file documented as of this encounter Visit Diagnoses Diagnosis Hypothyroidism- Primary Unspecified hypothyroidism documented in this encounter Additional Health Concerns Infection Onset Date Last Indicated Resolved Time Rule Out COVID-19 04/17/2023 04/17/2023 04/18/2023 12:03 PM CDT documented as of this encounter Care Teams Sales And Service Associate Relationship Specialty Start Date End Date Jonathan Sosa MD [address] [place], [place] [address] PCP - General Internal Medicine 02/14/22 Swapna Lockwood Referring Physician shake packer 12/29/14 Jonathan Sosa MD [address] [place] [address] Assigned PCP 01/17/22 Anne Lopez MD [address] [facility] 36 [place], [place] [address] Gastroenterology 08/03/22 Ruth Trinidad [facility] [address] [place], [place] [address] [phone] Pharmacist Pharmacist Auto Service Station Attendant 09/06/23 10/09/23 Ruth Trinidad [facility] [address] [place] [address] Assigned MTM Pharmacist 10/08/23 documented as of this encounter
--- OUTSIDE RECORDS SUMMARY | 2025-01-01 11:26 | XMS_ITS | Encounter Summary ---
Author Organization [facility] Address [address] [place] [address]. [place] [address] Care Team Providers Care Data Modeling Architect Name Role Phone Swapna licea Unavailable Unavail able Jonathan Sosa MD Primary Care Provider [phone] Jonathan oSsa MD Unavailable [phone] Anne Lopez MD Unavailable [phone] Ruth Trinidad [facility] Unavailable Encounter Details Date Type Department Care Team (Late st Contact Info) Description 07/15/2024 [facility] Antico[facility] Clinic [address] [place] [address] Alison Ortiz, RN Social History Tobacco [...] Answer Date Recorded PHQ-2 Score 0 05/05/2024 [facility] [place] of Occupat ional Health - Occupational Stress [...] an overnight long term, or couch-surfing.) Yes 05/02/2024 Are you worried [...] on file 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 Gender Identity Not on file Sexual Orientation Not on file Occupation Industry Job Start Date Job End Date disabled Not on file Not on file Not on file documented as of this encounter Plan of Treatment Not on file documented as of this encounter Visit Diagnoses Not on filedocumented in this encounter Care Teams Data Modeling Architect Relationship Specialty Start Date End Date Jonathan Sosa MD [address] [place] [address] PCP - General Internal Medicine 02/14/22 Swapna Lockwood Referring Physician deck engine operator 12/29/14 Jonathan Sosa MD [address] [place] [address] Assigned PCP 01/17/22 Anne Lopez MD [address] [place] [address] 36 [place], [place] [address] Gastroenterology 08/03/22 Ruth Trinidad RPH [address] [place], [place] [address] Assigned MTM Pharmacist 10/08/23 documented as of this encounter
--- OUTSIDE RECORDS SUMMARY | 2025-01-01 11:26 | XMS_ITS | Encounter Summary ---
Author Organization [facility] Address [address] [place] [address]. [place] [address] Care Team Providers Care Bobbin Fixer Name Role Phone vinayak Swapna Nubia Unavailable Unavail able Jonathan Sosa MD Primary Care Provider [phone] Jonathan Sosa MD Unavailable [phone] Anne Lopez MD Unavailable [phone] Ruth Trinidad [facility] Unavailable Encounter Details Date Type Department Care Team (Late st Contact Info) Description 08/10/2024 [facility] Anticoagulation Clinic [address] [place] [address] Mary Kay Lucio, RN Social History [...] friends or re latives? 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 Gender Identity Not on file Sexual Orientation Not on file Occupation Industry Job Start Date Job End Date disabled Not on file Not on file Not on file documented as of this encounter Plan of Treatment Not on file documented as of this encounter Visit Diagnoses Not on filedocumented in this encounter Care Teams Bobbin Fixer Relationship Specialty Start Date End Date Jonathan Sosa MD [address] [place] [address] PCP - General Internal Medicine 02/14/22 Swapna Lockwood Referring Physician supervisor fish bait processing 12/29/14 Jonathan Sosa MD [address] [place] [address] Assigned PCP 01/17/22 Anne Lopez MD [address] [place] [address] 36 [place], [place] [address] Gastroenterology 08/03/22 Ruth Trinidad RPH [address] [place], [place] [address] Assigned MTM Pharmacist 10/08/23 documented as of this encounter
--- OUTSIDE RECORDS SUMMARY | 2025-01-01 11:26 | XMS_ITS | CCD ---
Author Name Interface, [facility] Address [address] [place] [address] [facility] Address [address] [place] [address] Care Team Providers Care Hand Laminator Name Role Phone Gurpreet RAJAN, Jose Unavailable Unavailable Allergies and Adverse Reactions Reason for Visit Medications Problems Social History
--- OUTSIDE RECORDS SUMMARY | 2025-01-01 11:26 | XMS_ITS | Encounter Summary ---
Author Organization [facility] Address [address] [place] [address] Care Team Providers Care Template Reproduction Technician Name Role Phone Swapna Lockwood Unavailable Unavail able Jonathan Sosa MD Primary Care Provider Jonathan Sosa MD Unavailable [phone] Anne Lopez MD Unavailable [phone] Ruth Trinidad [facility] Unavailable Reason for Visit * Reason Onset Date Comments Refill Request 11/04/2023 Encounter Details Date Type Department Care Team (Late st Contact Info) Description 11/04/[address] [place] [address] Jonathan Sosa MD [address] [place] [address] Refill Request Social History Tobacco [...] friends or re latives? Never 05/02/2024 Attends Scientology Services Not on file 05/02 Active Member of Clubs or Organizations Not on f ile 05/02/2024 Attends Club or Organization Meetings Not on francisca e 05/02/2024 Marital Status Not on file 05/02/2024 PHQ-2 Answer Date Recorded PHQ-2 Score 0 05/05/2024 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 Gender Identity Not on file Sexual Orientation Not on file Occupation Industry Job Start Date Job End Date disabled Not on file Not on file Not on file documented as of this encounter Plan of Treatment Not on file documented as of this encounter Visit Diagnoses Diagnosis Anxiety Anxiety state, unspecified documented in this encounter Care Teams Template Reproduction Technician Relationship Specialty Start Date End Date Jonathan Sosa MD [address] [place] [address] PCP - General Internal Medicine 02/14/22 Swapna Lockwood Referring Physician type copy examiner 12/29/14 Jonathan Sosa MD [address] [place], [place] [address] Assigned PCP 01/17/22 Anne Lopez MD 420 [facility] 36 [place], [place] [address] Gastroenterology 08/03/22 Ruth Trinidad RPH [address] [place], [place] [address] Assigned MTM Pharmacist 10/08/23 documented as of this encounter
--- OUTSIDE RECORDS SUMMARY | 2025-01-01 11:26 | XMS_ITS | Encounter Summary ---
Author Organization [facility] Address [address] [place] [address] Care Team Providers Care Staff Physical Therapy Assistant Name Role Phone Swapna Lockwood Unavailable Unavail able Jonathan Sosa MD Primary Care Provider Jonathan Sosa MD Unavailable Anne Lopez MD Unavailable [phone] Ruth Trinidad [facility] Unavailable Encounter Details Date Type Department Care Team (Late st Contact Info) Description 05/21/[address] [facility] [address] [facility] [address] [place] [address] Jonathan Sosa MD [address] [place] [address] Social History Tobacco Use Types [...] friends or re latives? Never 05/02/2024 Attends Latter Day Services Not on file 05/02 Active Member of Clubs or Organizations Not on f ile 05/02/2024 Attends Club or Organization Meetings Not on francisca e 05/02/2024 Marital Status Not on file 05/02/2024 PHQ-2 Answer Date Recorded PHQ-2 Score 0 05/05/2024 [facility] of Occupat ional Health - [...] Are you worried about losing your housing? 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 Gender Identity Not on file Sexual Orientation Not on file Occupation Industry Job Start Date Job End Date disabled Not on file Not on file Not on file documented as of this encounter Plan of Treatment Not on file documented as of this encounter Visit Diagnoses Not on filedocumented in this encounter Care Teams Staff Physical Therapy Assistant Relationship Specialty Start Date End Date Jonathan Sosa MD [address] [place] [address] PCP - General Internal Medicine 02/14/22 Swapna Lockwood Referring Physician figure skater 12/29/14 Jonathan Sosa MD [address] [place], [place] [address] Assigned PCP 01/17/22 Anne Lopez MD [address] [facility] 36 [place], [place] [address] Gastroenterology 08/03/22 Ruth Trinidad [facility] [address] [place] [address] Assigned MTM Pharmacist 10/08/23 documented as of this encounter
--- OUTSIDE RECORDS SUMMARY | 2025-01-01 11:26 | XMS_ITS | Encounter Summary ---
Author Organization [facility] Address [address] [place] [address]. [place] [address] Care Team Providers Care Crystallographer Name Role Phone Swapna licea Nubia Unavailable Unavail able Jonathan Sosa MD Primary Care Provider [phone] Jonathan Sosa MD Unavailable [phone] Anne Lopez MD Unavailable [phone] Ruth Trinidad [facility] Unavailable Ruth Trinidad [facility] Unavailable Encounter Details Date Type Department Care Team (Late st Contact Info) Description 04/06/2022 [facility] Anticoagulation Clinic [address] [place] [address] Andre Tenorio RN Social History [...] on file 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 Gender Identity Not on file Sexual [...] documented as of this encounter Care Teams Crystallographer Relationship Specialty Start Date End Date Jonathan Sosa MD [address] [place] [address] PCP - General Internal Medicine 02/14/22 Swapna Lockwood Referring Physician ocean import representative 12/29/14 Jonathan Sosa MD [address] [place] [address] Assigned PCP 01/17/22 Anne Lopez MD [address] [place] [address] Gastroenterology 08/03/22 Ruth Trinidad RPH [address] [place] [address] Pharmacist Pharmacist Nailhead Puncher 09/06/23 10/09/23 Ruth Trinidad RPH [address] [place] [address] Assigned MTM Pharmacist 10/08/23 documented as of this encounter
--- OUTSIDE RECORDS SUMMARY | 2025-01-01 11:27 | XMS_ITS | Encounter Summary ---
Author Organization [facility] Address [address] [place] [address]. [place] [address] Care Team Providers Care Photographic Equipment Assembler Name Role Phone Swapna licea Unavailable Unavail able Jonathan Sosa MD Primary Care Provider [phone] Jonathan Sosa MD Unavailable [phone] Anne Lopez MD Unavailable [phone] Ruth Trinidad [facility] Unavailable Encounter Details Date Type Department Care Team (Late st Contact Info) Description 09/29/2024 [facility] Anticoagulation Clinic [address] [place] [phone] Tammy Montgomery, RN Social History Tobacco [...] Answer Date Recorded PHQ-2 Score 0 05/05/2024 [facility] [place] of Occupat ional Health - Occupational Stress [...] file 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 Gender Identity Not on file Sexual Orientation Not on file Occupation Industry Job Start Date Job End Date disabled Not on file Not on file Not on file documented as of this encounter Plan of Treatment Not on file documented as of this encounter Visit Diagnoses Not on filedocumented in this encounter Care Teams Photographic Equipment Assembler Relationship Specialty Start Date End Date Jonathan Sosa MD [address] [place] [address] PCP - General Internal Medicine 02/14/22 Swapna Lockwood Referring Physician ui programmer 12/29/14 Jonathan Sosa MD [address] [place] [address] Assigned PCP 01/17/22 Anne Lopez MD [address] [place] [address] 36 [place], [place] [address] Gastroenterology 08/03/22 Ruth Trinidad RPH [address] [place], [place] [address] Assigned MTM Pharmacist 10/08/23 documented as of this encounter
--- OUTSIDE RECORDS SUMMARY | 2025-01-01 11:27 | XMS_ITS | Encounter Summary ---
Author Organization [facility] Address [address] [place] [address]. 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 Gender Identity Not on file Sexual Orientation Not on file Occupation Industry Job Start Date Job End Date disabled Not on file Not on file Not on file documented as of this encounter Plan of Treatment Not on file documented as of this encounter Visit Diagnoses Not on filedocumented in this encounter Care Teams Activated Sludge Operator Relationship Specialty Start Date End Date Jonathan Sosa MD [address] [place] [address] PCP - General Internal Medicine 02/14/22 Swapna Lockwood Referring Physician linux systems administrator 12/29/14 Jonathan Sosa MD [address] [facility] [place] [place] [id number] Assigned PCP 01/17/22 Anne Lopez MD [address] [place] [address] 36 [place], [place] [address] Gastroenterology 08/03/22 Ruth Trinidad RP [address] [place], [place] [address] Assigned MTM Pharmacist 10/08/23 documented as of this encounter
--- OUTSIDE RECORDS SUMMARY | 2025-01-01 11:27 | XMS_ITS | Encounter Summary ---
Author Organization [facility] Address [address] [place] [address]. [place] [address] Care Team Providers Care Grounds Restoration Specialist Name Role Phone Swapna licea Nubia Unavailable Unavail able Jonathan Sosa MD Primary Care Provider [phone] Jonathan Sosa MD Unavailable [phone] Anne Lopez MD Unavailable [phone] Ruth Trinidad [facility] Unavailable Ruth Trinidad [facility] Unavailable Encounter Details Date Type Department Care Team (Late st Contact Info) Description 01/15/2023 [facility] Anticoagulation Clinic [address] [place] [address] Andre Tenorio, RN Social History [...] on file 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 Gender Identity Not on file Sexual Orientation [...] documented as of this encounter Care Teams Grounds Restoration Specialist Relationship Specialty Start Date End Date Jonathan Sosa MD [address] [place] [address] PCP - General Internal Medicine 02/14/22 Swapna Lockwood Referring Physician internal control analyst 12/29/14 Jonathan Sosa MD [address] [place] [address] Assigned PCP 01/17/22 Anne Lopez MD [address] [place] [address] 36 [place] [address] Gastroenterology 08/03/22 Ruth Trinidad RPH [address] [place] [address] Pharmacist Pharmacist Supplies Packer 09/06/23 10/09/23 Ruth Trinidad RPH [address] [place] [address] Assigned MTM Pharmacist 10/08/23 documented as of this encounter
--- OUTSIDE RECORDS SUMMARY | 2025-01-01 11:27 | XMS_ITS | Encounter Summary ---
Author Organization [facility] Address [address] [place] [address]. [place] [address] Care Team Providers Care Senior Accounting Analyst Name Role Phone Swapna licea Nubia Unavailable Unavail able Jonathan Sosa MD Primary Care Provider [phone] Jonathan Sosa MD Unavailable [phone] Anne Lopez MD Unavailable [phone] Ruth Trinidad [facility] Unavailable Encounter Details Date Type Department Care Team (Late st Contact Info) Description 08/24/2024 [facility] Anticoagulation Clinic [address] [place] [phone] Vale Sarabia, KYLIE Social History Tobacco [...] Answer Date Recorded PHQ-2 Score 0 05/05/2024 [facility] [place] of Occupat ional Health - Occupational Stress [...] on file 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 Gender Identity Not on file Sexual Orientation Not on file Occupation Industry Job Start Date Job End Date disabled Not on file Not on file Not on file documented as of this encounter Plan of Treatment Not on file documented as of this encounter Visit Diagnoses Not on filedocumented in this encounter Care Teams Senior Accounting Analyst Relationship Specialty Start Date End Date Jonathan Sosa MD [address] [place] [address] PCP - General Internal Medicine 02/14/22 Swapna Lockwood Referring Physician accountant helper 12/29/14 Jonathan Sosa MD [address] [place] [address] Assigned PCP 01/17/22 Anne Lopez MD [address] [place] [address] 36 [place], [place] [address] Gastroenterology 08/03/22 Ruth Trinidad RPH [address] [place], [place] [address] Assigned MTM Pharmacist 10/08/23 documented as of this encounter
--- OUTSIDE RECORDS SUMMARY | 2025-01-01 11:27 | XMS_ITS | Encounter Summary ---
Author Organization [facility] Address [address] [place] [address]. [place] [address] Care Team Providers Care Rn Complex Care Name Role Phone vinayakAndreSwapna Joy Unavailable Unavail able Jonathan Sosa MD Primary Care Provider [phone] Jonathan Sosa MD Unavailable [phone] Anne Lopez MD Unavailable [phone] Ruth Trinidad [facility] Unavailable Encounter Details Date Type Department Care Team (Late st Contact Info) Description 11/08/[address] [facility] [address] 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 Gender Identity Not on file Sexual Orientation Not on file Occupation Industry Job Start Date Job End Date disabled Not on file Not on file Not on file documented as of this encounter Plan of Treatment Not on file documented as of this encounter Visit Diagnoses Not on filedocumented in this encounter Care Teams Rn Complex Care Relationship Specialty Start Date End Date Jonathan Sosa MD [address] [place] [address] PCP - General Internal Medicine 02/14/22 Swapna Lockwood Referring Physician engineering professor 12/29/14 Jonathan Sosa MD [address] [place] [address] Assigned PCP 01/17/22 Anne Lopez MD [address] [place] [address] 36 [place], [place] [address] Gastroenterology 08/03/22 Ruth Trinidad [facility] [address] [place] [address] Assigned MTM Pharmacist 10/08/23 documented as of this encounter
--- OUTSIDE RECORDS SUMMARY | 2025-01-01 11:27 | XMS_ITS | Encounter Summary ---
Author Organization [facility] Address [address] [place] [address]. [place] [address] Care Team Providers Care Welding Machine Operator Helper Arc Name Role Phone Swapna licea Unavailable Unavail able Jonathan Sosa MD Primary Care Provider [phone]- [phone] Jonathan Sosa MD Unavailable [phone] Anne Lopez MD Unavailable [phone] Ruth Trinidad [facility] Unavailable Encounter Details Date Type Department Care Team (Late st Contact Info) Description 10/19/2024 [facility] [address] [place] [phone] Tammy Montgomery, RN Social History Tobacco [...] Answer Date Recorded PHQ-2 Score 0 05/05/2024 [facility] [place] of Occupat ional Health - Occupational Stress [...] on file 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 Gender Identity Not on file Sexual Orientation Not on file Occupation Industry Job Start Date Job End Date disabled Not on file Not on file Not on file documented as of this encounter Plan of Treatment Not on file documented as of this encounter Visit Diagnoses Not on filedocumented in this encounter Care Teams Welding Machine Operator Helper Arc Relationship Specialty Start Date End Date Jonathan Sosa MD [address] [place] [address] PCP - General Internal Medicine 02/14/22 Swapna Lockwood Referring Physician product manager e commerce 12/29/14 Jonathan Sosa MD [address] [place] [address] Assigned PCP 01/17/22 Anne Lopez MD [address] [place] [address] 36 [place], [place] [address] Gastroenterology 08/03/22 Ruth Trinidad RPH [address] [place], [place] [address] Assigned MTM Pharmacist 10/08/23 documented as of this encounter
--- OUTSIDE RECORDS SUMMARY | 2025-01-01 11:27 | XMS_ITS | Encounter Summary ---
Author Organization [place] Address [address] [place] [address]. [place] [address] Care Team Providers Care Irrigation Technician Name Role Phone Swapna licea Unavailable Unavail able Jonathan Sosa MD Primary Care Provider [phone] Jonathan Sosa MD Unavailable [phone] Anne Lopez MD Unavailable [phone] Ruth Trinidad [facility] Unavailable Encounter Details Date Type Department Care Team (Late st Contact Info) Description 10/19/2024 [facility] [address] [place] [phone] Tammy Montgomery, RN Social History Tobacco [...] Answer Date Recorded PHQ-2 Score 0 05/05/2024 [facility] [place] of Occupat ional Health - Occupational Stress [...] in an abandoned building, in an overnight snf, or couch-surfing.) Yes 05/02/2024 Are you worried [...] on file 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 Gender Identity Not on file Sexual Orientation Not on file Occupation Industry Job Start Date Job End Date disabled Not on file Not on file Not on file documented as of this encounter Plan of Treatment Not on file documented as of this encounter Visit Diagnoses Not on filedocumented in this encounter Care Teams Irrigation Technician Relationship Specialty Start Date End Date Jonathan Sosa MD [address] [place] [address] PCP - General Internal Medicine 02/14/22 Swapna Lockwood Referring Physician billing and insurance coordinator 12/29/14 Jonathan Sosa MD [address] [place] [address] Assigned PCP 01/17/22 Anne Lopez MD [address] [place] [address] 36 [place], [place] [address] Gastroenterology 08/03/22 Ruth Trinidad RPH [address] [place], [place] [address]902 Assigned MTM Pharmacist 10/08/23 documented as of this encounter
--- OUTSIDE RECORDS SUMMARY | 2025-01-01 11:27 | XMS_ITS | Encounter Summary ---
Author Organization [facility] Address [address] [place] [address]. [place] [address] Care Team Providers Care Medicine Teacher Name Role Phone Swapna licea Unavailable Unavail able Jonathan Sosa MD Primary Care Provider [phone] Jonathan Sosa MD Unavailable [phone] Anne Lopez MD Unavailable [phone] Ruth Trinidad [facility] Unavailable Ruth Trinidad [facility] Unavailable Encounter Details Date Type Department Care Team (Late st Contact Info) Description 12/14/2022 [facility] [address] [place] [address] Nicole Avila RN Social History [...] on file 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 Gender Identity Not on file Sexual Orientation [...] documented as of this encounter Care Teams Medicine Teacher Relationship Specialty Start Date End Date Jonathan Sosa MD [address] [place] [address] PCP - General Internal Medicine 02/14/22 Swapna Lockwood Referring Physician practice nurse 12/29/14 Jonathan Sosa MD [address] [place] [address] Assigned PCP 01/17/22 Anne Lopez MD [address] [place] [address] Gastroenterology 08/03/22 Ruth Trinidad RPH [address] [place] [address] Pharmacist Pharmacist Uc Architect 09/06/23 10/09/23 Ruth Trinidad RPH [address] [place] [address] Assigned MTM Pharmacist 10/08/23 documented as of this encounter
--- OUTSIDE RECORDS SUMMARY | 2025-01-01 11:27 | XMS_ITS | Encounter Summary ---
Author Organization [place] Address [address] [place] [address]. [place] [address] Care Team Providers Care Field Services Director Name Role Phone vinayakAndreSwapna Nubia Unavailable Unavail able Jonathan Sosa MD Primary Care Provider [phone] Jonathan Sosa MD Unavailable [phone] Anne Lopez MD Unavailable [phone] Ruth Trinidad [facility] Unavailable Encounter Details Date Type Department Care Team (Late st Contact Info) Description 02/04/2024 [facility] [address] [place] [phone] Anne Vergara, RN Social History Tobacco Use Types Packs/Day [...] on file 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 Gender Identity Not on file Sexual Orientation Not on file Occupation Industry Job Start Date Job End Date disabled Not on file Not on file Not on file documented as of this encounter Plan of Treatment Not on file documented as of this encounter Visit Diagnoses Not on filedocumented in this encounter Care Teams Field Services Director Relationship Specialty Start Date End Date Jonathan Sosa MD [address] [place] [address] PCP - General Internal Medicine 02/14/22 Swapna Lockwood Referring Physician dragger out 12/29/14 Jonathan Sosa MD [address] [address] Assigned PCP 01/17/22 Anne Lopez MD [address] [place] [address] 36 [place], [place] [address] Gastroenterology 08/03/22 Ruth Trinidad RPH [address] [place] [address] Assigned MTM Pharmacist 10/08/23 documented as of this encounter
--- OUTSIDE RECORDS SUMMARY | 2025-01-01 11:27 | XMS_ITS | Encounter Summary ---
Author Organization [facility] Address [address] [place] [address] Care Team Providers Care Athletic Equipment Manager Name Role Phone Swapna licea Nubia Unavailable Unavail able Jonathan Sosa MD Primary Care Provider [phone] Jonathan Sosa MD Unavailable [phone] Anne Lopez MD Unavailable [phone] Ruth Trinidad [facility] Unavailable Encounter Details Date Type Department Care Team (Late st Contact Info) Description 08/24/2024 [facility] [address] [place] [address] Jeffrey Nye Social History Tobacco Use Types Packs/Day Years [...] friends or re latives? 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 Gender Identity Not on file Sexual Orientation Not on file Occupation Industry Job Start Date Job End Date disabled Not on file Not on file Not on file documented as of this encounter Plan of Treatment Not on file documented as of this encounter Visit Diagnoses Not on filedocumented in this encounter Care Teams Athletic Equipment Manager Relationship Specialty Start Date End Date Jonathan Sosa MD [address] [place] [address] PCP - General Internal Medicine 02/14/22 Swapna Lockwood Referring Physician boat diesel motor mechanic 12/29/14 Jonathan Sosa MD [address] [place] [address] Assigned PCP 01/17/22 Anne Lopez MD [address] [place] [address] 36 [place], [place] [address] Gastroenterology 08/03/22 Ruth Trinidad RPH [address] [place], [place] [address] Assigned MTM Pharmacist 10/08/23 documented as of this encounter
--- OUTSIDE RECORDS SUMMARY | 2025-01-01 11:27 | XMS_ITS | Encounter Summary ---
Author Organization [facility] Address [address] [place] [address]. [place] [address] Care Team Providers Care Animal Keeper Head Name Role Phone vinayak Swapna Nubia Unavailable Unavail able Jonathan Sosa MD Primary Care Provider [phone] Jonathan Sosa MD Unavailable [phone] Anne Lopez MD Unavailable [phone] Ruth Trinidad [facility] Unavailable Encounter Details Date Type Department Care Team (Late st Contact Info) Description 11/18/2023 [facility] [address] [place] [phone] Tammy Montgomery, RN Social History Tobacco [...] in an abandoned building, in an overnight penitentiary, or couch-surfing.) Yes 04/14/2023 Are you worried [...] on file 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 Gender Identity Not on file Sexual Orientation Not on file Occupation Industry Job Start Date Job End Date disabled Not on file Not on file Not on file documented as of this encounter Plan of Treatment Not on file documented as of this encounter Visit Diagnoses Not on filedocumented in this encounter Care Teams Animal Keeper Head Relationship Specialty Start Date End Date Jonathan Sosa MD [address] [place] [address] PCP - General Internal Medicine 02/14/22 Swapna Lockwood Referring Physician senior information security architect 12/29/14 Jonathan Sosa MD [address] [place] [address] Assigned PCP 01/17/22 Anne Lopez MD [address] [place] [address] 36 [place], [place] [address] Gastroenterology 08/03/22 Ruth Trinidad RP [address] [place] [address] Assigned MTM Pharmacist 10/08/23 documented as of this encounter
--- OUTSIDE RECORDS SUMMARY | 2025-01-01 11:27 | XMS_ITS | Encounter Summary ---
Author Organization [facility] Address [address] [place] [address]. 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 Gender Identity Not on file Sexual Orientation Not on file Occupation Industry Job Start Date Job End Date disabled Not on file Not on file Not on file documented as of this encounter Plan of Treatment Not on file documented as of this encounter Visit Diagnoses Not on filedocumented in this encounter Care Teams Security Engineer Relationship Specialty Start Date End Date Jonathan Sosa MD [address] [address] PCP - General Internal Medicine 02/14/22 Swapna Lockwood Referring Physician dinkey locomotive engineer 12/29/14 Jonathan Sosa MD [address] [address] Assigned PCP 01/17/22 Anne Lopez MD [address] [place] [address] 36 [place], [place] [address] Gastroenterology 08/03/22 Ruth Trinidad RPH [address] [place] [address] Assigned MTM Pharmacist 10/08/23 documented as of this encounter
--- OUTSIDE RECORDS SUMMARY | 2025-01-01 11:27 | XMS_ITS | Encounter Summary ---
Author Organization [place] Address [address] [place] [address]. [place] [address] Care Team Providers Care Bench Assembler Operator Name Role Phone Swapna licea Nubia Unavailable Unavail able Jonathan Sosa MD Primary Care Provider [phone] Jonathan Sosa MD Unavailable [phone] Anne Lopez MD Unavailable [phone] Ruth Trinidad [facility] Unavailable Encounter Details Date Type Department Care Team (Late st Contact Info) Description 09/08/2024 [facility] [address] [place] [phone] Flor Rod, RN Social History Tobacco Use Types Packs/Day [...] Answer Date Recorded PHQ-2 Score 0 05/05/2024 [facility] [place] of Occupat ional Health - Occupational Stress [...] on file 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 Gender Identity Not on file Sexual Orientation Not on file Occupation Industry Job Start Date Job End Date disabled Not on file Not on file Not on file documented as of this encounter Plan of Treatment Not on file documented as of this encounter Visit Diagnoses Not on filedocumented in this encounter Care Teams Bench Assembler Operator Relationship Specialty Start Date End Date Jonathan Sosa MD [address] [place] [address] PCP - General Internal Medicine 02/14/22 Swapna Lockwood Referring Physician home delivery driver 12/29/14 Jonathan Sosa MD [address] [place] [address] Assigned PCP 01/17/22 Anne Lopez MD [address] [place] [address] 36 [place], [place] [address] Gastroenterology 08/03/22 Ruth Trinidad RPH [address] [place], [place] [address] Assigned MTM Pharmacist 10/08/23 documented as of this encounter
--- OUTSIDE RECORDS SUMMARY | 2025-01-01 11:27 | XMS_ITS | Encounter Summary ---
Author Organization [facility] Address [address] [place] [address]. [place] [address] Care Team Providers Care Purification Supervisor Name Role Phone vinayakAndreSwapna Nubia Unavailable Unavail able Joanthan Sosa MD Primary Care Provider [phone] Jonathan Sosa MD Unavailable [phone] Anne Lopez MD Unavailable [phone] Ruth Trinidad [facility] Unavailable Encounter Details Date Type Department Care Team (Late st Contact Info) Description 02/03/2024 [facility] [address] [place] [phone] Anne Vergraa, RN Social History Tobacco Use Types Packs/Day [...] on file 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 Gender Identity Not on file Sexual Orientation Not on file Occupation Industry Job Start Date Job End Date disabled Not on file Not on file Not on file documented as of this encounter Plan of Treatment Not on file documented as of this encounter Visit Diagnoses Not on filedocumented in this encounter Care Teams Purification Supervisor Relationship Specialty Start Date End Date Jonathan Sosa MD [address] [address] PCP - General Internal Medicine 02/14/22 Swapna Lockwood Referring Physician treating machine operator 12/29/14 Jonathan Sosa MD [address] [address] Assigned PCP 01/17/22 Anne Lopez MD [address] [place] [address] 36 [place], [place] [address] Gastroenterology 08/03/22 Ruth Trinidad RPH [address] [place] [address] Assigned MTM Pharmacist 10/08/23 documented as of this encounter
--- OUTSIDE RECORDS SUMMARY | 2025-01-01 11:27 | XMS_ITS | Encounter Summary ---
Author Organization [facility] Address [address] [place] [address]. 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 Gender Identity Not on file Sexual Orientation Not on file Occupation Industry Job Start Date Job End Date disabled Not on file Not on file Not on file documented as of this encounter Plan of Treatment Not on file documented as of this encounter Visit Diagnoses Not on filedocumented in this encounter Care Teams Mother Baby Rn Relationship Specialty Start Date End Date Jonathan Sosa MD [address] [place] [address] PCP - General Internal Medicine 02/14/22 Swapna Lockwood Referring Physician gum cook 12/29/14 Jonathan Sosa MD [address] [place] [address] Assigned PCP 01/17/22 Anne Lopez MD [address] [place] [address] 36 [place], [place] [address] Gastroenterology 08/03/22 Ruth Trinidad RP [address] [place] [address] Assigned MTM Pharmacist 10/08/23 documented as of this encounter
--- OUTSIDE RECORDS SUMMARY | 2025-01-01 11:27 | XMS_ITS | Data Portability ---
Author Organization [facility], [facility] Address [address] [place] [address] Care Team Providers Care Vice President Mission Integration Name Role Phone GLADYS GRAHAM Primary Care Provider Assessment No assessment recorded. Plan of Treatment Reminders Order Date Submit Date Provider Last Modified By Organization Details Last Modified Time Details Appointments None record ed. Lab urinal ysis, dipsti ck 2024 025 [email or web address] [facility], [address], [place], [address], 5 12:22:34 potass ium, serum or plasma 2022 023 [email or web address] [facility], [address], [address], [place], [address], 3 10:32:03 urinal ysis, dipsti ck 2021 022 [email or web address] [facility], [address], [place], [address], 2 10:06:55 cultur e, urine 2021 022 FLOR [facility], [address], [address], [place], [address], 2 09:19:27 Referral None record ed. Procedures None record ed. Surgeries None record ed. Imaging CT, abdome n + pelvis , w/o contra st 2022 023 [email or web address] [facility], [address] [place] [address], [place], [address], 3 09:10:27 CT, abdome n + pelvis , w/o contra st 2021 022 [email or web address] [facility], [address] [facility], [place], [address], 2 13:45:18 CT, abdome n + pelvis , w/o contra st 2021 022 [email or web address] [facility], [facility] [address] [place], [address], 2 07:43:54 Medication Orders Dilaud id 2 mg tablet 2024 025 [facility], [address] [facility] [place], [id number], 5 13:06:25 potass ium citrat e ER 10 mEq (1,080 mg) tablet ,exten ded releas e 2024 025 [facility], [address] [facility] [place], [id number], 5 13:06:21 tamsul osin 0.4 mg capsul e 2024 025 [facility], [address] [facility] [place], [id number], 5 13:06:22 Dilaud id 2 mg tablet 2022 023 [facility], [address] [facility] [place], [id number], 3 14:26:39 tamsul osin 0.4 mg capsul e 2022 023 [facility], [address] [place] [address], [id number], 3 14:26:37 potass ium citrat e ER 10 mEq (1,080 mg) tablet ,exten ded releas e [address] [facility], [address] [place] [address], [id number], 3 15:17:57 amoxic illin 875 mg-pot assium clavul anate 125 mg tablet [address] [facility], [address] [place] [address], [id number], 18:40:53 Augmen tin XR 1,000 mg-62. 5 mg tablet ,exten ded releas e 2021 [facility], [address] [place] [address], [id number], 2 18:44:16 Dilaud id 2 mg tablet 2021 [facility], [address] [place] [address], [id number], 10:18:44 Dilaud id 2 mg tablet 2021 [facility], [address] [place] [address], [id number], 14:48:04 Urocit -K 10 10 mEq (1,080 mg) tablet ,exten ded releas e 2021 [facility], [address] [facility] [place], [id number], 14:48:02 Flomax 0.4 mg capsul e 2021 [facility], [address] [facility] [place], [id number], 14:48:02 Patient TargetsNo targets recorded. Patient Instructions Encounter Date Encounter Id Patient Instructions Last Modified By Organization Details Last Modified Time 01/17/2022 [id number] Telephone 14 minutes Not available 01/17/2022 14:50:48 Reason for Referral None Reported. Results Created Date Observation Date Name Description Value Unit Range Abnormal Flag Note LastModifiedBy Organization Detail LastModifiedTime 03/21/2003/21/2022 URINE CULTU RE final report MICROB IOLOGY RESULT S SOURC E Void KNOWN ALLER GIES see list TREAT MENT none MEDIA PLATE D AT: Media plate d on 2021 @ 5:06 PM COLON Y COUNT < 10,00 0 cfu/m l RESUL T No Furth er Lorena p This lab resul t is being provi ded to you and your provi lionel at the same time in compl iance with the Centu ry Cures Act. Your provi lionel may not have had time to revie w and make recom menda tions based on the resul t. Pleas e allow up to one week for provi lionel revie w. Not Available [facility] [address], [place], [address], 03/23/2022 09:19:27 03/21/20 22 03/21/2022 urina lysis , dipst ick Color-Status Yellow Not Available [facility] [address], [place], [address], 03/21/2022 10:06:28 03/21/20 22 03/21/2022 urina lysis , dipst ick Glucose-Stat us 1000 Not Available [facility] [address], [place], [address], 03/21/2022 10:06:28 03/21/20 22 03/21/2022 urina lysis , dipst ick pH-Status 5.0 Not Available [facility] [address], [place], [address], 03/21/2022 10:06:28 03/21/20 22 03/21/2022 urina lysis , dipst ick Nitrates-Sta tus negati ve Not Available [facility] [address], [place], [address], 03/21/2022 10:06:28 03/21/20 22 03/21/2022 urina lysis , dipst ick Blood-Status Modera te Not Available [facility] [address], [place], [address], 03/21/2022 10:06:28 03/21/20 22 03/21/2022 urina lysis , dipst ick Leuko-Status Negati ve Not Available [facility] [address], [place], [address], 03/21/2022 10:06:28 07/14/19 25 07/14/2024 urina lysis , dipst ick BLOOD Negati ve Not Available [facility] [address], [place], [address], 07/14/2024 12:16:16 07/14/19 25 07/14/2024 urina lysis , dipst ick BILIRUBIN Negati ve Not Available [facility] [address], [place], [address], 07/14/2024 12:16:16 07/14/19 25 07/14/2024 urina lysis , dipst ick UROBILINOGEN 0.2 mg/dL (Norm) Not Available [facility] [address], [place], [address], 07/14/2024 12:16:16 07/14/19 25 07/14/2024 urina lysis , dipst ick KETONES Negati ve Not Available [facility] [address], [place], [address], 07/14/2024 12:16:16 07/14/19 25 07/14/2024 urina lysis , dipst ick PROTEIN Negati ve Not Available [facility] [address], [place], [address], 07/14/2024 12:16:16 07/14/19 25 07/14/2024 urina lysis , dipst ick NITRITES Negati ve Not Available [facility] [address], [place], [address], 07/14/2024 12:16:16 07/14/19 25 07/14/2024 urina lysis , dipst ick GLUCOSE Negati ve Not Available [facility] [address], [place], [address], 07/14/2024 12:16:16 07/14/19 25 07/14/2024 urina lysis , dipst ick p.H. 7.0 Not Available [facility] [address], [place], [address], 07/14/2024 12:16:16 07/14/19 25 07/14/2024 urina lysis , dipst ick S.G. (Specific [place]) 1.015 Not Available [facility] [address], [place], [address], 07/14/2024 12:16:16 07/14/19 25 07/14/2024 urina lysis , dipst ick LEUKOCYTES Negati ve Not Available [facility] [address], [place], [address], 07/14/2024 12:16:16 01/13/2001/27/2021 MRI, scapu la, w/o contr ast No observ ation record ed. [email or web address] Not Available 2021 09:00:03 03/20/2001/25/2022 CT, abdom en + pelvi s, w/o contr ast No observ ation record ed. [email or web address] [facility] [address] [place], [address], 03/20/2022 18:13:21 04/10/2004/03/2023 PET-C T, skull base to mid-t high scan No observ ation record ed. [email or web address] Not Available 2022 10:30:08 07/10/19 25 06/16/2024 PET-C T, skull base to mid-t high scan No observ ation record ed. [email or web address] Not Available 2024 15:46:16 07/10/19 25 12/31/2023 PET-C T, skull base to mid-t high scan No observ ation record ed. [email or web address] Not Available 2024 15:47:14 Result Notes None recorded. Medical Equipment None Reported. Allergies Allergen ID Allergen Name Allergen Category Reaction Reaction Severity Criticality Documentation Date Start Date Code Code System Note Provider Name and Address Organization Details Recorded Time [id number] house dust allergeni c extract environme nt,medica tion Not available Not available Not available 01/17/2022 65904 9 RxNorm [place] [facility] 2 14:39:46 283123 hydrocodo ne Not available Not available Not available Not available 01/17/2022 5489 RxNorm [place] [facility] 2 14:40:07 739959 house dust mite environme nt Not available Not available Not available 01/17/2022 55853 UNK [place] [facility] 2 14:40:21 031020 shellfish derived food,medi cation Not available Not available Not available 01/17/2022 44552 [facility] 15:11:43 091608 Substance with sulfonami de structure and antibacte rial mechanism of action (substanc e) medicatio n Not available Not available Not available 01/17/2022 81717 8003 SN[facility]ED [facility] 15:12:01 411450 amoxicill in medicatio n Not available Not available Not available 01/17/2022 723 RxNorm [place], [facility] 2 15:12:10 860102 Ativan medicatio n Not available Not available Not available 01/17/2022 58933 9 RxNorm [place] roebr[place], [facility] 2 15:12:23 187172 azithromy mohit medicatio n Not available Not available Not available 01/17/2022 88946 [facility] 15:12:28 781611 betametha sone medicatio n Not available Not available Not available 01/17/2022 1514 [facility] 15:12:41 380417 cat dander environme nt Not available Not available Not available 01/17/2022 43477 [facility] 15:12:53 069286 cephalexi n medicatio n Not available Not available Not available 01/17/2022 2231 [facility] 15:12:58 345722 clindamyc in Not available Not available Not available Not available 01/17/2022 2582 RxNorm [place], [facility] 2 15:13:07 506343 doxycycli ne Not available Not available Not available Not available 01/17/2022 3640 [facility] 15:13:13 524639 Flagyl medicatio n Not available Not available Not available 01/17/2022 87991 6 RxNorm [place] Dwyeroza null, [facility] 2 15:13:26 360939 fluticaso ne Not available Not available Not available Not available 01/17/2022 40386 RxNorm [place] Carl[place] null, [facility] 2 15:13:33 917772 iodine medicatio n Not available Not available Not available 01/17/2022 5933 RxNorm [place] Dwyeroza null, [facility] 2 15:13:45 003268 Lidex medicatio n Not available Not available Not available 01/17/2022 93191 6 RxNorm [place] Dwyeroza null, [facility] 2 15:13:57 157107 metformin medicatio n Not available Not available Not available 01/17/2022 6809 RxNorm [place], [facility] 2 15:14:02 928432 mold extract environme nt Not available Not available Not available 01/17/2022 72579 8 RxNorm [place] Dwyeroza alejandra, [facility] 2 15:14:13 848910 morphine medicatio n Not available Not available Not available 01/17/2022 7052 RxNorm [place] Carlosa alejandra, [facility] 2 15:14:22 579987 sodium chloride medicatio n Not available Not available Not available 01/17/2022 9863 RxNorm [place] Carl[place] alejandra, [facility] 2 15:14:33 881805 Product containin g 3-hydroxy -3-methyl glutaryl- coenzyme A reductase inhibitor (product) medicatio n Not available Not available Not available 01/17/2022 53444 009 SNOMED [place], [facility] 2 15:14:48 288649 Zocor medicatio n Not available Not available Not available 01/17/2022 74901 3 RxNorm [place] Carl[place] alejandra, [facility] 2 15:14:54 182471 Zegerid Reformula amparo Jan 2006 medicatio n Not available Not available Not available 01/17/2022 99886 1 [facility] 15:15:03 388774 niacin medicatio n Not available Not available Not available 01/17/2022 7393 [facility] 15:15:13 770485 cholecalc iferol medicatio n Not available Not available Not available 01/17/2022 2418 RxNorm [place] [facility] 2 15:15:19 Medications Name Sig Start Date Stop Date Status Note LastModified by Organization Details LastModified Time lidoc/sm an/banop TAKE 10ML BY MOUTH BEFORE AND AFTER MEALS NEEDED 01/17 completed Not Available Not Available Not Available antac/sm al/lidoc TAKE 10 ML BY MOUTH BEFORE AND AFTER MEALS NEEDED 01/17 completed Not Available Not Available Not Available banop/lidoc /sm an TAKE 10 ML BY MOUTH BEFORE AND AFTER MEALS NEEDED 01/17 completed Not Available Not Available Not Available depends silhouette women l/xl USE DAILY DIRECTED active Not Available Not Available No t Available stretch vinyl exam glove xl USE 2 EACH NEEDED active Not Available Not Available No t Available cyclobenzap rine 10 mg tablet TAKE ONE TABLET BY MOUTH THREE TIMES A DAY NEEDED FOR MUSCLE SPASMS active Not Available Not Available No t Available BD Alcohol Swabs USE DIRECTED DAILY TO TEST BLOOD SUGARS active Not Available Not Available No t Available azelastine 0.05 % eye drops PLACE 1 DROP INTO BOTH EYES IN THE MORNING AND 1 DROP IN THE EVENING. active Not Available Not Available No t Available prednisone 10 mg tablet TAKE ONE TABLET BY MOUTH EVERY DAY FOR 7 DAYS active Not Available Not Available No t Available Dilaudid 2 mg tablet Take 1 tablet as needed by oral route. 2024 active Not Available Not Available Not Avai lable nicotine 14 mg/24 hr daily transdermal patch APPLY ONE PATCH TO THE SKIN EVERY DAY ALONG WITH A 21 MG PATCH FOR 4-6 WEEKS THEN TAPER IN 7-14 MG STEPS EVERY 2-6 WEEKS UNTIL OFF active Not Available Not Available No t Available loperamide 2 mg capsule TAKE ONE TO TWO CAPSULES BY MOUTH THREE TIMES A DAY NEEDED FOR DIARRHEA active Not Available Not Available No t Available azithromyci n 250 mg tablet TAKE 2 TABLETS BY MOUTH DAY 1, THEN TAKE 1 TABLET BY MOUTH ONCE DAILY DAYS 2-5 active Not Available Not Available No t Available Lidocaine Viscous 2 % mucosal solution 01/17 completed Not Available Not Available Not Available fluconazole 150 mg tablet TAKE 1 TABLET BY MOUTH TODAY (02/25) AND REPEAT EVERY 3 DAYS FOR 3 MORE DOSES, THEN TAKE 1 TABLET PER MONTH FOR 3 MONTHS active Not Available Not Available No t Available benzonatate 200 mg capsule TAKE ONE CAPSULE BY MOUTH THREE TIMES A DAY FOR 14 DAYS THEN TAKE ONE CAPSULE BY MOUTH THREE TIMES A DAY NEEDED 03/21 completed Not Available Not Available Not Available clarithromy mohit 500 mg tablet TAKE ONE TABLET BY MOUTH EVERY 12 HOURS FOR 14 DAYS 03/21 completed Not Available Not Available Not Available sucralfate 100 mg/mL oral suspension TAKE 10 ML BY MOUTH TWO TIMES A DAY 03/21 completed Not Available Not Available Not Available ondansetron HCl 8 mg tablet TAKE ONE TABLET BY MOUTH EVERY 8 HOURS NEEDED FOR NAUSEA AND VOMITING 01/17 completed Not Available Not Available Not Available fluconazole 200 mg tablet TAKE ONE TABLET BY MOUTH EVERY DAY FOR 10 DAYS 03/21 completed Not Available Not Available Not Available prednisone 20 mg tablet TAKE ONE TABLET BY MOUTH EVERY DAY FOR 7 DAYS active Not Available Not Available No t Available prednisone 5 mg tablet TAKE 2 TABLETS BY MOUTH DAILY FOR 3 DAYS, 1 TABLET DAILY FOR 3 DAYS, THEN 1 TABLET EVERY OTHER DAY FOR 3 DAYS active Not Available Not Available No t Available Accu-Chek Softclix Lancets USE TO TEST ONCE DAILY active Not Available Not Available No t Available Refresh Plus 0.5 % eye drops in a dropperette PLACE 1 DROP INTO BOTH EYES FOUR TIMES A DAY active Not Available Not Available No t Available olanzapine 10 mg tablet TAKE ONE TABLET BY MOUTH EVERY DAY AT BEDTIME 01/17 completed Not Available Not Available Not Available clotrimazol e 1 % vaginal cream APPLY 1 APPLICATI ON 2 TIMES A DAY INTRAVAGI CLAY FOR 7 DAYS, AFTER TWICE A WEEK FOR 6 MONTHS. active Not Available Not Available No t Available prochlorper azine maleate 10 mg tablet TAKE ONE TABLET BY MOUTH EVERY 6 HOURS NEEDED FOR NAUSEA AND VOMITING THAT IS NOT RELIEVED BY ONDANSETR ON 01/17 completed Not Available Not Available Not Available doxycycline monohydrate 100 mg tablet TAKE ONE TABLET BY MOUTH TWICE A DAY BEFORE BREAKFAST AND DINNER FOR 21 DAYS active Not Available Not Available No t Available Nicotrol 10 mg inhalation cartridge INHALE ONE PUFF NEEDED FOR SMOKING CESSATION FOR TABACCO CRAVING , USE UP TO 10 CAPSULES PER DAY active Not Available Not Available No t Available spironolact one 25 mg tablet TAKE ONE TABLET BY MOUTH EVERY DAY 03/21 completed Not Available Not Available Not Available simvastatin 40 mg tablet TAKE ONE TABLET BY MOUTH AT BEDTIME active Not Available Not Available No t Available warfarin 6 mg tablet TAKE ONE TABLET (6 MG) BY MOUTH ON MONDAYS, OR DIRECTED BY [facility]. active Not Available Not Available No t Available clarithromy mohit ER 500 mg tablet,exte nded release 24 hr TAKE TWO TABLETS BY MOUTH EVERY DAY FOR 14 DAYS 03/21 completed Not Available Not Available Not Available tamsulosin 0.4 mg capsule TAKE ONE CAPSULE BY MOUTH EVERY DAY active Not Available Not Available No t Available BlackJetToAccellion Ultra Test strips USE TO TEST THREE TIMES A DAY active Not Available Not Available No t Available diazepam 2 mg tablet TAKE TWO TABLETS BY MOUTH TWICE A DAY active Not Available Not Available No t Available potassium citrate ER 10 mEq (1,080 mg) tablet,exte nded release TAKE ONE TABLET BY MOUTH TWICE A DAY active Not Available Not Available No t Available benzonatate 100 mg capsule TAKE TWO CAPSULES BY MOUTH THREE TIMES A DAY NEEDED FOR COUGH active Not Available Not Available No t Available tacrolimus 0.1 % topical ointment APPLY TO AFFECTED AREA(S) TWO TIMES A DAY active Not Available Not Available No t Available dexamethaso ne 4 mg tablet TAKE ONE TABLET BY MOUTH TWICE A DAY NEEDED FOR NAUSEA OR VOMITING 01/17 completed Not Available Not Available Not Available prednisone 50 mg tablet TAKE ONE TABLET BY MOUTH 13 HRS. , 7 HRS. , AND 1 HR. BEFORE EXAM active Not Available Not Available No t Available polymyxin B sulfate 10,000 unit-trimet hoprim 1 mg/mL eye drops PLACE 1 DROP INTO BOTH EYES FOUR TIMES A DAY FOR 01/17 completed Not Available Not Available Not Available warfarin 5 mg tablet TAKE ONE TABLET (5 MG) BY MOUTH DAILY OR DIRECTED BY [facility]. active Not Available Not Available No t Available nicotine 21 mg/24 hr daily transdermal patch APPLY ONE PATCH TO THE SKIN EVERY DAY ALONG WITH A 14 MG PATCH FOR 4-6 WEEKS THEN TAPER IN 7-14 MG STEPS EVERY 2-6 WEEKS UNTIL OFF active Not Available Not Available No t Available mometasone 50 mcg/actuati on nasal spray ADMINISTE R 2 SPRAYS INTO EACH NOSTRIL DAILY active Not Available Not Available No t Available Banophen 25 mg capsule TAKE TWO CAPSULES BY MOUTH EVERY 6 HOURS NEEDED FOR ITCHING OR ALLERGIES active Not Available Not Available No t Available mometasone 0.1 % topical ointment APPLY TO ECZEMA AREAS ON THE ELBOWS AND FACE TWO TIMES A DAY NEEDED active Not Available Not Available No t Available mupirocin 2 % topical ointment APPLY TO AFFECTED AREAS 2 TIMES A DAY active Not Available Not Available No t Available furosemide 20 mg tablet TAKE ONE TABLET BY MOUTH TWICE A DAY NEEDED FOR SWELLING active Not Available Not Available No t Available levofloxaci n 500 mg tablet TAKE ONE TABLET BY MOUTH EVERY MORNING BEFORE BREAKFAST FOR 10 DAYS active Not Available Not Available No t Available methylpredn isolone 4 mg tablets in a dose pack TAKE DIRECTED ON PACKAGE 03/21 completed Not Available Not Available Not Available ferrous sulfate 325 mg (65 mg iron) tablet,ulysses yed release TAKE ONE TABLET BY MOUTH EVERY DAY active Not Available Not Available No t Available Vitamin D2 1,250 mcg (50,000 unit) capsule TAKE 1 CAPSULE BY MOUTH ONCE A WEEK ON TUESDAYS active Not Available Not Available No t Available hydromorpho ne 4 mg tablet TAKE ONE-HALF TABLET EVERY 4-6 HOURS BY MOUTH NEEDED active Not Available Not Available No t Available doxycycline hyclate 100 mg tablet TAKE ONE TABLET BY MOUTH TWICE A DAY active Not Available Not Available No t Available glipizide 5 mg tablet TAKE ONE-HALF TABLET BY MOUTH EVERY DAY BEFORE A MEAL active Not Available Not Available No t Available amoxicillin 875 mg-potassiu m clavulanate 125 mg tablet TAKE TWO TABLETS BY MOUTH EVERY 12 HOURS FOR 20 DAYS active Not Available Not Available No t Available Lovenox 120 mg/0.8 mL subcutaneou s syringe INJECT 120MG UNDER THE SKIN EVERY 12 HOURS FOR 5 DOSES 01/17 completed Not Available Not Available Not Available clindamycin phosphate 1 % topical solution APPLY TO AFFECTED AREA(S) OF GROIN TWO TIMES A DAY NEEDED active Not Available Not Available No t Available clindamycin 1 % lotion APPLY TO GROIN AREA TO PREVENT INFECTION EVERY DAY TO 2 TIMES A DAY. active Not Available Not Available No t Available Refresh Liquigel 1 % eye liquid gel drops INSTILL ONE DROP IN EACH EYE 2-4 TIMES PER DAY active Not Available Not Available No t Available azithromyci n 500 mg tablet TAKE ONE TABLET BY MOUTH EVERY DAY FOR 7 DAYS active Not Available Not Available No t Available amoxicillin -potassium clavulanate 1,000 mg-62.5 mg tablet,ext. rel 12hr TAKE TWO TABLETS BY MOUTH EVERY 12 HOURS FOR 20 DAYS active Not Available Not Available No t Available ezetimibe 10 mg tablet TAKE ONE TABLET BY MOUTH EVERY DAY active Not Available Not Available No t Available cyclobenzap rine 5 mg tablet TAKE ONE TABLET BY MOUTH THREE TIMES A DAY NEEDED FOR MUSCLE SPASMS active Not Available Not Available No t Available moxifloxaci n 0.5 % eye drops INSTILL 1 DROP 3 TIMES A DAY INTO LEFT EYE FOR 5 DAYS active Not Available Not Available No t Available ciprofloxac in 0.3 %-dexametha sone 0.1 % ear drops,suspe nsion INSTILL FOUR DROPS INTO THE AFFECTED EAR TWO TIMES A DAY FOR 7 DAYS active Not Available Not Available No t Available Nyamyc 100,000 unit/gram topical powder APPLY TO AFFECTED AREA(S) THREE TIMES A DAY NEEDED active Not Available Not Available No t Available Atrovent HFA 17 mcg/actuati on aerosol inhaler INHALE 1-2 PUFFS INTO THE LUNGS EVERY 6 HOURS NEEDED FOR WHEEZING active Not Available Not Available No t Available Zegerid 40 mg-1.1 gram capsule TAKE ONE CAPSULE BY MOUTH TWICE A DAY active Not Available Not Available No t Available olopatadine 0.2 % eye drops INSTILL ONE DROP INTO THE AFFECTED EYE(S) BY OPHTHALMI C ROUTE ONCE DAILY 01/17 completed Not Available Not Available Not Available FeroSul 325 mg (65 mg iron) tablet TAKE ONE TABLET BY MOUTH EVERY DAY active Not Available Not Available No t Available Tirosint 137 mcg capsule TAKE ONE CAPSULE BY MOUTH EVERY DAY active Not Available Not Available No t Available Banophen 50 mg capsule TAKE 1 CAPSULE BY MOUTH ONE HOUR PRIOR TO EXAM active Not Available Not Available No t Available Eliquis 5 mg tablet TAKE ONE TABLET BY MOUTH TWICE A DAY active Not Available Not Available No t Available Jardiance 10 mg tablet TAKE ONE TABLET BY MOUTH EVERY DAY 03/21 completed Not Available Not Available Not Available Jardiance 25 mg tablet TAKE ONE TABLET BY MOUTH EVERY DAY active Not Available Not Available No t Available OneTouch Delica Plus Lancet 30 gauge USE TO TEST ONCE DAILY active Not Available Not Available No t Available Rybelsus 3 mg tablet TAKE ONE TABLET BY MOUTH EVERY DAY active Not Available Not Available No t Available Mounjaro 7.5 mg/0.5 mL subcutaneou s pen injector INJECT 7.5 MG UNDER THE SKIN EVERY 7 DAYS 07/14 completed Not Available Not Available Not Available Mounjaro 5 mg/0.5 mL subcutaneou s pen injector INJECT 5 MG SUBCUTANE OUSLY EVERY 7 DAYS 07/14 completed Not Available Not Available Not Available Mounjaro 10 mg/0.5 mL subcutaneou s pen injector INJECT 0.5 ML (10 MG) SUBCUTANE OUSLY EVERY 7 DAYS active Not Available Not Available No t Available Mounjaro 2.5 mg/0.5 mL subcutaneou s pen injector INJECT 2.5MG UNDER THE SKIN EVERY 7 DAYS 07/14 completed Not Available Not Available Not Available Ozempic 0.25 mg or 0.5 mg (2 mg/3 mL) subcutaneou s pen injector INJECT 0.25 MG UNDER THE SKIN EVERY 7 DAYS active Not Available Not Available No t Available Vitals Date Recorded Body height Body mass index (BMI) Body weight Provider Name and Address Organization Details Last Updated DateTime 07/14/2024 152.4 cm 46.1 kg/m2 685125.8 g Peter Alexander MD [address] [facility] [address], [place], [address], [facility] 07/14/2024 12:14:56 Date Recorded Body height Body mass index (BMI) Body weight Provider Name and Address Organization Details Last Updated DateTime 01/17/2022 152.4 cm 45.9 kg/m2 982056.21 g [place] Devine [facility] 01/17/2022 14:33:11 Date Recorded Body height Body mass index (BMI) Body weight Provider Name and Address Organization Details Last Updated DateTime 03/21/2022 152.4 cm 46.1 kg/m2 624734.8 g Peter Alexander MD [address] [place] [address],[address] [phone] [place] [address] Urolog 03/21/2022 10:05:05 Date Recorded Body height Body mass index (BMI) Body weight Provider Name and Address Organization Details Last Updated DateTime 04/10/2023 152.4 cm 46.1 kg/m2 486192.8 g Peter Alexander MD [address] [place] [address],[facility] [address] [phone] [place] [address] Urology 04/10/2023 13:56:03 Social History Question Answer Notes LastModified by Organizat ion Details LastModified Time Tobacco Smoking Status Current Every Day Smoker [place] Nilson roberts [facility] 01/17/2022 14:34:28 What Is Your Level Of Caffeine Consumption? None [email or web address] Information not available 01/17/2022 What Was The Date Of Your Most Recent Tobacco Screening? 07/14/2024 Information not available 07/14/2024 Sex: Unknown Functional Status Question Answer Note LastModified by Organizat ion Details LastModified Time Do you use any illicit or recreational drugs? No [email or web address] Information not available 01/17/2022 Do you or have you ever used any other forms of tobacco or nicotine? No [email or web address] Information not available 01/17/2022 What is your level of alcohol consumption? None [email or web address] Information not available 01/17/2022 Mental Status None recorded. Family History Nothing Reported. Medical History Condition Response Kidney Stones Y Gynecological HistoryNo gynecological history recorded. Obstetrics History GPAL:G 0 P 0 0 0 0 Immunizations Vaccine Type Date Status Note Provider Nam e and Address Organization Details Recorded Time COVID-19, mRNA, LNP-S, PF, 30 mcg/0.3 mL dose 3 completed Peter Alexander MD [address] [place] [address],[address], [place], [address], [facility] 07/14/2024 12:15:04 COVID-19, mRNA, LNP-S, PF, pradeep-sucrose, 30 mcg/0.3 mL 4 completed Peter Alexander MD [address] [facility],[address], [place], [address], [facility] 07/14/2024 12:15:04 Pneumococcal conjugate PCV 13 2 completed Peter Alexander MD [address] [facility],[address], [place], [address], [facility] 03/21/2022 10:05:17 pneumococcal polysaccharide PPV23 8 completed Peter Alexander MD [address] [place] [address],[address], [place], [address], [facility] 03/21/2022 10:05:17 pneumococcal polysaccharide PPV23 5 completed Peter Alexander MD [address] [place] [address],[address], [place], [address], [facility] 03/21/2022 10:05:17 COVID-19, mRNA, LNP-S, PF, 100 mcg/0.5mL dose or 50 mcg/0.25mL dose 1 completed Mila Allar null, [facility] 05/20/2023 14:05:32 COVID-19, mRNA, LNP-S, PF, 100 mcg/0.5mL dose or 50 mcg/0.25mL dose 1 completed [facility] null, [facility] 05/20/[facility] 14:05:32 COVID-19, mRNA, LNP-S, PF, 30 mcg/0.3 mL dose 1 completed Mila Allar null, [facility] 05/20/2023 14:05:32 COVID-19, mRNA, LNP-S, PF, 30 mcg/0.3 mL dose, pradeep-sucrose 2 completed Mila Allar null, [facility] 05/20/2023 14:05:32 DT (pediatric) 6 completed Mila Allar null, [facility] 05/20/2023 14:05:32 Tdap 8 completed Mila Allar null, [facility] 05/20/2023 14:05:32 Td (adult), 5 Lf tetanus toxoid, preservative free, adsorbed 0 completed Mila roberts, [facility] 05/20/2023 14:05:32 Td (adult), 2 Lf tetanus toxoid, preservative free, adsorbed 9 completed Mila roberts, [facility] 05/20/2023 14:05:32 COVID-19, mRNA, LNP-S, bivalent, PF, 30 mcg/0.3 mL dose 2 completed Mila roberts, [facility] 05/20/2023 14:05:39 Past Encounters Encounter ID Performer Location Encounter Start Date Encounter Closed Date Diagnosis/Indication Diagnosis SNOMED-CT Code Diagnosis ICD10 Code Diagnosis Note [id number] [facility] [address] [place] [address] 01/17/2022 14:31:54 01/19/2022 13:26:33 Kidney stone 94806571 N20.0 1. Kidney stone- continue Urocit K 10 mEq 2x/day- Rx - Dilaudid 2 mg Q4 hrs prn (#20)- Rx Flomax 0.4 mg daily prn- F/U in 1-[address] scan (stone tech) - to reassess stone burden [id number] Peter Alexander MD _[employer] [address] [place] [address] 03/21/2022 09:53:53 03/22/2022 16:11:27 Kidney stone 52977133 N20.0 1. Kidney stone- reviewed CT scan (03/20/22) - no stones in kidneys or ureters- continue Urocit K 10 mEq 2x/day- Rx - Dilaudid 2 mg Q4 hrs prn (#20)- continue Flomax 0.4 mg daily prn- recommend check serum Potassium every 3 months- F/U [address] scan (stone) Dysuria 68080773 R30.0 2. Dysuria- check UCx- start Augmentin XR 1000 mg - 62.5 mg 2 pills BID x 20 days- cancel - Augmentin 875 mg - 125 mg BID [id number] MD [facility] [employer] [address] [place] [address] 04/10/2023 13:50:27 04/19/2023 14:20:42 Kidney stone 43505390 N20.0 1. Kidney stone- reviewed CT scan (04/03/23) - no stones in kidneys or ureters- continue Urocit K 10 mEq 2x/day- Rx - Dilaudid 2 mg Q4 hrs prn (#20)- continue Flomax 0.4 mg daily prn- recommend check serum Potassium every 3 months- F/U [address] scan ([employer]) Dysuria [id number] R30.0 2. Dysuria- check UCx- start Augmentin XR 1000 mg - 62.5 mg 2 pills BID x 20 days- cancel - Augmentin 875 mg - 125 mg BID [id number] Peter Alexander MD _[place] [address] [place] [id number] 07/14/2024 12:05:08 07/17/2024 15:55:18 Kidney stone 31927586 N20.0 1. Kidney stone- reviewed CT/PET scan (06/16/24) - no stones in kidneys or ureters- continue Urocit K 10 mEq 2x/day- Rx - Dilaudid 2 mg Q4 hrs prn (#20)- continue Flomax 0.4 mg daily prn- recommend check serum Potassium every 3 months- F/U [address] scan ([employer]) Health Concerns Section Related Observation LastModified by Organization Detai ls LastModified Time None Recorded Concern Status LastModified by Organization Details LastModified Time None Recorded Advance Directives Directive None Recorded Payers Insurance Date Sequence Insurance Name Policy Number Policy Quinonez Covered Member ID Quinonez Member ID Guarantor Name 07/11/2024 2 [place] Estrellita Denise [id number] Estrellita Denise 07/11/2024 1 [place] [employer] Estrellita Denise [id number] Estrellita Denise Notes Date Note Type Note Provider Name and Address Organization Details Recorded Time 01/17/2022 text/html 61 yo female wit h history of kidney stones (100% uric acid) in the past. She underwent a metabolic evaluation for a kidney stone in 2009 - 24 Hr urine study was unremarkable. She is taking Urocit K 10 mEq (1080 mg) b.i.d. She is not a candidate for allopurinol. She occasionally passes stones - 1 every 1-2 months. She takes Flomax 0.4 once daily during stone passage episodes and uses Dilaudid 2 mg PO every 4 hours prn for pain control.- s/p Right ureteroscopy with laser lithotripsy - (11/01/16)- s/p Left PCNL - (11/01/16) She did not tolerate Sodium bicarbonate. She is on Urocit K 10 mEq BID. 01/17/22 - She presents for follow-up on kidney stones. She was diagnosed with non-small cell Lung cancer (December 2020) - treated with Radiation and Chemotherapy. She reports passing a kidney stone every 2-3 months. She denies flank pain currently. She denies trouble with urination - no urgency or dysuria. CT scan (07/04/15) - Left - 11 mm stone in renal pelvis and 5 mm stone in lower pole- Right - no stonesKUB (11/28/15) - no stones seenCT scan at [facility] 2015 reportedly showed a 7 cm and a 5 cm stones in the Left kidney. A Left percutaneous nephrolithotomy was recommended. It can not be performed in conjunction with a hysterectomy.CT scan (01/20/16) images from the [facility] - Left - 3 cm lower pole stone and 7 mm mid-pole stone - Right - no stonesCT scan (08/29/16) - Left - partial staghorn (3.5 cm) lower pole and 6 mm and 5 mm stones in midpole - Right - 5 mm stone (lower pole)CT scan (08/26/17) - no stonesCT scan (09/17/18) - ? 1 mm stone in Left lower pole - no other stonesThis visit was conducted by telephone due to the COVID- crisis. Prior to conducting our telephone visit, the patient was apprised of the risks, benefits and alternatives to telephone visits including but not limited to poor audio quality, interrupted visits due to technological limitations, delays in medical evaluation and treatment due to deficiencies or failures of equipment, failure of security protocols resulting in a breach of privacy of personal medical information and a lack of access to complete medical records resulting in not fully informed decisions. Also, because of the COVID-19 pandemic, it was not possible for the patient to sign the privacy regulations, HIPAA release and assignment of benefits forms. The patient was given the opportunity to ask questions about these policies and gave verbal acknowledgement and approval of these policies as well as to hold this meeting by telephone. Lastly, the patient agreed to allowing their medication history to be pulled from a national pharmacy database to facilitate and coordinate their care. Peter Alexander MD [address] [place] [address],[address], [place], [address], [facility] [place] [facility] 01/17/2022 18:08:39 03/21/2022 text/html 62 yo female wit h history of kidney stones (100% uric acid) in the past. She underwent a metabolic evaluation for a kidney stone in 2009 - 24 Hr urine study was unremarkable. She is taking Urocit K 10 mEq (1080 mg) b.i.d. She is not a candidate for allopurinol. She occasionally passes stones - 1 every 1-2 months. She takes Flomax 0.4 once daily during stone passage episodes and uses Dilaudid 2 mg PO every 4 hours prn for pain control.- s/p Right ureteroscopy with laser lithotripsy - (11/01/16)- s/p Left PCNL - (11/01/16) She did not tolerate Sodium bicarbonate. She is on Urocit K 10 mEq BID. - diagnosed with non-small cell Lung cancer (December 2020) - treated with Radiation and Chemotherapy 01/17/22 - She presents for follow-up on kidney stones. She was diagnosed with non-small cell Lung cancer (December 2020) - treated with Radiation and Chemotherapy. She reports passing a kidney stone every 2-3 months. She denies flank pain currently. She denies trouble with urination - no urgency or dysuria. 03/21/22 - She presents for follow-up on kidney stones. She was treated for a UTI and sinus infection in February 2022 (Augmentin 2000/125 BID for a month). She denies flank pain currently. She notes some dysuria and lower back pain. No fevers.- UA - moderate blood - no LE CT scan (07/04/15) - Left - 11 mm stone in renal pelvis and 5 mm stone in lower pole- Right - no stonesKUB (11/28/15) - no stones seenCT scan at [facility] reportedly showed a 7 cm and a 5 cm stones in the Left kidney. A Left percutaneous nephrolithotomy was recommended. It can not be performed in conjunction with a hysterectomy.CT scan (01/20/16) images from the [facility] - Left - 3 cm lower pole stone and 7 mm mid-pole stone - Right - no stonesCT scan (08/29/16) - Left - partial staghorn (3.5 cm) lower pole and 6 mm and 5 mm stones in midpole - Right - 5 mm stone (lower pole)CT scan (08/26/17) - no stonesCT scan (09/17/18) - ? 1 mm stone in Left lower pole - no other stonesCT scan (03/20/22) - 5.7 cm consolidation in anterior Left upper lobe (growing) - no evidence of metastatic disease- no stones in kidneys or ureters Peter Alexander MD [address] [facility],[address], [place], [address], [facility] [place] [facility] 03/21/2022 18:55:01 04/10/2023 text/html 63 yo female wit h history of kidney stones (100% uric acid) in the past. She underwent a metabolic evaluation for a kidney stone in 2009 - 24 Hr urine study was unremarkable. She is taking Urocit K 10 mEq (1080 mg) b.i.d. She is not a candidate for allopurinol. She occasionally passes stones - 1 every 1-2 months. She takes Flomax 0.4 once daily during stone passage episodes and uses Dilaudid 2 mg PO every 4 hours prn for pain control. - s/p Right ureteroscopy with laser lithotripsy - (11/01/16)- s/p Left PCNL - (11/01/16) She did not tolerate Sodium bicarbonate. She is on Urocit K 10 mEq BID. - diagnosed with non-small cell Lung cancer (December 2020) - treated with Radiation and Chemotherapy 01/17/22 - She presents for follow-up on kidney stones. She was diagnosed with non-small cell Lung cancer (December 2020) - treated with Radiation and Chemotherapy. She reports passing a kidney stone every 2-3 months. She denies flank pain currently. She denies trouble with urination - no urgency or dysuria. 03/21/22 - She presents for follow-up on kidney stones. She was treated for a UTI and sinus infection in February 2022 (Augmentin 2000/125 BID for a month). She denies flank pain currently. She notes some dysuria and lower back pain. No fevers. 04/10/23 - She presents for follow-up on kidney stones. She passed several stones this summer. She denies flank pain currently- CT/PET scan (04/03/23) - no obvious stones in kidneys CT scan (07/04/15) - Left - 11 mm stone in renal pelvis and 5 mm stone in lower pole- Right - no stonesKUB (11/28/15) - no stones seenCT scan at [facility] 2015 reportedly showed a 7 cm and a 5 cm stones in the Left kidney. A Left percutaneous nephrolithotomy was recommended. It can not be performed in conjunction with a hysterectomy.CT scan (01/20/16) images from the [facility] - Left - 3 cm lower pole stone and 7 mm mid-pole stone - Right - no stonesCT scan (08/29/16) - Left - partial staghorn (3.5 cm) lower pole and 6 mm and 5 mm stones in midpole - Right - 5 mm stone (lower pole)CT scan (08/26/17) - no stonesCT scan (09/17/18) - ? 1 mm stone in Left lower pole - no other stonesCT scan (03/20/22) - 5.7 cm consolidation in anterior Left upper lobe (growing) - no evidence of metastatic disease - no stones in kidneys or uretersCT/PET scan (04/03/23) - no obvious stones in kidneys Peter Alexander MD [address] [facility],[address], [place], [address], [place] [facility] [place] [facility] 04/10/2023 15:19:01 07/14/2024 text/html 64 yo female wit h history of kidney stones (100% uric acid) in the past. She underwent a metabolic evaluation for a kidney stone in 2009 - 24 Hr urine study was unremarkable. She is taking Urocit K 10 mEq (1080 mg) b.i.d. She is not a candidate for allopurinol. She occasionally passes stones - 1 every 1-2 months. She takes Flomax 0.4 once daily during stone passage episodes and uses Dilaudid 2 mg PO every 4 hours prn for pain control. - s/p Right ureteroscopy with laser lithotripsy - (11/01/16)- s/p Left PCNL - (11/01/16) She did not tolerate Sodium bicarbonate. She is on Urocit K 10 mEq BID. - diagnosed with non-small cell Lung cancer (December 2020) - treated with Radiation and Chemotherapy 03/21/22 - She presents for follow-up on kidney stones. She was treated for a UTI and sinus infection in February 2022 (Augmentin 2000/125 BID for a month). She denies flank pain currently. She notes some dysuria and lower back pain. No fevers. 04/10/23 - She presents for follow-up on kidney stones. She passed several stones this summer. She denies flank pain currently 07/14/24 - She presents for follow-up on kidney stones. She passed stones this past Fall. She denies abdominal or flank pain.- CT/PET Scan (06/16/24) - no obvious kidney stones- UA - no blood - no LE CT scan (07/04/15) - Left - 11 mm stone in renal pelvis and 5 mm stone in lower pole- Right - no stonesKUB (11/28/15) - no stones seenCT scan at [facility] in December 2015 reportedly showed a 7 cm and a 5 cm stones in the Left kidney. A Left percutaneous nephrolithotomy was recommended. It can not be performed in conjunction with a hysterectomy.CT scan (01/20/16) [facility] - Left - 3 cm lower pole stone and 7 mm mid-pole stone - Right - no stonesCT scan (08/29/16) - Left - partial staghorn (3.5 cm) lower pole and 6 mm and 5 mm stones in midpole - Right - 5 mm stone (lower pole)CT scan (08/26/17) - no stonesCT scan (09/17/18) - ? 1 mm stone in Left lower pole - no other stonesCT scan (03/20/22) - 5.7 cm consolidation in anterior Left upper lobe (growing) - no evidence of metastatic disease - no stones in kidneys or uretersCT/PET scan (04/03/23) - no obvious stones in kidneysCT/PET Scan (06/16/24) - no obvious kidney stones Peter Alexander MD [address] [facility],[address], [place], [address], [facility] [place] [facility] 07/14/2024 23:00:58 OBGyn Episode No OBEpisode recorded.
--- OUTSIDE RECORDS SUMMARY | 2025-01-01 11:27 | XMS_ITS | Clinical Summary ---
Author Organization [facility] Address [address], [place] [address] Care Team Providers Care Waste Transportation Technician Name Role Phone Dale Brar MD Primary Care Provider + [phone] Source Comments You are receiving this document as you are listed as the primary care provider,follow-up provider, or the patient has been referred to you for consultation.This is in compliance with the Medicare andMedicaid EHR Incentive Program,which states Providers who transition their patient to another setting of careor provider of care or refers their patient to another provider of care shouldprovide summary care record for each transition of care or referral. Moving Off Campus Allergies Active Allergy Reactions Criticality Noted Date Comments Amoxicillin Hives 07/05/2017 HUT Comment: Able to take Augmentin tablet but not capsule Azithromycin Unknown 11/28/2009 HUT Comment: ? Betamethasone Unknown 02/03/2015 Canine 02/19/2010 Cat Dander 02/19/2010 Cephalexin Unknown 01/23/2016 HUT Comment: Terrible heart burn cannot breathe Cholecalciferol Rash Low 02/03/2015 Clindamycin Hives High 03/03/2018 Also gets severe heartburn leading to breathing trouble.; HUT Comment: OK with topical preparation.Heartb urn from capsule. No vaginal please.; HUT Reaction: Hives; HUT Reaction Type: Allergy; HUT Severity: High; HUT Noted: [id number] Doxycycline Rash 12/17/2017 Dust Breathing Difficulty,Other, see comments High 02/09/2010 HUT Reaction: Dyspnea Dust Mite Extract Respiratory Distress High 02/10/20 10 Fluocinonide Rash 03/11/2018 Fluticasone-Salmeterol Hives 02/03/2015 Rtqkgervngy-Nblcjrbnd-Vm lant Hives 02/03/2015 Hydrocodone-Acetaminophe n Hives High 02/03/2015 Iodine Other, see comments 12/09/2014 HUT Comment: severe edema to L leg; HUT Reaction: Other - Describe In Comment Field Lorazepam Rash 02/03/2015 Metformin Other, see comments 02/24/2013 HUT Reaction: Nausea Only Metronidazole 12/21/2015 Vaginal swelling with Metrogel. Rash on arms with oral Flagyl Metronidazole And Other Nitroimidazoles Hives 01/15/2007 Mite (D. Farinae) Other, see comments High 0 HUT Reaction: Dyspnea Molds & Smuts Rash 12/07/2014 Morphine Breathing Difficulty 07/04/2015 Niacin Rash Low 03/09/2010 Penicillins Rash 12/21/2015 Shellfish Allergy 12/21/2015 Shellfish-Derived Products Anaphylaxis High 11/28/2009 HUT Comment: Tongue swells/ unable to breath Simvastatin 05/23/2006 PN: pain in legs; HUT Comment: Only allergy to Brand can take generic.; HUT Reaction: Edema,generalized; HUT Noted: [id number] Sodium Chloride Unknown 02/03/2015 HUT Comment: Do not use IV saline due to severe water retension Statins Other, see comments 02/03/2015 HUT Reaction: Arthralgia Sulfa Antibiotics 05/23/2006 PN: LW Reaction: HIVES; HUT Reaction: Hives; HUT Noted: [id number] Sulfasalazine Anaphylaxis High 05/23/2006 HUT Comment: PN: LW Reaction: HIVES Medications ascorbic acid (VITAMINC) 500 MG tablet Take 500 mg by mouth 3 times daily. 6 Active diphenhydrAMINE (BENADRYL) 50 MG capsule Take 50 mg by mouth every 6 hours as needed for Itching. 6 Active loperamide (IMODIUM) 2 MG capsule Take 2 mg by mouth 4 times daily as needed for Diarrhea. 6 Active ipratropium (ATROVENTHFA) 17 MCG/ACT inhaler Inhale 1 puff every 6 hours. 6 Active DIAZEpam (VALIUM) 2 MG tabletIndication s:Anxiety (HRC) Take 1 Tab by mouth every 8 hours as needed for Anxiety. 30 Tab 0 7 Active ciprofloxacin-de xamethasone (CIPRODEX) 0.3-0.1 % ear drop suspensionnIndic ations:Endometri al hyperplasia with atypia Place 4 Drops in ear(s). Active olopatadine (PATANOL) 0.1 % eye drop solutionIndicati ons:Endometrial hyperplasia with atypia Place 1 Drop into eye(s). Active warfarin (COUMADIN) 7.5 MG tabletIndication s:Endometrial hyperplasia with atypia Take 7.5 mg by mouth daily. Active Coenzyme Y85-Idlwbiy E 100-100 MG-UNIT CAPS Take 1 Cap by mouth daily. 6 Active ferrous sulfate (AKA IRON SULFATE) 325 (65 FE) MG enteric coated tablet Take 325 mg by mouth two times a day. 7 Active HYDROmorphone (DILAUDID) 2 MG tablet Take 2 mg by mouth as needed. 7 Active TIROSINT 150 MCG capsule Take 137 mcg by mouth daily. 1 8 Active Vitamin D, Ergocalciferol, 53350 UNITS CAPS Take 50,000 Units by mouth. 7 Active potassium citrate (UROCIT-K) 10 MEQ (1080 MG) controlled release tablet Take 20 mEq by mouth daily. 7 Active ZEGERID 40-1100 MG capsule Take 1 Cap by mouth two times a day. 2 8 Active cyclobenzaprine (FLEXERIL) 10 MG tablet Take 1 Tab by mouth once as needed for Muscle Spasms for up to 1 dose. 5 Tab 8 Active acetaminophen (TYLENOL) 325 MG tablet Take 325-650 mg by mouth every 4 hours as needed for Pain. Active disposable glovesIndication s:Eczema, unspecified type,Hydradeniti s 2 boxes size large, 3 boxes size extra large 5 Each 9 Active magnesium Take 250 mg by mouth. Active Riboflavin (B2 OR) Take 100 mg by mouth. Active Multiple Vitamin (MULTIVITAMIN) tablet Take 1 Tablet by mouth. Active Pyridoxine HCl (B-6 OR) Active BIOTIN OR Active Cyanocobalamin (B-12 OR) Active jk-rjnaarkwyp-na anocobalamin (FOLTX) 2.5 mg-25 mg-2 mg tablet Take 1 Tablet by mouth. 9 Active nystatin (MYCOSTATIN) 143626 UNIT/GM powderIndication s:Yeast infection of the skin Apply 3 times daily to affected areas 60 g 6 0 Active furosemide (LASIX) 20 MG tablet TAKE ONE-HALF TO ONE TABLET BY MOUTH ONCE DAILY NEEDED FOR SWELLING 0 Active doxycycline hyclate (VIBRA-TABS) 100 MG tablet Take 1 Tablet by mouth two times a day. for 10 days 20 Tablet 0 Active Zinc Acetate 25 MG Take 50 mg by mouth. Active Active Problems Problem Noted Date Diagnosed Date Acquired hypothyroidism 08/05/2018 Endometrial cancer 06/19/2018 Secondary erythrocytosis 05/13/2018 Iron deficiency 02/03/2018 Type 2 diabetes mellitus wit h hemoglobin A1c goal of less than 7.0% 11/01/2017 Sleep apnea with mood disorder 09/10/2016 Anticoagulation monitoring, INR range 2-3 2016 Cigarette nicotine dependenc e with nicotine-induced disorder 07/02/2016 History of pulmonary embolus (PE) 07/02/2016 Centrilobular emphysema 05/16/2016 Overview (05/16/2016): 40 pack year smoking history Kidney stones 12/21/2015 DM II (diabetes mellitus, type II), controlled 0 12/21/2015 Migraines 02/21/2010 Urinary, incontinence, stress female 02/21/2010 Acid reflux 02/21/2010 Hyperlipidemia 02/21/2010 Sleep apnea 02/21/2010 Morbid obesity due to excess calories Bipolar 1 disorder Asthma COPD (chronic obstructive pulmonary disease) Vitamin D deficiency Resolved Problems Problem Noted Date Diagnosed Date Resolved Date Endometrial hyperplasia with atypia 12/05/2017 01/21/2018 Type 1 diabetes mellitus wit h hemoglobin A1c goal of less than 7.0% 02/05/2017 11/01/2017 Bilateral kidney stones 11/03/201610/16 Vaginal bleeding 05/16/2016 08/17/2016 Endometrial hyperplasia with atypia 12/20/2015 12/24/2018 Kidney stones 11/28/2015 06/19/2019 Hypothyroidism 02/21/2010 08/05/2018 Asthma 02/21/2010 07/02/2016 Edema 02/21/2010 07/02/2016 Hypertension 02/21/2010 07/02/2016 Diabetes mellitus, type 2 02/21/2010 Overview (04/17/2019): a system change updated this record. This will not affect patient care or billing. This comment can be deleted. Heartburn 02/21/2010 07/02/2016 Sleep disturbance 02/21/2010 07/02/2016 Shortness of breath on exertion 02/21/2010 07/02/2016 Morbid obesity 02/21/2010 06/19/2019 Pulmonary embolism 0 Anemia 07/02/2016 Anemia 07/02/2016 Immunizations Immunization Administration Dates Next Due DT Ped 10/07/1985,10/07/1985 Moderna Monovalent 12+ 10/12/2020,09/14/2020 PPSV23 (Pneumovax) 04/12/2015,04/12/2015, 008,04/14/2008 Pfizer Monovalent 12+ Purple Top 03/03/2021 Td 08/05/2018,05/31/2008,05/31/2008 Td, Preservative Free 05/27/2020 Tdap 05/21/2008,05/21/2008 Zoster RZV (Shingrix) 06/19/2019,06/15/2019 Family History Medical History Relation Name Comments Coronary Artery Disease Father x3 b ypass surgeries Diabetes Father Hypertension Father Cancer Mother Ovarian, stomac h Cancer, Ovary Mother Diabetes Mother Coronary Artery Disease Brother 1 of CA at 52 a couple of days after bypass surgery Coronary Artery Disease Brother 8 Cancer, Breast Maternal Aunt 60's Cancer, Breast Maternal Grandfather 60s Hypertension Maternal Grandmother Cancer, Colon No Family History 1 Cancer, Prostate No Family History 2 Cancer, Melanoma Paternal Grandfather tamia kemia Cancer, Lung Paternal Grandmother Osteoporosis Negative Family History Relation Name Status Comments Father cancer that spr ead Mother Brother 1 Brother 2 Alive Brother 3 Alive Brother 4 Alive Brother 5 Alive Brother 6 Alive Brother 7 Alive Brother 8 Maternal Aunt Maternal Grandfather (Age 60) he art attack Maternal Grandmother (Age 85) bl ood cancer No Family History 1 No Family History 2 Paternal Grandfather Paternal Grandmother Social History Tobacco Use Types Packs/Day Years Used Date Smoking Tobacco: Every Day Cigarettes 0.5 33 Smokeless Tobacco: Never Comments:5-10 cigs per day - do not ask if she is ready to quit Alcohol Use Standard Drinks/Week Comments No 0 (1 standard drink = 0.6 oz pur e alcohol) Comments No Sex and Gender Information Value Date Recorded Sex Assigned at Not on file Legal Sex Female 10:40 AM CDT Gender Identity Not on file Sexual Orientation Not on file Occupation Industry Job Start Date Job End Date DISABILITY 10/15/1996 Not on file Not on file Not on f ile Last Filed Vital Signs Vital Sign Reading Time Taken Comments Blood Pressure 93/74 11/10/2021 8:02 AM CDT Pulse 109 11/10/2021 8:02 AM CDT Temperature 36.7 C (98.1 F) 12/26/2017 3:15 PM CDT Respiratory Rate - - Oxygen Saturation - - Inhaled Oxygen Concentration - - Weight 109.8 kg (242 lb) 11/10/2021 8:02 AM CDT Height 152.4 cm (5') 12/07/2020 9:52 AM CDT Body Mass Index 47.26 12/07/2020 9:52 AM CDT Plan of Treatment Health Maintenance Due Date Last Done Comments Colon Cancer Screening Plan Due 1961 Diabetes: Eye Exam 1961 Diabetes: Foot Exam 1961 Diabetes: Lipid Panel 1961 Diabetes: Urine Microalbumin 1961 Hep C Screening (Preventive Services) 1961 Medicare Annual Wellness Visit 1961 HIV Screening (Preventive Services) 1977 Diabetes: Creatinine 12/26/2018 12/26/2017 Zoster/Shingles Vaccine (2 of 2) 08/14/2019 06/19/2019, 06/15/2019 Cervical Cancer Screening 01/25/20202016, 01/24/2017, 08/15/2016 (Completed), Additional history exists COVID-19 Vaccine ( season) 2024 08/16/2023, 10/17/2022, 05/31/2022, Additional history exists Diabetes: HGBA1C 05/19/2024 11/18/2023, 08/2023, 04/03/2023, Additional history exists Mammogram 09/30/2024 10/01/2023, 10/15, 11/01/2021, Additional history exists Influenza Vaccine (#1) 2025 Pneumococcal Vaccine 50+ Yrs (3 of 3 - PCV) 06/30/2026 06/30/2021, 04/12/2015, 04/12/2015, Additional history exists DTaP/Tdap/Td Vaccine (9 - Tdap) 05/27/2030 05/27/2020, 08/05/2018, 05/31/2008, Additional history exists RSV Vaccine (1 - 1-dose 75+ series) 2036 HepA Vaccine Aged Out No longer eligi ble based on patient's age to complete this topic HepB Vaccine Aged Out No longer eligi ble based on patient's age to complete this topic Hib Vaccine Aged Out No longer eligi ble based on patient's age to complete this topic IPV (Polio) Vaccine Aged Out No longe r eligible based on patient's age to complete this topic MCV4 Vaccine Aged Out No longer eligi ble based on patient's age to complete this topic Meningococcal B Vaccine Aged Out No l onger eligible based on patient's age to complete this topic Procedures Procedure Name Priority Date/Time Associated Diagnosis Comments BASIC METABOLIC PANEL Routine 12/26/2017 4:11 PM CDT Complex endometrial hyperplasia with atypia ANATOMICAL PATH LIQUID BASED Routine 01/24/2017 9:04 AM CDT from Last 3 Months or Most Recently Relevant to Health Maintenance Results * (ABNORMAL) Basic Metabolic Panel (12/26/2017 4:11 PM CDT) Creatinine Serum 0.63 0.55 - 1.02 mg/dL PN SOFT Lab Glucose 117(H) 70 - 100 mg/dL PN SOFT Comment: The stated glucose range is for the fasting state. Non-fasting glucose range is 70-180 mg/dL CO2 33(H) 22 - 31 mmol/L PN SOFT Chloride 101 98 - 109 mmol/L PN SOFT Potassium 4.5 3.5 - 5.2 mmol/L PN SOFT Sodium 143 136 - 145 mmol/L PN SOFT Blood Urea Nitrogen 12 9 - 26 mg/dL PN SOFT Calcium 9.1 8.4 - 10.4 mg/dL PN SOFT Est GFR Am >60 >60 mL/min/1.7 3m2 PN SOFT Est GFR Non-Afr Am >60 >60 mL/min/1.7 3m2 PN SOFT Comment: Normal>60, moderate decrease 30 - 59, severe decrease 15 - 29, renal failure <15 mL/min/1.73 m2 NOTE: Choose the eGFR result above appropriate for the race of the patient. 12/26/2017 4:11 PM CDT 12/26/2017 4:26 PM CDT Narrative PN SOFT - 12/26/2017 4:55 PM CDT Performed at [address] [address] CLIA number [id number] us Carlos Wade MD LAB_1 Final Result SOFT [address] [place] [id number] * Pap Smear (01/24/2017 9:04 AM CDT) 01/24/2017 9:04 AM CDT Narrative PN SOFT - 01/29/2017 4:50 PM CDT FINAL GYNECOLOGICAL CYTOLOGY REPORT Pathology #: [id number] Date Obtained: 01/24/2017 Date Received: 01/25/2017 INTERPRETATION/RESULTS: Negative for Intraepithelial Lesion or Malignancy. SPECIMEN ADEQUACY: Satisfactory for Evaluation. Endocervical cells/transformation zone component present. Verified on 01/29/2017 by SONU PRAKASH(ASCP) (electronic signature) CLINICAL NOTES: Abnormal bleeding: No, LMP: postmenopausal, Menstrual status: Post Menopausal, Current form of therapy: None apply LIQUID BASED PAP SMEAR SPECIMEN TYPE: ROUTINE CERVICAL PAP TEST PLEASE NOTE: The pap smear is a screening test designed to aid in the detection of cervical cancer and its precursor lesions. It is not a diagnostic procedure and should not be used as the sole means of detecting cervical cancer. Both false-positive and false-negative reports may occur. Performed at [address] [address] us Nicole Bailey DO LAB_1 Final Result PN SOFT [address] [place] [address] from Last 3 Months or Most Recently Relevant to Health Maintenance Insurance [facility] [place] [address] MEDICARE Advance Directives Documents on File Type Date Recorded Patient Control Valve Technician Expl anation HEALTHCARE DIRECTIVE 05/09/2018 018 HEALTHCARE DIRECTIVE 11/01/2016 12-06-19 15 HEALTHCARE DIRECTIVE 10/23/2016 12/05/14 Care Teams Waste Transportation Technician Relationship Specialty Start Date End Date Dale Brar MD [address] [place] [address] PCP - General Internal Medicine 12/13/23
--- OUTSIDE RECORDS SUMMARY | 2025-01-01 11:27 | XMS_ITS | Encounter Summary ---
Author Organization [place] Address [address] [place] [address]. [place] [address] Care Team Providers Care Electrical Accessories I Assembler Name Role Phone vinayak Swapna Nubia Unavailable Unavail able Jonathan Sosa MD Primary Care Provider [phone] Jonathan Sosa MD Unavailable [phone] Anne Lopez MD Unavailable [phone] Ruth Trinidad [facility] Unavailable Encounter Details Date Type Department Care Team (Late st Contact Info) Description 01/01/2024 [facility] [address] [place] [phone] Concepcion Knight, RN Social History Tobacco [...] in an overnight snf, or couch-surfing.) Yes 04/14/2023 Are you worried [...] on file 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 Gender Identity Not on file Sexual Orientation Not on file Occupation Industry Job Start Date Job End Date disabled Not on file Not on file Not on file documented as of this encounter Plan of Treatment Not on file documented as of this encounter Visit Diagnoses Not on filedocumented in this encounter Care Teams Electrical Accessories I Assembler Relationship Specialty Start Date End Date Jonathan Sosa MD [address] [place] [address] PCP - General Internal Medicine 02/14/22 Swapna Lockwood Referring Physician ferryboat deckhand 12/29/14 Jonathan Sosa MD [address] [place] [address] Assigned PCP 01/17/22 Anne Lopez MD [address] [place] [address] [address] [place], [place] [address] Gastroenterology 08/03/22 Ruth Trinidad RP [address] [place] [address] Assigned MTM Pharmacist 10/08/23 documented as of this encounter
--- OUTSIDE RECORDS SUMMARY | 2025-01-01 11:27 | XMS_ITS | Encounter Summary ---
Author Organization [place] Address [address] [place] [address]. [place] [address] Care Team Providers Care Electrical Technology Instructor Name Role Phone vinayakAndreSwapna Joy Unavailable Unavail able Jonathan Sosa MD Primary Care Provider [phone] Jonathan Sosa MD Unavailable [phone] Anne Lopez MD Unavailable [phone] Ruth Trinidad [facility] Unavailable Encounter Details Date Type Department Care Team (Late st Contact Info) Description 12/06/2023 [facility] An[facility] [address] [place] [phone] Mary Kay Lucio, RN Social History [...] on file 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 Gender Identity Not on file Sexual Orientation Not on file Occupation Industry Job Start Date Job End Date disabled Not on file Not on file Not on file documented as of this encounter Plan of Treatment Not on file documented as of this encounter Visit Diagnoses Not on filedocumented in this encounter Care Teams Electrical Technology Instructor Relationship Specialty Start Date End Date Jonathan Sosa MD [address] [address] PCP - General Internal Medicine 02/14/22 Swapna Lockwood Referring Physician automotive lube technician 12/29/14 Jonathan Sosa MD [address] [address] Assigned PCP 01/17/22 Anne Lopez MD [address] [place] [address] [address] [place], [place] [address] Gastroenterology 08/03/22 Ruth Trinidad RPH [address] [place] [address] Assigned MTM Pharmacist 10/08/23 documented as of this encounter
--- OUTSIDE RECORDS SUMMARY | 2025-01-01 11:27 | XMS_ITS | Encounter Summary ---
Author Organization [place] Address [address] [place] [address]. [place] [address] Care Team Providers Care Pbx Manager Name Role Phone Swapna licea Nubia Unavailable Unavail able Jonathan Sosa MD Primary Care Provider [phone] Jonathan Sosa MD Unavailable [phone] Anne Lopez MD Unavailable [phone] Ruth Trinidad [facility] Unavailable Ruth Trinidad [facility] Unavailable Encounter Details Date Type Department Care Team (Late st Contact Info) Description 01/15/2023 [facility] Anticoagulation Clinic [address] [place] [address] Ander Tenorio, RN Social History Tobacco Use Types [...] on file 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 Gender Identity Not on file Sexual [...] documented as of this encounter Care Teams Pbx Manager Relationship Specialty Start Date End Date Jonathan Sosa MD [address] [place] [address] PCP - General Internal Medicine 02/14/22 Swapna Lockwood Referring Physician real estate professor 12/29/14 Jonathan Sosa MD [address] [place] [address] Assigned PCP 01/17/22 Anne Lopez MD [address] [place] [address] [address] [place] [address] Gastroenterology 08/03/22 Ruth Trinidad RPH [address] [place] [address] Pharmacist Pharmacist Crochet Machine Operator 09/06/23 10/09/23 Ruth Trinidad RPH [address] [place] [address] Assigned MTM Pharmacist 10/08/23 documented as of this encounter
--- OUTSIDE RECORDS SUMMARY | 2025-01-01 11:27 | XMS_ITS | Encounter Summary ---
Author Organization [facility] Address [address] [place] [address]. [place] [address] Care Team Providers Care Full Stack Java Developer Name Role Phone vinayak Swapna Nubia Unavailable Unavail able Jonathan Sosa MD Primary Care Provider Jonathan Sosa MD Unavailable [phone] Anne Lopez MD Unavailable [phone] Ruth Trinidad [facility] Unavailable Encounter Details Date Type Department Care Team (Late st Contact Info) Description 09/16/2024 [facility] [place] [address] [place] [phone] Isis Velez, RN Social History Tobacco Use Types Packs/Day [...] Answer Date Recorded PHQ-2 Score 0 05/05/2024 [facility] [place] [facility] Occupat ional [facility] - Occupational Stress [...] on file 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 Gender Identity Not on file Sexual Orientation Not on file Occupation Industry Job Start Date Job End Date disabled Not on file Not on file Not on file documented as of this encounter Plan of Treatment Not on file documented as of this encounter Visit Diagnoses Not on filedocumented in this encounter Care Teams Full Stack Java Developer Relationship Specialty Start Date End Date Jonathan Sosa MD [address] [place] [address] PCP - General Internal Medicine 02/14/22 Swapna Lockwood Referring Physician medical radiation tech 12/29/14 Jonathan Sosa MD [address] [place] [address] Assigned PCP 01/17/22 Anne Lopez MD [address] [place] [address] [address] [place], [place] [address] Gastroenterology 08/03/22 Ruth Trinidad RPH [address] [place], [place] [address] Assigned MTM Pharmacist 10/08/23 documented as of this encounter
--- OUTSIDE RECORDS SUMMARY | 2025-01-01 11:27 | XMS_ITS | Encounter Summary ---
Author Organization [facility] Address [address] [place] [address]. [place] [address] Care Team Providers Care Brazing Machine Operator Name Role Phone vinayak Swapna Nubia Unavailable Unavail able Jonathan Sosa MD Primary Care Provider [phone] Jonathan Sosa MD Unavailable [phone] Anne Lopez MD Unavailable [phone] Ruth Trinidad [facility] Unavailable Encounter Details Date Type Department Care Team (Late st Contact Info) Description 12/17/2023 [facility] [address] [place] [phone] Mira Mendez, RN Social History Tobacco [...] on file Legal Sex Female 3:08 AM LICENSED OCCUPATIONAL THERAPY ASSISTANT Gender Identity Not on file Sexual Orientation Not on file Occupation Industry Job Start Date Job End Date disabled Not on file Not on file Not on file documented as of this encounter Plan of Treatment Not on file documented as of this encounter Visit Diagnoses Not on filedocumented in this encounter Care Teams Brazing Machine Operator Relationship Specialty Start Date End Date Jonathan Sosa MD [address] [place] [address] PCP - General Internal Medicine 02/14/22 Swapna Lockwood Referring Physician mechanical shovel operator 12/29/14 Jonathan Sosa MD [address] [place] [address] Assigned PCP 01/17/22 Anne Lopez MD [address] [place] [address] [address] [place], [place] [address] Gastroenterology 08/03/22 Ruth Trinidad RP [address] [place] [address] Assigned MTM Pharmacist 10/08/23 documented as of this encounter
--- OUTSIDE RECORDS SUMMARY | 2025-01-01 11:27 | XMS_ITS | Encounter Summary ---
Author Organization [facility] Address [address] [place] [address]. [place] [address] Care Team Providers Care Weigher Bulker Name Role Phone Swapna licea Unavailable Unavail able Jonathan Sosa MD Primary Care Provider [phone] Jonathan Sosa MD Unavailable [phone] Anne Lopez MD Unavailable [phone] Ruth Trinidad [facility] Unavailable Ruth Trinidad [facility] Unavailable Encounter Details Date Type Department Care Team (Late st Contact Info) Description 01/04/2023 [facility] [address] [place] [address] Concepcion Knight RN Social History [...] on file 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 Gender Identity Not on file Sexual [...] documented as of this encounter Care Teams Weigher Bulker Relationship Specialty Start Date End Date Jonathan Sosa MD [address] [place] [address] PCP - General Internal Medicine 02/14/22 Swapna Lockwood Referring Physician freelance photographer 12/29/14 Jonathan Sosa MD [address] [place] [address] Assigned PCP 01/17/22 Anne Lopez MD [address] [place] [address] [address] [place], [place] [id number] Gastroenterology 08/03/22 Ruth Trinidad RPH [address] [place] [address] Pharmacist Pharmacist Signal Constructor 09/06/23 10/09/23 Ruth Trinidad RPH [address] [place] [address] Assigned MTM Pharmacist 10/08/23 documented as of this encounter
--- OUTSIDE RECORDS SUMMARY | 2025-01-01 11:28 | XMS_ITS | Encounter Summary ---
Author Organization [facility] Address [address] [place] [address]. [place] [address] Care Team Providers Care Produce Team Lead Name Role Phone Swapna licea Unavailable Unavail able Jonathan Sosa MD Primary Care Provider [phone] Jonathan Sosa MD Unavailable [phone] Anne Lopez MD Unavailable [phone] Ruth Trinidad [facility] Unavailable Ruth Trinidad [facility] Unavailable Encounter Details Date Type Department Care Team (Late st Contact Info) Description 01/23/[address] 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 Gender Identity Not on file Sexual [...] documented as of this encounter Care Teams Produce Team Lead Relationship Specialty Start Date End Date Jonathan Sosa MD [address] [place] [address] PCP - General Internal Medicine 02/14/22 Swapna Lockwood Referring Physician solder making supervisor 12/29/14 Jonathan Sosa MD [address] [place] [address] Assigned PCP 01/17/22 Anne Lopez MD [address] [place] [address] [address] [place], [place] [id number] Gastroenterology 08/03/22 Ruth Trinidad RPH [address] [place] [address] Pharmacist Pharmacist Chemistry Research Assistant 09/06/23 10/09/23 Ruth Trinidad RPH [address] [place] [address] Assigned MTM Pharmacist 10/08/23 documented as of this encounter
--- OUTSIDE RECORDS SUMMARY | 2025-01-01 11:28 | XMS_ITS | Encounter Summary ---
Author Organization [facility] Address [address] [place] [address]. [place] [address] Care Team Providers Care Terminal Block Assembler Name Role Phone Swapna licea [place] Unavailable Unavail able Jonathan Sosa MD Primary Care Provider [phone] Jonathan Sosa MD Unavailable [phone] Anne Lopez MD Unavailable [phone] Ruth Trinidad [facility] Unavailable Ruth Trinidad [facility] Unavailable Encounter Details Date Type Department Care Team (Late st Contact Info) Description 02/06/2023 [facility] [address] [place] [address] Andre Tenorio, RN Social History [...] on file Legal Sex Female 3:08 AM SDE Gender Identity Not on file Sexual Orientation [...] documented as of this encounter Care Teams Terminal Block Assembler Relationship Specialty Start Date End Date Jonathan Sosa MD [address] [place] [address] PCP - General Internal Medicine 02/14/22 Swapna Lockwood Referring Physician size cutter 12/29/14 Jonathan Sosa MD [address] [place] [address] Assigned PCP 01/17/22 Anne Lopez MD [address] [place] [address] [address] [place] [address] Gastroenterology 08/03/22 Ruth Trinidad RPH [address] [place] [address] Pharmacist Pharmacist Product Safety Lead 09/06/23 10/09/23 Ruth Trinidad RPH [address] [place] [address] Assigned MTM Pharmacist 10/08/23 documented as of this encounter
[2025-01-01 11:30] LABS: Albumin* 4.2 g/dL (3.3-5.0); Chloride* 104 mmol/L (96-114); Potassium* 4.1 mmol/L (3.6-5.1); Sodium* 139 mmol/L (135-149)
[2025-01-01 11:33] LABS: Alanine Aminotransferase* 15 U/L (4-35); Alkaline Phosphatase* 62 U/L (40-150); Anion Gap 5 mEq/L (7-15); Aspartate Amino Transferase* 24 U/L (12-35); Bilirubin Total* 0.3 mg/dL (0.1-1.5); Blood Urea Nitrogen* 15 mg/dL (7-30); Carbon Dioxide* 30 mmol/L (20-32); Creatinine* 0.5 mg/dL (0.5-1.5); Est. Creatinine Clearance* 41.36; Estimated Glomerular Filt Rate 105 ml/min; Total Protein* 7.0 g/dL (6.0-8.3)
[2025-01-01 11:34] LABS: Calcium* 9.4 mg/dL (8.4-10.6); Glucose* 116 mg/dL (60-115)
[2025-01-01 11:41] LABS: D Dimer Quantitative* < 0.27 ug/ml (0.00-0.50)
== END 2025-01-01 14:07 | disposition home or self-care (01) ==
PROVIDERS: Emergency Provider Internal Medicine; PCP Internal Medicine
DX: J18.9 Pneumonia, unspecified organism (principal); J44.9 Chronic obstructive pulmonary disease, unspecified; Z86.711 Personal history of pulmonary embolism; Z79.01 Long term (current) use of anticoagulants; Z85.118 Personal history of other malignant neoplasm of bronchus and lung
CPT/HCPCS: 36415; 71275; 80053; 84484; 85025; 85379; 99284; 99285; Q9967

== ENCOUNTER 2025-01-26 07:24 | Outpatient (CLI) | payer MEDICARE, MEDICAID, SELFPAY ==
--- NOTE | 2025-01-26 08:00 | CRLHL7_ITS ---
For Patients: As a result of the Century Cures Act, medical imaging exams and procedure reports are released immediately into your electronic medical record. You may view this report before your referring provider. If you have questions, please contact your health care provider. Indication: Follow-up pneumonia Technique: Postcontrast CT chest. 75 cc Isovue 370 intravenous contrast Please note that all CT scans at this facility use dose modulation, iterative reconstruction, and/or weight-based dosing when appropriate to reduce radiation dose to as low as reasonably achievable. Comparison: CT-PET 06/16/2024 and 12/27/2020. CT chest 01/01/2025 Findings: Masslike opacification within the left suprahilar lung in the left upper lobe is similar to the recent exams. Underlying emphysema. Small calcified granuloma within the right lower lobe. Stable nodular density within the right lower lobe which measures 4.8 millimeters, 4/114. Stable perifissural nodule measuring 3 millimeters on the right, 4/47. Stable small nodular density in the posterior left lung, 4/122. No pleural effusion. No pulmonary edema. Visualized thyroid is normal. Atherosclerotic changes. The pericardial effusion is unchanged. Stable subcarinal and hilar lymph nodes. No fracture. Discogenic spurring. Impression: Left upper lobe masslike consolidation is not significantly changed. This is related to posttreatment change regarding the known malignancy. Stable small bilateral pulmonary nodules elsewhere. Unchanged moderate pericardial effusion. Unchanged upper limits of normal mediastinal and bilateral hilar lymph nodes. Please note that all CT scans at this facility use dose modulation, iterative reconstruction, and/or weight-based dosing when appropriate to reduce radiation dose to as low as reasonably achievable. Dictated by Marcus Santamaria MD @ 01/26/2025 1:00:20 PM (Electronically Signed)
== END 2025-01-26 07:25 | disposition home or self-care (01) ==
LOC: CT 07:26
PROVIDERS: PCP Internal Medicine; Visit Provider Internal Medicine
DX: J18.9 Pneumonia, unspecified organism (principal); R91.8 Other nonspecific abnormal finding of lung field
CPT/HCPCS: 71260; Q9967

== ENCOUNTER 2025-03-02 10:25 | Outpatient (CLI) | payer MEDICARE, MEDICAID, SELFPAY | END 2025-03-02 10:26 | disposition home or self-care (01) | LOC: NFLDREF 10:26 | PROVIDERS: PCP Internal Medicine; Visit Provider Internal Medicine | DX: R53.83 Other fatigue (principal); E11.9 Type 2 diabetes mellitus without complications | CPT/HCPCS: 83540; 83550 ==